=== PATIENT | female | born 1950 | race Caucasian/White ===

== ENCOUNTER 2019-02-20 05:41 | Inpatient (IN) | payer MEDICARE ==
[~2019-02-20 05:41] MED LIST: Buffered Lidocaine 1% SYRIN* 1 ML/SYRINGE INTRADERM ONE
--- OUTSIDE RECORDS SUMMARY | 2019-02-20 05:45 | XMS REPORT | Continuity of Care Document ---
:1950 External Reference #:[id number] Author Name Gilberto Arreola M.D. 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 Onset: 02/11/2018 Morbid obesity Meera Estevez M.D. Onset: 02/11/2018 Localized, primary osteoarthritis of the pelvic Meera Estevez M.D. Onset: 12/2017 region and thigh Social History Type Date Description Comments Sex Unknown ETOH Use Denies alcohol use Tobacco Use Start: Unknown Patient has never smoked Recreational Drug Use Denies Drug Use Smoking Status Reviewed: 01/25/19 Patient has never smoked Exercise Type/Frequency Does not exercise Allergies, Adverse Reactions, Alerts Active Allergies Reaction Severity Comments Date Biaxin Nausea and Vomiting 12/22/2017 Nabumetone 12/22/2017 Morphine Nausea and Vomiting 12/22/2017 Fentanyl Nausea and Vomiting 12/22/2017 Nabumetone Nausea and Vomiting 12/22/2017 Lipitor possible muscle aches 01/19/2018 Pravastatin possible muscle aches 01/19/2018 Medications Active Medications SIG Qnty Indications Ordering Date Provider Gabapentin 1 by mouth every 30caps G57.22 Gilberto Arreola, 01/25/2019 300mg night at bedtime M.D. Capsules Rosuvastatin Calcium take 1 tablet by 90tabs E78.5 Rosalio Arrington 09/21/2018 mouth every other Merchant, DO FACC 5mg Tablets day Klor-Con M20 1 by mouth every 90tabs Joanie Forte, 08/01/2018 20Meq day N.P. Tablets ER Culturelle 1 by mouth Unknown Capsules everyday Hair Skin Nails Unknown Capsules Move Free Joint once daily Unknown Health Advanced glucosamine-condro itinn Tablets Vitamin C 1 by mouth every Unknown 1000mg day Tablets Dicloxacillin Sodium prn before Unknown property clerk 500mg Capsules Amoxicillin take 4 pills, 2 g Unknown 500mg 1 hour before Capsules dental or gi procedure Fish Oil 1 by mouth twice a Unknown 1000mg day Capsules Nasacort Allergy 24HR 2 spray both nares Unknown once daily 55mcg/Act Aerosol Tramadol HCL 1-2 tablets by Unknown 50mg mouth every 6 Tablets hours as needed pain Baclofen take 1/2 tab every Unknown 10mg Tablets 8 hours as needed for muscle spasm Zyrtec Allergy take one tablet by Unknown 10mg mouth in the Capsules evening Meloxicam 1 by mouth every Unknown 15mg Tablets day Citracal Plus daily Unknown Tablets Centrum 1 by mouth every 30tabs Unknown Tablets day Diltiazem HCL ER 1 by mouth every 90caps Rosalio S. Coated Beads day MerchantDO FACC 180mg Caps ER 24HR Flecainide Acetate 1 by mouth twice a 180tabs Rosalio S. day DO Mayur FACC 100mg Tablets Aspir-81 1 by mouth every Unknown 81mg Tablets day Lisinopril 1 by mouth every Unknown 5mg Tablets day Omeprazole 1 by mouth every Unknown 20mg day Capsules Medications Administered in Office Medication SIG Qnty Indications Ordering Provider Date Depomedrol 40MG Meera Estevez M.D. 02/11/2018 Injection Immunizations Description No Information Available Vital Signs Date Vital Result Comment 01/25/2019 10:57am Height 65 inches 5'5" Weight 230.00 lb Heart Rate 61 /min BP Systolic 138 mmHg BP Diastolic 78 mmHg Body Temperature 98.2 F Pain Level 5 BMI (Body Mass Index) 38.3 kg/m2 01/06/2019 3:55pm Height 65 inches 5'5" Weight 233.00 lb Heart Rate 60 /min BP Systolic 130 mmHg BP Diastolic 82 mmHg Respiratory Rate 16 /min Pain Level 8 BMI (Body Mass Index) 38.8 kg/m2 Results Test Date Facility Test Result H/L Range Note Basic Metabolic 09/13/2018 [facility] Sodium 141 mmol/L Normal 135-145 [address] [place] [address] [phone] Potassium 4.0 mmol/L Normal 3.5-5.0 Chloride 107 mmol/L Normal 101-111 Co2 Carbon Dioxide 24 mmol/L Normal 22-32 Anion Gap 10 mmol/L Normal 2-11 Glucose 87 mg/dL Normal 70-100 Blood Urea Nitrogen 24 mg/dL Normal 6-24 Creatinine 0.56 mg/dL Normal 0.51-0.95 BUN/Creatinine Ratio 42.9 High 8-20 Calcium 9.4 mg/dL Normal 8.6-10.3 Egfr Non- 107.3 >60 Egfr 129.9 >60 1 Basic Metabolic 08/01/2018 [facility] Sodium 143 mmol/L Normal 135-145 [address] [place] [address] [phone] Potassium 3.7 mmol/L Normal 3.5-5.0 Chloride 107 mmol/L Normal 101-111 Co2 Carbon Dioxide 27 mmol/L Normal 22-32 Anion Gap 9 mmol/L Normal 2-11 Glucose 101 mg/dL High 70-100 Blood Urea Nitrogen 23 mg/dL Normal 6-24 Creatinine 0.59 mg/dL Normal 0.51-0.95 BUN/Creatinine Ratio 39.0 High 8-20 Calcium 9.8 mg/dL Normal 8.6-10.3 Egfr Non- 101.1 >60 Egfr 122.3 >60 2 Laboratory test 08/01/2018 [facility] Magnesium 2.2 mg/dL Normal 1.9-2.7 finding [address] [place] [address] [phone] TSH (Thyroid Stim Horm) 1.81 mcIU/mL Normal 0.34-5.60 1 Because ethnic data is not always readily available, this report includes an eGFR for both -Americans and non- Americans. The National Kidney Disease Education Program (NKDEP) does not endorse the use of the MDRD equation for patients that are not between the ages of 18 and 70, are , have extremes of body size, muscle mass, or nutritional status, or are non- or non-. According to the National Kidney Foundation, irrespective of diagnosis, the stage of the disease is based on the level of kidney function: Stage Description GFR(mL/min/1.73 m(2)) 1 Kidney damage with normal or decreased GFR 90 2 Kidney damage with mild decrease in GFR 60-89 3 Moderate decrease in GFR 30-59 4 Severe decrease in GFR 15-29 5 Kidney failure <15 (or dialysis) 2 Because ethnic data is not always readily available, this report includes an eGFR for both -Americans and non- Americans. The National Kidney Disease Education Program (NKDEP) does not endorse the use of the MDRD equation for patients that are not between the ages of 18 and 70, are , have extremes of body size, muscle mass, or nutritional status, or are non- or non-. According to the National Kidney Foundation, irrespective of diagnosis, the stage of the disease is based on the level of kidney function: Stage Description GFR(mL/min/1.73 m(2)) 1 Kidney damage with normal or decreased GFR 90 2 Kidney damage with mild decrease in GFR 60-89 3 Moderate decrease in GFR 30-59 4 Severe decrease in GFR 15-29 5 Kidney failure <15 (or dialysis) Procedures Date Code Description Status 12/07/2018 290914084 Bone Mineral Density Test Completed 12/07/2018 [id number] Mammogram Completed 12/02/2018 71625 ECHO Transthoracic, Real-Time 2D With Doppler And Completed Color Flow 12/02/2018 28074 ECHO Transthoracic, Real-Time 2D With Doppler And Completed Color Flow Medical Devices Description No Information Available Encounters Type Date Location Provider Dx Diagnosis Office Visit 01/06/2019 Orth[facility] Meera Estevez, M25.551 Pain in right hip 3:15p [facility] M25.552 Pain in left hip M16.11 Unilateral primary osteoarthritis, right hip M16.12 Unilateral primary osteoarthritis, left hip Z68.38 Body mass index (BMI) 38.0-38.9, adult E66.01 Morbid (severe) obesity due to excess calories Office Visit 09/21/2018 [place] Rosalio Arrington E78.5 Hyperlipidemia, 1:40p Cardiology Of DO Mayur unspecguillermina [facility] I47.1 Supraventricular tachycardia Assessments Date Code Description Provider 01/25/2019 M16.11 Unilateral primary osteoarthritis, right Gilberto Arreola M.D. 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 01/06/2019 M25.551 Pain in right hip Meera Estevez M.D. 01/06/2019 M25.552 Pain in left hip Meera Estevez M.D. 01/06/2019 M16.11 Unilateral primary osteoarthritis, right Meera Estevez M.D. hip 01/06/2019 M16.12 Unilateral primary osteoarthritis, left Meera Estevez M.D. hip 01/06/2019 Z68.38 Body mass index (BMI) 38.0-38.9, adult Meera Estevez M.D. 01/06/2019 E66.01 Morbid (severe) obesity due to excess Meera Estevez M.D. calories 12/02/2018 I35.9 Nonrheumatic aortic valve disorder, Traveling ECHO 1 unspecified 12/02/2018 I35.1 Nonrheumatic aortic (valve) insufficiency Rosalio Merchant, [facility] 12/02/2018 I35.1 Nonrheumatic aortic (valve) insufficiency Traveling ECHO 1 09/21/2018 E78.5 Hyperlipidemia, unspecified Rosalio Merchant [facility] 09/21/2018 I47.1 Supraventricular tachycardia Rosalio Merchant [facility] Plan of Treatment Future Appointment(s):03/22/2019 11:30 am [facility] Gilberto Arreola M.D.M16.11 Unilateral primary osteoarthritis, right hip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, left lower limbNew Medication:Gabapentin 300 mg - 1 by mouth every night at bedtimeFollow up:4 weeks after surgery Functional Status Description No Information Available Mental Status Description No Information Available Referrals Description No Information Available
--- OUTSIDE RECORDS SUMMARY | 2019-02-20 05:45 | XMS REPORT | Continuity of Care Document ---
:1950 External Reference #:[id number] Author Name Winifred Jurado M.D. Address [address] [place] [address] Care Team Providers Name Role Phone Winifred Jurado M.D. 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 Onset: 09/13/2018 Coronary atherosclerosis Winifred Jurado M.D. Onset: 09/13/2018 Essential hypertension Winifred Jurado M.D. Onset: 11/29/2018 Conduction disorder of the heart Winifred Jurado M.D. Onset: 11/29/2018 Osteoarthritis of hip Winifred Jurado M.D. Onset: 11/29/2018 Aortic valve regurgitation Winifred Jurado M.D. Onset: 12/13/2018 Social History Type Date Description Comments Sex Unknown Tobacco Use Start: Unknown Never Smoked Cigarettes ETOH Use Denies alcohol use Tobacco Use Start: Unknown Patient has never smoked Smoking Status Reviewed: 11/29/18 Patient has never smoked Exercise Does not exercise too much pain from Type/Frequency osteoarthritis Allergies, Adverse Reactions, Alerts Active Allergies Reaction Severity Comments Date Biaxin 12/16/2017 Nabumetone 12/16/2017 Morphine 12/16/2017 Fentanyl 12/16/2017 Medications Active Medications SIG Qnty Indications Ordering Date Provider Erythromycin put 1cm ribbon on 3.500gm H01.004 Joselin Harvey 01/13/2019 5mg/GM bilat eyelids at [facility] Ointment bedtime for 10 days Clobetasol Propionate apply thin layer 30gm L30.9 Winifred Jurado 11/29/2018 to affected area M.DAntoinette 0.05% Cream twice a day x5 days and as needed Culturelle 1-2 po qd Unknown Capsules Hair, Skin & Nails 3 po qd Unknown Glucosamine 2 po qd Unknown Chondroitin Complex Capsules Vitamin C 1 po qd - bid Unknown 1000mg Tablets Gabapentin 1 by mouth qhs Unknown 300mg Capsules Rosuvastatin Calcium 1 by mouth every Unknown Mon, Wed and Fri 5mg Tablets Potassium Chloride ER 1 by mouth every Unknown day 20Meq Tablets ER Dicloxacillin Sodium prn 1 hour 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 Amoxicillin prn 1 hour prior Unknown 500mg to dental appt. Tablets Fish Oil once daily Unknown 1400mg Capsules Nasacort Allergy 24HR spray 2 sprays in Unknown each nostril at 55mcg/Act Aerosol bedtime Tramadol HCL 1 by mouth every 6 120tabs [facility], 50mg hours as needed M.D. Tablets Baclofen 1/2 to 1 tab by 90tabs [facility], 10mg Tablets mouth 2-3 times M.D. daily as needed Zyrtec Allergy 1 by mouth daily. Unknown 10mg Capsules Meloxicam 1 by mouth every 90tabs [facility], 15mg Tablets day M.D. Citra Calcium once daily Unknown 500/[id number] Chewtabs Centrum Silver Womens once daily Unknown Tablets Cardizem CD once daily Unknown 180mg Caps ER 24HR Flecainide Acetate bid Unknown 100mg Tablets Aspirin 81 Low Dose 1 by mouth every Unknown day 81mg Chewtabs Lisinopril 1 by mouth every 90tabs [facility], 5mg Tablets day M.D. Omeprazole 1 by mouth every 90caps Butch Kaplan 20mg day MD Maria C Capsules DR Immunizations CPT Code Status Date Vaccine Lot # [id number] Given 11/29/2018 Pneumococcal Immunization [id number] Given 03/18/2018 High-Dose, Influenza Virus Vacccine-fluzone 65 and older Vital Signs Date Vital Result Comment 02/07/2019 11:34am BP Systolic 154 mmHg BP Diastolic 60 mmHg Heart Rate 60 /min Body Temperature 98.8 F Respiratory Rate 18 /min Height 65 inches 5'5" Weight 226.56 lb BMI (Body Mass Index) 37.7 kg/m2 01/13/2019 11:08am BP Systolic 130 mmHg BP Diastolic 74 mmHg Heart Rate 78 /min Body Temperature 97.9 F Height 65 inches 5'5" Results Test Date Facility Test Result H/L Range Note Lipid Profile 12/13/2018 [facility]) Cholesterol 213 mg/dL High 120-200 Triglycerides 56 mg/dL 30-200 HDL Cholesterol 81 mg/dL 30-85 LDL (Calculated) 121 CALC 0-129 VLDL Cholesterol 11 mg/dL 0-50 HDL Risk Factor 2.6 CALC 0.0-4.4 Laboratory test 12/13/2018 [facility]) Free T4 1.11 ng/dL 0.75- 1.54 finding TSH 1.67 mIU/L 0.50-6.00 CBC Electronic Fma 12/13/2018 [facility]) WBC 4.7 x10^3/UL 4.0- 10.0 RBC 4.29 x10^6/UL 3.93-6.00 HGB 14.1 g/dL 12.0-17.0 HCT 42 % 35-50 MCV 98.1 fL High 80.0-95.0 MCH 32.9 pg High 25.6-32.2 MCHC 33.5 g/dL 32.2-36.0 RDW-CV 12.7 % 11.6-14.4 PLT 272 x10^3/UL 163-400 MPV 8.2 fL Low 9.4-12.4 Mili# 2.73 x10^3/UL 1.56-6.13 Lymph# 1.37 x10^3/UL 1.18-3.74 [place]# 0.46 x10^3/UL 0.24-0.82 Eos # 0.1 x10^3/UL 0.0-0.5 Baso # 0.03 x10^3/UL 0.01-0.08 Mili% 58.0 % 34.0-70.0 Lymph % 29.1 % 20.0-52.0 [place]% 9.8 % 5.0-12.0 Eos% 2.5 % 0.7-7.0 Baso% 0.6 % 0.1-1.2 Comprehensive Metabolic 12/13/2018 [facility]) Sodium 144 mEq/L 134-149 Prof Potassium 3.9 mEq/L 3.6-5.5 Chloride 101 mEq/L 94-112 Carbon Dioxide 25 mEq/L 21-32 Glucose 94 mg/dL 70-105 BUN 20 mg/dL 6-26 Creatinine 0.6 mg/dL 0.6-1.4 BUN/Creat Ratio 33.3 CALC 8.0-36.0 Calcium 9.5 mg/dL 8.6-10.2 Total Protein 7.1 g/dL 6.4-8.3 Albumin 4.6 g/dL 3.8-5.5 Globulin 2.5 g/dL 2.0-4.8 A/G Ratio 1.8 CALC 0.6-2.3 Alk. Phosphatase 79 U/L 30-110 Alt (SGPT) 18 U/L 7-35 Ast (Sgot) 19 U/L 5-34 Total Bilirubin 0.5 mg/dL 0.2-1.3 GFR Non- >60 ml/min/1.73m^ >=60 GFR >60 ml/min/1.73m^ >=60 Basic Metabolic Panel 09/13/2018 [facility] Sodium 141 mmol/L Normal 135-145 Potassium 4.0 mmol/L Normal 3.5-5.0 Chloride 107 mmol/L Normal 101-111 Co2 Carbon Dioxide 24 mmol/L Normal 22-32 Anion Gap 10 mmol/L Normal 2-11 Glucose 87 mg/dL Normal 70-100 Blood Urea Nitrogen 24 mg/dL Normal 6-24 Creatinine 0.56 mg/dL Normal 0.51-0.95 BUN/Creatinine Ratio 42.9 High 8-20 Calcium 9.4 mg/dL Normal 8.6-10.3 Egfr Non- 107.3 >60 Egfr 129.9 >60 1 1 Because ethnic data is not always [...] dialysis) Procedures Date Code Description Status 12/07/2018 [id number] Mammogram Completed Medical Devices Description No Information Available Encounters Type Date Location Provider Dx Diagnosis Office Visit 01/13/2019 [facility] Joselin Harvey H01.004 Unspecified 11:00a [facility] blepharitis left upper eyelid H01.001 Unspecified blepharitis right upper eyelid 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 Office Visit 11/29/2018 1:20p [facility] Office Winifred Jurado Z00.01 Encounter for M.[place] general adult medical exam w abnormal findings L30.9 Dermatitis, unspecified M16.9 Osteoarthritis of hip, unspecified I10 Essential (primary) hypertension I49.9 Cardiac arrhythmia, unspecified Z12.31 Encntr screen mammogram for malignant neoplasm of breast I35.9 Nonrheumatic aortic valve disorder, unspecified Z12.11 Encounter for screening for malignant neoplasm of colon R01.1 Cardiac murmur, unspecified Z23 Encounter for immunization Office Visit 08/23/2018 11:00a [facility] Office Joselin Harvey M16.9 Osteoarthritis of [facility] hip, unspecified M17.9 Osteoarthritis of knee, unspecified Assessments Date Code Description Provider 02/07/2019 Z01.818 Encounter for other preprocedural Winifred Jurado M.D. examination 02/07/2019 M16.9 Osteoarthritis of hip, unspecified Winifred Jurado M.D. 02/07/2019 I10 Essential (primary) hypertension Winifred Jurado M.D. 02/07/2019 I49.9 Cardiac arrhythmia, unspecified Winifred Jurado M.D. 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 11/29/2018 Z00.01 Encounter for general adult medical Winifred Jurado M.D. examination with abnorma 11/29/2018 L30.9 Dermatitis, unspecified Winifred Jurado M.D. 11/29/2018 M16.9 Osteoarthritis of hip, unspecified Winifred Jurado M.D. 11/29/2018 I10 Essential (primary) hypertension Winifred Jurado M.D. 11/29/2018 I49.9 Cardiac arrhythmia, unspecified Winifred Jurado M.D. 11/29/2018 Z12.31 Encounter for screening mammogram for Winifred Jurado M.D. malignant neoplasm of 11/29/2018 I35.9 Nonrheumatic aortic valve disorder, Winifred Jurado M.D. unspecified 11/29/2018 Z12.11 Encounter for screening for malignant Winifred Jurado M.D. neoplasm of colon 11/29/2018 R01.1 Cardiac murmur, unspecified Winifred Jurado M.D. 11/29/2018 Z23 Encounter for immunization Winifred Jurado M.D. 08/23/2018 M16.9 Osteoarthritis of hip, unspecified Joselin Wells NP 08/23/2018 M17.9 Osteoarthritis of knee, unspecified Joselin Wells NP Plan of Treatment Future Appointment(s):04/04/2019 2:20 pm - Winifred Jurado M.D. at [facility]02/07/2019 - Winifred Jurado M.D.Z01.818 Encounter for other preprocedural examinationComments:Cleared for surgery. Will fax note to ordering physician. HOLD NSAIDS and all supplements 7 days prior to [id number] Osteoarthritis of hip, [id number] Essential (primary) hypertensionComments:The patient will continue to monitor blood pressure and let me know the blood pressure results if there are readings persistently above 140/90. Goal blood pressure is less than 130/80. Recommend low salt/cardiac diet such as the Mediterranean diet and routine exercise at least 30 minutes a day.I49.9 Cardiac arrhythmia, unspecifiedComments:seeing cardiologyAllComments:Medication Management Patient Understands medications she's taking? Yes No Are there Barriers to Adherence? Yes No Has the patient been asked about herbal supplements and therapies, and OTC meds? Yes No Functional Status Functional Condition Comment Date Status Hemiwalker is used to ambulate Active Mental Status Description No Information Available Referrals Refer to Reason for Referral Status Appt Date [facility] Echocardiogram jw Sent [facility] [place] [address] [phone]
[2019-02-20] MEDS ORDERED: Dexamethasone IV* 4 MG/ML 1 ML (4 MG) IV SLOW PU ONE (06:00)
[2019-02-20] MEDS ORDERED: Lactated Ringers 1000 ML Bag* 1,000 ML IV SCH (06:00)
[2019-02-20] MEDS ORDERED: Dexamethasone IV* 4 MG/ML 1 ML (4 MG) ONE (06:12)
[2019-02-20] MEDS ORDERED: Buffered Lidocaine 1% SYRIN* 1 ML/SYRINGE INTRADERM ONE (06:12)
[2019-02-20] MEDS ORDERED: ceFAZolin 2 GM in NS PREMIX(*) 2 GM/100 ML BAG IVPB ONE (06:12)
[2019-02-20] MEDS ORDERED: ROPIVACAINE 5 MG/ML 30 ML BTL (0.5%) ONE (07:07)
[2019-02-20] MEDS ORDERED: Ropivacaine (OR use only) 2 MG/ML 10 ML ONE (07:07)
[2019-02-20] MEDS ORDERED: Phenylephrine 10 MG/ML VIAL* 1 ML VIAL ONE (07:09)
[2019-02-20] MEDS ORDERED: Ondansetron INJ* 2 MG/ML VIAL ONE (07:10)
[2019-02-20] MEDS ORDERED: Bupivacaine 0.5% SDV PF* 30ML VIAL ONE (07:10)
[2019-02-20] MEDS ORDERED: Propofol* 10 MG/ML 20 ML BTL ONE ×2 (07:10→09:03)
[2019-02-20] MEDS ORDERED: Midazolam* 1 MG/ML 5 ML VIAL (5 MG) ONE ×2 (07:13→08:25)
[2019-02-20] MEDS ORDERED: KETAMINE HCL* 50 MG/ML 10 ML VIAL ONE (07:13)
[2019-02-20] MEDS ORDERED: Bupivacaine 0.5% W/EPI SDV* 10 ML VIAL INJ ONE (07:19)
[2019-02-20] MEDS ORDERED: Lidocaine 2% PF * 5 ML VIAL ONE (08:11)
[2019-02-20] MEDS ORDERED: Naloxone* 0.4 MG/ML 1 ML VIAL IV PRN (08:37)
[2019-02-20] MEDS ORDERED: Scopolamine 1.5 mg* PATCH TRANSDERM PRN (08:37)
[2019-02-20] MEDS ORDERED: DiMENhydriNATE IV* 50 MG/ML VIAL IV PUSH PRN (08:37)
[2019-02-20] MEDS ORDERED: Ondansetron INJ* 2 MG/ML VIAL IV PRN ×2 (08:37→10:22)
[2019-02-20] MEDS ORDERED: diPHENhydraMINE PO* 25 MG PO PRN (10:22)
[2019-02-20] MEDS ORDERED: Temazepam CAP* 15 MG PO PRN (10:22)
[2019-02-20] MEDS ORDERED: Ondansetron ODT TAB* 4 MG PO PRN (10:22)
[2019-02-20] MEDS ORDERED: traMADol TAB* 50 MG PO PRN (10:22)
[2019-02-20] MEDS ORDERED: Polyethylene Glycol 3350* 17 GM PACKET PO PRN (10:22)
[2019-02-20] MEDS ORDERED: Magnesium Hydroxide LIQ* 30 ML UDC PO PRN (10:22)
[2019-02-20] MEDS ORDERED: diPHENhydraMINE IV* 50 MG/ML 1 ml VIAL (BENADRYL) IV PRN (10:22)
[2019-02-20] MEDS ORDERED: HYDROmorphone INJ1* 1 MG/ML SYRINGE ONE ×2 (10:29→15:12)
[2019-02-20] MEDS: HYDROmorphone INJ1* 1 MG/ML SYRINGE IV PRN ×5 (10:30→11:09)
[2019-02-20] MEDS ORDERED: traMADol TAB* 50 MG ONE (10:38)
[2019-02-20] MEDS ORDERED: oxyCODONE/Acetamin 5/325 MG* TAB ONE (11:15)
[2019-02-20] MEDS: oxyCODONE/Acetamin 5/325 MG* TAB PO PRN ×2 (11:20→21:46)
[2019-02-20] MEDS: Cyclobenzaprine TAB* 10 MG PO PRN ×2 (11:32→21:47)
[2019-02-20] MEDS: Lactated Ringers 1000 ML Bag* 1,000 ML IV SCH ×2 (12:25→22:01)
--- NOTE | 2019-02-20 13:09 | OP ---
DATE OF OPERATION: 02/20/19 - ROOM #348 DATE OF : 46 ATTENDING SURGEON: Gilberto Arreola MD ASSISTANTS: 1. Ino Loza RPA 2. Cindi Condon RPA ANESTHESIA: Spinal sedation. PRE-OP DIAGNOSIS: Osteoarthritis, right hip. POST-OP DIAGNOSIS: Osteoarthritis, right hip. OPERATIVE PROCEDURE: Right total hip arthroplasty. INDICATIONS: Ms. Rowley is a 68-year-old female who has had a long history of troubles with her joints. She had been seen by 2 other orthopedists and because of the technical difficulties with doing a hip replacement because of her weight, she was referred to me for another opinion. I discussed with her that with being in the lateral decubitus position, some of her fat would roll to the side and we would hopefully be able to have good exposure for the surgery. Additionally, she is not a candidate for the minimal invasive approaches that she was interested in, but I discussed with her that with a classic posterolateral incision, we should be able to adequately place a hip replacement. Risks of surgery such as infection, scar formation, stiffness, DVT , pulmonary embolism, and hardware failure were some of the risks discussed. She had been declared medically optimized and wished to proceed. I discussed with her we would work to try and get most of her length back; but, considering she was about 2 cm short on this side because of bone loss and bony destruction , that I was unsure we would be able to get all of it back. ESTIMATED BLOOD LOSS: 250 cc COMPLICATIONS: None. HARDWARE: Chacho reduced neck standard offset, 12.5 M/L taper, +0 36-mm head, 52-mm Continuum cup with two screws, 15-degree elevated liner. DESCRIPTION OF PROCEDURE: The patient had a block placed in the holding area and was brought back to the OR. Spinal anesthesia was introduced. Wallace catheter was placed. She was then rolled into the left lateral decubitus position and an axillary roll was placed. She reported she was quite comfortable in that position after it was adjusted. She was secured with a pegboard and the right hip area was prepped and then draped. Incision was made centered about where I thought I could feel the greater trochanter but I came posteriorly some because of a large exuberant fatty area which was more lateral. Incision was carried down to the skin and subcutaneous fat. Small bleeders encountered were ligated using electrocautery. Fascia was eventually exposed and a large vessel was seen crossing the fascia. This was tied off and the fascia was sharply incised. Greater trochanter was present underneath. Partial detachment of the abductors was present. Hohmann was placed under the gluteus medius/gluteus minimus and nice exposure of the short external rotators and piriformis was obtained. With rotation of the leg, I was able to put some tension on them and release piriformis, short external rotators, and capsule. T -capsulotomy was made and hip was then dislocated. Damage on the femoral head was immediately evident. Cutting guide was placed and the femoral neck was marked. Femoral head was then resected. Anterior retractor was then placed and pulling the femur forward, good exposure of the acetabulum was obtained. Labrum was taken down sharply using a [place] blade and she appeared how it looked when she was templated. Specifically, she was already all the way down to her medial wall, so I knew I did not want to ream aggressively. Beginning with a 46 reamer, she was gently reamed so that I would slowly expand my edges. At 50, I had a good [id number] fit and with 51, ended up thinning the posterior rim a little bit. Trial was placed and I still had a solid fit with a trial and a 52 cup was called for. Cup was then impacted into place and I could rock her entire torso by the cup. Two screws were placed and good squeak was obtained with both. Trial liner was placed and attention was turned to the femur. She had quite the osteophyte posteriorly which was taken down using the rongeur and then the box osteotome was used to open the femoral canal. Canal finder was then easily passed. Beginning with a 4 broach, she was progressively broached. As templated, the 11 countersunk some and at 12.5, I sat quite nicely. Calcar planer was used just to smooth the edge of the femoral neck. With a reduced neck trial and a 0 head, she was reduced and had very good stability. She would lever out as she came past 90 degrees because of how her thigh fat would hit her belly fat. The hip itself seemed nice and stable. Similarly with adduction, she would start to lever out at about 45 degrees with internal rotation. With full adduction, she did not lever out. On extension and external rotation, she was nice and stable. Coming back to dislocate the hip, when the head and neck were removed and the broach handle was placed, the broach, I could rock her entire leg by the broach handle. 12.5 M /L taper stem was called for as was the elevated liner. Trial instrumentation was removed and the hip was copiously pulse lavaged. Liner was then impacted into place as was the M/L taper. Zero head was also impacted into place. She was taken through range of motion, had a same wonderful stability that she had before. Hip was again copiously pulse lavaged and the fascia was repaired using interrupted 0 Vicryl sutures. I was unable to get the entire oblique portion to come together because I also had increased her offset even with the reduced neck. Her leg length also appeared significantly improved where she had about 18 mm, she almost had 2 cm leg length discrepancy and I believe I corrected her by at least a cm and a half. This also led to my inability to fully close the fascia securely. Hip was again copiously pulse lavaged. Short external rotators and capsule have repaired to the posterior aspect of the greater trochanter. Hip was again copiously pulse lavaged and fat was repaired in 3 layers. Skin was closed using isela. Sterile dressing and an abduction pillow were applied in the OR. The patient was then rolled onto the hospital bed , was stable on transfer to the recovery room. [id number]/CPS #: [id number] NII
[2019-02-20] MEDS: Potassium Chlor TAB* 20 MEQ TAB.ER PO SCH (13:30)
[2019-02-20] MEDS: Acetaminophen TAB* 325 MG PO SCH ×2 (13:31→21:47)
[2019-02-20] MEDS: oxyCODONE TAB* 5 MG TAB PO PRN ×2 (15:16→19:58)
--- NOTE | 2019-02-20 15:16 | CONS ---
CONSULTATION REPORT: DATE OF CONSULT: 02/20/19 REQUESTING PROVIDER: Dr. Arreola. REASON FOR CONSULT: Co-management of chronic medical condition. HISTORY OF PRESENT ILLNESS: Darcy Rowley is a 68-year-old white female with past medical history significant for SVT, hypertension, hyperlipidemia and moderate aortic regurgitation, who presented for an elective right total hip arthroplasty today with Dr. Arreola. The patient failed outpatient conservative medical therapy for her right hip osteoarthritis and has elected to proceed with surgery. The patient is evaluated on the medical floor after surgery has been performed. The patient is feeling well. She feels her pain is well controlled. She denies chest pain, difficulty breathing, fever or chills, headache or abdominal pain, nausea or vomiting. The patient tells me that she has prior history of hypothyroidism for 3 months over 30 years ago. Upon review of outpatient medical records, at her most recent visit with her primary care provider, Dr. Winifred Jurado, her TSH was within normal limits this year. She has been having ongoing hair loss, which was previously explained to her by a cardiology provider that it is possibly an adverse side effect of her diltiazem. PAST MEDICAL HISTORY: 1. Hypertension. 2. Hyperlipidemia. 3. History of SVT. 4. Obesity. 5. Moderate aortic regurgitation. 6. GERD. PAST SURGICAL HISTORY: 1. Posterior cervical fusion. 2. Appendectomy. 3. Bilateral total knee replacements. 4. Right shoulder surgery. 5. Bilateral foot triple arthrodesis. HOME MEDICATIONS: 1. Baclofen 10 mg p.o. daily. 2. Aspirin 81 mg p.o. daily. 3. Ascorbic acid 1000 mg p.o. b.i.d. 4. Dicloxacillin 500 mg p.o. daily p.r.n. before boiling off winder. 5. Clobetasol cream 1 application topically b.i.d. p.r.n. rash. 6. Cetirizine 10 mg p.o. daily. 7. Calcium citrate 20 mg p.o. daily. 8. Culturelle 1 tab p.o. daily. 9. Glucosamine/chondroitin 1 tab p.o. daily. 10. Gabapentin 300 mg p.o. at bedtime. 11. Flecainide 100 mg p.o. b.i.d. 12. Omeprazole 20 mg p.o. daily. 13. Fish oil 1 capsule p.o. b.i.d. 14. Folic acid/iron/calcium vitamin 1 cap p.o. daily. 15. Multivitamin 1 tab p.o. daily. 16. Meloxicam 15 mg p.o. daily. 17. Lisinopril 5 mg p.o. daily. 18. Diltiazem 180 mg p.o. daily. 19. Triamcinolone nasal spray 2 sprays each nostril daily. 20. Tramadol 50 mg p.o. q.6 hours p.r.n. moderate pain. 21. Rosuvastatin 5 mg p.o. at bedtime. 22. Potassium chloride 20 mEq p.o. daily. 23. Amoxicillin 2000 mg p.o. p.r.n. 1 hour prior to dental or GI procedure. ALLERGIES: The patient has reaction of myalgias to LIPITOR and PRAVASTATIN. The patient has adverse reaction of GI upset to NABUMETONE, MORPHINE, FENTANYL and CLARITHROMYCIN. FAMILY HISTORY: The patient's mother from complications with diabetes at age 64. The patient's father at age 85 due to complications related to septic knee. He had a history of hypertension and CHF. 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 She is new to the area within the last year, originally from [place], [place]. She is and has 1 child. She denies illicit drug use, alcohol use and tobacco use. She does have secondhand smoke exposure due to her smoking in the past. REVIEW OF SYSTEMS: An 11-point review of systems was completed and all pertinent positives and negatives are as above in the HPI. All other systems are negative. PHYSICAL EXAM: General: Obese elderly white female, lying upright in hospital bed, appearing comfortable, in no acute distress. Head: Normocephalic, atraumatic. Eyes: PERRLA. Sclerae anicteric. ENT: Mucous membranes moist. Neck: Supple. Lungs: Clear to auscultation throughout. Chest expansion is symmetrical with respiration. Cardio: Regular rate and rhythm without murmurs , rubs, or gallops. Abdomen: Abdomen is soft, nontender, nondistended. No hepatomegaly. Extremities: No clubbing, cyanosis, or edema. Able to move all extremities. Neuro: The patient is alert and oriented x3. No focal deficits. ASSESSMENT AND PLAN: Darcy Rowley is a 68-year-old white female with past medical history significant for hypertension, hyperlipidemia, supraventricular tachycardia, who is status post elective right total hip arthroplasty with Dr. Arreola today. Hospital Medicine has been consulted for co-management of chronic medical conditions. 1. Supraventricular tachycardia. I will continue the patient's home diltiazem and flecainide. I will check the patient's magnesium tomorrow in addition to the BNP that has been ordered for tomorrow. I have ordered telemetry for the patient while she is in the hospital. Continue the patient's potassium and magnesium supplementation. 2. Hypertension. The patient's home lisinopril was 5 mg p.o. daily, I will continue this, but with holding parameters to hold for a systolic blood pressure of less than 110. She is overall normotensive here at the hospital today and we will continue to monitor. 3. Hyperlipidemia. The patient takes rosuvastatin at home and does have a history of myalgias to Lipitor and I will contact the pharmacy to see if they have any rosuvastatin to give this patient while she is in the hospital. Otherwise, her family should be notified to bring this medication. 4. Gastroesophageal reflux disease. The patient's home PPI will be continued. 5. Status post right total hip arthroplasty. It appears that the orthopedic team has started Coumadin for DVT prophylaxis. All other management per Orthopedic Surgery. 6. Disposition: Per Orthopedic Surgery. Thank you for allowing us to participate in the care of this patient. We will follow along during this admission. ROMAN BOWLING [id number]/CPS #: [id number] MTDD
--- NOTE | 2019-02-20 16:26 | PN ---
Progress Note - Progress Note Date of Service: 02/20/19 Note: Pt seen at bedside POD 0 she is feeling well though had significant hip pain with weight bearing. denies any CP, SOB, dizziness, nausea. DF/PF intact, DP2+, sensation intact to light touch distally. Calves supple and nontender.
[2019-02-20] MEDS: ceFAZolin 1 GM ADVAN(*) 1 GM in NS 0.9% 50 ML* 50 ML IVPB SCH ×2 (16:27→23:56)
[2019-02-20] MEDS ORDERED: Lisinopril TAB* 5 MG PO SCH (17:00)
[2019-02-20] MEDS ORDERED: Warfarin TAB(*) 10 MG PO ONE (17:00)
[2019-02-20] MEDS: Lisinopril TAB* 5 MG PO SCH (17:50)
[2019-02-20] MEDS: Baclofen TAB* 10 MG PO SCH (18:02)
[2019-02-20] MEDS: Cetirizine* 10 MG TAB PO SCH (18:02)
[2019-02-20] MEDS: Gabapentin CAP(*) 300 MG PO SCH (21:18)
[2019-02-20] MEDS: Magnesium Hydroxide LIQ* 30 ML UDC PO SCH ×2 (21:18→21:20)
[2019-02-20] MEDS: Docusate CAP* 100 MG PO SCH (21:18)
[2019-02-20] MEDS: Flecainide TAB* 100 MG PO SCH (21:18)
[2019-02-20] MEDS: CMC:Rosuvastatin (NF) 5 MG TAB PO SCH (21:19)
[2019-02-21] MEDS: oxyCODONE/Acetamin 5/325 MG* TAB PO PRN ×2 (03:21→22:44)
[2019-02-21] MEDS: Acetaminophen TAB* 325 MG PO SCH ×3 (05:49→22:47)
[2019-02-21 06:07] LABS: ABS Lymphocytes 0.9 10^3/ul (1.0-4.8); ABS Monocytes 1.1 10^3/ul (0-0.8); ABS Neutrophils 6.1 10^3/ul (1.5-7.7); Eosinophil % 0.1 %; Hematocrit 30 % (35-47); Hemoglobin 10.7 g/dL (12.0-16.0); Lymphocyte % 10.9 %; Mean Corpuscular HGB Conc 36 g/dL (31-36); Mean Corpuscular Hemoglobin 34 pg (27-31); Mean Corpuscular Volume 96 fL (80-97); Mean Platelet Volume 6.5 fL (7.4-10.4); Platelet Count 266 10^3/uL (150-450); Red Blood Count 3.15 10^6 /uL (3.70-4.87); Red Cell Distribution Width 13 % (10-15); White Blood Count 8.1 10^3/uL (3.5-10.8)
[2019-02-21] MEDS: Cyclobenzaprine TAB* 10 MG PO PRN ×3 (06:07→18:08)
[2019-02-21 06:18] LABS: INR 1.15 (0.82-1.09)
[2019-02-21 06:25] LABS: BUN/Creatinine Ratio 36.4 (8-20); Calcium 8.5 mg/dL (8.6-10.3); EGFR African American 171.1 (>60); EGFR Non-African American 141.4 (>60); Magnesium 1.8 mg/dL (1.9-2.7); Potassium 4.2 mmol/L (3.5-5.0)
[2019-02-21] MEDS: Lactated Ringers 1000 ML Bag* 1,000 ML IV SCH (08:21)
[2019-02-21] MEDS: ceFAZolin 1 GM ADVAN(*) 1 GM in NS 0.9% 50 ML* 50 ML IVPB SCH (08:21)
[2019-02-21] MEDS: oxyCODONE TAB* 5 MG TAB PO PRN ×3 (08:30→16:40)
[2019-02-21] MEDS: Flecainide TAB* 100 MG PO SCH ×2 (08:30→20:55)
[2019-02-21] MEDS: Diltiazem CD CAP* 180 MG PO SCH (08:30)
[2019-02-21] MEDS: Vitamin THERAPEUTIC TAB PO SCH (08:30)
[2019-02-21] MEDS: Pantoprazole TAB * 40 MG TAB PO SCH (08:30)
[2019-02-21] MEDS: Docusate CAP* 100 MG PO SCH ×2 (08:30→20:55)
[2019-02-21] MEDS: Magnesium Hydroxide LIQ* 30 ML UDC PO SCH ×2 (08:31→20:55)
[2019-02-21] MEDS: Heparin VIAL(*) 5000 UNITS/ML VIAL (FIVE THOUSAND) SUBCUT SCH ×3 (08:32→22:45)
--- NOTE | 2019-02-21 09:43 | PN ---
Progress Note - Progress Note Date of Service: 02/21/19 SOAP: Subjective: []Pt seen at bedside, she is POD1 sp RTH. Denies CP, SOB, dizziness, nausea. Objective: []Gen: NAD, appears well RLE: Right hip dressing CDI without surrounding erythema, thigh is soft, DF/PF intact, DP2+, sensation intact to light touch distally Calves supple and nontender without erythema, edema or palpable cords Assessment: []POD 1 SP RTH Plan: []WBAT posterior hip precautions PT/OT - pt has been slow moving thus far, anticipate she will benefit from rehab Heparin bridge to coumadin, coumadin 6 mg today PMRU referral in, if not accepted 2nd choice is [facility] or [facility] Vital Signs Temp 98.4 F 02/21/19 07:37 Pulse 75 02/21/19 07:37 Resp 16 02/21/19 09:46 BP 113/55 02/21/19 07:37 Pulse Ox 95 02/21/19 07:37 Intake & Output 02/20/19 02/21/19 02/21/19 18:59 06:59 18:59 Intake Total 2600 2478 1149 Output Total 1350 2350 Balance 7007 172 8468 Intake: IV Fluids 2200 944 1049 ABX - CEFAZOLIN 53 LR 2200 944 996 IVPB 54 ABX - CEFAZOLIN 54 Oral 400 1480 100 Output: Wallace 1100 2350 Estimated Blood Loss 250 Laboratory Last Values WBC 8.1 10^3/uL (3.5-10.8) 02/21/19 05:52 RBC 3.15 10^6 /uL (3.70-4.87) L 02/21/19 05:52 Hgb 10.7 g/dL (12.0-16.0) L 02/21/19 05:52 Hct 30 % (35-47) L 02/21/19 05:52 MCV 96 fL (80-97) 02/21/19 05:52 MCH 34 pg (27-31) H 02/21/19 05:52 MCHC 36 g/dL (31-36) 02/21/19 05:52 RDW 13 % (10-15) 02/21/19 05:52 Plt Count 266 10^3/uL (150-450) 02/21/19 05:52 MPV 6.5 fL (7.4-10.4) L 02/21/19 05:52 Neut % (Auto) 75.3 % 02/21/19 05:52 Lymph % (Auto) 10.9 % 02/21/19 05:52 [place] % (Auto) 13.5 % 02/21/19 05:52 Eos % (Auto) 0.1 % 02/21/19 05:52 Baso % (Auto) 0.2 % 02/21/19 05:52 Absolute Neuts (auto) 6.1 10^3/ul (1.5-7.7) 02/21/19 05:52 Absolute Lymphs (auto) 0.9 10^3/ul (1.0-4.8) L 02/21/19 05:52 Absolute Monos (auto) 1.1 10^3/ul (0-0.8) H 02/21/19 05:52 Absolute Eos (auto) 0.0 10^3/ul (0-0.6) 02/21/19 05:52 Absolute Basos (auto) 0.0 10^3/ul (0-0.2) 02/21/19 05:52 Absolute Nucleated RBC 0.0 10^3/ul 02/21/19 05:52 Nucleated RBC % 0.0 02/21/19 05:52 INR (Anticoag Therapy) 1.15 (0.82-1.09) H 02/21/19 05:52 APTT 27.0 seconds (26.0-38.0) 02/21/19 05:52 Sodium 139 mmol/L (135-145) 02/21/19 05:52 Potassium 4.2 mmol/L (3.5-5.0) 02/21/19 05:52 Chloride 108 mmol/L (101-111) 02/21/19 05:52 Carbon Dioxide 27 mmol/L (22-32) 02/21/19 05:52 Anion Gap 4 mmol/L (2-11) 02/21/19 05:52 BUN 16 mg/dL (6-24) 02/21/19 05:52 Creatinine 0.44 mg/dL (0.51-0.95) L 02/21/19 05:52 Est GFR ( Amer) 171.1 (>60) 02/21/19 05:52 Est GFR (Non-Af Amer) 141.4 (>60) 02/21/19 05:52 BUN/Creatinine Ratio 36.4 (8-20) H 02/21/19 05:52 Glucose 138 mg/dL (70-100) H 02/21/19 05:52 Calcium 8.5 mg/dL (8.6-10.3) L 02/21/19 05:52 Magnesium 1.8 mg/dL (1.9-2.7) L 02/21/19 05:52
[2019-02-21] MEDS: HYDROmorphone INJ1* 1 MG/ML SYRINGE IV PRN ×2 (09:46→20:55)
[2019-02-21] MEDS: Potassium Chlor TAB* 20 MEQ TAB.ER PO SCH (12:33)
[2019-02-21] MEDS: Baclofen TAB* 10 MG PO SCH (16:40)
[2019-02-21] MEDS: Lisinopril TAB* 5 MG PO SCH (16:40)
[2019-02-21] MEDS ORDERED: Warfarin TAB(*) 6 MG PO ONE (17:00)
[2019-02-21] MEDS: Cetirizine* 10 MG TAB PO SCH (18:08)
[2019-02-21] MEDS: Gabapentin CAP(*) 300 MG PO SCH (20:54)
[2019-02-21] MEDS: CMC:Rosuvastatin (NF) 5 MG TAB PO SCH (22:19)
[2019-02-22] MEDS: oxyCODONE/Acetamin 5/325 MG* TAB PO PRN ×3 (04:01→17:10)
[2019-02-22] MEDS: Cyclobenzaprine TAB* 10 MG PO PRN ×3 (04:02→20:58)
[2019-02-22] MEDS: oxyCODONE TAB* 5 MG TAB PO PRN ×3 (05:11→14:29)
[2019-02-22] MEDS: Acetaminophen TAB* 325 MG PO SCH ×3 (05:14→22:32)
[2019-02-22 05:58] LABS: Hematocrit 29 % (35-47); Hemoglobin 9.9 g/dL (12.0-16.0); Mean Platelet Volume 6.6 fL (7.4-10.4); Platelet Count 235 10^3/uL (150-450)
[2019-02-22 06:04] LABS: INR 2.34 (0.82-1.09)
[2019-02-22] MEDS: Heparin VIAL(*) 5000 UNITS/ML VIAL (FIVE THOUSAND) SUBCUT SCH ×3 (06:29→22:30)
[2019-02-22] MEDS: Pantoprazole TAB * 40 MG TAB PO SCH (10:20)
[2019-02-22] MEDS: Diltiazem CD CAP* 180 MG PO SCH (10:20)
[2019-02-22] MEDS: Magnesium Hydroxide LIQ* 30 ML UDC PO SCH ×2 (10:20→20:59)
[2019-02-22] MEDS: Vitamin THERAPEUTIC TAB PO SCH (10:20)
[2019-02-22] MEDS: Docusate CAP* 100 MG PO SCH ×2 (10:20→20:59)
[2019-02-22] MEDS: Flecainide TAB* 100 MG PO SCH ×2 (10:20→20:59)
[2019-02-22] MEDS ORDERED: Bisacodyl SUPP* 10 MG SUPP PR PRN (10:22)
[2019-02-22] MEDS: Potassium Chlor TAB* 20 MEQ TAB.ER PO SCH (11:55)
--- NOTE | 2019-02-22 13:38 | PN ---
Progress Note - Progress Note Date of Service: 02/22/19 SOAP: Subjective: []Pt seen at bedside. She is feeling well without CP, SOB, dizziness, nausea. Hip pain is well controlled at rest. She has been requiring 2 assist to move in bed and requires the easy stand to get out of bed. Objective: []Gen: NAD, appears well RLE: Right hip dressing changed, incision is CDI without surrounding erythema, thigh is soft, DF/PF intact, DP2+, sensation intact to light touch distally Calves supple and nontender without erythema, edema or palpable cords Assessment: []POD 2 SP RTH Plan: []WBAT posterior hip precautions PT/OT - pt has been slow moving thus far, she will benefit from rehab. [facility] is unable to offer a bed, she will need to go to either [facility] or [facility] Heparin bridge to coumadin, coumadin 1 mg today. Stop heparin tomorrow Vital Signs Temp 98.2 F 02/22/19 12:02 Pulse 84 02/22/19 12:02 Resp 18 02/22/19 12:25 BP 121/60 02/22/19 12:02 Pulse Ox 99 02/22/19 12:02 Intake & Output 02/21/19 02/22/19 02/22/19 18:59 06:59 18:59 Intake Total 1889 1020 240 Output Total 250 100 400 Balance 1639 920 -160 Intake: IV Fluids 1049 ABX - CEFAZOLIN 53 LR 996 Oral 840 1020 240 Output: Urine 250 100 400 Other: Estimated Void Medium # Voids 1 Laboratory Last Values WBC 8.1 10^3/uL (3.5-10.8) 02/21/19 05:52 RBC 3.15 10^6 /uL (3.70-4.87) L 02/21/19 05:52 Hgb 9.9 g/dL (12.0-16.0) L 02/22/19 05:43 Hct 29 % (35-47) L 02/22/19 05:43 MCV 96 fL (80-97) 02/21/19 05:52 MCH 34 pg (27-31) H 02/21/19 05:52 MCHC 36 g/dL (31-36) 02/21/19 05:52 RDW 13 % (10-15) 02/21/19 05:52 Plt Count 235 10^3/uL (150-450) 02/22/19 05:43 MPV 6.6 fL (7.4-10.4) L 02/22/19 05:43 Neut % (Auto) 75.3 % 02/21/19 05:52 Lymph % (Auto) 10.9 % 02/21/19 05:52 [place] % (Auto) 13.5 % 02/21/19 05:52 Eos % (Auto) 0.1 % 02/21/19 05:52 Baso % (Auto) 0.2 % 02/21/19 05:52 Absolute Neuts (auto) 6.1 10^3/ul (1.5-7.7) 02/21/19 05:52 Absolute Lymphs (auto) 0.9 10^3/ul (1.0-4.8) L 02/21/19 05:52 Absolute Monos (auto) 1.1 10^3/ul (0-0.8) H 02/21/19 05:52 Absolute Eos (auto) 0.0 10^3/ul (0-0.6) 02/21/19 05:52 Absolute Basos (auto) 0.0 10^3/ul (0-0.2) 02/21/19 05:52 Absolute Nucleated RBC 0.0 10^3/ul 02/21/19 05:52 Nucleated RBC % 0.0 02/21/19 05:52 INR (Anticoag Therapy) 2.34 (0.82-1.09) H 02/22/19 05:43 APTT 27.0 seconds (26.0-38.0) 02/21/19 05:52 Sodium 139 mmol/L (135-145) 02/21/19 05:52 Potassium 4.2 mmol/L (3.5-5.0) 02/21/19 05:52 Chloride 108 mmol/L (101-111) 02/21/19 05:52 Carbon Dioxide 27 mmol/L (22-32) 02/21/19 05:52 Anion Gap 4 mmol/L (2-11) 02/21/19 05:52 BUN 16 mg/dL (6-24) 02/21/19 05:52 Creatinine 0.44 mg/dL (0.51-0.95) L 02/21/19 05:52 Est GFR ( Amer) 171.1 (>60) 02/21/19 05:52 Est GFR (Non-Af Amer) 141.4 (>60) 02/21/19 05:52 BUN/Creatinine Ratio 36.4 (8-20) H 02/21/19 05:52 Glucose 138 mg/dL (70-100) H 02/21/19 05:52 Calcium 8.5 mg/dL (8.6-10.3) L 02/21/19 05:52 Magnesium 1.8 mg/dL (1.9-2.7) L 02/21/19 05:52
[2019-02-22] MEDS ORDERED: Warfarin TAB(*) 1 MG PO ONE (17:00)
[2019-02-22] MEDS: Baclofen TAB* 10 MG PO SCH (17:04)
[2019-02-22] MEDS: Cetirizine* 10 MG TAB PO SCH (17:04)
[2019-02-22] MEDS: Lisinopril TAB* 5 MG PO SCH (17:05)
[2019-02-22] MEDS: Gabapentin CAP(*) 300 MG PO SCH ×2 (17:39→20:59)
[2019-02-22] MEDS: CMC:Rosuvastatin (NF) 5 MG TAB PO SCH (20:58)
[2019-02-23] MEDS: HYDROmorphone INJ1* 1 MG/ML SYRINGE IV PRN (01:30)
[2019-02-23] MEDS: oxyCODONE/Acetamin 5/325 MG* TAB PO PRN ×3 (04:06→12:10)
[2019-02-23] MEDS: Heparin VIAL(*) 5000 UNITS/ML VIAL (FIVE THOUSAND) SUBCUT SCH (05:36)
[2019-02-23] MEDS: Acetaminophen TAB* 325 MG PO SCH ×2 (05:39→12:07)
[2019-02-23 06:18] LABS: Hematocrit 28 % (35-47); Hemoglobin 9.7 g/dL (12.0-16.0); Mean Platelet Volume 6.6 fL (7.4-10.4); Platelet Count 247 10^3/uL (150-450)
[2019-02-23 06:20] LABS: ABS Eosinophils 0.1 10^3/ul (0-0.6); ABS Lymphocytes 0.8 10^3/ul (1.0-4.8); ABS Monocytes 0.7 10^3/ul (0-0.8); ABS Neutrophils 5.7 10^3/ul (1.5-7.7); Hematocrit 28 % (35-47); Hemoglobin 9.7 g/dL (12.0-16.0); Lymphocyte % 11.3 %; Mean Corpuscular HGB Conc 35 g/dL (31-36); Mean Corpuscular Hemoglobin 34 pg (27-31); Mean Corpuscular Volume 96 fL (80-97); Mean Platelet Volume 6.5 fL (7.4-10.4); Nucleated Red Blood Cells % 0.1; Platelet Count 244 10^3/uL (150-450); Red Blood Count 2.91 10^6 /uL (3.70-4.87); Red Cell Distribution Width 13 % (10-15); White Blood Count 7.4 10^3/uL (3.5-10.8)
[2019-02-23 06:26] LABS: INR 1.85 (0.82-1.09)
[2019-02-23] MEDS: Vitamin THERAPEUTIC TAB PO SCH (09:16)
[2019-02-23] MEDS: Magnesium Hydroxide LIQ* 30 ML UDC PO SCH (09:16)
[2019-02-23] MEDS: Diltiazem CD CAP* 180 MG PO SCH (09:16)
[2019-02-23] MEDS: Flecainide TAB* 100 MG PO SCH (09:16)
[2019-02-23] MEDS: Pantoprazole TAB * 40 MG TAB PO SCH (09:16)
[2019-02-23] MEDS: Cyclobenzaprine TAB* 10 MG PO PRN (09:16)
[2019-02-23] MEDS: Docusate CAP* 100 MG PO SCH (09:16)
--- NOTE | 2019-02-23 09:23 | DS ---
Orthopedic Discharge Summary - Discharge Summary Date of Admission:02/20/19 Date of Discharge: 02/23/19 Date of Surgery: 02/20/19 Attending Orthopedic Provider: Dr Arreola Pre-operative Diagnosis: Right hip osteoarthritis Operative Procedure: right total hip replacement Disposition of Patient: [facility] Condition of Patient: stable History: DANIELLE COLE is a 68 year old F with years of increasingly severe right hip pain. Patient has failed conservative management and has elected to undergo a right total hip replacement Hospital Course: DANIELLE was admitted to [facility] on 02/20/19. Patient underwent a right total hip replacement without complication followed by a brief recovery in PACU and transfer to the Short Stay Surgical Unit in stable condition. Our hospitalist service, physical therapy and occupational therapy also participated in this patients care. Post-op day 1: patient was alert and in no acute distress. Dressing was clean, dry and intact. Operative extremity dorsiflexion and plantarflexion intact, sensation intact to light touch distally, DP2+. Post-op day two: dressing was changed, incision was clean , dry and intact. POD 3 patient appears well, NAD, dressing CDI, thigh soft, DF/ PF intact, DP2+, sensation intact to light touch distally, calves supple and nontender without erythema, edema or palpable cords. Denies CP, SOB, dizziness, nausea. Patient was deemed to be medically and orthopedically stable for discharge. Physical therapy goals were met. Home Medications Medication Instructions Recorded Confirmed Type Amoxicillin PO (*) [Amoxicillin 2,000 mg PO DAILY PRN 02/08/19 02/08/19 History 500 MG CAP*] Ascorbic Acid [Vitamin C] 1,000 mg PO BID 02/08/19 02/20/19 History Aspirin 81 mg CHEW TAB* 81 mg PO QAM 02/08/19 02/20/19 History Baclofen 10 mg PO 1700 02/08/19 02/20/19 History Calcium Citrate TAB* [Citracal 200 mg PO QAM 02/08/19 02/20/19 History TAB*] Cetirizine* [ZyrTEC 10 MG TAB*] 10 mg PO QPM 02/08/19 02/20/19 History Clobetasol Propionate/Emoll 1 applic TOPICAL BID PRN 02/08/19 02/20/19 History [Clobetasol Emollient 0.05% Crm] Dicloxacillin CAP* [Dynapen CAP*] 500 mg PO DAILY PRN 02/08/19 02/20/19 History Flecainide TAB* [Tambocor TAB*] 100 mg PO BID 02/08/19 02/20/19 History Gabapentin [Neurontin] 300 mg PO BEDTIME 02/08/19 02/20/19 History Glucosam/Chond/Hyalu/Cf Borate 1 tab PO QAM 02/08/19 02/20/19 History [Move Free Joint Health Tablet] L. Rhamnosus GG/Inulin [Culturelle 1 each PO QAM 02/08/19 02/20/19 History Digest 10B Cell Cap] Lisinopril 5 mg PO 1700 02/08/19 02/20/19 History Meloxicam [Qmiiz Odt] 15 mg PO 1700 02/08/19 02/20/19 History Multivitamin/Iron/Folic Acid 1 each PO QAM 02/08/19 02/20/19 History [Centrum Adults Tablet] Mv,Tono,Iron,Mn/Folic Acid/Chol 1 cap PO QAM 02/08/19 02/20/19 History [Hair, Skin and Nails Capsule] Bunch-3 Fatty Acids/Fish Oil [Fish 1 each PO BID 02/08/19 02/20/19 History Oil 1,000 mg Softgel] Omeprazole 20 mg PO QAM 02/08/19 02/20/19 History Potassium Chloride [Klor-Con M20] 20 meq PO 1200 02/08/19 02/20/19 History Rosuvastatin Calcium [Crestor] 5 mg PO BEDTIME 02/08/19 02/20/19 History Triamcinolone NASAL SPRAY* 2 spray .SEE ORDER QAM 02/08/19 02/20/19 History [Nasacort Aq Nasal Mitchell*] dilTIAZem HCl [Diltiazem 24Hr ER] 180 mg PO QAM 02/08/19 02/20/19 History Acetaminophen TAB* [Tylenol TAB*] 975 mg PO Q8HR tab 02/21/19 Rx Cyclobenzaprine TAB* [Flexeril 10 10 mg PO Q6H PRN tab 02/21/19 Rx MG TAB*] Docusate CAP* [Colace Cap*] 100 mg PO BID cap 02/21/19 Rx Warfarin TAB(*) [Coumadin TAB(*)] 2 mg PO DAILY #90 tab 02/21/19 Rx oxyCODONE TAB* [Roxycodone TAB 5 10 mg PO Q4H PRN tab MDD 02/21/19 Rx mg*] oxyCODONE/Acetamin 5/325 MG* 1 tab PO Q4H PRN tab MDD 10 02/21/19 Rx [Percocet 5/325 TAB*] oxyCODONE/Acetamin 5/325 MG* 2 tab PO Q4H PRN tab MDD 02/21/19 Rx [Percocet 5/325 TAB*] Discharge Instructions following Orthopedic Surgery: Activity: * Weight Bearing as tolerated * Continue physical therapy and occupational therapy exercises as shown * Continue PT/OT at [facility] and outpatient once discharged Hip replacements: Continue Hip Precautions- do not cross legs or bend greater than 90 degrees/squat Wound care: * OK to shower on post-op day 3, no bathing, swimming, or submerging wound. * Use gentle soap, pat dry. Cover with gauze, RAGHAV wrap or tape. * Nursing to do wound checks. Needs isela removed in 2 weeks by nursing staff Call Orthopedic office for: * Increased drainage * Redness * Increased pain * Fever Go to ER with shortness of breath or chest pain. Diet: * Regular diet * Increase fluids and fiber to prevent constipation. * Continue to use stool softeners, call office if no bowel motion within 48 hours. Medications See Home Medication List in your packet for medications that you should take after discharge. DVT Prophylaxis: Coumadin Dosing: Increases bleeding tendency * Please note that you have been given 2 mg tablets. * Visiting home nurse to draw blood work for INR on Wednesday and . * You will be provided with dose instructions on Mondays and . * If you do not receive dosing instruction on dosing, please call our office right away. Please milton dosing instructions on your calendar as they are provided to you. * Dosin mg daily starting 02/23/19 until INR recheck on 02/27/19. Call orthopedic office if you do not receive dosing instructions. Pain Control: Percocet Dosin/325 mg 1-2 tabs by mouth every 4-6 hours as needed for pain. Maximum of 10 tabs per day. Hold for sedation, wean off as soon as pain allows Please note that Percocet contains Tylenol (acetaminophen). Maximum daily dose of Tylenol is 4000 mg from all sources. Antibiotics are required prior to any dental work. FOLLOW UP: Follow up with [[facility]] Within 4 weeks, call for appointment Please call our office with any questions or concerns ([phone])
[2019-02-23] MEDS: Potassium Chlor TAB* 20 MEQ TAB.ER PO SCH (12:10)
[2019-02-23 12:32] VITALS: BP 103/50
== END 2019-02-23 13:08 | DRG 470 ==
LOC: AA 05:41 → SSU 10:22
PROVIDERS: ADMIT Orthopaedic Surgery; ATTEND Orthopaedic Surgery
PROC: 0SR902A Replacement of Right Hip Joint with Metal on Polyethylene Synthetic Substitute, Uncemented, Open Approach (ICD-10-PCS; principal; 2019-02-20 07:30)
DX: M16.11 Unilateral primary osteoarthritis, right hip (principal); M87.851 Other osteonecrosis, right femur; G57.22 Lesion of femoral nerve, left lower limb; I35.2 Nonrheumatic aortic (valve) stenosis with insufficiency; I10 Essential (primary) hypertension; E78.00 Pure hypercholesterolemia, unspecified; K27.9 Peptic ulcer, site unspecified, unspecified as acute or chronic, without hemorrhage or perforation; E78.5 Hyperlipidemia, unspecified; M85.80 Other specified disorders of bone density and structure, unspecified site; Z96.653 Presence of artificial knee joint, bilateral; K21.9 Gastro-esophageal reflux disease without esophagitis; G47.33 Obstructive sleep apnea (adult) (pediatric); E66.01 Morbid (severe) obesity due to excess calories; Z68.36 Body mass index [BMI] 36.0-36.9, adult; Z98.1 Arthrodesis status; Z82.49 Family history of ischemic heart disease and other diseases of the circulatory system; Z88.5 Allergy status to narcotic agent; Z91.048 Other nonmedicinal substance allergy status; Z83.3 Family history of diabetes mellitus; Z82.0 Family history of epilepsy and other diseases of the nervous system; Z88.1 Allergy status to other antibiotic agents; Z88.6 Allergy status to analgesic agent; Z79.82 Long term (current) use of aspirin; Z88.8 Allergy status to other drugs, medicaments and biological substances
CPT/HCPCS: 36415; 72170; 80048; 83735; 85014; 85018; 85025; 85049; 85610; 85730; 88304; 88311; A9270-GY; C1713; C1776; G8978-GP-CL; G8979-GP-CI; G8987-GO-CL; G8988-GO-CI; J0690; J1100; J1170; J1644; J2250; J2405; J2704; J2795; J3490

== ENCOUNTER 2019-02-27 15:58 | Inpatient (IN) | payer MEDICARE ==
[2019-02-27] MEDS ORDERED: fentaNYL* 50 MCG/ML 2 ML VIAL (100 MCG VIAL) IV SLOW PU ONE (16:46)
[2019-02-27] MEDS ORDERED: Ondansetron INJ* 2 MG/ML VIAL IV ONE ×2 (17:09→19:36)
[2019-02-27] MEDS ORDERED: Ondansetron INJ* 2 MG/ML VIAL ONE (17:11)
--- NOTE | 2019-02-27 17:18 | ED ---
Lower Extremity - HPI Summary HPI Summary: Patient is a 68-year-old female with a recent right hip total arthroplasty by Dr. Arreola last week presenting to the ED with a feeling of "popping sensation " as well as pain into the right hip. [facility] which showed a possible dislocation versus subluxation. She was seen by the nurse practitioner, Leana, and was sent here for further evaluation. She did have shortening of the right hip as well as internal rotation, however she was able to ambulate somewhat, not bearing weight on to the right hip however. - History of Current Complaint Chief Complaint: EDExtremityLower Stated Complaint: RIGHT HIP DISLOCATION PER EMS Time Seen by Provider: 02/27/19 16:03 Hx Obtained From: Patient Mechanism Of Injury: Twisted Onset of Pain: Immediate Onset/Duration: Minutes Severity Initially: Mild Severity Currently: Mild Pain Intensity: 5 Pain Scale Used: 0-10 Numeric Timing: Constant Location: Is Discrete @ - right hip Character Of Pain: Aching Associated Signs And Symptoms: Negative: Swelling, Redness, Bruising Aggravating Factor(s): Standing, Ambulation Alleviating Factor(s): Rest Able to Bear Weight: No - Allergies/Home Medications Allergies/Adverse Reactions: Allergies Allergy/AdvReac Type Severity Reaction Status Date / Time atorvastatin [From Lipitor] Allergy Muscle Ache Verified 02/27/19 16:14 clarithromycin [From Biaxin] Allergy Nausea And Verified 02/27/19 16:14 Vomiting fentanyl Allergy Nausea And Verified 02/27/19 16:14 Vomiting morphine Allergy Nausea And Verified 02/27/19 16:14 Vomiting nabumetone Allergy GI Upset Verified 02/27/19 16:14 pravastatin Allergy Muscle Ache Verified 02/27/19 16:14 PMH/Surg Hx/FS Hx/Imm Hx Previously Healthy: Yes Cardiovascular History: Reports: Hx Hypertension, Other Cardiovascular Problems/ Disorders - TACHYCARDIA. HEART MURMUR. Respiratory History: Reports: Hx Sleep Apnea - NO CPAP, Other Respiratory Problems/Disorders - SINUS INFECTIONS GI History: Reports: Hx Gastroesophageal Reflux Disease - ON OMPREZOLE, Hx Ulcer Musculoskeletal History: Reports: Hx Arthritis, Hx Bursitis Denies: Hx Osteoporosis Sensory History: Reports: Hx Cataracts - NEEDS SURGERY, Hx Contacts or Glasses - GLASSES Denies: Hx Hearing Aid Opthamlomology History: Reports: Hx Cataracts - NEEDS SURGERY, Hx Contacts or Glasses - GLASSES - Cancer History Hx Chemotherapy: No Hx Radiation Therapy: No - Surgical History Surgery Procedure, Year, and Place: RIGHT SHOULDER SURGERY PA 2010. L FOOT ARTHRODESIS PA 2006. CERVICAL FUSION C4-7 PA 2005. APPY PA 2004. RIGHT FOOT ARTHODESIS 2003 PA. LTK 2004 PA. RTK 2001 PA. D&C 1993 PA. T&A 1955 Hx Anesthesia Reactions: No - Immunization History Hx Pertussis Vaccination: No Immunizations Up to Date: Yes Infectious Disease History: No Infectious Disease History: Denies: Traveled Outside the [place] in Last 30 Days - Social History Occupation: Unemployed Lives: [facility] Alcohol Use: None Hx Substance Use: No Substance Use Type: Reports: None Hx Tobacco Use: No Smoking Status (MU): Never Smoked Tobacco Have You Smoked in the Last Year: No Review of Systems Constitutional: Negative Negative: Fever, Chills, Fatigue, Skin Diaphoresis Negative: Palpitations, Chest Pain Negative: Shortness Of Breath, Cough Genitourinary: Negative Positive: no symptoms reported, see HPI Positive: Arthralgia - right hip pain, shortening of the R leg (however may be d /t positioning) and internal rotation of the R leg. Negative: Myalgia Skin: Negative Neurological: Negative All Other Systems Reviewed And Are Negative: Yes Physical Exam Triage Information Reviewed: Yes Vital Signs On Initial Exam: Initial Vitals Temp Pulse Resp BP Pulse Ox 97.4 F 80 14 103/74 97 02/27/19 16:03 02/27/19 16:03 02/27/19 16:03 02/27/19 16:03 02/27/19 16:03 Vital Signs Reviewed: Yes Appearance: Positive: Well-Appearing, Well-Nourished Skin: Positive: Warm, Skin Color Reflects Adequate Perfusion Head/Face: Positive: Normal Head/Face Inspection Eyes: Positive: EOMI, FORTINO, Conjunctiva Clear Neck: Positive: Supple, No Lymphadenopathy Respiratory/Lung Sounds: Positive: Clear to Auscultation, Breath Sounds Present Cardiovascular: Positive: Pulses are Symmetrical in both Upper and Lower Extremities Musculoskeletal: Positive: Pain @ - right hip pain, shortening of the R leg ( however may be d/t positioning) and internal rotation of the R leg Neurological: Positive: Alert, Oriented to Person Place, Time, Speech Normal Psychiatric: Positive: Affect/Mood Appropriate Diagnostics - Vital Signs Vital Signs Temp Pulse Resp BP Pulse Ox 02/27/19 17:13 20 02/27/19 16:03 97.4 F 80 14 103/74 97 - Laboratory Lab Statement: Any lab studies that have been ordered have been reviewed, and results considered in the medical decision making process. Lower Extremity Course/Dx - Course Course Of Treatment: Arrival into the ED, the patient was requesting pain medications. She states she has been allergic fentanyl patches in the past, causing some nausea, however she has never had reactions to the fentanyl medication for short-term pain control. She was given Zofran and fentanyl and sent to x-ray. Pending x-ray of 5:15 PM, patient was signed out to ROMAN Maya. Dr. Ramon called at 4:45pm who stated if hip is dislocated, we should be able to relocated the hip without any complications. - Diagnoses Differential Diagnosis/HQI/PQRI: Positive: Other - dislocation, fx, strain Provider Diagnoses: Right hip pain Discharge ED - Sign-Out/Discharge Documenting (check all that apply): Sign-Out Patient Signing out patient TO: Verona Acevedo - Discharge Plan Condition: Fair Referrals: Winifred Jurado MD [Primary Care Provider] - - Billing Disposition and Condition Condition: FAIR
--- OUTSIDE RECORDS SUMMARY | 2019-02-27 17:33 | XMS REPORT | Continuity of Care Document ---
:1950 External Reference #:[id number] Author Name Joselin Wells NP Address [address] [place] [address] Care Team Providers Name Role Phone Winifred Jurado M.D. 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 Onset: 09/13/2018 Coronary atherosclerosis Winifred Jruado M.D. Onset: 09/13/2018 Essential hypertension Winifred Jurado [...] a day x5 days and as needed Potassium Chloride ER 1 by mouth every Unknown day 20Meq Tablets ER Dicloxacillin Sodium prn 1 hour prior Unknown to sensor operator 500mg Capsules appt. Amoxicillin prn 1 hour prior Unknown 500mg to dental appt. Tablets Fish Oil once daily Unknown 1400mg Capsules Nasacort Allergy 24HR spray 2 sprays in Unknown each nostril at 55mcg/Act Aerosol bedtime Tramadol HCL 1 by mouth every 6 120tabs Joselin C. 50mg hours as needed BJ Wells Tablets Baclofen 1/2 to 1 tab by 90tabs Joeslin C. 10mg Tablets mouth 2-3 times BJ Wells daily as needed Zyrtec Allergy 1 by mouth daily. Unknown 10mg Capsules Meloxicam 1 by mouth every 90tabs Joselin C. 15mg Tablets day BJ Wells Citra Calcium once daily Unknown 500/301it-ni-Klkc Chewtabs Centrum Silver Womens once daily Unknown Tablets Cardizem CD once daily Unknown 180mg Caps ER 24HR Flecainide Acetate bid Unknown 100mg Tablets Aspirin 81 Low Dose 1 by mouth every Unknown day 81mg Chewtabs Lisinopril 1 by mouth every 90tabs Winifred Jurado, 5mg Tablets day M.D. Omeprazole 1 by mouth every 90caps Butch Kaplan 20mg day MD Maria C Capsules DR Immunizations CPT Code Status Date Vaccine Lot # [id number] Given 11/29/2018 Pneumococcal Immunization [id number] Given 03/18/2018 High-Dose, Influenza Virus Vacccine-fluzone 65 and older Vital Signs Date Vital Result Comment 01/13/2019 11:08am BP Systolic 130 mmHg BP Diastolic 74 mmHg Heart Rate 78 /min Body Temperature 97.9 F Height 65 inches 5'5" 11/29/2018 1:08pm BP Systolic 118 mmHg BP Diastolic 70 mmHg Heart Rate 72 /min Body Temperature 99.1 F Respiratory Rate 16 /min Height 65 inches 5'5" Weight 239.00 lb BMI (Body Mass Index) 39.8 kg/m2 Results Test Date Facility Test Result H/L Range Note Lipid Profile 12/13/2018 Uri Michelle([facility]) Cholesterol 213 mg/dL High 120-200 Triglycerides 56 mg/dL 30-200 HDL Cholesterol 81 mg/dL 30-85 LDL (Calculated) 121 CALC 0-129 VLDL Cholesterol 11 mg/dL 0-50 HDL Risk Factor 2.6 CALC 0.0-4.4 Laboratory test 12/13/2018 Uri Martinez([facility]) Free T4 1.11 ng/dL 0.75- 1.54 finding TSH 1.67 mIU/L 0.50-6.00 CBC Electronic Fma 12/13/2018 Uri Martinez([facility]) WBC 4.7 x10^3/UL 4.0- 10.0 RBC 4.29 x10^6/UL 3.93-6.00 HGB 14.1 g/dL 12.0-17.0 HCT 42 % 35-50 MCV 98.1 fL High 80.0-95.0 MCH 32.9 pg High 25.6-32.2 MCHC 33.5 g/dL 32.2-36.0 RDW-CV 12.7 % 11.6-14.4 PLT 272 x10^3/UL 163-400 MPV 8.2 fL Low 9.4-12.4 Mili# 2.73 x10^3/UL 1.56-6.13 Lymph# 1.37 x10^3/UL 1.18-3.74 Kane# 0.46 x10^3/UL 0.24-0.82 Eos # 0.1 x10^3/UL 0.0-0.5 Baso # 0.03 x10^3/UL 0.01-0.08 Mili% 58.0 % 34.0-70.0 Lymph % 29.1 % 20.0-52.0 Kane% 9.8 % 5.0-12.0 Eos% 2.5 % 0.7-7.0 Baso% 0.6 % 0.1-1.2 Comprehensive Metabolic 12/13/2018 Uri Michelle([facility]) Sodium 144 mEq/L 134-149 Prof Potassium 3.9 [...] Metabolic Panel 09/13/2018 [facility] Sodium 141 mmol/L N 135-145 Potassium 4.0 mmol/L N 3.5-5.0 Chloride 107 mmol/L N 101-111 Co2 Carbon Dioxide 24 mmol/L N 22-32 Anion Gap 10 mmol/L N 2-11 Glucose 87 mg/dL N 70-100 Blood Urea Nitrogen 24 mg/dL N 6-24 Creatinine 0.56 mg/dL N 0.51-0.95 BUN/Creatinine Ratio 42.9 High 8-20 Calcium 9.4 mg/dL N 8.6-10.3 Egfr Non- 107.3 >60 Egfr 129.9 >60 1 Basic Metabolic Panel 08/01/2018 [facility] Sodium 143 mmol/L N 135-145 Potassium 3.7 mmol/L N 3.5-5.0 Chloride 107 mmol/L N 101-111 Co2 Carbon Dioxide 27 mmol/L N 22-32 Anion Gap 9 mmol/L N 2-11 Glucose 101 mg/dL High 70-100 Blood Urea Nitrogen 23 mg/dL N 6-24 Creatinine 0.59 mg/dL N 0.51-0.95 BUN/Creatinine Ratio 39.0 High 8-20 Calcium 9.8 mg/dL N 8.6-10.3 Egfr Non- 101.1 >60 Egfr 122.3 >60 2 Laboratory test finding 08/01/2018 [facility] Magnesium 2.2 mg/dL N 1.9-2.7 TSH (Thyroid Stim Horm) 1.81 mcIU/mL N 0.34-5.60 1 Because ethnic data is not [...] dialysis) Procedures Date Code Description Status 12/07/2018 [id number] Mammogram Completed 11/05/2017 [id number] Mammogram Completed Medical Devices Description No Information Available Encounters Type Date Location Provider Dx Diagnosis Office Visit 11/29/2018 [facility] Office Winifred Jurado, Z00.01 Encounter for 1:20p M.D. 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 at [facility]01/13/2019 - Joselin Wells, NPH01.004 Unspecified blepharitis left upper eyelidNew Medication:Erythromycin 5 mg/GM - put 1cm ribbon on bilat eyelids at bedtime for 10 daysComments:Continue to do warm compresses 2-3 times per day.H01.001 Unspecified blepharitis right upper cspzapV41.123 Dry eye syndrome of bilateral lacrimal alydbqE10.1 Neoplasm of uncertain behavior of connective and other soft tissueComments:follow-up with Slim RiveraAllComments:1. Patient has been queried about patient's goals/ preferences and functional/lifestyle goals at relevant visits. If relevant, describe: Has been discussed, noted above2. Treatment goals as explainedto the patient: see above3. Are there barriers to meeting treatment goals? Yes If Yes, please describe: Barriers include possible insurance limits, disease process, and difficulty with lifestyle changes4. Self-Management goals as described to the patient: Yes, see above As always, we strongly encourage a healthy diet and making physical activity a part of your every day life. If you have questions about how or where to start, please contact the office. Functional Status Functional Condition Comment Date Status Hemiwalker is used to ambulate Active Mental Status Description No Information Available Referrals Refer to Reason for Referral Status Appt Date [facility] Echocardiogram jw Sent [address] [place] [address] [phone]
--- OUTSIDE RECORDS SUMMARY | 2019-02-27 17:33 | XMS REPORT | Continuity of Care Document ---
:1950 External Reference #:[id number] Author Name IrisAraseli nielsen Care Team Providers Name Role Phone Winifred Jurado MD Primary Care Physician Unavailable Payers Date Identification Numbers Payment Provider Subscriber Policy Number: [id number] Medicare Blue Ppo Darcy Rowley PayID: [id number] [address] [address] [place] [address] Problems Active Problems Provider Date Other osteonecrosis, right femur Meera Estevez M.D. Onset: 02/11/2018 Morbid obesity Meera Estevez M.D. Onset: 02/11/2018 Localized, primary osteoarthritis of the pelvic Meera Estevez M.D. Onset: 12/2017 region and thigh Family History Date Family Member(s) Observation Comments General Diabetes General Heart Disease General Hypertension General Cancer Father due to CHF () Father due to Sepsis () Mother due to Diabetes () Mother due to Heart Disease () Siblings 2 1 brother diebites HTN 61 yr old 2nd cancer when 15 is now in good health 67yrs old Social History Type Date Description Comments Sex Unknown Lives With Spouse Occupation Retired ETOH Use Denies alcohol use Tobacco Use Start: Unknown Patient has never smoked Recreational Drug Use Denies Drug Use Smoking Status Reviewed: 01/06/19 Patient has never smoked Exercise Type/Frequency Does not exercise Allergies, Adverse Reactions, Alerts Active Allergies Reaction Severity Comments Date Biaxin Nausea and Vomiting 12/22/2017 Nabumetone 12/22/2017 Morphine Nausea and Vomiting 12/22/2017 Fentanyl Nausea and Vomiting 12/22/2017 Nabumetone Nausea and Vomiting 12/22/2017 Lipitor possible muscle aches 01/19/2018 Pravastatin possible muscle aches 01/19/2018 Medications Active Medications SIG Qnty Indications Ordering Date Provider Rosuvastatin Calcium take 1 tablet by 90tabs E78.5 Rosalio Arrington 09/21/2018 mouth every other DO Mayur FACC 5mg Tablets day Klor-Con M20 1 by mouth every 90tabs Joanie Forte, 08/01/2018 20Meq day N.P. Tablets ER Culturelle 1 by mouth Unknown Capsules everyday Hair Skin Nails Unknown Capsules Move Free Joint once daily Unknown Health Advanced glucosamine-condro itinn Tablets Vitamin C 1 by mouth every Unknown 1000mg day Tablets Dicloxacillin Sodium prn before Unknown relays draftsperson 500mg Capsules Amoxicillin take 4 pills, 2 [...] ER 1 by mouth every 90caps Rosalio Arrington Coated Beads day DO Mayur FACC 180mg Caps ER 24HR Flecainide Acetate 1 by mouth twice a 180tabs Rosalio S. day DO Mayur FACC 100mg Tablets Aspir-81 1 by mouth every Unknown 81mg Tablets day DR Lisinopril 1 by mouth every Unknown 5mg Tablets day Omeprazole 1 by mouth every Unknown 20mg day Capsules DR History Medications Clobetasol Propionate Unknown - 01/18/2018 0.05% Ointment [place] 3 1 by mouth every day Unknown - 07/21/2018 1000mg Capsules Co Q10 Maximum Strength once daily Unknown - 07/20/2018 200mg Capsules Atorvastatin Calcium 1 by mouth every day Unknown - 2017 10mg Tablets Medications Administered in Office Medication SIG Qnty Indications Ordering Provider Date Depomedrol 40MG Meera Estevez M.D. 02/11/2018 Injection Vital Signs Date Vital Result Comment 01/06/2019 3:55pm Height 65 inches 5'5" Weight 233.00 lb Heart Rate 60 /min BP Systolic 130 mmHg BP Diastolic 82 mmHg Respiratory Rate 16 /min Pain Level 8 BMI (Body Mass Index) 38.8 kg/m2 09/21/2018 1:23pm Height 65 inches 5'5" Weight 248.00 lb Heart Rate 62 /min reg BP Systolic Sitting 140 mmHg Lue lg cuff BP Diastolic Sitting 88 mmHg Lue lg cuff Respiratory Rate 16 /min BMI (Body Mass Index) 41.3 kg/m2 Ejection Fraction 55-60% 10/30/15 echo 07/21/2018 1:42pm Height 65 inches 5'5" Weight 248.25 lb with shoes Heart Rate 64 /min BP Systolic Sitting 120 mmHg lue large cuff BP Diastolic Sitting 68 mmHg lue large cuff Respiratory Rate 14 /min BMI (Body Mass Index) 41.3 kg/m2 Ejection Fraction 55-60% echo. 10/30/15 02/11/2018 3:51pm Height 65 inches 5'5" Heart Rate 63 /min BP Systolic 120 mmHg BP Diastolic 78 mmHg Respiratory Rate 20 /min Body Temperature 98.1 F Pain Level 7 01/19/2018 3:10pm Height 65 inches 5'5" Weight 244.00 lb with shoes , 260 lb at home Heart Rate 60 /min BP Systolic 110 mmHg Rue lg cuff BP Diastolic 74 mmHg Rue lg cuff BP Systolic Sitting 118 mmHg Lue lg cuff BP Diastolic Sitting 70 mmHg Lue lg cuff BP Systolic Standing 128 mmHg Lue lg cuff BP Diastolic Standing 76 mmHg Lue lg cuff Respiratory Rate 16 /min BMI (Body Mass Index) 40.6 kg/m2 12/22/2017 11:41am Height 65 inches 5'5" Weight 276.00 lb BP Systolic 138 mmHg BP Diastolic 86 mmHg Respiratory Rate 20 /min Body Temperature 97.9 F Pain Level 6 BMI (Body Mass Index) 45.9 kg/m2 Results Test Date Facility Test Result H/L Range Note Basic Metabolic 09/13/2018 [facility] [place] Sodium 141 mmol/L Normal 135-145 Panel [address] [place] [address] [phone] Potassium 4.0 mmol/L Normal 3.5-5.0 Chloride 107 mmol/L Normal 101-111 Co2 Carbon Dioxide 24 mmol/L Normal 22-32 Anion Gap 10 mmol/L Normal 2-11 Glucose 87 mg/dL Normal 70-100 Blood Urea Nitrogen 24 mg/dL Normal 6-24 Creatinine 0.56 mg/dL Normal 0.51-0.95 BUN/Creatinine Ratio 42.9 High 8-20 Calcium 9.4 mg/dL Normal 8.6-10.3 Egfr Non- 107.3 >60 Egfr 129.9 >60 1 Basic Metabolic 08/01/2018 [facility] [place] Sodium 143 mmol/L Normal 135-145 Panel [address] [place] [address] [phone] Potassium 3.7 mmol/L Normal 3.5-5.0 Chloride 107 mmol/L Normal 101-111 Co2 Carbon Dioxide 27 mmol/L Normal 22-32 Anion Gap 9 mmol/L Normal 2-11 Glucose 101 mg/dL High 70-100 Blood Urea Nitrogen 23 mg/dL Normal 6-24 Creatinine 0.59 mg/dL Normal 0.51-0.95 BUN/Creatinine Ratio 39.0 High 8-20 Calcium 9.8 mg/dL Normal 8.6-10.3 Egfr Non- 101.1 >60 Egfr 122.3 >60 2 Laboratory test 08/01/2018 [facility] [place] Magnesium 2.2 mg/dL Normal 1.9-2.7 finding [address] [place] [address] [phone] TSH (Thyroid Stim Horm) 1.81 mcIU/mL Normal 0.34-5.60 Comp Metabolic 02/04/2018 [facility] [place] Sodium 143 mmol/L Normal 135-145 Panel [address] [place] [address] [phone] Potassium 3.9 mmol/L Normal 3.5-5.0 Chloride 108 mmol/L Normal 101-111 Co2 Carbon Dioxide 26 mmol/L Normal 22-32 Anion Gap 9 mmol/L Normal 2-11 Glucose 89 mg/dL Normal 70-100 Blood Urea Nitrogen 25 mg/dL High 6-24 Creatinine 0.63 mg/dL Normal 0.51-0.95 BUN/Creatinine Ratio 39.7 High 8-20 Calcium 9.4 mg/dL Normal 8.6-10.3 Total Protein 6.9 g/dL Normal 6.4-8.9 Albumin 4.4 g/dL Normal 3.2-5.2 Globulin 2.5 g/dL Normal 2-4 Albumin/Globulin Ratio 1.8 Normal 1-3 Total Bilirubin 0.40 mg/dL Normal 0.2-1.0 Alkaline Phosphatase 75 U/L Normal 34-104 Alt 18 U/L Normal 7-52 Ast 20 U/L Normal 13-39 Egfr Non- 93.7 >60 Egfr 113.4 >60 3 Laboratory test 02/04/2018 [facility] [place] Magnesium 2.2 mg/dL Normal 1.9-2.7 finding [address] [place] [address] [phone] Laboratory test 01/19/2018 [facility] [place] Magnesium <pending> finding [address] [place] [address] [phone] 1 Because ethnic data is not always [...] 15-29 5 Kidney failure <15 (or dialysis) 3 Because ethnic data is not always readily [...] dialysis) Procedures Date Code Description Status 12/07/2018 [id number] Bone Mineral Density Test Completed 12/07/2018 [id number] Mammogram Completed 12/02/2018 [id number] ECHO Transthoracic, Real-Time 2D With Doppler And Completed Color Flow 12/02/2018 30858 ECHO Transthoracic, Real-Time 2D With Doppler And Completed Color Flow 07/28/2018 90450 Event Monitor/Phys Review/Interp. Completed 07/21/2018 42056 EKG Tracing & Interpretation Completed 02/11/201862054 Inj/Aspir Major JT Or Bursa W/ US Completed 01/19/2018 [id number] EKG Tracing & Interpretation Completed Encounters Type Date Location Provider Dx Diagnosis Office Visit 09/21/2018 [facility] Rosalio Merchant, E78.5 Hyperlipidemia, 1:40p Of Operations Architect DO FACC unspecified I47.1 Supraventricular tachycardia Office Visit 07/21/2018 1:30p [facility] Joanie S. I10 Essential ( primary) [facility] Jann, N.P. hypertension I47.1 Supraventricular tachycardia E66.8 Other obesity Z68.41 Body mass index (BMI) 40.0-44.9, adult Office Visit 02/11/2018 3:30p [facility] Meera Estevez, M25.551 Pain in right [facility] [place] hip M16.11 Unilateral primary osteoarthritis, right hip E66.01 Morbid (severe) obesity due to excess calories M87.851 Other osteonecrosis, right femur Office Visit 01/19/2018 3:00p [facility] Rosalio S. I48.0 Paroxysmal atrial [facility] Merchant, DO fibrillation FAC I10 Essential (primary) hypertension I47.1 Supraventricular tachycardia E66.8 Other obesity Office Visit 12/22/2017 [facility] Frank Jordan, M16.11 Unilateral primary 11:00a [facility] osteoarthritis, right [facility] hip Z96.651 Presence of right artificial knee joint Z96.652 Presence of left artificial knee joint M25.561 Pain in right knee M25.562 Pain in left knee Plan of Treatment Future Appointment(s):01/25/2019 10:30 am - Gilberto Arreola M.D. at [facility]01/06/2019 - Meera Estevez M.D.M25.551 Pain in right hipFollow up:Follow up: First available with Dr. Arreola.M25.552 Pain in left hipM16.11 Unilateral primary osteoarthritis, right hipM16.12 Unilateral primary osteoarthritis, left hip
[2019-02-27] MEDS ORDERED: KETAMINE HCL* 50 MG/ML 10 ML VIAL IV ONE (18:00)
--- NOTE | 2019-02-27 18:14 | ED ---
Progress - Progress Note Progress Note: Procedure note: Procedure name: Procedural sedation Indication: Right hip dislocation Proceduralist: Jacklyn OWENS Sedation provider: Josue Monet M.D. assisting Dr. Niels casey MD Details: I provided a pre-sedation assessment, including heart and lung sounds, the heart revealed S1 and S2, the lungs are clear to auscultation. The patient has had no contraindications to procedural sedation the emergency department, she does have a mild sleep apnea history, has never been on BiPAP or CPAP, as never desaturated. She is Mallampati 3, ASA 2. No history of heart failure or asthma or emphysema. Plan for ketamine sedation with its blood pressure and airway reflexes sparing properties. Emergency airway equipment including suction, bag valve mask, respiratory therapy, end-tidal capnography were immediately available. End-tidal capnography was utilized during the case. Dr. Casey and I performed sedation twice on this patient, the patient emerged from sedation uneventfully each time. There were no adverse events of sedation. Reduction was unsuccessful given the migration of the acetabular prosthesis. We were unable to reduce the prosthesis. Course/Dx - Course Course Of Treatment: Arrival into the ED, the patient was requesting pain medications. She states she has been allergic fentanyl patches in the past, causing some nausea, however she has never had reactions to the fentanyl medication for short-term pain control. She was given Zofran and fentanyl and sent to x-ray. Pending x-ray of 5:15 PM, patient was signed out to ROMAN Maya. Dr. Ramon called at 4:45pm who stated if hip is dislocated, we should be able to relocated the hip without any complications. - Diagnoses Provider Diagnoses: Right hip pain, Prosthetic hip implant failure Discharge ED - Sign-Out/Discharge Documenting (check all that apply): Patient Departure - Discharge Plan Condition: Fair Disposition: ADMITTED TO [facility] - Billing Disposition and Condition Condition: FAIR Disposition: Admitted to [facility]
[2019-02-27 19:36] LABS: ABS Eosinophils 0.2 10^3/ul (0-0.6); ABS Lymphocytes 0.8 10^3/ul (1.0-4.8); ABS Monocytes 0.7 10^3/ul (0-0.8); ABS Neutrophils 6.6 10^3/ul (1.5-7.7); Eosinophil % 2.9 %; Hematocrit 30 % (35-47); Hemoglobin 10.1 g/dL (12.0-16.0); Lymphocyte % 9.8 %; Mean Corpuscular HGB Conc 34 g/dL (31-36); Mean Corpuscular Hemoglobin 33 pg (27-31); Mean Corpuscular Volume 95 fL (80-97); Mean Platelet Volume 5.9 fL (7.4-10.4); Platelet Count 417 10^3/uL (150-450); Red Cell Distribution Width 13 % (10-15); White Blood Count 8.4 10^3/uL (3.5-10.8)
[2019-02-27] MEDS ORDERED: HYDROmorphone INJ* 0.5 MG/0.5 ML SYRINGE IV SLOW PU ONE (19:37)
--- NOTE | 2019-02-27 19:40 | ED ---
Progress - Progress Note Progress Note: patient signed out by shakila pending reduction. attempted reduction x2and unable to reduce due to prosthesis being moved. - EKG/XRAY/CT EKG: NSR Comments: sinus rhythm Course/Dx - Course Course Of Treatment: Arrival into the ED, the patient was requesting pain medications. She states she has been allergic fentanyl patches in the past, causing some nausea, however she has never had reactions to the fentanyl medication for short-term pain control. She was given Zofran and fentanyl and sent to x-ray. attempted reduction x2 but unable to reduce it. xray had shown prosethesis was moved. dr matias spoke with dr cardona. dr cardona wanted patient admitted to hospitals and will take to for for revision. patient understand and agrees with plan. - Diagnoses Provider Diagnoses: Right hip pain, Prosthetic hip implant failure Discharge ED - Sign-Out/Discharge Documenting (check all that apply): Patient Departure, Receiving Sign-Out Receiving patient FROM: Shakila Wolf - Discharge Plan Condition: Fair Disposition: ADMITTED TO [facility] - Billing Disposition and Condition Condition: FAIR Disposition: Admitted to [facility]
[2019-02-27 19:45] LABS: Activated Partial Thrombo Time 29.8 seconds (26.0-38.0); INR 1.19 (0.82-1.09)
[2019-02-27 19:50] LABS: ALT 45 U/L (7-52); AST 30 U/L (13-39); Albumin 3.4 g/dL (3.2-5.2); Albumin/Globulin Ratio 1.1 (1-3); Alkaline Phosphatase 100 U/L (34-104); Anion Gap 9 mmol/L (2-11); BUN/Creatinine Ratio 57.5 (8-20); Blood Urea Nitrogen 23 mg/dL (6-24); CO2 Carbon Dioxide 23 mmol/L (22-32); Calcium 8.5 mg/dL (8.6-10.3); Chloride 105 mmol/L (101-111); EGFR African American 190.9 (>60); EGFR Non-African American 157.8 (>60); Glucose 128 mg/dL (70-100); Potassium 3.9 mmol/L (3.5-5.0); Sodium 137 mmol/L (135-145); Total Protein 6.4 g/dL (6.4-8.9)
[2019-02-27] MEDS ORDERED: HYDROmorphone INJ1* 1 MG/ML SYRINGE IV SLOW PU ONE ×2 (19:52→20:41)
[2019-02-27 19:54] LABS: Troponin I 0.04 ng/mL (<0.04)
[2019-02-28] MEDS ORDERED: HYDROmorphone INJ1* 1 MG/ML SYRINGE IV SLOW PU ONE ×2 (00:46→04:00)
[2019-02-28] MEDS ORDERED: NS 0.9% 1000 ML** 1,000 ML IV SCH (01:30)
[2019-02-28] MEDS ORDERED: oxyCODONE TAB* 5 MG TAB PO PRN ×2 (01:34→10:49)
[2019-02-28 02:07] LABS: Troponin I 0.04 ng/mL (<0.04)
[2019-02-28] MEDS: HYDROmorphone INJ* 0.5 MG/0.5 ML SYRINGE IV PRN ×4 (02:28→19:19)
[2019-02-28 02:53] LABS: Urine Appearance Clear; Urine Bilirubin Negative (Negative); Urine Blood Negative (Negative); Urine Color Yellow; Urine Glucose Negative (Negative); Urine Ketones Negative (Negative); Urine Nitrite Negative (Negative); Urine Protein Negative (Negative); Urine Specific Gravity 1.008 (1.010-1.030); Urine Urobilinogen Negative (Negative)
[2019-02-28] MEDS: Cyclobenzaprine TAB* 10 MG PO PRN ×3 (03:34→16:51)
--- NOTE | 2019-02-28 04:45 | HP ---
CC: Dr. Winifred Jurado; Dr. Rosalio Merchant; Dr. Gilberto Arreola * HISTORY AND PHYSICAL: DATE OF ADMISSION: 02/28/19 PRIMARY CARE PROVIDER: Dr. Winifred Jurado. SMALL BUSINESS CONSULTANT: Dr. Rosalio Merchant. ORTHOPEDIC SURGEON: Dr. Gilberto Arreola. CHIEF COMPLAINT: Right hip pain. HISTORY OF PRESENT ILLNESS: Ms. Rowley is a 68-year-old female who has been at [facility] for subacute rehab following elective right total hip arthroplasty since 02/23/19. The patient had been doing well and on 02/26/19, she had a relatively uneventful day. She did notice, however, that the right leg was more swollen than it had been. She states that on Wednesday she not only noticed the increased swelling, but was able to stand on the right leg for the first time. She states that she had no severe pain. It was uncomfortable, however. She did stand between the parallel bars a couple times. She spent the rest of the afternoon up in a wheelchair. Her family was present for dinner. Due to the increased right lower extremity swelling, she wanted to go to bed early. At approximately 8:00 to 8:30 p.m., she got into bed. Just prior to this, while sitting in the wheelchair, she did note that the right knee was "pointing inward." At approximately 2:00 a.m., the patient got up to go to the bathroom. She was using the EasyStand to do so. She got to the toilet and back to the edge of the bed with the assistance of staff at [facility]. She then was sitting on the edge of the bed and pivoted by the staff to get to a lying position in the bed. Her legs were lifted and pivoted in. The patient states that she heard 3 clicks/pops. She did not have any more pain than she had been at that time. She got a regular pillow between her legs and she fell asleep. She was awakened around 7:00 a.m. when the Lab came to draw blood. She felt like the leg was slightly less swollen. She remained in bed until approximately 8:00 a.m. At that point, she got up to take pain medications. She noted that she was unable to bear weight with the EasyStand at that point. PT was in to see the patient at around 10:30 a.m. on 02/27/19. She was unable to get to a standing position. She states that she felt as if she was stepping on rubber. Due to the popping heard overnight and increased swelling noted by the patient, the patient was seen by Leana Paula NP. Leana ordered an x-ray of the right hip as well as right lower extremity Doppler. After the x-ray, Leana reviewed the images and noted that the prosthesis appeared to be dislocated. At that point, the patient was sent to the emergency room. The patient states that through this her pain has been essentially at the usual level. It was not until she was trying to get positioned for the x-ray in the emergency room that she began to have severe pain. An attempt was made x2 in the ER to replace the dislocated hip; however, it was unsuccessful. PAST MEDICAL HISTORY: 1. Hypertension. 2. Hyperlipidemia. 3. Atrial fibrillation. 4. Obesity. 5. Aortic regurgitation. 6. GERD. PAST SURGICAL HISTORY: 1. Posterior cervical fusion. 2. Appendectomy. 3. Bilateral total knee replacements. 4. Right shoulder surgery. 5. Bilateral foot triple arthrodesis. 6. Right total hip arthroplasty. MEDICATIONS: 1. Oxycodone 5 mg p.o. q.4 hours p.r.n. for pain. 2. Diltiazem ER 180 mg p.o. daily. 3. Coumadin 2 mg p.o. daily. 4. Nasacort 2 sprays each nostril daily. 5. Crestor 5 mg p.o. at bedtime on Wednesday, Wednesday, and Wednesday. 6. Potassium chloride 20 mEq p.o. daily at noon. 7. Omeprazole 20 mg p.o. daily. 8. Fish oil 1 cap p.o. b.i.d. 9. Hair, Skin and Nails vitamin 1 cap p.o. daily. 10. Multivitamin 1 tab p.o. daily. 11. Meloxicam 15 mg p.o. daily at 1700. 12. Lisinopril 5 mg p.o. daily at 1700. 13. Culturelle 1 cap p.o. daily. 14. Glucosamine chondroitin 1 tab p.o. daily. 15. Gabapentin 300 mg p.o. at bedtime. 16. Flecainide 100 mg p.o. b.i.d. 17. Colace 100 mg p.o. b.i.d. 18. Dicloxacillin 500 mg p.o. to take in prior to candy roller appointment. 19. Flexeril 10 mg p.o. q.6 hours p.r.n. for spasms. 20. Cetirizine 10 mg p.o. at bedtime. 21. Calcium citrate 200 mg p.o. daily. 22. Baclofen 10 mg p.o. daily at 1700. 23. Aspirin 81 mg p.o. daily. 24. Ascorbic acid 1000 mg p.o. b.i.d. 25. Tylenol 975 mg p.o. q.8 hours. ALLERGIES: LIPITOR, PRAVASTATIN, NABUMETONE, MORPHINE, FENTANYL, and CLARITHROMYCIN. FAMILY HISTORY: Mom from complications of diabetes at the age of 64. The patient's dad at the age of 85 secondary to complications from a septic knee; he also had a history of hypertension and CHF. 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 She is . She has 1 child. She does not smoke or drink alcohol. REVIEW OF SYSTEMS: A complete 11-system review of systems is obtained. Pertinent positives and negatives are as per HPI and otherwise negative REVIEW OF SYSTEMS: A complete 11-system review of systems is obtained. Pertinent positives and negatives are as per HPI and otherwise negative. PHYSICAL EXAMINATION GENERAL: The patient is a well-developed, morbidly obese elderly female, seen lying on the stretcher, in no acute distress. VITAL SIGNS: Blood pressure 96/47, pulse 85, respirations 18, temp 97.4, O2 sat 96% on room air. HEENT: Pupils are equal and round. Extraocular muscles are intact. Oropharynx is clear. Oral mucosa is moist. NECK: There is no submandibular, cervical or supraclavicular adenopathy. Thyroid is not enlarged. No thyroid nodules noted. PULMONARY: Lungs are clear to auscultation anteriorly. CARDIAC: Normal S1 and S2. Regular rate and rhythm. I do not appreciate any murmurs. ABDOMEN: Bowel sounds are present. Abdomen is obese, soft, nontender, nondistended. MUSCULOSKELETAL: The right lower extremity is significantly shortened by approximately 3 inches. NEURO: Upper extremity strength is normal. Lower extremity strength is not tested today. PSYCH: The patient is alert. She is oriented x3. Affect appears appropriate. SKIN: The right lateral hip incision appears to be healing well. There is slight erythema noted to the superior aspect of the incision. There is no drainage. Farley are in place. DIAGNOSTIC STUDIES/LAB DATA: Labs: WBC 8.4, hemoglobin 10.1, hematocrit 30, platelets 417. INR 1.19. Sodium 137, potassium 3.9, chloride 105, CO2 of 23, BUN 23, creatinine 0.40, glucose 128, lactic acid 0.9, calcium 8.5. Bilirubin 0.6, AST 30, ALT 45, alk phos 100. Troponin 0.04. Albumin 3.4. EKG reveals normal sinus rhythm without any acute ST-T wave abnormalities. Right hip x-ray reveals a dislocated prosthetic right hip with displacement of the acetabular component from the acetabular fossa. ASSESSMENT AND PLAN: Ms. Rowley is a 68-year-old female who had been at [facility] for subacute rehab following a right total hip arthroplasty on 02/20/19 who was getting back into bed at approximately 2:00 a.m. on 02/27/19, when she heard popping coming from the right hip without any associated severe pain, though later on the day of 02/27/19 was unable to bear weight. She ultimately was found to have dislocated femoral and acetabular components. 1. Right prosthetic hip dislocation. This involves both the femoral and acetabular components. For now, the patient will be n.p.o. in anticipation of the need for procedure to fix the dislocated components. She will have Dilaudid for severe pain. She will continue with p.r.n. Flexeril. Orthopedics will be called later this morning. Dr. Ramon is already aware of the patient' s presence in the emergency room. I am also going to hold DVT prophylaxis in anticipation of the need to go to the operating room for procedure. 2. Right leg swelling. The patient has significant right lower extremity swelling. We will obtain a right lower extremity Doppler to rule out deep vein thrombosis. I think it is unlikely, however, the patient is subtherapeutic on her Coumadin. 3. Atrial fibrillation. The patient is currently in sinus rhythm. She will be maintained on her usual doses of diltiazem and flecainide. Her Coumadin, as above, is being held in anticipation of needing to go to the operating room. 4. Hyperlipidemia. Continue statin. 5. Hypertension. Blood pressure currently is soft, though I suspect this is related to Dilaudid usage. She will be maintained on her usual doses of diltiazem and lisinopril. 6. DVT prophylaxis. According to the Adult Thrombosis Prophylaxis Risk Factor Assessment Guide, the patient has a total risk factor score of 9, making her the highest risk. As noted above, the patient will not have chemical prophylaxis at this time due to the likelihood that she will need to go the OR. I will initiate SCDs. 7. Code status. Is full. TIME SPENT: Sixty-five minutes were spent admitting this patient. [id number]/CPS #: [id number] NII
[2019-02-28] MEDS: Acetaminophen TAB* 325 MG PO SCH ×3 (06:52→21:45)
[2019-02-28] MEDS: Calcium Citrate TAB* 200 MG PO SCH (08:20)
[2019-02-28] MEDS: Docusate CAP* 100 MG PO SCH ×3 (08:20→21:48)
[2019-02-28] MEDS: Aspirin 81 mg CHEW TAB* 81 MG TAB.CHEW PO SCH (08:20)
[2019-02-28] MEDS: Pantoprazole TAB * 40 MG TAB PO SCH (08:20)
[2019-02-28] MEDS: Diltiazem CD CAP* 180 MG PO SCH (08:20)
[2019-02-28] MEDS: Flecainide TAB* 100 MG PO SCH ×2 (08:21→21:48)
[2019-02-28] MEDS ORDERED: Influenza VAC *QUAD* 2019-20* 0.5 ML SYRINGE IM ONE (09:00)
[2019-02-28] MEDS ORDERED: Polyethylene Glycol 3350* 17 GM PACKET PO PRN (10:50)
[2019-02-28] MEDS ORDERED: Magnesium Hydroxide LIQ* 30 ML UDC PO PRN (10:50)
[2019-02-28] MEDS ORDERED: Senna TAB 8.6 mg* TAB PO PRN (10:50)
[2019-02-28] MEDS: oxyCODONE TAB* 5 MG TAB PO PRN ×3 (12:10→21:53)
--- NOTE | 2019-02-28 14:03 | PN ---
Progress Note - Progress Note Date of Service: 02/28/19 Note: Please see full dictated report for details. Patient has hardware failure of the acetabular cup along with dislocation of the femoral head. Anticipate OR 03/[address] Arreola
[2019-02-28] MEDS: Heparin VIAL(*) 5000 UNITS/ML VIAL (FIVE THOUSAND) SUBCUT SCH ×2 (14:32→21:49)
--- NOTE | 2019-02-28 15:04 | PN ---
Subjective Date of Service: 02/28/19 Interval History: Patient telling me her pain is well controlled. Denies fever/chills, chest pain , difficulty breathing, abd pain. Expresses desire to go to different [facility] after this hospitalization instead of back to [facility]. Objective Active Medications: Acetaminophen (Tylenol Tab*) 975 mg PO Q8HR [facility] Last Admin: 02/28/19 14:29 Dose: 975 mg Aspirin (Aspirin 81 Mg Chew Tab*) 81 mg PO QAM [facility] Last Admin: 02/28/19 08:20 Dose: 81 mg Baclofen (Lioresal Tab*) 10 mg PO 1700 [facility] Calcium Citrate (Citracal Tab*) 200 mg PO QAM [facility] Last Admin: 02/28/19 08:20 Dose: 200 mg Cetirizine HCl (Zyrtec*) 10 mg PO QPM [facility] Cyclobenzaprine HCl (Flexeril Tab*) 10 mg PO Q6H PRN PRN Reason: SPASMS Last Admin: 02/28/19 10:12 Dose: 10 mg Diltiazem HCl (Cardizem Cd Cap*) [facility] Last Admin: 02/28/19 08:20 Dose: 180 mg Docusate Sodium (Colace Cap*) 100 mg PO BID [facility] Last Admin: 02/28/19 08:20 Dose: 100 mg Docusate Sodium (Colace Cap*) 100 mg PO BID [facility] Flecainide Acetate (Tambocor Tab*) 100 mg PO BID [facility] Last Admin: 02/28/19 08:21 Dose: 100 mg Gabapentin (Neurontin Cap(*)) 300 mg PO BEDTIME [facility] Heparin Sodium (Porcine) (Heparin Vial(*)) 5,000 units SUBCUT Q8HR [facility] Stop: 03/02/19 00:00 Last Admin: 02/28/19 14:32 Dose: 5,000 units Hydromorphone HCl (Dilaudid Inj*) 0.5 mg IV Q4H PRN PRN Reason: PAIN - SEVERE Last Admin: 02/28/19 14:31 Dose: 0.5 mg Sodium Chloride (Ns 0.9% 1000 Ml) 1,000 mls @ 75 mls/hr IV PER RATE [facility] Last Admin: 02/28/19 03:24 Dose: 75 mls/hr Lisinopril (Prinivil Tab*) 5 mg PO 1700 [facility] Magnesium Hydroxide (Milk Of Magnesia Liq*) 30 ml PO BID PRN PRN Reason: CONSTIPATION Oxycodone HCl (Roxycodone Tab*) 5 mg PO Q4H PRN PRN Reason: PAIN - MODERATE Oxycodone HCl (Roxycodone Tab*) 10 mg PO Q4H PRN PRN Reason: PAIN - SEVERE Last Admin: 02/28/19 12:10 Dose: 10 mg Pantoprazole Sodium (Protonix Tab*) 40 mg PO QAM [facility] Last Admin: 02/28/19 08:20 Dose: 40 mg Polyethylene Glycol/Electrolytes (Miralax*) 17 gm PO DAILY PRN PRN Reason: CONSTIPATION Rosuvastatin Calcium (Crestor (Nf)) 5 mg PO BEDTIME [facility]; Protocol Senna (Senokot 8.6 Mg Tab*) 1 tab PO BEDTIME PRN PRN Reason: CONSTIPATION Vital Signs - 8 hr 02/28/19 02/28/19 02/28/19 07:37 08:21 09:21 Temperature 98.4 F Pulse Rate 91 Respiratory 17 16 16 Rate Blood Pressure 132/60 (mmHg) O2 Sat by Pulse 98 Oximetry 02/28/19 02/28/19 02/28/19 10:12 10:30 11:22 Temperature 98.8 F Pulse Rate 91 Respiratory 16 16 17 Rate Blood Pressure 125/62 (mmHg) O2 Sat by Pulse 99 Oximetry 02/28/19 02/28/19 12:10 14:31 Temperature Pulse Rate Respiratory 16 16 Rate Blood Pressure (mmHg) O2 Sat by Pulse Oximetry Oxygen Devices in Use Now: None Appearance: Obese white female, laying in bed, appearing in NAD Eyes: No Scleral Icterus, PERRLA Ears/Nose/Mouth/Throat: Mucous Membranes Moist Neck: NL Appearance and Movements; NL JVP Respiratory: Symmetrical Chest Expansion and Respiratory Effort, Clear to Auscultation Cardiovascular: NL Sounds; No Murmurs; No JVD, RRR Abdominal: - - abd soft, nontender, nondistended Extremities: No Clubbing, Cyanosis, - - trace nonpitting edema throughout Right LE Skin: No Rash or Ulcers Neurological: Alert and Oriented x 3, NL Muscle Strength and Tone Result Diagrams: 02/27/19 19:27 02/27/19 19:27 Microbiology and Other Data: Microbiology 02/28/19 07:40 Nasal Screen MRSA (PCR) - Final Nasal Mrsa Not Detected Assess/Plan/Problems-Billing Assessment: 68 yo female with PMHx prior SVT, HTN, HLD presents from [facility] at [facility] with right hip pain, found to have dislocation of right hip prosthesis. - Patient Problems (1) Dislocation of hip joint prosthesis Current Visit: Yes Status: Acute Code(s): T84.029A - DISLOCATION OF UNSP INTERNAL JOINT PROSTHESIS, INIT ENCNTR; Z96.649 - PRESENCE OF UNSPECIFIED ARTIFICIAL HIP JOINT SNOMED Code(s): 497760275 Comment: -recent hip replacement, presenting with dislocation -appreciate orthopedic surgery involvement, planning surgery on 03/02/19 -bedrest (2) Leg edema, right Current Visit: Yes Status: Acute Code(s): R60.0 - LOCALIZED EDEMA SNOMED Code(s): 197804047 Comment: -DVT ruled out with doppler -likely secondary to recent hip surgery on right side (3) History of paroxysmal supraventricular tachycardia Current Visit: Yes Status: Acute Code(s): Z86.79 - PERSONAL HISTORY OF OTHER DISEASES OF THE CIRCULATORY SYSTEM SNOMED Code(s): 023448595788155 Comment: -reviewed in [facility]. Patient has pmhx of paroxsymal afib/aflutter/SVT. Does not take AC at home -continue flecainide and diltiazem -rate controlled today (4) Status post total hip replacement, right Current Visit: Yes Status: Acute Code(s): Z96.641 - PRESENCE OF RIGHT ARTIFICIAL HIP JOINT SNOMED Code(s): 726266510179 Comment: -s/p right total hip on 02/20/[address] Arreola. Has been at [facility] for rehab since that discharge -on coumadin for DVT prophylaxis after this surgery, which is on hold leading up to needed surgery during this admission and using subQ heparin (5) Hypertension Current Visit: Yes Status: Acute Code(s): I10 - ESSENTIAL (PRIMARY) HYPERTENSION SNOMED Code(s): 89776347 Comment: -normotensive -cont lisinopril (6) Hyperlipidemia Current Visit: Yes Status: Acute Code(s): E78.5 - HYPERLIPIDEMIA, UNSPECIFIED SNOMED Code(s): 77993610 Comment: -cont statin (7) DVT prophylaxis Current Visit: Yes Status: Acute Code(s): Z29.9 - ENCOUNTER FOR PROPHYLACTIC MEASURES, UNSPECIFIED SNOMED Code(s): 564153643 Comment: -subQ heparin (8) Full code status Current Visit: Yes Status: Acute Code(s): Z78.9 - OTHER SPECIFIED HEALTH STATUS SNOMED Code(s): 286531504 Status and Disposition: inpatient awaiting surgery
[2019-02-28] MEDS: Cetirizine* 10 MG TAB PO SCH (16:49)
[2019-02-28] MEDS: Baclofen TAB* 10 MG PO SCH (16:57)
[2019-02-28] MEDS: Lisinopril TAB* 5 MG PO SCH (16:59)
[2019-02-28] MEDS ORDERED: Gabapentin CAP(*) 300 MG PO SCH (21:00)
[2019-02-28] MEDS: Gabapentin CAP(*) 300 MG PO SCH (21:46)
[2019-02-28] MEDS: CMCS: Rosuvastatin (NF) 5 MG TAB PO SCH (21:48)
--- NOTE | 2019-02-28 22:26 | CONS ---
CONSULTATION REPORT: DATE OF CONSULT: 02/28/19 ATTENDING ORTHOPEDIC PROVIDER: Dr. Gilberto Arreola. PRIMARY CARE PHYSICIAN: Dr. Winifred Jurado. CHIEF COMPLAINT: Right hip dislocation. HISTORY OF PRESENT ILLNESS: The patient is a 68-year-old female who had a right total hip replacement on 02/20/19. She was discharged to [facility] where she was recovering uneventfully up until 02/26/19. She reports that she had an uneventful day, did quite well with physical therapy, walked with the parallel bars and then later the night when she was moving from a chair back into bed, she heard some popping and the following day, she had swelling and worsening pain of the right hip. X-ray was obtained and she was sent back to the emergency room at [facility] due to concern for right hip dislocation. On arrival, the right hip dislocation of the prosthesis as well as the acetabular implant was identified. CT scan was done, which again showed dislocation of acetabular cup as well as the femoral head along with a nondisplaced fracture of the acetabular wall. The patient is reporting that she is having pain with any movement of the right leg, continued swelling and some feeling of decreased sensation, but she is unable to elaborate as to where. PAST MEDICAL HISTORY: Hypertension, hyperlipidemia, obesity, aortic regurgitation, GERD. PAST SURGICAL HISTORY: Posterior cervical fusion, appendectomy, bilateral total knee replacement, right shoulder surgery, bilateral foot arthrodesis, right hip arthroplasty. HOME MEDICATIONS: 1. Oxycodone 5 mg p.o. q.4 hours p.r.n. for pain. 2. Diltiazem ER 180 mg p.o. daily. 3. Coumadin 2 mg 1 to 3 tabs daily, dose depends on INR, for 30 days postop. 4. Nasacort 2 sprays each nostril daily. 5. Crestor 5 mg p.o. at bedtime on Wednesday, Wednesday, and Wednesday. 6. Potassium chloride 20 mEq p.o. daily at noon. 7. Omeprazole 20 mg p.o. daily. 8. Fish oil 1 cap p.o. b.i.d. 9. Hair, Skin, and Nails vitamin 1 cap p.o. daily. 10. Multivitamin 1 tab daily. 11. Meloxicam 15 mg daily at 1700. 12. Lisinopril 5 mg daily at 1700. 13. Culturelle 1 cap p.o. daily. 14. Glucosamine chondroitin 1 tab p.o. daily. 15. Gabapentin 300 mg p.o. at bedtime. 16. Flecainide 100 mg p.o. b.i.d. 17. Colace 100 mg p.o. b.i.d. 18. Dicloxacillin 500 mg p.o. to take in prior to barrel washer machine appointment. 19. Flexeril 10 p.o. q.6 hours p.r.n. for spasms. 20. Cetirizine 10 mg p.o. at bedtime. 21. Calcium citrate 200 mg p.o. daily. 22. Baclofen 10 mg p.o. daily at 1700. 23. Aspirin 81 mg p.o. daily. 24. Ascorbic acid 1000 mg p.o. b.i.d. 25. Tylenol 975 mg p.o. q.8 hours. ALLERGIES: LIPITOR, PRAVASTATIN, NABUMETONE, MORPHINE, FENTANYL, and CLARITHROMYCIN. FAMILY HISTORY: Mother of complications of diabetes at the age of 64. Father at 85, complications from a septic knee. 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 She does not smoke or drink alcohol. REVIEW OF SYSTEMS: General: Denies any fever or chills. HEENT: Negative for any head trauma or headache. Cardiac: Denies any chest pain. Respiratory: Denies any shortness of breath. GI: Denies nausea, vomiting, diarrhea, or abdominal pain. : Denies any dysuria. Musculoskeletal: Positive for right hip pain. No pain in other extremities. Neuro: Confirms nondescript decreased sensation of right lower extremity. PHYSICAL EXAM: General: The patient is well appearing, in no acute distress. Vital Signs: Temperature 99.2, pulse rate 79, respiratory rate 20, oxygen saturation 94, blood pressure 106/50. HEENT: Normocephalic, atraumatic. Lungs : Clear to auscultation bilaterally. Cardiac: S1, S2. Abdomen: Nondistended. Musculoskeletal: Bilateral upper extremities and left lower extremity, skin envelope intact. Nontender to palpation. Able to flex and extend all the joints without pain. Right lower extremity is shortened and externally rotated. She is able to flex and extend at the ankle and at the MTP. She does not move the knee or hip due to pain. Her surgical incision is well approximated without any erythema, edema or discharge. Neuro: Sensation intact to light touch throughout the right lower extremity. She is unable to elaborate on any areas of decreased sensation. Psych: Appropriate affect. DIAGNOSTIC STUDIES/LAB DATA: White blood cell count 8.4, hemoglobin 10.1, hematocrit 30, INR 1.19. Sodium 137, potassium 3.9, creatinine 0.4. Pelvis CT : Dislocation of the acetabular cup from the acetabular fossa as well as dislocation of the right femoral head prosthesis, also suggesting a fractured acetabular wall. ASSESSMENT: Right hip dislocation, failure of acetabular hardware. PLAN: The patient will be nonweightbearing on bedrest. She will be on subcu heparin until midnight Wednesday night. She will also be NPO at midnight Wednesday night and turns for the OR at 7:[address] Arreola. The patient has had extensive conversation with Dr. Arreola and agrees to the procedure. ROMAN ZAPAAT [id number]/[facility] #: [id number] MTDMila
[2019-03-01] MEDS: oxyCODONE TAB* 5 MG TAB PO PRN ×4 (03:58→21:56)
[2019-03-01] MEDS: Cyclobenzaprine TAB* 10 MG PO PRN ×4 (04:01→22:46)
[2019-03-01] MEDS: Acetaminophen TAB* 325 MG PO SCH ×3 (06:08→21:55)
[2019-03-01] MEDS: Heparin VIAL(*) 5000 UNITS/ML VIAL (FIVE THOUSAND) SUBCUT SCH ×2 (06:09→14:04)
[2019-03-01 07:20] LABS: INR 1.22 (0.82-1.09)
[2019-03-01] MEDS: Docusate CAP* 100 MG PO SCH ×4 (09:12→21:53)
[2019-03-01] MEDS: Calcium Citrate TAB* 200 MG PO SCH (09:16)
[2019-03-01] MEDS: Gabapentin CAP(*) 300 MG PO SCH ×2 (09:16→21:54)
[2019-03-01] MEDS: Diltiazem CD CAP* 180 MG PO SCH (09:17)
[2019-03-01] MEDS: Pantoprazole TAB * 40 MG TAB PO SCH (09:17)
[2019-03-01] MEDS: Flecainide TAB* 100 MG PO SCH ×2 (09:17→21:54)
[2019-03-01] MEDS: Aspirin 81 mg CHEW TAB* 81 MG TAB.CHEW PO SCH (09:17)
[2019-03-01] MEDS: HYDROmorphone INJ* 0.5 MG/0.5 ML SYRINGE IV PRN ×4 (09:21→23:41)
[2019-03-01] MEDS: Fluticasone NASAL SPRAY 50MCG* 16 gm SPRAY BTL BOTH NARES SCH (10:26)
--- NOTE | 2019-03-01 14:02 | PN ---
Progress Note - Progress Note Date of Service: 03/01/19 SOAP: Subjective: []Pt seen at bedside she feels well without CP, SOB, dizziness, nausea. Objective: []Gen: appears well, NAD RLE: dressing changed, incision CDI. thigh soft. sensation intact to light touch throughout extremity. df/pf intact. DP2+ Calves supple and nontender Assessment: []R hip dislocation, failure of acetabular implant, possible acetabular fracture Plan: []NWB, bedrest OR tomorrow morning with Dr Arreola NPO at midnight, hold heparin at midnight Vital Signs Temp 98.3 F 03/01/19 11:51 Pulse 79 03/01/19 11:51 Resp 16 03/01/19 12:33 BP 102/51 03/01/19 11:51 Pulse Ox 96 03/01/19 11:51 Intake & Output 02/28/19 03/01/19 03/01/19 18:59 06:59 18:59 Intake Total 320 600 120 Output Total 450 1300 Balance -130 -700 120 Intake: Oral 320 600 120 Output: Wallace 450 1300 Laboratory Last Values WBC 8.4 10^3/uL (3.5-10.8) 02/27/19 19:27 RBC 3.10 10^6 /uL (3.70-4.87) L 02/27/19 19:27 Hgb 10.1 g/dL (12.0-16.0) L 02/27/19 19:27 Hct 30 % (35-47) L 02/27/19 19:27 MCV 95 fL (80-97) 02/27/19 19:27 MCH 33 pg (27-31) H 02/27/19 19:27 MCHC 34 g/dL (31-36) 02/27/19 19:27 RDW 13 % (10-15) 02/27/19 19:27 Plt Count 417 10^3/uL (150-450) 02/27/19 19:27 MPV 5.9 fL (7.4-10.4) L 02/27/19 19:27 Neut % (Auto) 78.2 % 02/27/19 19:27 Lymph % (Auto) 9.8 % 02/27/19 19:27 Long % (Auto) 8.9 % 02/27/19 19:27 Eos % (Auto) 2.9 % 02/27/19 19:27 Baso % (Auto) 0.2 % 02/27/19 19:27 Absolute Neuts (auto) 6.6 10^3/ul (1.5-7.7) 02/27/19 19:27 Absolute Lymphs (auto) 0.8 10^3/ul (1.0-4.8) L 02/27/19 19:27 Absolute Monos (auto) 0.7 10^3/ul (0-0.8) 02/27/19 19:27 Absolute Eos (auto) 0.2 10^3/ul (0-0.6) 02/27/19 19: Absolute Basos (auto) 0.0 10^3/ul (0-0.2) 02/27/19 19: Absolute Nucleated RBC 0.0 10^3/ul 02/27/19 19: Nucleated RBC % 0.0 02/27/19 19: INR (Anticoag Therapy) 1.22 (0.82-1.09) H 03/01/19 06:55 APTT 31.6 seconds (26.0-38.0) 02/28/19 13:40 Sodium 137 mmol/L (135-145) 02/27/19 19:27 Potassium 3.9 mmol/L (3.5-5.0) 02/27/19 19:27 Chloride 105 mmol/L (101-111) 02/27/19 19:27 Carbon Dioxide 23 mmol/L (22-32) 02/27/19 19:27 Anion Gap 9 mmol/L (2-11) 02/27/19 19:27 BUN 23 mg/dL (6-24) 02/27/19 19:27 Creatinine 0.40 mg/dL (0.51-0.95) L 02/27/19 19:27 Est GFR ( Amer) 190.9 (>60) 02/27/19 19:27 Est GFR (Non-Af Amer) 157.8 (>60) 02/27/19 19:27 BUN/Creatinine Ratio 57.5 (8-20) H 02/27/19 19:27 Glucose 128 mg/dL (70-100) H 02/27/19 19:27 Lactic Acid 0.9 mmol/L (0.5-2.0) 02/27/19 19: Calcium 8.5 mg/dL (8.6-10.3) L 02/27/19 19: Total Bilirubin 0.60 mg/dL (0.2-1.0) 02/27/19 19:27 AST 30 U/L (13-39) 02/27/19 19: ALT 45 U/L (7-52) 02/27/19 19: Alkaline Phosphatase 100 U/L (34-104) 02/27/19 19: Troponin I 0.04 ng/mL (<0.04) H* 02/28/19 01:35 Total Protein 6.4 g/dL (6.4-8.9) 02/27/19 19: Albumin 3.4 g/dL (3.2-5.2) 02/27/19 19: Globulin 3.0 g/dL (2-4) 02/27/19 19: Albumin/Globulin Ratio 1.1 (1-3) 02/27/19 19: Urine Color Yellow 02/28/19 02:40 Urine Appearance Clear 02/28/19 02:40 Urine pH 7.0 (5-9) 02/28/19 02:40 Ur Specific [place] 1.008 (1.010-1.030) L 02/28/19 02:40 Urine Protein Negative (Negative) 02/28/19 02:40 Urine Ketones Negative (Negative) 02/28/19 02:40 Urine Blood Negative (Negative) 02/28/19 02:40 Urine Nitrate Negative (Negative) 02/28/19 02:40 Urine Bilirubin Negative (Negative) 02/28/19 02:40 Urine Urobilinogen Negative (Negative) 02/28/19 02:40 Ur Leukocyte Esterase Negative (Negative) 02/28/19 02:40 Urine Glucose Negative (Negative) 02/28/19 02:40 Blood Type O Negative 02/27/19 19:27 Antibody Screen Negative 02/27/19 19:27
--- NOTE | 2019-03-01 15:14 | PN ---
Subjective Date of Service: 03/01/19 Interval History: Patient tells me she has been having muscle spasms in her right thigh today. Flexeril has helped. Overall her pain is well controlled, she tells me. Her last BM was 02/26/19 and has been having flatus. Denies abd pain, nausea, chest pain, difficulty breathing, fever/chills. Patient notes brief period of palpitations earlier today. This occurs at home as well. Objective Active Medications: Acetaminophen (Tylenol Tab*) 975 mg PO Q8HR [facility] Last Admin: 03/01/19 14:04 Dose: 975 mg Aspirin (Aspirin 81 Mg Chew Tab*) 81 mg PO QAM [facility] Last Admin: 03/01/19 09:17 Dose: 81 mg Baclofen (Lioresal Tab*) 10 mg PO 1700 [facility] Last Admin: 02/28/19 16:57 Dose: Not Given Calcium Citrate (Citracal Tab*) 200 mg PO QAM [facility] Last Admin: 03/01/19 09:16 Dose: 200 mg Cetirizine HCl (Zyrtec*) 10 mg PO QPM [facility] Last Admin: 02/28/19 16:49 Dose: 10 mg Cyclobenzaprine HCl (Flexeril Tab*) 10 mg PO Q6H PRN PRN Reason: SPASMS Last Admin: 03/01/19 10:25 Dose: 10 mg Diltiazem HCl (Cardizem Cd Cap*) 180 mg PO QAM [facility] Last Admin: 03/01/19 09:17 Dose: 180 mg Docusate Sodium (Colace Cap*) 100 mg PO BID [facility] Last Admin: 03/01/19 09:12 Dose: Not Given Docusate Sodium (Colace Cap*) 100 mg PO BID [facility] Last Admin: 03/01/19 09:16 Dose: 100 mg Flecainide Acetate (Tambocor Tab*) 100 mg PO BID [facility] Last Admin: 03/01/19 09:17 Dose: 100 mg Fluticasone Propionate (Flonase Nasal [place] 50mcg*) 2 spray BOTH NARES DAILY [facility] Last Admin: 03/01/19 10:26 Dose: 2 spray Gabapentin (Neurontin Cap(*)) 300 mg PO BID [facility] Last Admin: 03/01/19 09:16 Dose: 300 mg Heparin Sodium (Porcine) (Heparin Vial(*)) 5,000 units SUBCUT Q8HR REID Stop: 03/01/19 23:59 Last Admin: 03/01/19 14:04 Dose: 5,000 units Hydromorphone HCl (Dilaudid Inj*) 0.5 mg IV Q4H PRN PRN Reason: PAIN - SEVERE Last Admin: 03/01/19 14:45 Dose: 0.5 mg Lisinopril (Prinivil Tab*) 5 mg PO 1700 REID Last Admin: 02/28/19 16:59 Dose: Not Given Magnesium Hydroxide (Milk Of Magnesia Liq*) 30 ml PO BID PRN PRN Reason: CONSTIPATION Oxycodone HCl (Roxycodone Tab*) 5 mg PO Q4H PRN PRN Reason: PAIN - MODERATE Oxycodone HCl (Roxycodone Tab*) 10 mg PO Q4H PRN PRN Reason: PAIN - SEVERE Last Admin: 03/01/19 12:33 Dose: 10 mg Pantoprazole Sodium (Protonix Tab*) 40 mg PO QAM [facility] Last Admin: 03/01/19 09:17 Dose: 40 mg Polyethylene Glycol/Electrolytes (Miralax*) 17 gm PO DAILY PRN PRN Reason: CONSTIPATION Rosuvastatin Calcium (Crestor (Nf)) 5 mg PO BEDTIME [facility]; Protocol Last Admin: 02/28/19 21:48 Dose: 5 mg Senna (Senokot 8.6 Mg Tab*) 1 tab PO BEDTIME PRN PRN Reason: CONSTIPATION Vital Signs - 8 hr 03/01/19 03/01/19 03/01/19 08:01 09:05 09:16 Temperature 98.3 F Pulse Rate 77 Respiratory 16 16 16 Rate Blood Pressure 101/49 (mmHg) O2 Sat by Pulse 94 Oximetry 03/01/19 03/01/19 03/01/19 09:21 10:15 10:25 Temperature Pulse Rate Respiratory 16 16 16 Rate Blood Pressure (mmHg) O2 Sat by Pulse Oximetry 03/01/19 03/01/19 03/01/19 11:51 12:33 14:45 Temperature 98.3 F Pulse Rate 79 Respiratory 16 16 16 Rate Blood Pressure 102/51 (mmHg) O2 Sat by Pulse 96 Oximetry Oxygen Devices in Use Now: None Appearance: Obese, elderly white female, laying in bed, appearing in NAD Eyes: No Scleral Icterus, PERRLA Ears/Nose/Mouth/Throat: Mucous Membranes Moist Neck: NL Appearance and Movements; NL JVP Respiratory: Symmetrical Chest Expansion and Respiratory Effort, Clear to Auscultation Cardiovascular: NL Sounds; No Murmurs; No JVD, RRR Abdominal: - - abd soft, nontender, nondistended Extremities: No Clubbing, Cyanosis, - - trace edema to right LE Skin: No Rash or Ulcers Neurological: Alert and Oriented x 3, NL Muscle Strength and Tone Result Diagrams: 02/27/19 19:27 02/27/19 19:27 Microbiology and Other Data: Microbiology 02/28/19 07:40 Nasal Screen MRSA (PCR) - Final Nasal Mrsa Not Detected Assess/Plan/Problems-Billing Assessment: 68 yo female with PMHx prior SVT, HTN, HLD presents from [facility] [place] at [facility] with right hip pain, found to have dislocation of right hip prosthesis. - Patient Problems (1) Dislocation of hip joint prosthesis Current Visit: Yes Status: Acute Code(s): T84.029A - DISLOCATION OF UNSP INTERNAL JOINT PROSTHESIS, INIT ENCNTR; Z96.649 - PRESENCE OF UNSPECIFIED ARTIFICIAL HIP JOINT SNOMED Code(s): 439118268 Comment: -recent hip replacement, presenting with dislocation -appreciate orthopedic surgery involvement. Surgery planned for tomorrow. -bedrest -continue pain control and bowel regimen. Changed senna to scheduled due to constipation x3 days (2) Leg edema, right Current Visit: Yes Status: Acute Code(s): R60.0 - LOCALIZED EDEMA SNOMED Code(s): 562567652 Comment: -DVT ruled out with doppler -likely secondary to recent hip surgery on right side -unchanged today (3) History of paroxysmal supraventricular tachycardia Current Visit: Yes Status: Acute Code(s): Z86.79 - PERSONAL HISTORY OF OTHER DISEASES OF THE CIRCULATORY SYSTEM SNOMED Code(s): 496976550422707 Comment: -reviewed in [employer]. Patient has pmhx of paroxsymal afib/aflutter/SVT. Does not take AC at home -continue flecainide and diltiazem -rate controlled today -restarted her home potassium supplement (4) Status post total hip replacement, right Current Visit: Yes Status: Acute Code(s): Z96.641 - PRESENCE OF RIGHT ARTIFICIAL HIP JOINT SNOMED Code(s): 487262060735 Comment: -s/p right total hip on 02/20/[address] Arreola. Has been at [facility] for rehab since that discharge -on coumadin for DVT prophylaxis after this surgery, which is on hold leading up to needed surgery during this admission and using subQ heparin (5) Hypertension Current Visit: Yes Status: Acute Code(s): I10 - ESSENTIAL (PRIMARY) HYPERTENSION SNOMED Code(s): 23105035 Comment: -normotensive -cont lisinopril (6) Hyperlipidemia Current Visit: Yes Status: Acute Code(s): E78.5 - HYPERLIPIDEMIA, UNSPECIFIED SNOMED Code(s): 75082154 Comment: -cont statin (7) DVT prophylaxis Current Visit: Yes Status: Acute Code(s): Z29.9 - ENCOUNTER FOR PROPHYLACTIC MEASURES, UNSPECIFIED SNOMED Code(s): 287698181 Comment: -subQ heparin (8) Full code status Current Visit: Yes Status: Acute Code(s): Z78.9 - OTHER SPECIFIED HEALTH STATUS SNOMED Code(s): 899115010 Status and Disposition: inpatient awaiting surgery
[2019-03-01] MEDS ORDERED: Buffered Lidocaine 1% SYRIN* 1 ML/SYRINGE INTRADERM ONE (16:06)
[2019-03-01] MEDS ORDERED: Lactated Ringers 1000 ML Bag* 1,000 ML IV SCH (17:00)
[2019-03-01] MEDS: Lisinopril TAB* 5 MG PO SCH (17:09)
[2019-03-01] MEDS: Baclofen TAB* 10 MG PO SCH (17:09)
[2019-03-01] MEDS: Cetirizine* 10 MG TAB PO SCH (17:35)
[2019-03-01] MEDS: Potassium Chlor TAB* 20 MEQ TAB.ER PO SCH (17:35)
--- NOTE | 2019-03-01 19:02 | PN ---
Hospitalist Progress Note Date of Service: 03/01/19 Patient had minimal elevation of troponin of troponin to 0.04. The patient was asymptomatic and without EKG changes. Repeated today and decreased to 0.03 which is negative. The elevation was likely related to ischemic demand in the setting of severe pain of prosthetic hip dislocation.
[2019-03-01] MEDS: CMCS: Rosuvastatin (NF) 5 MG TAB PO SCH (21:54)
[2019-03-01] MEDS: Senna TAB 8.6 mg* TAB PO SCH (21:55)
[2019-03-02] MEDS: oxyCODONE TAB* 5 MG TAB PO PRN ×3 (03:27→21:25)
[2019-03-02] MEDS: Lactated Ringers 1000 ML Bag* 1,000 ML IV SCH ×2 (05:47→16:05)
[2019-03-02] MEDS: HYDROmorphone INJ* 0.5 MG/0.5 ML SYRINGE IV PRN (05:49)
[2019-03-02] MEDS: Acetaminophen TAB* 325 MG PO SCH ×3 (05:54→21:24)
[2019-03-02 06:46] LABS: INR 1.1 (0.82-1.09)
[2019-03-02] MEDS ORDERED: ceFAZolin 1 GM ADVAN(*) 1 GM ADDV.VIAL IVPB ONE (07:00)
[2019-03-02] MEDS ORDERED: ceFAZolin 2 GM in NS PREMIX(*) 2 GM/100 ML BAG IVPB ONE (07:00)
[2019-03-02 07:01] LABS: BUN/Creatinine Ratio 39.5 (8-20); Calcium 8.2 mg/dL (8.6-10.3); EGFR African American 202.6 (>60); EGFR Non-African American 167.4 (>60); Potassium 4.2 mmol/L (3.5-5.0)
[2019-03-02] MEDS ORDERED: KETAMINE HCL* 50 MG/ML 10 ML VIAL ONE (07:01)
[2019-03-02] MEDS ORDERED: Midazolam* 1 MG/ML 5 ML VIAL (5 MG) ONE (07:01)
[2019-03-02] MEDS ORDERED: ROPIVACAINE 5 MG/ML 30 ML BTL (0.5%) ONE (07:10)
[2019-03-02] MEDS ORDERED: Famotidine IV* 10 MG/ML 2 ML (20 mg) ONE (07:10)
[2019-03-02] MEDS ORDERED: Lidocaine 2% PF * 5 ML VIAL ONE (08:07)
[2019-03-02] MEDS ORDERED: Succinylcholine* 20 MG/ML 10 ML VIAL ONE (08:07)
[2019-03-02] MEDS ORDERED: Dexamethasone IV* 4 MG/ML 1 ML (4 MG) ONE (08:07)
[2019-03-02] MEDS ORDERED: Ondansetron INJ* 2 MG/ML VIAL ONE (08:07)
[2019-03-02] MEDS ORDERED: Propofol* 10 MG/ML 20 ML BTL ONE (08:07)
[2019-03-02] MEDS ORDERED: Cisatracurium* 2 MG/ML MDV 5 ML ONE (08:11)
[2019-03-02] MEDS ORDERED: Bupivacaine 0.25% EPI 200,000* 30 ML SDV ONE ×2 (08:36→11:55)
[2019-03-02] MEDS ORDERED: EPHEDrine (Pressors)* 50 MG/ML VIAL ONE (08:59)
[2019-03-02] MEDS ORDERED: Fluticasone NASAL SPRAY 50MCG* 16 gm SPRAY BTL BOTH NARES SCH (09:00)
[2019-03-02] MEDS ORDERED: Gelfoam 12-7 ADSORBABL SPONGE* 1 EA SPONGE ONE (09:49)
[2019-03-02] MEDS: Docusate CAP* 100 MG PO SCH ×3 (10:07→21:23)
[2019-03-02] MEDS: Diltiazem CD CAP* 180 MG PO SCH (10:07)
[2019-03-02] MEDS: Calcium Citrate TAB* 200 MG PO SCH (10:07)
[2019-03-02] MEDS: Flecainide TAB* 100 MG PO SCH ×2 (10:07→21:24)
[2019-03-02] MEDS: Aspirin 81 mg CHEW TAB* 81 MG TAB.CHEW PO SCH (10:07)
[2019-03-02] MEDS: Gabapentin CAP(*) 300 MG PO SCH ×2 (10:08→21:24)
[2019-03-02] MEDS: Fluticasone NASAL SPRAY 50MCG* 16 gm SPRAY BTL BOTH NARES SCH (10:08)
[2019-03-02] MEDS: Pantoprazole TAB * 40 MG TAB PO SCH ×2 (10:08→15:58)
[2019-03-02] MEDS ORDERED: Calcium CHLORIDE 10% SYRINGE* 1 GM/10 ML ONE (11:19)
[2019-03-02] MEDS ORDERED: Acetaminophen IV 1GM/100ML * 100 ML ONE (11:44)
[2019-03-02] MEDS ORDERED: DiMENhydriNATE IV* 50 MG/ML VIAL IV PUSH PRN (12:05)
[2019-03-02] MEDS ORDERED: HYDROmorphone INJ1* 1 MG/ML SYRINGE IV PRN (12:05)
[2019-03-02] MEDS ORDERED: Naloxone* 0.4 MG/ML 1 ML VIAL IV PRN (12:05)
[2019-03-02] MEDS ORDERED: HYDROmorphone INJ1* 1 MG/ML SYRINGE ONE ×2 (12:10→14:32)
[2019-03-02] MEDS ORDERED: ceFAZolin VIAL(*) VIAL ONE (13:03)
[2019-03-02] MEDS ORDERED: ceFAZolin 2 GM PREMIX in ORs 2 GM/50 ML BAG ONE (13:06)
--- NOTE | 2019-03-02 13:38 | OP ---
DATE OF OPERATION: 03/02/19 - ROOM #348 DATE OF : 46 SURGEON: Gilberto Arreola MD CO-SURGEON: Frank Jordan MD HONEY PRODUCER: Garett Lang RPA ANESTHESIA: Regional and general. PRE-OP DIAGNOSIS: Failed acetabular component, right total hip arthroplasty. POST-OP DIAGNOSIS: Failed acetabular component, right total hip arthroplasty. OPERATIVE PROCEDURE: Revision right total hip arthroplasty with posterior wall augmentation. ESTIMATED BLOOD LOSS: 1500 cc. COMPLICATIONS: None. INDICATIONS: Mrs. Rowley is a 68-year-old female who had undergone a right total hip arthroplasty last 02/23/19. She had seemed to do well where her postoperative x-rays looked good and her leg length was now equal. [facility], but this Wednesday had noticed some increased swelling. She did manage to stand and put weight on the leg and that had gone well. After sitting up for most of the day, with going back to bed, she noted that the right knee was pointing in the wrong direction. With getting up overnight, there was very specific clicking and popping about the hip which was painful and the next morning was noted to be shortened and in an externally rotated position. She also had continued increased pain. X-rays were taken and the preliminary report from the outside radiology is that she had either a subluxation or dislocation of the hip. She was brought to the emergency room here at [facility] and x-rays were taken, which confirmed that the acetabular cup was torn out off the socket. I discussed with her that we had several options available, specifically using a posterior augment versus a cage and possibly even a bipolar head if there was still enough of a socket left. A CAT scan, however, showed that there was no posterior wall, so I did not believe that simply placing a bi or even tripolar head would be an option. We did talk extensively about how the surgery is done, why this happened, and all of her questions and then her family's questions were also answered. We did talk about second opinions and I did speak with other people about this as well. This is where Dr. Jordan had then offered to help with the case. Other risks of surgery such as continued leg length discrepancy, refracture, and nerve injury were some of the risks pointed out. She had wished to proceed. DESCRIPTION OF PROCEDURE: The patient had a block placed in the holding area and was brought to the OR. General endotracheal anesthesia was established. She was then shifted to the hospital bed and then rolled into the left lateral decubitus position. Axillary roll was placed and lots of padding was used even though she was quite padded already. Wallace catheter had already been placed previously. Where she had some skin irritations in the folds of her belly rolls , and now had skin breakdown in those deep folds at this point. It was, however , not red or draining. Right hip area was prepped and then draped. [place] were taken out and incision was redeveloped. Small sutures found as we went downwards through the very thick layer of subcutaneous fat were removed. Eventually, I came back down to fascia and hematoma was also evacuated. Sutures used to bring the fascia together were released and exposure of the greater trochanter was obtained. It could be seen where I still had my posterior repair and the Ethibond suture that I had pulled through was taken down. This gave nice exposure as I could see the front side of the cup. With just a little bit of traction, the hip was pulled forward and I was able to gently lift the cup up and out without any troubles. Quite a bit of hematoma was also removed using pulse lavage. Small bits of bone were also cleaned up from the acetabulum. Head was knocked off and stem was removed so that we would have better access. Gentle exposure was then re-commenced where the anterior C retractor was placed and nicely seated anteriorly. O-Eric was then placed more superiorly so that we had nice exposure, and inferiorly, a blunt Hohmann was also placed and we had nice exposure of the rim all around. It could be seen where she had fractured along the posterior wall. Posterior column was still intact. Lying the augments on the bone, I could adjust this until it appeared to have the best position. Using the 48 trial cup as a false cup, augment was further adjusted until I liked the positioning. Once this was positioned in a good place, the augment was traded out for the real augments and 1 screw was placed. I had used the most inferior screw aiming superiorly, but when that came down, it could be seen how the augment would lift off. A smaller shawn was called for, and using bone wax and 2 Vicryl sutures, this was assembled. With the exposure superiorly, I had been able to skid with a Plascencia upwards directly along the bone and then come upwards. When we had cleared the bone, we had a bleeder that was coming from that area and I thought I had been able to tie it off and then Gelfoam also had been used. We were able to continue to work without disturbing that area and did not have additional bleeding. Coming back downwards, shawn was placed and adjusted, and when we liked the positioning, the 4 screws were gently placed as I did not want to plunge placing those screws. One of the oblique most distal screws was also placed. Attention was turned to the acetabulum. Beginning with a 48 reamer, she was reamed some of the corner of the augment was sticking into the joint itself. Continuing with increasing the reamers and without trying to push more medial or anterior and just to expand the field, the area that there was in the acetabulum, I was able to come all the way to a 55. This took down the corner of the augment. With placing the trial, we had at least 75% coverage of the cup , and with just pushing it, it could be seen where it would snug in and actually seemed fairly secure. 56 cup was called for. This was then gently impacted in and seemed to be quite secure. Screws were then placed. With coming, I was able to get 1 long screw, which I believe came between the tables of the pelvis, and we were very gentle coming in an anterior direction with a very short screw and we tried to get 1 carbon brusher assembler into the ischium, which also ended up being shorter. I was then trying to come into posterior column, and I believe I probably came out under the augment. With then placing the screw, it could be seen where this was starting to push the augment, so that screw was not placed. Screw coming in that superior direction from the inferior aspect of the augment was then placed again and we appeared to have an excellent and secure fit. I could rock her entire body by the edge of the cup. Liner was then placed and attention was returned to the femur. 12.5 broach was replaced. She was trialed with a reduced neck M/L taper as well as the 28 +0 head with the 40 mm dual mobility head. She had excellent stability and she could easily be flexed up, internally/externally rotated, and there was no levering or shifting of the cup. Even with extension, she was tight, but seemed nice and stable. Trial instrumentation was removed and a new 12.5 reduced neck M/L taper was impacted into place. A 28 +0 head with the 40 polyethylene shell was then snapped together on the back table and this was then impacted onto the femoral neck. Hip was again reduced and she had the same wonderful motion and stability. Hip was copiously pulse lavaged. 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 Coming on the posterior aspect, I had difficulty trying to bring her capsule and piriformis back, and so these were not fully able to be pulled back together. Fascia was repaired using some Ethibond as well as #1 Vicryl sutures. Subcutaneous tissues were reapproximated using 2-0 Vicryl in multiple layers to close down her space. Skin was closed using isela. Sterile dressing was applied in the OR. The patient was then rolled onto the hospital bed and extubated in the OR. She was stable on transfer to the recovery room. [id number]/[facility] #: [id number] NII
[2019-03-02] MEDS: Lisinopril TAB* 5 MG PO SCH (16:28)
--- NOTE | 2019-03-02 16:46 | PN ---
Subjective Date of Service: 03/02/19 Interval History: Pt is seen post-operatively. She states she is tired. She c/o R hip aching. She states her vision feels "off," which she attributes to anaesthesia, serene- operative medications. She reports last BM was Wednesday. She has no other complaints today. Objective Active Medications: Acetaminophen (Tylenol Tab*) 975 mg PO Q8HR REID Aspirin (Aspirin 81 Mg Chew Tab*) 81 mg PO QAM REID Baclofen (Lioresal Tab*) 10 mg PO 1700 REID Calcium Citrate (Citracal Tab*) 200 mg PO QAM REID Cetirizine HCl (Zyrtec*) 10 mg PO QPM REID Cyclobenzaprine HCl (Flexeril Tab*) 10 mg PO Q6H PRN Diltiazem HCl (Cardizem Cd Cap*) 180 mg PO QAM REID Dimenhydrinate (Dramamine Iv*) 12.5 mg IV PUSH ONCE PRN Docusate Sodium (Colace Cap*) 100 mg PO BID REID Flecainide Acetate (Tambocor Tab*) 100 mg PO BID REID Fluticasone Propionate (Flonase Nasal [place] 50mcg*) 2 spray BOTH NARES DAILY REID Gabapentin (Neurontin Cap(*)) 300 mg PO BID REID Hydromorphone HCl (Dilaudid Inj*) 0.5 mg IV Q4H PRN Hydromorphone HCl (Dilaudid Inj1s*) 0.2 mg IV Q10M PRN Lactated Ringer's (Lactated Ringers 1000 Ml Bag*) 1,000 mls @ 125 mls/hr IV .PER RATE REID Lisinopril (Prinivil Tab*) 5 mg PO 1700 REID Magnesium Hydroxide (Milk Of Magnesia Liq*) 30 ml PO BID PRN Naloxone HCl (Narcan*) 0.08 mg IV Q2M PRN Oxycodone HCl (Roxycodone Tab*) 5 mg PO Q4H PRN Oxycodone HCl (Roxycodone Tab*) 10 mg PO Q4H PRN Pantoprazole Sodium (Protonix Tab*) 40 mg PO QAM REID Polyethylene Glycol/Electrolytes (Miralax*) 17 gm PO DAILY PRN Potassium Chloride (Klor Con Er Tab*) 20 meq PO QPM REID Rosuvastatin Calcium (Crestor (Nf)) 5 mg PO BEDTIME REID; Protocol Senna (Senokot 8.6 Mg Tab*) 1 tab PO BEDTIME REID Vital Signs: Temp Pulse Resp BP Pulse Ox 99.6 F 84 16 118/79 100 03/02/19 03:16 03/02/19 15:15 03/02/19 15:58 03/02/19 15:15 03/02/19 15:15 Oxygen Devices in Use Now: None Appearance: Pt is laying in bed, family at bedside. She appears somewhat groggy , but is in no acute distress, appears comfortable. Eyes: No Scleral Icterus, PERRLA Ears/Nose/Mouth/Throat: NL Teeth, Lips, Gums, Clear Oropharnyx, Mucous Membranes Moist Neck: NL Appearance and Movements; NL JVP, Trachea Midline Respiratory: Symmetrical Chest Expansion and Respiratory Effort, Clear to Auscultation - Anteriorly Cardiovascular: NL Sounds; No Murmurs; No JVD, RRR, No Edema Abdominal: NL Sounds; No Tenderness; No Distention, No Hepatosplenomegaly Neurological: Alert and Oriented x 3, NL Sensation, - - Can move b/l toes Result Diagrams: 03/03/19 04:40 03/02/19 06:10 Microbiology and Other Data: Microbiology 02/28/19 07:40 Nasal Screen MRSA (PCR) - Final Nasal Mrsa Not Detected Assess/Plan/Problems-Billing Assessment: 68 yo female with PMHx prior SVT, HTN, HLD presents from [facility] at [facility] with right hip pain, found to have dislocation of right hip prosthesis. - Patient Problems (1) Dislocation of hip joint prosthesis Comment: -POD0 revision R PAIGE; R hip replacement 02/20, presenting with dislocation -appreciate orthopedic surgery involvement -2U PRBC in OR; q6h H/H and monitor for need for transfusion -continue pain control and bowel regimen -Changed senna to scheduled due to constipation; continue prn bowel regimen (2) History of paroxysmal supraventricular tachycardia Comment: -reviewed in [employer]: patient has pmhx of paroxsymal afib/aflutter/SVT -No AC at home -continue flecainide and diltiazem -rate controlled today -restarted her home potassium supplement -Start tele (3) Status post total hip replacement, right Comment: -s/p right total hip on 02/20/[address] Arreola. Has been at [facility] for rehab since d/c -on coumadin for DVT prophylaxis after this surgery, held for surgery -using subQ heparin prior to surgery (4) Leg edema, right Comment: -DVT ruled out with doppler -likely secondary to recent hip surgery on right side (5) Hypertension Comment: -normotensive -cont lisinopril (6) Hyperlipidemia Comment: -cont statin (7) DVT prophylaxis Comment: -Per ortho: SCDs (8) Full code status Status and Disposition: Inpatient. Post-op 03/02/2019.
[2019-03-02] MEDS: Baclofen TAB* 10 MG PO SCH (17:20)
[2019-03-02 17:45] LABS: Hematocrit 27 % (35-47); Hemoglobin 9.1 g/dL (12.0-16.0)
[2019-03-02] MEDS: Cyclobenzaprine TAB* 10 MG PO PRN (17:57)
[2019-03-02] MEDS: Cetirizine* 10 MG TAB PO SCH (17:57)
[2019-03-02] MEDS: Potassium Chlor TAB* 20 MEQ TAB.ER PO SCH (17:58)
[2019-03-02] MEDS: ceFAZolin* 2 GM* Q8H (Duplex) IVPB SCH (18:17)
[2019-03-02] MEDS: CMCS: Rosuvastatin (NF) 5 MG TAB PO SCH (21:24)
[2019-03-02] MEDS: Senna TAB 8.6 mg* TAB PO SCH (21:24)
[2019-03-02] MEDS: CMCS: diPHENhydraMINE CREAM 2%(NF) 28 gm TUBE TOPICAL PRN (21:39)
[2019-03-03] MEDS: Lactated Ringers 1000 ML Bag* 1,000 ML IV SCH ×2 (00:37→09:11)
[2019-03-03 01:10] LABS: Hematocrit 23 % (35-47); Hemoglobin 7.8 g/dL (12.0-16.0)
[2019-03-03] MEDS: Cyclobenzaprine TAB* 10 MG PO PRN ×4 (02:33→23:45)
[2019-03-03] MEDS: oxyCODONE TAB* 5 MG TAB PO PRN ×5 (02:33→21:52)
[2019-03-03] MEDS: ceFAZolin* 2 GM* Q8H (Duplex) IVPB SCH ×2 (02:34→11:56)
[2019-03-03] MEDS: CMCS: diPHENhydraMINE CREAM 2%(NF) 28 gm TUBE TOPICAL PRN ×3 (02:50→16:25)
[2019-03-03] MEDS: Acetaminophen TAB* 325 MG PO SCH ×3 (05:35→21:52)
[2019-03-03 05:38] LABS: ABS Eosinophils 0.2 10^3/ul (0-0.6); ABS Lymphocytes 1.2 10^3/ul (1.0-4.8); ABS Monocytes 0.8 10^3/ul (0-0.8); ABS Neutrophils 10.8 10^3/ul (1.5-7.7); ABS Nucleated RBC 0.1 10^3/ul; Eosinophil % 1.6 %; Hematocrit 22 % (35-47); Hemoglobin 7.7 g/dL (12.0-16.0); Lymphocyte % 9.4 %; Mean Corpuscular HGB Conc 34 g/dL (31-36); Mean Corpuscular Hemoglobin 32 pg (27-31); Mean Corpuscular Volume 94 fL (80-97); Mean Platelet Volume 6.5 fL (7.4-10.4); Nucleated Red Blood Cells % 0.4; Platelet Count 397 10^3/uL (150-450); Red Blood Count 2.38 10^6 /uL (3.70-4.87); Red Cell Distribution Width 14 % (10-15); White Blood Count 13.1 10^3/uL (3.5-10.8)
[2019-03-03] MEDS: Docusate CAP* 100 MG PO SCH ×2 (09:04→21:51)
[2019-03-03] MEDS: Gabapentin CAP(*) 300 MG PO SCH ×2 (09:04→21:51)
[2019-03-03] MEDS: Calcium Citrate TAB* 200 MG PO SCH (09:04)
[2019-03-03] MEDS: Aspirin 81 mg CHEW TAB* 81 MG TAB.CHEW PO SCH (09:04)
[2019-03-03] MEDS: Pantoprazole TAB * 40 MG TAB PO SCH (09:04)
[2019-03-03] MEDS: Diltiazem CD CAP* 180 MG PO SCH (09:05)
[2019-03-03] MEDS: Fluticasone NASAL SPRAY 50MCG* 16 gm SPRAY BTL BOTH NARES SCH (09:05)
[2019-03-03] MEDS: Flecainide TAB* 100 MG PO SCH ×2 (09:09→21:52)
--- NOTE | 2019-03-03 10:06 | PN ---
Subjective Date of Service: 03/03/19 Interval History: Pt c/o fatigue. She states she feels warm, but denies fever, chills, sweats, cough, abd pain, n/v/d. She states that her chest itches. She has had no BM since Wednesday. She has a weiss in place since Wednesday. Her hip pain is rated at 3-4/10. She has no other complaints today. Objective Active Medications: Acetaminophen (Tylenol Tab*) 975 mg PO Q8HR REID Aspirin (Aspirin 81 Mg Chew Tab*) 81 mg PO QAM REID Baclofen (Lioresal Tab*) 10 mg PO 1700 REID Calcium Citrate (Citracal Tab*) 200 mg PO QAM REID Cetirizine HCl (Zyrtec*) 10 mg PO QPM REID Cyclobenzaprine HCl (Flexeril Tab*) 10 mg PO Q6H PRN Diltiazem HCl (Cardizem Cd Cap*) 180 mg PO QAM REID Docusate Sodium (Colace Cap*) 100 mg PO BID REID Flecainide Acetate (Tambocor Tab*) 100 mg PO BID REID Fluticasone Propionate (Flonase Nasal [place] 50mcg*) 2 spray BOTH NARES DAILY REID Gabapentin (Neurontin Cap(*)) 300 mg PO BID REID Hydromorphone HCl (Dilaudid Inj*) 0.5 mg IV Q4H PRN Lactated Ringer's (Lactated Ringers 1000 Ml Bag*) 1,000 mls @ 125 mls/hr IV .PER RATE REID Cefazolin Sodium/Dextrose (Kefzol 2 Gm Premix In Ors(*)) 2 gm in 50 mls @ 100 mls/hr IVPB Q8H REID Lisinopril (Prinivil Tab*) 5 mg PO 1700 REID Magnesium Hydroxide (Milk Of Magnesia Liq*) 30 ml PO BID PRN Oxycodone HCl (Roxycodone Tab*) 5 mg PO Q4H PRN Oxycodone HCl (Roxycodone Tab*) 10 mg PO Q4H PRN Pantoprazole Sodium (Protonix Tab*) 40 mg PO QAM REID Polyethylene Glycol/Electrolytes (Miralax*) 17 gm PO DAILY PRN Potassium Chloride (Klor Con Er Tab*) 20 meq PO QPM REID Rosuvastatin Calcium (Crestor (Nf)) 5 mg PO BEDTIME REID; Protocol Senna (Senokot 8.6 Mg Tab*) 1 tab PO BEDTIME REID Zinc Acetate/Diphenhydramine (Banophen 2 % Cream (Nf)) 1 applic TOPICAL TID PRN ; Protocol Vital Signs: Temp Pulse Resp BP Pulse Ox 97.3 F 112 20 92/50 99 03/03/19 11:59 03/03/19 11:59 03/03/19 17:25 03/03/19 11:59 03/03/19 11:59 Oxygen Devices in Use Now: None Appearance: Pt is sitting up in bed; pale, tired. She appears to have mild increased work of breathing, but denies SOB. Eyes: No Scleral Icterus, PERRLA Ears/Nose/Mouth/Throat: NL Teeth, Lips, Gums, Clear Oropharnyx Neck: NL Appearance and Movements; NL JVP, Trachea Midline Respiratory: Symmetrical Chest Expansion and Respiratory Effort, Clear to Auscultation Cardiovascular: NL Sounds; No Murmurs; No JVD, RRR, No Edema Abdominal: NL Sounds; No Tenderness; No Distention, No Hepatosplenomegaly Extremities: No Edema, No Clubbing, Cyanosis, - - R hip with CDI dressing in place. Sensation intact. Pt moves LE distal digits. Neurological: Alert and Oriented x 3 Result Diagrams: 03/03/19 11:18 03/02/19 06:10 Microbiology and Other Data: Microbiology 02/28/19 07:40 Nasal Screen MRSA (PCR) - Final Nasal Mrsa Not Detected Assess/Plan/Problems-Billing Assessment: 68 yo female with PMHx prior SVT, HTN, HLD presents from [facility] at [facility] with right hip pain, found to have dislocation of right hip prosthesis. - Patient Problems (1) SIRS (systemic inflammatory response syndrome) Comment: -Tachycardia with leukocytosis -CXR: no evidence for pna -UA: 2+LE -BC pending -Lactic 2.4; 3L IVF given and lactic improved to 2.3 -Give PRBC 2U and repeat lactic -Tachy may be due, in part, to post-op anemia/hypovolemia; 2U PRBC ordered, continue IVF at 75cc/h while transfusing -Patient given vanco today in place of cefazolin, due to rash, itching with cefazolin (2) Postoperative anemia Comment: -Blood loss in OR, requiring 2U PRBC -H/H trending down, now at 6.8; 2U PRBC ordered for now -CTA leg ordered (3) Dislocation of hip joint prosthesis Comment: -POD 1 revision R PAIGE; R hip replacement 02/20, presenting with dislocation -appreciate orthopedic surgery involvement -2U PRBC in OR; q6h H/H and monitor for need for transfusion (4) Itching Comment: -Pt reports itching, rash to chest area (not observed); she states she had this during her prior admission -Suspect this is due to IV Cefazolin; last dose d/c'd and changed to vanco -Continue topical benadryl, PO benadryl prn itch (5) History of paroxysmal supraventricular tachycardia Comment: -reviewed in [employer]: patient has pmhx of paroxsymal afib/aflutter/SVT -No AC at home -continue flecainide and diltiazem -rate controlled today -restarted her home potassium supplement -Continue tele (6) Status post total hip replacement, right Comment: -s/p right total hip on 02/20/[address] Arreola. Has been at [facility] for rehab since d/c -on coumadin for DVT prophylaxis after RTHA, held for revision surgery -using subQ heparin prior to surgery (7) Leg edema, right Comment: -DVT ruled out with doppler -likely secondary to recent hip surgery on right side (8) Hypertension Comment: -Low-normal BP -Hold lisinopril while on bactrim (9) Hyperlipidemia Comment: -cont statin (10) DVT prophylaxis Comment: -Per ortho: SCDs in light of decreasing H/H, possible bleed (11) Full code status Status and Disposition: Inpatient. Post-op 03/02/2019.
[2019-03-03] MEDS ORDERED: NS 0.9% 1000 ML** 1,000 ML IV ONE (10:12)
[2019-03-03] MEDS ORDERED: diPHENhydraMINE PO* 25 MG PO PRN (10:26)
[2019-03-03 11:29] LABS: Hematocrit 19 % (35-47); Hemoglobin 6.8 g/dL (12.0-16.0)
[2019-03-03] MEDS ORDERED: Vancomycin(*) 1,000 MG in NS 0.9% 250 ML* 250 ML IVPB ONE (11:47)
[2019-03-03] MEDS ORDERED: NS 0.9% 1000 ML** 2,000 ML IV ONE (11:58)
--- NOTE | 2019-03-03 11:59 | PN ---
Progress Note - Progress Note Date of Service: 03/03/19 SOAP: Subjective: []Patient seen at bedside this morning. She is alert and oriented. Her pain in right hip is well controlled. She is complaining of itching at chest region and upper back. She reports having this before and thinks is may be from the IV Kefzol. She has not been OOB yet but denies dizziness, SOB, CP, nausea or vomiting. Objective: [] Vital Signs Temp 100.3 F 03/03/19 08:46 Pulse 92 03/03/19 08:46 Resp 16 03/03/19 09:04 BP 94/42 03/03/19 08:46 Pulse Ox 94 03/03/19 08:46 Intake & Output 03/02/19 03/03/19 03/03/19 18:59 06:59 18:59 Intake Total 1800 1900 Output Total 700 975 Balance 1100 925 Intake: IV Fluids 1800 950 LR 1800 950 Oral 950 Output: Urine 700 625 Wallace 350 Laboratory Results - last 24 hr 02/27/19 03/02/19 03/03/19 19:27 17:40 01:01 WBC RBC Hgb 9.1 L 7.8 L Hct 27 L 23 L MCV MCH MCHC RDW Plt Count MPV Neut % (Auto) Lymph % (Auto) [place] % (Auto) Eos % (Auto) Baso % (Auto) Absolute Neuts (auto) Absolute Lymphs (auto) Absolute Monos (auto) Absolute Eos (auto) Absolute Basos (auto) Absolute Nucleated RBC Nucleated RBC % Lactic Acid Blood Type O Negative Antibody Screen Negative Crossmatch See Detail 03/03/19 03/03/19 03/03/19 01:01 04:40 11:18 WBC 13.1 H RBC 2.38 L Hgb 7.7 L 6.8 L Hct 22 L 19 L MCV 94 MCH 32 H MCHC 34 RDW 14 Plt Count 397 MPV 6.5 L Neut % (Auto) 82.5 Lymph % (Auto) 9.4 [place] % (Auto) 6.3 Eos % (Auto) 1.6 Baso % (Auto) 0.2 Absolute Neuts (auto) 10.8 H Absolute Lymphs (auto) 1.2 Absolute Monos (auto) 0.8 Absolute Eos (auto) 0.2 Absolute Basos (auto) 0.0 Absolute Nucleated RBC 0.1 Nucleated RBC % 0.4 Lactic Acid Blood Type O Negative Antibody Screen Negative Crossmatch See Detail 03/03/19 11:18 WBC RBC Hgb Hct MCV MCH MCHC RDW Plt Count MPV Neut % (Auto) Lymph % (Auto) [place] % (Auto) Eos % (Auto) Baso % (Auto) Absolute Neuts (auto) Absolute Lymphs (auto) Absolute Monos (auto) Absolute Eos (auto) Absolute Basos (auto) Absolute Nucleated RBC Nucleated RBC % Lactic Acid 2.4 H* Blood Type Antibody Screen Crossmatch Right hip dressings are dry and intact She has a 2+ DP pulse,foot well purfused and warm, +DF right ankle Gross sensation intact distally Assessment: []s/p Revision right total hip arthroplasty secondary to dislocation and failure of acetabular component POD #1 Acute post operative anemia secondary to intra operative blood loss Plan: []Hypotension and anemia noted, medicine aware and 1 unit PRBC ordered. no acute blood loss noted in short time from yesterday w q 6 H+H draws- will change to daily H+H and continue to monitor Cefazolin discontinued- 1 dose Vanco ordered Benedryl cream for itchy skin WBAT with posterior hip precautions- minimally ambulatory pre op Will require [facility] facility
[2019-03-03] MEDS ORDERED: Vancomycin per Pharmacy* NOTE FOLLOW UP SCH (12:00)
[2019-03-03] MEDS: Multivitamins/Minerals TAB PO SCH (12:04)
[2019-03-03 13:12] LABS: INR 1.15 (0.82-1.09)
[2019-03-03] MEDS ORDERED: Heparin VIAL(*) 5000 UNITS/ML VIAL (FIVE THOUSAND) SUBCUT SCH (14:00)
[2019-03-03 14:09] LABS: Urine Appearance Cloudy; Urine Bacteria Absent (Absent); Urine Bilirubin Negative (Negative); Urine Blood 3+ (Negative); Urine Color Yellow; Urine Glucose Negative (Negative); Urine Ketones Negative (Negative); Urine Nitrite Negative (Negative); Urine Protein 1+(30 mg/dL) (Negative); Urine Red Blood Cell 3+(>10/hpf) (Absent); Urine Urobilinogen Negative (Negative); Urine White Blood Cell 3+(>20/hpf) (Absent)
[2019-03-03] MEDS ORDERED: Iohexol 350* (CONTRAST) 500 ML MDV IV ONE (16:35)
[2019-03-03] MEDS ORDERED: Warfarin TAB(*) 6 MG PO ONE (17:00)
[2019-03-03] MEDS: Potassium Chlor TAB* 20 MEQ TAB.ER PO SCH (17:24)
[2019-03-03] MEDS: Cetirizine* 10 MG TAB PO SCH (17:25)
[2019-03-03] MEDS: Baclofen TAB* 10 MG PO SCH (17:27)
[2019-03-03] MEDS: Senna TAB 8.6 mg* TAB PO SCH (21:51)
[2019-03-03] MEDS: CMCS: Rosuvastatin (NF) 5 MG TAB PO SCH (21:51)
[2019-03-03] MEDS: Sulfamethox/Trimethoprim DS 800/160* TAB PO SCH (21:51)
[2019-03-03] MEDS: Magnesium Hydroxide LIQ* 30 ML UDC PO SCH (21:53)
[2019-03-03] MEDS: Enoxaparin(*) 40 MG/0.4 ML SYR SUBCUT SCH (21:54)
[2019-03-03] MEDS ORDERED: Vancomycin(*) 1,500 MG in NS 0.9% 250 ML* 250 ML IVPB SCH (22:00)
[2019-03-03] MEDS: NS 0.9% 1000 ML** 1,000 ML IV SCH (22:03)
[2019-03-03] MEDS: HYDROmorphone INJ* 0.5 MG/0.5 ML SYRINGE IV PRN (23:45)
[2019-03-04] MEDS: NS 0.9% 1000 ML** 1,000 ML IV SCH ×3 (04:50→13:30)
[2019-03-04 06:08] LABS: ABS Eosinophils 0.5 10^3/ul (0-0.6); ABS Lymphocytes 1.2 10^3/ul (1.0-4.8); ABS Monocytes 0.9 10^3/ul (0-0.8); ABS Neutrophils 8.7 10^3/ul (1.5-7.7); Eosinophil % 4.2 %; Hematocrit 21 % (35-47); Hemoglobin 7.1 g/dL (12.0-16.0); Lymphocyte % 10.8 %; Mean Corpuscular HGB Conc 34 g/dL (31-36); Mean Corpuscular Hemoglobin 31 pg (27-31); Mean Corpuscular Volume 91 fL (80-97); Mean Platelet Volume 5.9 fL (7.4-10.4); Nucleated Red Blood Cells % 0.1; Platelet Count 296 10^3/uL (150-450); Red Blood Count 2.29 10^6 /uL (3.70-4.87); Red Cell Distribution Width 16 % (10-15); White Blood Count 11.3 10^3/uL (3.5-10.8)
[2019-03-04 06:28] LABS: BUN/Creatinine Ratio 45.5 (8-20); Calcium 7.1 mg/dL (8.6-10.3); EGFR African American 238.4 (>60); Potassium 3.5 mmol/L (3.5-5.0)
[2019-03-04] MEDS: Acetaminophen TAB* 325 MG PO SCH ×3 (06:37→22:22)
[2019-03-04] MEDS: oxyCODONE TAB* 5 MG TAB PO PRN ×3 (06:37→16:30)
[2019-03-04] MEDS: Diltiazem CD CAP* 180 MG PO SCH (09:35)
[2019-03-04] MEDS: Multivitamins/Minerals TAB PO SCH (09:39)
[2019-03-04] MEDS: Sulfamethox/Trimethoprim DS 800/160* TAB PO SCH ×2 (09:39→22:24)
[2019-03-04] MEDS: Magnesium Hydroxide LIQ* 30 ML UDC PO SCH ×2 (09:39→22:24)
[2019-03-04] MEDS: Calcium Citrate TAB* 200 MG PO SCH (09:39)
[2019-03-04] MEDS: Fluticasone NASAL SPRAY 50MCG* 16 gm SPRAY BTL BOTH NARES SCH (09:39)
[2019-03-04] MEDS: Flecainide TAB* 100 MG PO SCH ×2 (09:40→22:23)
[2019-03-04] MEDS: Pantoprazole TAB * 40 MG TAB PO SCH (09:40)
[2019-03-04] MEDS: Cyclobenzaprine TAB* 10 MG PO PRN ×2 (09:40→16:11)
[2019-03-04] MEDS: Gabapentin CAP(*) 300 MG PO SCH ×2 (09:40→22:23)
[2019-03-04] MEDS: Docusate CAP* 100 MG PO SCH ×2 (09:40→22:24)
[2019-03-04] MEDS ORDERED: Bisacodyl SUPP* 10 MG SUPP PR ONE (13:37)
--- NOTE | 2019-03-04 14:01 | PN ---
Progress Note - Progress Note Date of Service: 03/03/19 Note: Subjective: 68 year old female, underwent a right PAIGE on 02/20. Did well, went to [facility] for sub acute rehab. Had felt a big click in the hip overnight Wednesday night when being helped to the bathroom. Wednesday morning was found to have a shortened, externally rotated leg. There was concern for a dislocation, but instead x-rays showed the cup tore out of the acetabular recess made for it. Parts were ordered to reconstruct the hip socket and yesterday she underwent a revision arthroplasty. Posterior wall was reconstructed using an augment and then a new acetabular cup was placed. With the posterior exposure to address the loss of her posterior wall, the inferior gluteal artery is at risk. I set up q6h H/H checks and had instructed the PAs to order a [address] scan if there was concern about a dropping H/H. If torn, the inferior gluteal artery is known to retract into the pelvis and then there can be significant bleeding which can be uncontrolled. Her H/H did drop to 6.8 from 7.7, so CTA was ordered this afternoon. I reviewed it with the interventional radiologist and a second radiologist has given the same reading that there is no acute or arterial bleed. She has done alright today, with the hip still being painful, but less than previously. Passing flatus, but no BM yet. Had c/o itching and the Ancef was blamed, so Vanco started for post-op prophylaxis. On bactrim for a UTI. She did stand with significant help from PT, but was limited secondary to feeling tired and exhausted. Objective: VSS- afebrile. BPs 90's over 40's, slightly lower than immediately post-op yesterday when he was 100's over 50's. No tachycardia, max HR 94. Last H/H @ 11:18 this AM .01/23. Lactic acid improved to 1.3 Blood currently hanging. Right LE- dressing C/D/I. Easily moving ankle into plantar and dorsiflexion. Assessment: S/P revision right PAIGE with posterior wall reconstruction Plan: The patient and family had multiple questions and all were answered. Some were similar to the conversations I had with them Wednesday, Wednesday and even yesterday, showing the family the x-rays before and after each of the surgeries as well as showing the augmentation placed posteriorly, plus the additional equipment ordered (cages) in case the augment was inadequate. I reassured them that she is doing alright, as there s no arterial bleed and we are catching up on her blood loss. Hopefully the pain about the hip decreases so she can better participate with PT and progress. Will allow transfusions to equilibrate so will hold off on additional blood draws this evening an stop the q6h checks, as no arterial bleed. Will start lovenox tonight, as coumadin with Bactrim has a significant warning, plus with transfusions coumadin can cause a significant bounce of the PT. MOM changed to BID scheduled to encourage a BM.
--- NOTE | 2019-03-04 14:11 | PN ---
Subjective Date of Service: 03/04/19 Interval History: Pt states she is tired. She has R hip pain with movement, including rolling in bed. She has pain at 4/10 currently. She has not had a BM recently and denies melena, hematochezia, hematemesis. She has stood at edge of bed, but no ambulation. Plans to get up to commode today. She has no other complaints today. Objective Active Medications: Acetaminophen (Tylenol Tab*) 975 mg PO Q8HR REID Baclofen (Lioresal Tab*) 10 mg PO 1700 REID Calcium Citrate (Citracal Tab*) 200 mg PO QAM REID Cetirizine HCl (Zyrtec*) 10 mg PO QPM REID Cyclobenzaprine HCl (Flexeril Tab*) 10 mg PO Q6H PRN Diltiazem HCl (Cardizem Cd Cap*) 180 mg PO QAM REID Diphenhydramine HCl (Benadryl Po*) 25 mg PO Q6H PRN Docusate Sodium (Colace Cap*) 100 mg PO BID REID Enoxaparin Sodium (Lovenox(*)) 40 mg SUBCUT Q24H REID Flecainide Acetate (Tambocor Tab*) 100 mg PO BID REID Fluticasone Propionate (Flonase Nasal [place] 50mcg*) 2 spray BOTH NARES DAILY REID Gabapentin (Neurontin Cap(*)) 300 mg PO BID REID Hydromorphone HCl (Dilaudid Inj*) 0.5 mg IV Q4H PRN Sodium Chloride (Ns 0.9% 1000 Ml) 1,000 mls @ 125 mls/hr IV PER RATE REID Magnesium Hydroxide (Milk Of Magnesia Liq*) 30 ml PO BID REID Multivitamins/Minerals (Theragran/Minerals Tab*) 1 tab PO DAILY REID Oxycodone HCl (Roxycodone Tab*) 5 mg PO Q4H PRN Oxycodone HCl (Roxycodone Tab*) 10 mg PO Q4H PRN Pantoprazole Sodium (Protonix Tab*) 40 mg PO QAM REID Polyethylene Glycol/Electrolytes (Miralax*) 17 gm PO DAILY PRN Potassium Chloride (Klor Con Er Tab*) 20 meq PO QPM REID Rosuvastatin Calcium (Crestor (Nf)) 5 mg PO BEDTIME REID; Protocol Senna (Senokot 8.6 Mg Tab*) 1 tab PO BEDTIME REID Trimethoprim/Sulfamethoxazole (Bactrim Ds 800/160 Tab*) 1 tab PO BID REID Zinc Acetate/Diphenhydramine (Banophen 2 % Cream (Nf)) 1 applic TOPICAL TID PRN ; Protocol Vital Signs: Temp Pulse Resp BP Pulse Ox 98.5 F 80 18 100/52 96 03/04/19 11:36 03/04/19 11:36 03/04/19 13:53 03/04/19 11:36 03/04/19 11:36 Oxygen Devices in Use Now: None Appearance: Pt is sitting in bed, HOB elevated. She is in no acute distress. Pleasant, cooperative. Eyes: No Scleral Icterus, PERRLA Ears/Nose/Mouth/Throat: NL Teeth, Lips, Gums, Clear Oropharnyx, - - Dry oral mucosa Neck: NL Appearance and Movements; NL JVP, Trachea Midline Respiratory: Symmetrical Chest Expansion and Respiratory Effort, Clear to Auscultation - Anteriorly; pt has too much pain with rolling/bending forward Cardiovascular: NL Sounds; No Murmurs; No JVD, RRR, - - RLE edema Extremities: No Clubbing, Cyanosis, - - CDI dressing to L hip. TTP. Neurological: Alert and Oriented x 3 Result Diagrams: 03/04/19 17:02 03/04/19 05:51 Microbiology and Other Data: Microbiology 02/28/19 07:40 Nasal Screen MRSA (PCR) - Final Nasal Mrsa Not Detected Assess/Plan/Problems-Billing Assessment: 68 yo female with PMHx prior SVT, HTN, HLD presents from [facility] at [facility] with right hip pain, found to have dislocation of right hip prosthesis. - Patient Problems (1) Sepsis Comment: -Tachycardia with leukocytosis, mildy hypotension in setting of post-op blood loss -2+ LE in urine, cx + for e. coli -BC NGTD -Lactic 2.4 to 2.3 to 1.3 with IVF, PRBC -Tachycardia resolved; leukocytosis improving -Continue Bactrim for UTI; awaiting cultures (2) Postoperative anemia Comment: -Blood loss in OR, requiring 2U PRBC serene-operatively -H/H slowly trending up after 2U PRBC -CTA leg shows no bleeding -Will continue to monitor H/H for need for PRBC (3) Dislocation of hip joint prosthesis Comment: -POD 2 revision R PAIGE; R hip replacement 02/20, presenting with dislocation and acetabular cup torn out of socket, repaired 03/02 -appreciate orthopedic surgery involvement -2U PRBC serene-operatively -Management per ortho (4) Itching Comment: -Resolved -Pt reports itching, rash to chest area (not observed); she states she had this during her prior admission -Suspect this is due to IV Cefazolin; last dose d/c'd and changed to vanco -Continue topical benadryl, PO benadryl prn itch (5) History of paroxysmal supraventricular tachycardia Comment: -reviewed in [employer]: patient has pmhx of paroxsymal afib/aflutter/SVT -No AC at home -continue flecainide and diltiazem -rate controlled today -restarted her home potassium supplement -Continue tele (6) Leg edema, right Comment: -DVT ruled out with doppler -likely secondary to recent hip surgery on right side (7) Hypertension Comment: -Low-normal BP -Hold lisinopril while on bactrim (8) Hyperlipidemia Comment: -cont statin (9) DVT prophylaxis Comment: -Per ortho: SCDs lovenox (10) Full code status Status and Disposition: Inpatient. Post-op 03/02/2019.
--- NOTE | 2019-03-04 14:43 | PN ---
Progress Note - Progress Note Date of Service: 03/04/19 SOAP: Subjective: 68 yo female, underwent a primary PAIGE 02/20/19. Acetabular cup tore through the posterior wall and she underwent revision PAIGE with augment placement 03/02. Had significant blood loss intra-op and because of a drop in her h/h, there was concern for an arterial bleeder, so [address] scan was done yesterday. No signs acute or arterial bleeding. I soraida on her white board today, explaining answers to her questions, as she still had concerns about damage due to the cup tearing out. Explained the posterior wall of the acetabulum was gone, as that's how the cup moved out. Additionally, explained how her pre-op films show how she was already significantly subluxed out of the acetabulum and how that is likely why she had no weight in or on the acetabulum, leading to decreased bone strength and quality (noted at the original surgery and told to the family immediately post- op), further causing her to be predisposed to this happening. Reports better night sleep with less spasms, still taking flexeril 3x daily. Reports no BM, but hopeful for later when OOB. Objective: VSS: afebrile. BPs doing better, still no tachycardia. H/H improved this AM: 7.06/27 Right hip- some staining of the dressing, will be changed later. Leg length still good, easy plantar and dorsiflexion of the ankle. Assessment: s/p revision PAIGE with augmentation Plan: Continue OOB/PT, DVT prophylaxis H/H will be checked again later today Dressing change later, hopefully when standing, as rolling very uncomfortable/ painful for her D/C planning to resume Wednesday
[2019-03-04] MEDS: Baclofen TAB* 10 MG PO SCH (16:30)
[2019-03-04 17:14] LABS: Hematocrit 22 % (35-47); Hemoglobin 7.4 g/dL (12.0-16.0)
[2019-03-04] MEDS: Potassium Chlor TAB* 20 MEQ TAB.ER PO SCH (17:54)
[2019-03-04] MEDS: Cetirizine* 10 MG TAB PO SCH (17:54)
[2019-03-04] MEDS: Enoxaparin(*) 40 MG/0.4 ML SYR SUBCUT SCH (22:22)
[2019-03-04] MEDS: CMCS: Rosuvastatin (NF) 5 MG TAB PO SCH (22:23)
[2019-03-04] MEDS: Senna TAB 8.6 mg* TAB PO SCH (22:23)
[2019-03-05 01:09] LABS: Hematocrit 20 % (35-47); Hemoglobin 7.1 g/dL (12.0-16.0)
[2019-03-05] MEDS: NS 0.9% 1000 ML** 1,000 ML IV SCH (02:04)
[2019-03-05 05:29] LABS: ABS Eosinophils 0.4 10^3/ul (0-0.6); ABS Monocytes 0.8 10^3/ul (0-0.8); ABS Neutrophils 7.1 10^3/ul (1.5-7.7); Eosinophil % 4.7 %; Hematocrit 20 % (35-47); Hemoglobin 6.8 g/dL (12.0-16.0); Lymphocyte % 10.7 %; Mean Corpuscular HGB Conc 34 g/dL (31-36); Mean Corpuscular Hemoglobin 32 pg (27-31); Mean Corpuscular Volume 92 fL (80-97); Nucleated Red Blood Cells % 0.1; Platelet Count 302 10^3/uL (150-450); Red Blood Count 2.16 10^6 /uL (3.70-4.87); Red Cell Distribution Width 16 % (10-15); White Blood Count 9.3 10^3/uL (3.5-10.8)
[2019-03-05 05:48] LABS: ALT 22 U/L (7-52); AST 21 U/L (13-39); Albumin 2.2 g/dL (3.2-5.2); Albumin/Globulin Ratio 1.1 (1-3); Alkaline Phosphatase 77 U/L (34-104); Anion Gap 3 mmol/L (2-11); BUN/Creatinine Ratio 23.5 (8-20); Blood Urea Nitrogen 8 mg/dL (6-24); CO2 Carbon Dioxide 27 mmol/L (22-32); Calcium 7.3 mg/dL (8.6-10.3); Chloride 109 mmol/L (101-111); EGFR African American 230.3 (>60); EGFR Non-African American 190.4 (>60); Glucose 104 mg/dL (70-100); Potassium 3.9 mmol/L (3.5-5.0); Sodium 139 mmol/L (135-145); Total Iron Binding Capacity 183 mcg/dL (250-450); Total Protein 4.2 g/dL (6.4-8.9); Transferrin 131 mg/dL (203-362)
[2019-03-05] MEDS: Acetaminophen TAB* 325 MG PO SCH ×3 (05:49→22:07)
[2019-03-05 05:52] LABS: % Iron Saturation 11 % (15-55); INR 1.08 (0.82-1.09); Iron < 20 ug/dL (50-212)
[2019-03-05 06:09] LABS: Ferritin 176.9 ng/mL (11-307)
[2019-03-05 07:59] LABS: LDH 264 U/L (140-271)
[2019-03-05] MEDS: Cyclobenzaprine TAB* 10 MG PO PRN ×3 (08:05→20:58)
[2019-03-05] MEDS: oxyCODONE TAB* 5 MG TAB PO PRN ×4 (08:06→20:58)
[2019-03-05 08:10] LABS: Folate 15.27 ng/mL (>3.99)
--- NOTE | 2019-03-05 08:45 | PN ---
Subjective Date of Service: 03/05/19 Interval History: Pt c/o productive cough, chills/sweats; she was febrile this morning. She continues to be anemic. She has a history of daily mobic use until hospitalization. She reports that she is due for a colonoscopy at this time. She had a BM last night and today; she reports that stools are loose without melena or blood. She denies abdominal pain, n/v. She has weiss in place; discussed removing weiss and she is uncomfortable with this at this time, stating that she still has difficulty transferring from bed to bedpan or commode. Agreed to weiss removal in a.m. She has no other complaints today. Objective Active Medications: Acetaminophen (Tylenol Tab*) 975 mg PO Q8HR REID Baclofen (Lioresal Tab*) 10 mg PO 1700 REID Calcium Citrate (Citracal Tab*) 200 mg PO QAM REID Cetirizine HCl (Zyrtec*) 10 mg PO QPM REID Cyclobenzaprine HCl (Flexeril Tab*) 10 mg PO Q6H PRN Diltiazem HCl (Cardizem Cd Cap*) 180 mg PO QAM REID Diphenhydramine HCl (Benadryl Po*) 25 mg PO Q6H PRN Docusate Sodium (Colace Cap*) 100 mg PO BID REID Enoxaparin Sodium (Lovenox(*)) 40 mg SUBCUT Q24H REID Flecainide Acetate (Tambocor Tab*) 100 mg PO BID REID Fluticasone Propionate (Flonase Nasal [place] 50mcg*) 2 spray BOTH NARES DAILY REID Gabapentin (Neurontin Cap(*)) 300 mg PO BID REID Hydromorphone HCl (Dilaudid Inj*) 0.5 mg IV Q4H PRN Magnesium Hydroxide (Milk Of Magnesia Liq*) 30 ml PO BID REID Multivitamins/Minerals (Theragran/Minerals Tab*) 1 tab PO DAILY REID Oxycodone HCl (Roxycodone Tab*) 5 mg PO Q4H PRN Oxycodone HCl (Roxycodone Tab*) 10 mg PO Q4H PRN Pantoprazole Sodium (Protonix Tab*) 40 mg PO QAM REID Polyethylene Glycol/Electrolytes (Miralax*) 17 gm PO DAILY PRN Potassium Chloride (Klor Con Er Tab*) 20 meq PO QPM REID Rosuvastatin Calcium (Crestor (Nf)) 5 mg PO BEDTIME REID; Protocol Senna (Senokot 8.6 Mg Tab*) 1 tab PO BEDTIME REID Trimethoprim/Sulfamethoxazole (Bactrim Ds 800/160 Tab*) 1 tab PO BID REID Zinc Acetate/Diphenhydramine (Banophen 2 % Cream (Nf)) 1 applic TOPICAL TID PRN ; Protocol Vital Signs: Temp Pulse Resp BP Pulse Ox 98.7 F 73 16 98/58 94 03/05/19 12:05 03/05/19 12:05 03/05/19 15:51 03/05/19 12:05 03/05/19 09:08 Oxygen Devices in Use Now: None Appearance: Pt is laying in bed asleep. She wakes easily. She appears tired, but in no acute distress. Eyes: No Scleral Icterus, PERRLA Ears/Nose/Mouth/Throat: NL Teeth, Lips, Gums, Clear Oropharnyx, Mucous Membranes Moist Neck: NL Appearance and Movements; NL JVP, Trachea Midline Respiratory: Symmetrical Chest Expansion and Respiratory Effort, - - Scattered rales in L lung base; no wheeze, rhonchi. Cardiovascular: RRR, - - Systolic murmur. Abdominal: NL Sounds; No Tenderness; No Distention, No Hepatosplenomegaly Extremities: No Clubbing, Cyanosis, - - Surgical incision site to R hip without erythema, drainage. Dressing with scant serosang drainage. RLE edema. Neurological: Alert and Oriented x 3 Result Diagrams: 03/05/19 11:47 03/05/19 09:15 Microbiology and Other Data: Microbiology 02/28/19 07:40 Nasal Screen MRSA (PCR) - Final Nasal Mrsa Not Detected Assess/Plan/Problems-Billing Assessment: 68 yo female with PMHx prior SVT, HTN, HLD presents from [facility] at [facility] with right hip pain, found to have dislocation of right hip prosthesis. - Patient Problems (1) Sepsis Comment: -Tachycardia with leukocytosis, mildy hypotensive in setting of post-op blood loss; resolved -2+ LE in urine, cx + for e. coli; bactrim started -BC NGTD -Lactic 2.4 to 2.3 to 1.3 with IVF, PRBC -Tachycardia resolved; leukocytosis resolved; has occasional chills/sweats/ fevers -Continue Bactrim for UTI (sensitive) -Continue to monitor (2) Postoperative anemia Comment: -Extensive blood loss in OR, requiring 2U PRBC serene-operatively -H/H continues to be low; pt has had total of 2U serene-op, 3U post-op -CTA leg shows no bleeding -No s/s hemolytic anemia; bili, LDH WNL -Retic count elevated, which is to be expected in setting of anemia and suggests no issues with production of RBCs -Stool for blood negative -Will continue to trend H/H q6h (3) Dislocation of hip joint prosthesis Comment: -POD 3 revision R PAIGE -H/o R hip replacement 02/20, presenting with dislocation and acetabular cup torn from socket, repaired 03/02 -appreciate orthopedic surgery involvement -2U PRBC serene-operatively; 3U post-operatively -Management per ortho (4) Leg edema, right Comment: -DVT ruled out with doppler -likely secondary to recent hip surgery on right side (5) History of paroxysmal supraventricular tachycardia Comment: -reviewed in [employer]: patient has pmhx of paroxsymal afib/aflutter/SVT -No AC at home -continue flecainide and diltiazem -rate controlled today -restarted her home potassium supplement -Continue tele (6) Hypertension Comment: -Low-normal BP, but improving -Hold lisinopril in setting of hypotension, bactrim use (7) Hyperlipidemia Comment: -cont statin (8) DVT prophylaxis Comment: -Per ortho: SCDs, lovenox (9) Full code status Status and Disposition: Inpatient. Post-op 03/02/2019.
[2019-03-05 09:01] LABS: Corrected Retic Count 2.7 % (0.5-1.5); Hematocrit for Retic CNT 20 % (35-47); Immature Retic Fraction 0.72; RBC Retic Count 2.15 10^6/uL (3.70-4.87)
[2019-03-05] MEDS: Magnesium Hydroxide LIQ* 30 ML UDC PO SCH ×2 (09:22→21:03)
[2019-03-05] MEDS: Calcium Citrate TAB* 200 MG PO SCH (09:22)
[2019-03-05] MEDS: Pantoprazole TAB * 40 MG TAB PO SCH (09:22)
[2019-03-05] MEDS: Gabapentin CAP(*) 300 MG PO SCH ×2 (09:22→20:59)
[2019-03-05] MEDS: Diltiazem CD CAP* 180 MG PO SCH (09:22)
[2019-03-05] MEDS: Multivitamins/Minerals TAB PO SCH (09:23)
[2019-03-05] MEDS: Flecainide TAB* 100 MG PO SCH ×2 (09:23→21:01)
[2019-03-05] MEDS: Docusate CAP* 100 MG PO SCH ×2 (09:23→21:03)
[2019-03-05] MEDS: Fluticasone NASAL SPRAY 50MCG* 16 gm SPRAY BTL BOTH NARES SCH (09:25)
[2019-03-05] MEDS ORDERED: Vancomycin Trough Check NOTE FOLLOW UP ONE (09:30)
[2019-03-05] MEDS: Sulfamethox/Trimethoprim DS 800/160* TAB PO SCH ×2 (09:35→20:59)
[2019-03-05 09:46] LABS: Blood Urea Nitrogen 7 mg/dL (6-24); EGFR African American 215.6 (>60); EGFR Non-African American 178.2 (>60)
--- NOTE | 2019-03-05 09:58 | PN ---
Progress Note - Progress Note Date of Service: 03/05/19 SOAP: Subjective: POD #3 revision right PAIGE. Doing ok. Pain controlled with meds. Denies CP/SOB, f /c, n/v. Objective: Vital Signs: Temp Pulse Resp BP Pulse Ox 98.7 F 77 18 92/40 94 03/05/19 09:08 03/05/19 09:08 03/05/19 09:22 03/05/19 09:08 03/05/19 09:08 Gen: A&Ox3, NAD at rest laying in bed Right hip: Dressing D/I, minimal s/s drainage dried to proximal bandage. Thigh soft, NT. +f/e at ankle and MTPs. N/V intact Laboratory Results - last 24 hr 03/03/19 03/04/19 03/05/19 01:01 17:02 01:03 WBC RBC RBC (Retic) Hgb 7.4 L 7.1 L Hct 22 L 20 L HCT (Retic) MCV MCH MCHC RDW Plt Count MPV Neut % (Auto) Lymph % (Auto) [place] % (Auto) Eos % (Auto) Baso % (Auto) Absolute Neuts (auto) Absolute Lymphs (auto) Absolute Monos (auto) Absolute Eos (auto) Absolute Basos (auto) Absolute Nucleated RBC Nucleated RBC % Retic Count, Calc Corrected Retic Count Retic Shift Factor Retic Production Index Immature Retic Fraction Mean Retic Volume INR (Anticoag Therapy) Sodium Potassium Chloride Carbon Dioxide Anion Gap BUN Creatinine Est GFR ( Amer) Est GFR (Non-Af Amer) BUN/Creatinine Ratio Glucose Calcium Iron TIBC % Saturation Unsat Iron Binding Transferrin Ferritin Total Bilirubin AST ALT Alkaline Phosphatase Lactate Dehydrogenase Total Protein Albumin Globulin Albumin/Globulin Ratio Vitamin B12 Folate Blood Type O Negative Antibody Screen Negative Crossmatch See Detail 03/05/19 03/05/19 03/05/19 05:03 05:03 05:03 WBC 9.3 RBC 2.16 L RBC (Retic) 2.15 L Hgb 6.8 L Hct 20 L HCT (Retic) 20 L MCV 92 MCH 32 H MCHC 34 RDW 16 H Plt Count 302 MPV 6.0 L Neut % (Auto) 76.2 Lymph % (Auto) 10.7 [place] % (Auto) 8.3 Eos % (Auto) 4.7 Baso % (Auto) 0.1 Absolute Neuts (auto) 7.1 Absolute Lymphs (auto) 1.0 Absolute Monos (auto) 0.8 Absolute Eos (auto) 0.4 Absolute Basos (auto) 0.0 Absolute Nucleated RBC 0.0 Nucleated RBC % 0.1 Retic Count, Calc 6.0 H Corrected Retic Count 2.7 H Retic Shift Factor 2.0 Retic Production Index 1.40 Immature Retic Fraction 0.72 Mean Retic Volume 126.5 INR (Anticoag Therapy) 1.08 Sodium 139 Potassium 3.9 Chloride 109 Carbon Dioxide 27 Anion Gap 3 BUN 8 Creatinine 0.34 L Est GFR ( Amer) 230.3 Est GFR (Non-Af Amer) 190.4 BUN/Creatinine Ratio 23.5 H Glucose 104 H Calcium 7.3 L Iron < 20 L TIBC 183 L % Saturation 11 L Unsat Iron Binding < 168 Transferrin 131 L Ferritin 176.9 Total Bilirubin 0.30 AST 21 ALT 22 Alkaline Phosphatase 77 Lactate Dehydrogenase 264 Total Protein 4.2 L Albumin 2.2 L Globulin 2.0 Albumin/Globulin Ratio 1.1 Vitamin B12 646 Folate 15.27 Blood Type Antibody Screen Crossmatch 03/05/ 09:15 WBC RBC RBC (Retic) Hgb Hct HCT (Retic) MCV MCH MCHC RDW Plt Count MPV Neut % (Auto) Lymph % (Auto) [place] % (Auto) Eos % (Auto) Baso % (Auto) Absolute Neuts (auto) Absolute Lymphs (auto) Absolute Monos (auto) Absolute Eos (auto) Absolute Basos (auto) Absolute Nucleated RBC Nucleated RBC % Retic Count, Calc Corrected Retic Count Retic Shift Factor Retic Production Index Immature Retic Fraction Mean Retic Volume INR (Anticoag Therapy) Sodium Potassium Chloride Carbon Dioxide Anion Gap BUN 7 Creatinine 0.36 L Est GFR ( Amer) 215.6 Est GFR (Non-Af Amer) 178.2 BUN/Creatinine Ratio Glucose Calcium Iron TIBC % Saturation Unsat Iron Binding Transferrin Ferritin Total Bilirubin AST ALT Alkaline Phosphatase Lactate Dehydrogenase Total Protein Albumin Globulin Albumin/Globulin Ratio Vitamin B12 Folate Blood Type Antibody Screen Crossmatch Assessment: POD #3 revision right PAIGE Plan: WBAT RLE with PT/OT Strict posterior hip precautions H/H low, defer transfusion status to medicine Lovenox for DVT ppx Will need PEREZ upon d/c
[2019-03-05 10:06] LABS: Vancomycin Trough < 2.0 mcg/mL
[2019-03-05 11:56] LABS: Hematocrit 23 % (35-47); Hemoglobin 7.9 g/dL (12.0-16.0)
[2019-03-05] MEDS: Lactobacillus Acidophilus* 1 TAB PO SCH ×2 (14:07→20:58)
[2019-03-05] MEDS: Baclofen TAB* 10 MG PO SCH (16:50)
[2019-03-05] MEDS: Potassium Chlor TAB* 20 MEQ TAB.ER PO SCH (16:50)
[2019-03-05] MEDS: Cetirizine* 10 MG TAB PO SCH (16:50)
[2019-03-05 18:26] LABS: Hematocrit 23 % (35-47); Hemoglobin 8.1 g/dL (12.0-16.0)
[2019-03-05] MEDS: Enoxaparin(*) 40 MG/0.4 ML SYR SUBCUT SCH (20:58)
[2019-03-05] MEDS: CMCS: Rosuvastatin (NF) 5 MG TAB PO SCH (21:01)
[2019-03-05] MEDS: Senna TAB 8.6 mg* TAB PO SCH (21:03)
[2019-03-06 00:20] LABS: Hematocrit 23 % (35-47); Hemoglobin 7.8 g/dL (12.0-16.0)
[2019-03-06] MEDS: Acetaminophen TAB* 325 MG PO SCH ×3 (05:46→21:43)
[2019-03-06 05:52] LABS: ABS Eosinophils 0.6 10^3/ul (0-0.6); ABS Lymphocytes 1.2 10^3/ul (1.0-4.8); ABS Monocytes 0.9 10^3/ul (0-0.8); ABS Neutrophils 5.4 10^3/ul (1.5-7.7); Hematocrit 24 % (35-47); Hemoglobin 8.2 g/dL (12.0-16.0); Lymphocyte % 14.7 %; Mean Corpuscular HGB Conc 34 g/dL (31-36); Mean Corpuscular Hemoglobin 31 pg (27-31); Mean Corpuscular Volume 92 fL (80-97); Mean Platelet Volume 6.4 fL (7.4-10.4); Nucleated Red Blood Cells % 0.2; Platelet Count 341 10^3/uL (150-450); Red Blood Count 2.61 10^6 /uL (3.70-4.87); Red Cell Distribution Width 16 % (10-15); White Blood Count 8.1 10^3/uL (3.5-10.8)
[2019-03-06] MEDS: Diltiazem CD CAP* 180 MG PO SCH (08:55)
[2019-03-06] MEDS: Lactobacillus Acidophilus* 1 TAB PO SCH ×2 (08:55→21:39)
[2019-03-06] MEDS: Fluticasone NASAL SPRAY 50MCG* 16 gm SPRAY BTL BOTH NARES SCH (08:56)
[2019-03-06] MEDS: Gabapentin CAP(*) 300 MG PO SCH ×2 (08:56→21:42)
[2019-03-06] MEDS: Magnesium Hydroxide LIQ* 30 ML UDC PO SCH ×2 (08:56→21:44)
[2019-03-06] MEDS: Multivitamins/Minerals TAB PO SCH (08:56)
[2019-03-06] MEDS: Sulfamethox/Trimethoprim DS 800/160* TAB PO SCH ×2 (08:56→21:39)
[2019-03-06] MEDS: Calcium Citrate TAB* 200 MG PO SCH (08:56)
[2019-03-06] MEDS: Pantoprazole TAB * 40 MG TAB PO SCH (08:56)
[2019-03-06] MEDS: Docusate CAP* 100 MG PO SCH ×2 (08:56→21:43)
[2019-03-06] MEDS: Flecainide TAB* 100 MG PO SCH ×2 (08:56→21:43)
[2019-03-06] MEDS: Cyclobenzaprine TAB* 10 MG PO PRN ×2 (09:01→21:43)
[2019-03-06] MEDS: oxyCODONE TAB* 5 MG TAB PO PRN ×4 (09:02→21:41)
--- NOTE | 2019-03-06 10:35 | PN ---
Progress Note - Progress Note Date of Service: 03/06/19 SOAP: Subjective: []Pt seen at bedside. She feels well without CP, SOB, dizziness, nausea. She feels weak but otherwise no complaints. Objective: []Gen: Appears well, NAD. Having US while I'm in the room LE symmetric rotation, equal leg lengths. Calves supple and nontender. RLE: Dressing was saturated with serosanguinous drainage changed by nursing earlier today. thigh soft and nontender. DF/PF intact, DP2+, sensation intact to light touch distally Assessment: []POD #4 revision right PAIGE Plan: []WBAT PT/OT Strict posterior hip precautions Lovenox for DVT ppx Will need PEREZ upon d/c Vital Signs Temp 98.7 F 03/06/19 08:07 Pulse 76 03/06/19 08:07 Resp 18 03/06/19 09:02 BP 105/55 03/06/19 08:07 Pulse Ox 98 03/06/19 08:07 Intake & Output 03/05/19 03/06/19 03/06/19 18:59 06:59 18:59 Intake Total 2145 700 Output Total 1000 800 0 Balance 1145 -100 0 Intake: IV Fluids 1128 NS 1128 Oral 720 700 Packed Cells 297 Output: Wallace 1000 800 0 Other: Date of Last Bowel 03/05/19 Movement # Bowel Movements 5 0 Estimated Stool Amount Large Laboratory Last Values WBC 8.1 10^3/uL (3.5-10.8) 03/06/19 05:01 RBC 2.61 10^6 /uL (3.70-4.87) L 03/06/19 05:01 RBC (Retic) 2.15 10^6/uL (3.70-4.87) L 03/05/19 05:03 Hgb 8.2 g/dL (12.0-16.0) L 03/06/19 05:01 Hct 24 % (35-47) L 03/06/19 05:01 HCT (Retic) 20 % (35-47) L 03/05/19 05:03 MCV 92 fL (80-97) 03/06/19 05:01 MCH 31 pg (27-31) 03/06/19 05:01 MCHC 34 g/dL (31-36) 03/06/19 05:01 RDW 16 % (10-15) H 03/06/19 05:01 Plt Count 341 10^3/uL (150-450) 03/06/19 05:01 MPV 6.4 fL (7.4-10.4) L 03/06/19 05:01 Neut % (Auto) 67.6 % 03/06/19 05:01 Lymph % (Auto) 14.7 % 03/06/19 05:01 [place] % (Auto) 10.6 % 03/06/19 05:01 Eos % (Auto) 7.0 % 03/06/19 05:01 Baso % (Auto) 0.1 % 03/06/19 05:01 Absolute Neuts (auto) 5.4 10^3/ul (1.5-7.7) 03/06/19 05:01 Absolute Lymphs (auto) 1.2 10^3/ul (1.0-4.8) 03/06/19 05:01 Absolute Monos (auto) 0.9 10^3/ul (0-0.8) H 03/06/19 05:01 Absolute Eos (auto) 0.6 10^3/ul (0-0.6) 03/06/19 05:01 Absolute Basos (auto) 0.0 10^3/ul (0-0.2) 03/06/19 05:01 Absolute Nucleated RBC 0.0 10^3/ul 03/06/19 05:01 Nucleated RBC % 0.2 03/06/19 05:01 Retic Count, Calc 6.0 % (0.5-1.5) H 03/05/19 05:03 Corrected Retic Count 2.7 % (0.5-1.5) H 03/05/19 05:03 Retic Shift Factor 2.0 03/05/19 05:03 Retic Production Index 1.40 03/05/19 05:03 Immature Retic Fraction 0.72 03/05/19 05:03 Mean Retic Volume 126.5 03/05/19 05:03 INR (Anticoag Therapy) 1.08 (0.82-1.09) 03/05/19 05:03 APTT 31.6 seconds (26.0-38.0) 02/28/19 13:40 Sodium 139 mmol/L (135-145) 03/05/19 05:03 Potassium 3.9 mmol/L (3.5-5.0) 03/05/19 05:03 Chloride 109 mmol/L (101-111) 03/05/19 05:03 Carbon Dioxide 27 mmol/L (22-32) 03/05/19 05:03 Anion Gap 3 mmol/L (2-11) 03/05/19 05:03 BUN 7 mg/dL (6-24) 03/05/19 09:15 Creatinine 0.36 mg/dL (0.51-0.95) L 03/05/19 09:15 Est GFR ( Amer) 215.6 (>60) 03/05/19 09:15 Est GFR (Non-Af Amer) 178.2 (>60) 03/05/19 09:15 BUN/Creatinine Ratio 23.5 (8-20) H 03/05/19 05:03 Glucose 104 mg/dL (70-100) H 03/05/19 05:03 Lactic Acid 1.3 mmol/L (0.5-2.0) 03/03/19 17:59 Calcium 7.3 mg/dL (8.6-10.3) L 03/05/19 05:03 Iron < 20 ug/dL (50-212) L 03/05/19 05:03 TIBC 183 mcg/dL (250-450) L 03/05/19 05:03 % Saturation 11 % (15-55) L 03/05/19 05:03 Unsat Iron Binding < 168 ug/dL 03/05/19 05:03 Transferrin 131 mg/dL (203-362) L 03/05/19 05:03 Ferritin 176.9 ng/mL (11-307) 03/05/19 05:03 Total Bilirubin 0.30 mg/dL (0.2-1.0) 03/05/19 05:03 AST 21 U/L (13-39) 03/05/19 05:03 ALT 22 U/L (7-52) 03/05/19 05:03 Alkaline Phosphatase 77 U/L (34-104) 03/05/19 05:03 Lactate Dehydrogenase 264 U/L (140-271) 03/05/19 05:03 Troponin I 0.03 ng/mL (<0.04) 03/01/19 16:26 Total Protein 4.2 g/dL (6.4-8.9) L 03/05/19 05:03 Albumin 2.2 g/dL (3.2-5.2) L 03/05/19 05:03 Globulin 2.0 g/dL (2-4) 03/05/19 05:03 Albumin/Globulin Ratio 1.1 (1-3) 03/05/19 05:03 Vitamin B12 646 pg/mL (180-914) 03/05/19 05:03 Folate 15.27 ng/mL (>3.99) 03/05/19 05:03 Urine Color Yellow 03/03/19 13:50 Urine Appearance Cloudy 03/03/19 13:50 Urine pH 5.0 (5-9) 03/03/19 13:50 Ur Specific [place] 1.020 (1.010-1.030) 03/03/19 13:50 Urine Protein 1+(30 mg/dl) (Negative) A 03/03/19 13:50 Urine Ketones Negative (Negative) 03/03/19 13:50 Urine Blood 3+ (Negative) A 03/03/19 13:50 Urine Nitrate Negative (Negative) 03/03/19 13:50 Urine Bilirubin Negative (Negative) 03/03/19 13:50 Urine Urobilinogen Negative (Negative) 03/03/19 13:50 Ur Leukocyte Esterase 2+ (Negative) A 03/03/19 13:50 Urine WBC (Auto) 3+(>20/hpf) (Absent) A 03/03/19 13:50 Urine RBC (Auto) 3+(>10/hpf) (Absent) A 03/03/19 13:50 Urine Bacteria Absent (Absent) 03/03/19 13:50 Urine Glucose Negative (Negative) 03/03/19 13:50 Vancomycin Trough < 2.0 mcg/mL 03/05/19 09:15 Blood Type O Negative 03/03/19 01:01 Antibody Screen Negative 03/03/19 01:01 Crossmatch See Detail 03/03/19 01:01
[2019-03-06 13:44] LABS: Hematocrit 26 % (35-47); Hemoglobin 8.9 g/dL (12.0-16.0)
--- NOTE | 2019-03-06 15:50 | PN ---
Subjective Date of Service: 03/06/19 Interval History: Pt states she has R calf sorenes, LLE edema, which are both new in last 1-2 days. She c/o occasional nonproductive cough; denies SOB, fever/chills. She states that she is tired today, but feels better than yesterday. She has had no diarrhea since yesterday; had 3 bouts yesterday. She c/o continued R hip pain rated at 4/10 currently. Pt agreeable to weiss removal today. She has no other complaints today. Objective Active Medications: Acetaminophen (Tylenol Tab*) 975 mg PO Q8HR REID Baclofen (Lioresal Tab*) 10 mg PO 1700 REID Calcium Citrate (Citracal Tab*) 200 mg PO QAM REID Cetirizine HCl (Zyrtec*) 10 mg PO QPM REID Cyclobenzaprine HCl (Flexeril Tab*) 10 mg PO Q6H PRN Diltiazem HCl (Cardizem Cd Cap*) 180 mg PO QAM REID Diphenhydramine HCl (Benadryl Po*) 25 mg PO Q6H PRN Docusate Sodium (Colace Cap*) 100 mg PO BID REID Enoxaparin Sodium (Lovenox(*)) 40 mg SUBCUT Q24H REID Flecainide Acetate (Tambocor Tab*) 100 mg PO BID REID Fluticasone Propionate (Flonase Nasal [place] 50mcg*) 2 spray BOTH NARES DAILY REID Gabapentin (Neurontin Cap(*)) 300 mg PO BID REID Hydromorphone HCl (Dilaudid Inj*) 0.5 mg IV Q4H PRN Lactobacillus Rhamnosus (Lactobacillus Acidophilus*) 1 tab PO BID REID Lactulose (Lactulose*) 30 ml PO DAILY PRN Magnesium Hydroxide (Milk Of Magnesia Liq*) 30 ml PO BID REID Multivitamins/Minerals (Theragran/Minerals Tab*) 1 tab PO DAILY REID Oxycodone HCl (Roxycodone Tab*) 5 mg PO Q4H PRN Oxycodone HCl (Roxycodone Tab*) 10 mg PO Q4H PRN Pantoprazole Sodium (Protonix Tab*) 40 mg PO QAM REID Polyethylene Glycol/Electrolytes (Miralax*) 17 gm PO DAILY PRN Potassium Chloride (Klor Con Er Tab*) 20 meq PO QPM REID Rosuvastatin Calcium (Crestor (Nf)) 5 mg PO BEDTIME REID; Protocol Senna (Senokot 8.6 Mg Tab*) 1 tab PO BEDTIME REID Trimethoprim/Sulfamethoxazole (Bactrim Ds 800/160 Tab*) 1 tab PO BID REID Zinc Acetate/Diphenhydramine (Banophen 2 % Cream (Nf)) 1 applic TOPICAL TID PRN ; Protocol Vital Signs: Temp Pulse Resp BP Pulse Ox 98.6 F 70 18 119/61 93 03/06/19 11:39 03/06/19 11:39 03/06/19 13:33 03/06/19 11:39 03/06/19 11:39 Oxygen Devices in Use Now: None Appearance: Pt is asleep in bed when I enter; she wakes easily. She appears well, comfortable, in no acute distress. Eyes: No Scleral Icterus, PERRLA Ears/Nose/Mouth/Throat: NL Teeth, Lips, Gums, Clear Oropharnyx, Mucous Membranes Moist Neck: NL Appearance and Movements; NL JVP, Trachea Midline Respiratory: Symmetrical Chest Expansion and Respiratory Effort, Clear to Auscultation Cardiovascular: NL Sounds; No Murmurs; No JVD, RRR Abdominal: NL Sounds; No Tenderness; No Distention, No Hepatosplenomegaly Extremities: No Clubbing, Cyanosis, - - B/l LE edema, R>L. R hip with dressing in place, there is serosanguineous fluid noted on bandage and bedding. Surgical incision site without erythema, purulent drainage. Neurological: Alert and Oriented x 3 Result Diagrams: 03/06/19 12:19 03/05/19 09:15 Microbiology and Other Data: Microbiology 02/28/19 07:40 Nasal Screen MRSA (PCR) - Final Nasal Mrsa Not Detected Assess/Plan/Problems-Billing Assessment: 68 yo female with PMHx prior SVT, HTN, HLD presents from [facility] at [facility] with right hip pain, found to have dislocation of right hip prosthesis. - Patient Problems (1) Dislocation of hip joint prosthesis Comment: -POD 4 revision R PAIGE -H/o R hip replacement 02/20, presenting with dislocation and acetabular cup torn from socket, repaired 03/02 -appreciate orthopedic surgery involvement -2U PRBC serene-operatively; 3U post-operatively -Management per ortho -Awaiting PEREZ placement (2) Bilateral leg edema Comment: -RLE edema (persistent) with new onset pain -LLE with new pedal edema -US b/l LE report no dvt (3) Postoperative anemia Comment: -Extensive blood loss in OR, requiring 2U PRBC serene-operatively -H/H continues to be low; pt has had total of 2U serene-op, 3U post-op -CTA leg shows no bleeding -No s/s hemolytic anemia; bili, LDH WNL -Retic count elevated, which is to be expected in setting of anemia and suggests no issues with production of RBCs -Stool for blood negative -H/H trending up well since 03/05 transfusion (4) Sepsis Comment: -Resolved -Tachycardia with leukocytosis, mildy hypotensive in setting of post-op blood loss -2+ LE in urine, cx + for e. coli; bactrim started -BC NGTD -Lactic 2.4 to 2.3 to 1.3 with IVF, PRBC -Tachycardia resolved; leukocytosis resolved -Continue Bactrim for UTI (sensitive) -Continue to monitor (5) Urinary tract infection Comment: -Remove weiss -Bactrim (day 3) (6) History of paroxysmal supraventricular tachycardia Comment: -reviewed in [facility]: patient has pmhx of paroxsymal afib/aflutter/SVT -No AC at home -continue flecainide and diltiazem -rate controlled today -restarted her home potassium supplement -Continue tele (7) Hypertension Comment: -BP WNL -Hold lisinopril in setting of hypotension, bactrim use (8) Hyperlipidemia Comment: -cont statin (9) DVT prophylaxis Comment: -Per ortho: SCDs, lovenox (10) Full code status Status and Disposition: Inpatient. Post-op 03/02/2019.
[2019-03-06] MEDS: Potassium Chlor TAB* 20 MEQ TAB.ER PO SCH (17:28)
[2019-03-06] MEDS: Cetirizine* 10 MG TAB PO SCH (17:28)
[2019-03-06] MEDS: Baclofen TAB* 10 MG PO SCH (17:28)
[2019-03-06] MEDS: Enoxaparin(*) 40 MG/0.4 ML SYR SUBCUT SCH (21:39)
[2019-03-06] MEDS: CMCS: Rosuvastatin (NF) 5 MG TAB PO SCH (21:40)
[2019-03-06] MEDS: Senna TAB 8.6 mg* TAB PO SCH (21:43)
--- NOTE | 2019-03-06 22:28 | DS ---
CC: Dr. Winifred Jurado; Dr. Rosalio Merchant; Dr. Gilberto Arreola * DISCHARGE SUMMARY: DATE OF ADMISSION: 02/28/19 ANTICIPATED DATE OF DISCHARGE: 03/07/19 PRIMARY CARE PROVIDER: Winifred Jurado MD PHARMACOVIGILANCE SCIENTIST: Rosalio Merchant DO ORTHOPEDIC SURGEON: Gilberto Arreola MD ATTENDING PHYSICIAN: Dr. Zac Jurado * (dictated by ROMAN Moon). DISCHARGE DIAGNOSES: 1. Dislocation of right hip, dislocation of right hip prosthesis status post right total hip replacement on 02/20/19 with right total hip arthroplasty, revision 03/02/19. 2. Sepsis due to Escherichia coli urinary tract infection. 3. Hypovolemic shock in the setting of perioperative blood loss, post- operative anemia. SECONDARY DIAGNOSES: 1. Hypertension. 2. Hyperlipidemia. 3. Atrial fibrillation/flutter. 4. Supraventricular tachycardia. 5. Aortic regurgitation. 6. Gastroesophageal reflux disease. 7. Obesity. STUDIES WHILE IN THE HOSPITAL: 1. Pelvis CT, impression: There is posterior and superior dislocation of the acetabular cup from the acetabular fossa. There is dislocation of the right femoral head prosthesis as well. 2. Right hip x-ray, impression: Reconstruction of the right acetabulum with right hip replacement in satisfactory position. 3. Chest x-ray, impression: Small left pleural effusion. 4. Bilateral venous Doppler ultrasound, impression: No right lower extremity deep vein thrombosis. No left lower extremity deep venous thrombosis. 5. CTA of pelvis, impression: Multiphasic postcontrast series are without evidence for contrast extravasation to indicate arterial or venous injury. No retroperitoneal or superficial soft tissue plain hematoma evident. CONSULTATIONS WHILE IN THE HOSPITAL: Orthopedics assessment and plan: Right hip dislocation, failure of acetabular hardware. The patient will be nonweightbearing on bed rest. She will be on subcu heparin until midnight Wednesday night. She will also be n.p.o. at midnight Wednesday night and plans for an OR on at 7:[address] Arreola. The patient has had extensive conversation with Dr. Arreola and agrees to the procedure. DISCHARGE MEDICATIONS: Home medications: 1. Acetaminophen 975 mg p.o. q.8 hours. 2. Ascorbic acid 1000 mg p.o. b.i.d. 3. Aspirin 81 mg p.o. daily. 4. Baclofen 10 mg p.o. daily. 5. Calcium citrate 200 mg p.o. daily. 6. Cetirizine 10 mg p.o. daily. 7. Cyclobenzaprine 10 mg p.o. q.6 hours p.r.n. muscle spasm. 8. Dicloxacillin 500 mg p.o. daily p.r.n. podiatry appointment. 9. Diltiazem 180 mg p.o. daily. 10. Docusate 100 mg p.o. b.i.d. 11. Flecainide 100 mg p.o. b.i.d. 12. Gabapentin 300 mg p.o. at bedtime. 13. Glucosamine/chondroitin 1 tab p.o. daily. 14. Lisinopril 5 mg p.o. daily. 15. Meloxicam 15 mg p.o. daily. 16. Multivitamins 1 tab p.o. daily. 17. Hair, skin, and nail capsule 1 tab p.o. daily. 18. [place] 3 acid/fish oil 1 tab p.o. b.i.d. 19. Omeprazole 20 mg p.o. daily. 20. Oxycodone 5 mg p.o. q.4 hours p.r.n. pain. 21. Potassium chloride 20 mEq p.o. daily. 22. Rosuvastatin 5 mg p.o. at bedtime. 23. Triamcinolone nasal spray 2 sprays daily. New home medications: 1. Lovenox 40 mg subcu q.24 hours. 2. Lactobacillus acidophilus 1 tab p.o. b.i.d. 3. Bactrim DS 1 tab p.o. b.i.d. HISTORY OF PRESENT ILLNESS/HOSPITAL COURSE: Ms. Rowley is a 68-year-old female with a past medical history of right total hip arthroplasty 02/20/19, who has been at subacute rehab at [facility], hypertension, hyperlipidemia, atrial fibrillation. She presented to the ER on 02/28/19 with complaints of right hip discomfort and swelling. For full and complete details, please see the history and physical dictated by Tammy Chicas, but in short, the patient presents with the above symptoms and was found to have a dislocated acetabular cup and dislocated right femoral head prosthesis. Due to right leg swelling a Doppler was ordered and ruled out DVT. She was admitted to the hospital due to these symptoms. She was placed on bedrest and her pain was managed throughout her stay. She was evaluated by Orthopedics who recommended surgery, which was performed on 03/02/19. She was optimized for surgery. Surgery of the right hip was performed on 03/02/19. The patient had a perioperative blood loss of 1500 cc and required 2 units of packed red blood cells perioperatively. Revision of the right total hip arthroplasty with posterior wall augmentation was performed. She worked with Physical Therapy throughout her stay and was found to be a good candidate for subacute rehab. She has accepted a bed at [facility] and plans for hopeful discharge in the morning. The patient was noted to have significant postoperative anemia. Again, she had blood loss that required 2 units of packed red blood cells to be administered while in the OR. The following day her H and H trended downward. She required 3 units of packed red blood cells within 24 hours of surgical intervention. Once these were given, the patient's H and H trended up and at discharge, she is at 8.9 and 26 respectively. Due to concerns for severe anemia, a full workup was done. Labs revealed no evidence of hemolysis. A CTA of the pelvis was performed and revealed no evidence for contrast extravasation to indicate arterial or venous injury in the post-operative site. No retroperitoneal or superficial soft tissue hematoma evident. The patient's iron studies revealed low iron, low total iron binding capacity, low transferrin, B12 and folate were within normal limits. Fecal occult blood was negative. This was determined to be postoperative anemia alone. The patient also met SIRS criteria with tachycardia and leukocytosis. An infectious disease workup was performed and revealed UA with 2+ leukocyte esterase. No bacteria, no nitrites. Urine culture revealed E. coli sensitive to Bactrim. Blood cultures were obtained and revealed no growth prior to discharge. She did also have some mild hypotension with blood pressure in the low to mid 90s. This occurred during her postoperative anemic state and was likely due to a mild hypovolemic shock versus septic shock. She was noted to have a lactic acidosis of 2.4. She was given IV fluid boluses and improved to 2.3. She was then given packed red blood cells and her lactic acidosis improved to 1.3. The patient was placed on Bactrim p.o. for E. coli urinary tract infection. On the day prior to discharge, the patient complained of right calf soreness and new onset left lower extremity mild edema. For this, Doppler ultrasounds were ordered and revealed no DVT in the right or left lower extremity. The patient reports occasional cough without shortness of breath, fever, chills, sweats. She does note that she is mildly fatigued, but is feeling better each day. She has right hip pain that she rates at 4/10. She notes that she has been up to the chair today and has tolerated sitting for multiple hours throughout the day. She did have 3 bouts of diarrhea the day prior likely due to medications for constipation. She reports no diarrhea today. REVIEW OF SYSTEMS: A 14-point review of systems has been performed and all the pertinent positives and negatives are in the HPI. All other systems are negative. PHYSICAL EXAMINATION: Vital Signs: Temperature 98.0 temporal , heart rate 54, respiratory rate 18, oxygen saturation 96% on room air, blood pressure 112/78. General: Mr. Rowley is a well-developed, well-nourished, obese, older white female who is sitting up in bed. She appears to be in no acute distress. She appears comfortable. HEENT: PERRL. EOMI. Nonicteric sclerae. Hearing is grossly intact. Oral mucous membranes are moist. There are no lesions. The pharynx is clear. The tongue is at midline. Cardiovascular: Regular rhythm, rate controlled. S1, S2 present. There is a systolic murmur. No rubs, clicks or gallops. There is no JVD. There is bilateral lower extremity edema, right greater than the left, 1+ pitting. Pulmonary: Symmetrical chest expansion without use of accessory muscles. Lungs clear to auscultation bilaterally without rhonchi, wheezes, or rubs. There is no digital clubbing or cyanosis. Abdomen: Obese, bowel sounds in all quadrants. The abdomen is soft without tenderness to palpation. Musculoskeletal: The patient has a left hip surgical incision that has a dressing in place with some serosanguineous fluid noted on bandage in bedding. A surgical incision site is without erythema or purulent drainage. There is no noted discharge coming out from the wound. There again is bilateral lower extremity edema with right slightly greater than the left. Neuro: The patient is awake. She is alert and oriented x3 with cranial nerves grossly intact. Sensation intact distally bilateral upper and lower extremities. The patient is able to wiggle her toes. DISCHARGE PLAN: Ms. Rowley is stable for discharge to [facility]. ACTIVITY: 1. As tolerated. 2. Continue PT/OT at subacute rehab. 3. Continue posterior hip precautions. DIET: Heart healthy. CONDITION: Fair. MEDICATIONS: 1. Continue Lovenox postoperatively. 2. Continue pain management as needed. 3. Continue Bactrim for 4 more days for UTI coverage. 4. Discontinue lisinopril while on Bactrim. Monitor BP and restart when necessary. EDUCATION: 1. Follow up with primary care provider in 4 to 7 days of discharge from facility. Discuss anticoagulation for atrial fibrillation. 2. Follow up with Dr. Arreola as scheduled. 3. Follow up with Dr. Merchant as needed. 4. Recheck hemoglobin, hematocrit in 3 to 5 days to ensure this is still trending up. 5. Return to the ER or nearest hospital for any concerns. This is a summarized report of a complex medical history and hospital stay. For further details, please see the entire medical record. TIME SPENT: Approximately 40 minutes was spent on this discharge, greater than half that time was spent [id number] with the patient discussing discharge plans and instructions. ROMAN JEREZ [id number]/[facility] #: [id number] NII
[2019-03-07] MEDS: oxyCODONE TAB* 5 MG TAB PO PRN ×2 (03:04→08:50)
[2019-03-07] MEDS: Acetaminophen TAB* 325 MG PO SCH (06:07)
[2019-03-07] MEDS: Gabapentin CAP(*) 300 MG PO SCH (08:52)
[2019-03-07] MEDS: Sulfamethox/Trimethoprim DS 800/160* TAB PO SCH (08:52)
[2019-03-07] MEDS: Pantoprazole TAB * 40 MG TAB PO SCH (08:52)
[2019-03-07] MEDS: Multivitamins/Minerals TAB PO SCH (08:52)
[2019-03-07] MEDS: Lactobacillus Acidophilus* 1 TAB PO SCH (08:52)
[2019-03-07] MEDS: Flecainide TAB* 100 MG PO SCH (08:52)
[2019-03-07] MEDS: Diltiazem CD CAP* 180 MG PO SCH (08:52)
[2019-03-07] MEDS: Docusate CAP* 100 MG PO SCH (08:52)
[2019-03-07] MEDS: Calcium Citrate TAB* 200 MG PO SCH (08:52)
[2019-03-07] MEDS: Fluticasone NASAL SPRAY 50MCG* 16 gm SPRAY BTL BOTH NARES SCH (08:53)
[2019-03-07] MEDS: Magnesium Hydroxide LIQ* 30 ML UDC PO SCH (08:54)
[2019-03-07 11:58] VITALS: BP 119/62
[2019-03-07] MEDS: Cyclobenzaprine TAB* 10 MG PO PRN (13:22)
[2019-03-07 13:24] LABS: Hematocrit 24 % (35-47); Hemoglobin 8.1 g/dL (12.0-16.0)
--- NOTE | 2019-03-07 14:54 | PN ---
Progress Note - Progress Note Date of Service: 03/07/19 SOAP: Subjective: []Pt seen at bedside. She feels well with well controlled right hip pain. Denies CP, SOB, dizziness, nausea. Denies feeling of fever or chills. Objective:Gen: Appears well, NAD. RLE: Right hip dressing CDI without surrounding erythema and without active discharge. distal 1/[address] up incision there is a superficial bulla roughly 1.5 cm with serous fluid. Thigh soft. DF/PF intact, DP2+, sensation intact to light touch distally. Calves supple and nontender Assessment: []POD #5 revision right PAIGE Plan: []WBAT PT/OT Strict posterior hip precautions Lovenox for DVT ppx x 30 days post op Will need PEREZ upon d/c betadine, 4x4s. tape for daily dressing changes Vital Signs Temp 98.6 F 03/07/19 11:57 Pulse 70 03/07/19 11:57 Resp 18 03/07/19 13:22 BP 119/62 03/07/19 11:57 Pulse Ox 95 03/07/19 11:57 Intake & Output 03/06/19 03/07/19 03/07/19 18:59 06:59 18:59 Intake Total 1920 1100 Output Total 2450 700 800 Balance -530 400 -800 Intake: Oral 0 1100 Output: Urine 400 700 800 Wallace 2049 Other: Estimated Void Large # Voids 1 Laboratory Last Values WBC 8.1 10^3/uL (3.5-10.8) 03/06/19 05:01 RBC 2.61 10^6 /uL (3.70-4.87) L 03/06/19 05:01 RBC (Retic) 2.15 10^6/uL (3.70-4.87) L 03/05/19 05:03 Hgb 8.1 g/dL (12.0-16.0) L 03/07/19 12:11 Hct 24 % (35-47) L 03/07/19 12:11 HCT (Retic) 20 % (35-47) L 03/05/19 05:03 MCV 92 fL (80-97) 03/06/19 05:01 MCH 31 pg (27-31) 03/06/19 05:01 MCHC 34 g/dL (31-36) 03/06/19 05:01 RDW 16 % (10-15) H 03/06/19 05:01 Plt Count 341 10^3/uL (150-450) 03/06/19 05:01 MPV 6.4 fL (7.4-10.4) L 03/06/19 05:01 Neut % (Auto) 67.6 % 03/06/19 05:01 Lymph % (Auto) 14.7 % 03/06/19 05:01 [place] % (Auto) 10.6 % 03/06/19 05:01 Eos % (Auto) 7.0 % 03/06/19 05:01 Baso % (Auto) 0.1 % 03/06/19 05:01 Absolute Neuts (auto) 5.4 10^3/ul (1.5-7.7) 03/06/19 05:01 Absolute Lymphs (auto) 1.2 10^3/ul (1.0-4.8) 03/06/19 05:01 Absolute Monos (auto) 0.9 10^3/ul (0-0.8) H 03/06/19 05:01 Absolute Eos (auto) 0.6 10^3/ul (0-0.6) 03/06/19 05:01 Absolute Basos (auto) 0.0 10^3/ul (0-0.2) 03/06/19 05:01 Absolute Nucleated RBC 0.0 10^3/ul 03/06/19 05:01 Nucleated RBC % 0.2 03/06/19 05:01 Retic Count, Calc 6.0 % (0.5-1.5) H 03/05/19 05:03 Corrected Retic Count 2.7 % (0.5-1.5) H 03/05/19 05:03 Retic Shift Factor 2.0 03/05/19 05:03 Retic Production Index 1.40 03/05/19 05:03 Immature Retic Fraction 0.72 03/05/19 05:03 Mean Retic Volume 126.5 03/05/19 05:03 INR (Anticoag Therapy) 1.08 (0.82-1.09) 03/05/19 05:03 APTT 31.6 seconds (26.0-38.0) 02/28/19 13:40 Sodium 139 mmol/L (135-145) 03/05/19 05:03 Potassium 3.9 mmol/L (3.5-5.0) 03/05/19 05:03 Chloride 109 mmol/L (101-111) 03/05/19 05:03 Carbon Dioxide 27 mmol/L (22-32) 03/05/19 05:03 Anion Gap 3 mmol/L (2-11) 03/05/19 05:03 BUN 7 mg/dL (6-24) 03/05/19 09:15 Creatinine 0.36 mg/dL (0.51-0.95) L 03/05/19 09:15 Est GFR ( Amer) 215.6 (>60) 03/05/19 09:15 Est GFR (Non-Af Amer) 178.2 (>60) 03/05/19 09:15 BUN/Creatinine Ratio 23.5 (8-20) H 03/05/19 05:03 Glucose 104 mg/dL (70-100) H 03/05/19 05:03 Lactic Acid 1.3 mmol/L (0.5-2.0) 03/03/19 17:59 Calcium 7.3 mg/dL (8.6-10.3) L 03/05/19 05:03 Iron < 20 ug/dL (50-212) L 03/05/19 05:03 TIBC 183 mcg/dL (250-450) L 03/05/19 05:03 % Saturation 11 % (15-55) L 03/05/19 05:03 Unsat Iron Binding < 168 ug/dL 03/05/19 05:03 Transferrin 131 mg/dL (203-362) L 03/05/19 05:03 Ferritin 176.9 ng/mL (11-307) 03/05/19 05:03 Total Bilirubin 0.30 mg/dL (0.2-1.0) 03/05/19 05:03 AST 21 U/L (13-39) 03/05/19 05:03 ALT 22 U/L (7-52) 03/05/19 05:03 Alkaline Phosphatase 77 U/L (34-104) 03/05/19 05:03 Lactate Dehydrogenase 264 U/L (140-271) 03/05/19 05:03 Troponin I 0.03 ng/mL (<0.04) 03/01/19 16:26 Total Protein 4.2 g/dL (6.4-8.9) L 03/05/19 05:03 Albumin 2.2 g/dL (3.2-5.2) L 03/05/19 05:03 Globulin 2.0 g/dL (2-4) 03/05/19 05:03 Albumin/Globulin Ratio 1.1 (1-3) 03/05/19 05:03 Vitamin B12 646 pg/mL (180-914) 03/05/19 05:03 Folate 15.27 ng/mL (>3.99) 03/05/19 05:03 Urine Color Yellow 03/03/19 13:50 Urine Appearance Cloudy 03/03/19 13:50 Urine pH 5.0 (5-9) 03/03/19 13:50 Ur Specific [place] 1.020 (1.010-1.030) 03/03/19 13:50 Urine Protein 1+(30 mg/dl) (Negative) A 03/03/19 13:50 Urine Ketones Negative (Negative) 03/03/19 13:50 Urine Blood 3+ (Negative) A 03/03/19 13:50 Urine Nitrate Negative (Negative) 03/03/19 13:50 Urine Bilirubin Negative (Negative) 03/03/19 13:50 Urine Urobilinogen Negative (Negative) 03/03/19 13:50 Ur Leukocyte Esterase 2+ (Negative) A 03/03/19 13:50 Urine WBC (Auto) 3+(>20/hpf) (Absent) A 03/03/19 13:50 Urine RBC (Auto) 3+(>10/hpf) (Absent) A 03/03/19 13:50 Urine Bacteria Absent (Absent) 03/03/19 13:50 Urine Glucose Negative (Negative) 03/03/19 13:50 Vancomycin Trough < 2.0 mcg/mL 03/05/19 09:15 Blood Type O Negative 03/03/19 01:01 Antibody Screen Negative 03/03/19 01:01 Crossmatch See Detail 03/03/19 01:01 []
--- NOTE | 2019-03-08 00:42 | DS ---
DISCHARGE SUMMARY: ADDENDUM: Please note that the full discharge summary was written by ROMAN Moon , on 03/06/19. Please see her document for further information. Actual day of discharge was 03/07/19. ATTENDING PROVIDER: Dr. Monet * (DICTATED BY ROMAN BOWLING) PHYSICAL EXAMINATION ON THE DAY OF DISCHARGE: General: An obese elderly white female, lying on the hospital bed, appearing comfortable, in no acute distress. ENT: PERRL, EOMI. Sclerae are anicteric. Mucous membranes moist. Lungs: Clear to auscultation throughout. Cardio: Regular rate and rhythm without murmurs, rubs, or gallops. Extremities: Nonpitting edema to the right lower extremity. No clubbing or cyanosis. Neuro: The patient is alert and oriented x3. No focal deficits. DISPOSITION: [facility]. DISCHARGE PLAN: Please remove the isela on 03/16/19. Please follow up with Dr. Arreola as outpatient. Please follow up with her primary care provider in 7 to 10 days after discharge from [facility]. CONDITION ON DISCHARGE: Stable. MEDICATIONS: As documented by ROMAN Moon. TIME SPENT: Approximately 30 minutes were spent on this discharge, approximately half of this time was spent coordinating the discharge planning. ROMAN BOWLING [id number]/CPS #: [id number] MTDD
== END 2019-03-07 13:48 | DRG 466 ==
LOC: ED 15:58 → SSU 02-28 01:26
PROVIDERS: ADMIT Hospitalist; ATTEND Internal Medicine
PROC: 0SP90JZ Removal of Synthetic Substitute from Right Hip Joint, Open Approach (ICD-10-PCS; 2019-03-02)
PROC: 0QU40JZ Supplement Right Acetabulum with Synthetic Substitute, Open Approach (ICD-10-PCS; 2019-03-02)
PROC: 30233N1 Transfusion of Nonautologous Red Blood Cells into Peripheral Vein, Percutaneous Approach (ICD-10-PCS; 2019-03-02)
PROC: 0SR904Z Replacement of Right Hip Joint with Ceramic on Polyethylene Synthetic Substitute, Open Approach (ICD-10-PCS; principal; 2019-03-02 07:30)
DX: T84.020A Dislocation of internal right hip prosthesis, initial encounter (principal); A41.9 Sepsis, unspecified organism; T81.19XA Other postprocedural shock, initial encounter; I24.8 Other forms of acute ischemic heart disease; M84.48XA Pathological fracture, other site, initial encounter for fracture; D62 Acute posthemorrhagic anemia; I48.92 Unspecified atrial flutter; I47.1 Supraventricular tachycardia; E87.2 Acidosis; N39.0 Urinary tract infection, site not specified; I95.9 Hypotension, unspecified; B96.20 Unspecified Escherichia coli [E. coli] as the cause of diseases classified elsewhere; I10 Essential (primary) hypertension; E78.5 Hyperlipidemia, unspecified; I48.0 Paroxysmal atrial fibrillation; I35.1 Nonrheumatic aortic (valve) insufficiency; K21.9 Gastro-esophageal reflux disease without esophagitis; E66.01 Morbid (severe) obesity due to excess calories; R74.8 Abnormal levels of other serum enzymes; L29.8 Other pruritus; T36.1X5A Adverse effect of cephalosporins and other beta-lactam antibiotics, initial encounter; Y92.230 Patient room in hospital as the place of occurrence of the external cause; K59.00 Constipation, unspecified; M79.89 Other specified soft tissue disorders; Z96.653 Presence of artificial knee joint, bilateral; Z96.641 Presence of right artificial hip joint; Z68.37 Body mass index [BMI] 37.0-37.9, adult; Z79.01 Long term (current) use of anticoagulants; Z79.1 Long term (current) use of non-steroidal anti-inflammatories (NSAID); Z79.82 Long term (current) use of aspirin; Z79.891 Long term (current) use of opiate analgesic; Z79.899 Other long term (current) drug therapy; Z88.5 Allergy status to narcotic agent; Z88.8 Allergy status to other drugs, medicaments and biological substances; Z83.3 Family history of diabetes mellitus; Z82.5 Family history of asthma and other chronic lower respiratory diseases; Z82.49 Family history of ischemic heart disease and other diseases of the circulatory system
CPT/HCPCS: 36415; 71046; 72170; 72191; 72192; 80048; 80053; 80202; 81003; 81015; 82272; 82565; 82607; 82728; 82746; 83540; 83550; 83605; 83615; 84484; 84520; 85014; 85018; 85025; 85045; 85610; 85730; 86850; 86900; 86901; 86922; 87040; 87077; 87086; 87186; 87641; 88300; 90686; 93005; 93970; 99284; A9270-GY; C1713; C1776; G8978-GP-CL; G8979-GP-CI; J0330; J0690; J1100; J1170; J1644; J1650; J2250; J2405; J2704; J2795; J3010; J3370; P9040; Q9967

== ENCOUNTER 2019-03-27 14:12 | Inpatient (IN) | payer MEDICARE ==
--- OUTSIDE RECORDS SUMMARY | 2019-03-27 14:18 | XMS REPORT | Continuity of Care Document ---
:1950 External Reference #:[id number] Author Name Meera Estevez M.D. 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 [phone] Medicine Problems Active Problems Provider Date Other [...] Use Denies Drug Use Smoking Status Reviewed: 03/27/19 Patient has never smoked Exercise Type/Frequency Does not exercise Allergies, Adverse Reactions, Alerts Active Allergies Reaction Severity Comments Date Biaxin Nausea and Vomiting 12/22/2017 Nabumetone 12/22/2017 Morphine Nausea and Vomiting 12/22/2017 Fentanyl Nausea and Vomiting 12/22/2017 Nabumetone Nausea and Vomiting 12/22/2017 Lipitor possible muscle aches 01/19/2018 Pravastatin possible muscle aches 01/19/2018 Cefazolin 03/27/2019 Medications Active Medications SIG Qnty Indications Ordering Date Provider Commode ht: 65" wt: 228lbs M16.11 Gilberto Arreola, 02/10/2019 Misc dx: hip arthritis M.D. s/p total hip arthoplasty Bath/Shower Seat ht: 65" wt: 228lbs M16.11 Gilberto Arreola, 02/10/2019 Misc dx: hip arthritis M.D. s/p total hip arthoplasty Hip Cushion ht: 65" wt: 228lbs M16.11 Gilberto Arreola, 02/10/2019 dx: hip arthritis M.D. s/p total hip arthoplasty Gabapentin 1 by mouth every 30caps G57.22 Gilberto Arreola, 01/25/2019 300mg Capsules night at bedtime M.Elton Rosuvastatin Calcium take 1 tablet by 90tabs E78.5 Rosalio Arrington 09/21/2018 5mg mouth every other Merchant, DO FACC Tablets day Klor-Con M20 1 by mouth every 90tabs Joanie Forte, 08/01/2018 20Meq day N.P. 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 associate 500mg Capsules Vitamin C 1 by mouth every Unknown 1000mg Tablets day Move Free Joint Health once daily Unknown Advanced glucosamine-condro Tablets itinn Hair Skin Nails Unknown Capsules Culturelle 1 by mouth Unknown Capsules everyday Clobetasol Propionate apply sparingly to Unknown effected area of 0.05% Cream vulva twice a day 4-6 weeks Ferrous Sulfate 1 by mouth every Unknown 325(65Fe) day mg Tablets Ciprofloxacin HCL 1 by mouth twice a Unknown 500mg day Tablets Eliquis 1 tab by mouth Unknown 2.5mg Tablets every 12 hours Cyclobenzaprine HCL take 1 tab by Unknown 10mg mouth every 6 Tablets hours as needed Nasacort Allergy 24HR 2 spray both nares Unknown once daily 55mcg/Act Aerosol Tramadol HCL 1-2 tablets by Unknown 50mg Tablets mouth every 6 hours as needed pain Baclofen take 1/2 [...] every 90caps Rosalio S. Coated Beads day Merchant, DO FACC 180mg Caps ER 24HR Flecainide Acetate 1 by mouth twice a 180tabs Rosalio S. 100mg day Merchant, DO FACC Tablets Aspir-81 1 by mouth every Unknown 81mg Tablets DR day Lisinopril 1 by mouth every Unknown 5mg Tablets day Omeprazole 1 by mouth every Unknown 20mg Capsules day DR Medications Administered in Office Medication SIG Qnty Indications Ordering Provider Date Depomedrol 40MG Meera Estevez M.D. 02/11/2018 Injection Immunizations Description No Information Available Vital Signs Date Vital Result Comment 03/27/2019 1:11pm Height 65 inches 5'5" Heart Rate 76 /min BP Systolic Sitting 98 mmHg BP Diastolic Sitting 52 mmHg Respiratory Rate 14 /min Body Temperature 98.1 F Pain Level 4 O2 % BldC Oximetry 95 % 01/27/2019 1:57pm Height 65 inches 5'5" Weight 228.00 lb with shoes Heart Rate 68 /min BP Systolic Sitting 110 mmHg Lue lg cuff BP Diastolic Sitting 60 mmHg Lue lg cuff BP Systolic Standing 110 mmHg Lue lg cuff BP Diastolic Standing 64 mmHg Lue lg cuff Respiratory Rate 16 /min BMI (Body Mass Index) 37.9 kg/m2 Ejection Fraction 60-65% date 12/02/18 ECHO Results Test Date Facility Test Result H/L Range Note CBC Auto 02/27/2019 [facility] White Blood 8.4 10^3/uL Normal 3.5-10.[address] [place] [address] [phone] Red Blood Count 3.10 10^6/uL Low 3.70-4.87 Hemoglobin 10.1 g/dL Low 12.0-16.0 Hematocrit 30 % Low 35-47 Mean Corpuscular Volume 95 fL Normal 80-97 Mean Corpuscular Hemoglobin 33 pg High 27-31 Mean Corpuscular HGB Conc 34 g/dL Normal 31-36 Red Cell Distribution Width 13 % Normal 10-15 Platelet Count 417 10^3/uL Normal 150-450 Mean Platelet Volume 5.9 fL Low 7.4-10.4 Abs Neutrophils 6.6 10^3/uL Normal 1.5-7.7 Abs Lymphocytes 0.8 10^3/uL Low 1.0-4.8 Abs Monocytes 0.7 10^3/uL Normal 0-0.8 Abs Eosinophils 0.2 10^3/uL Normal 0-0.6 Abs Basophils 0.0 10^3/uL Normal 0-0.2 Abs Nucleated RBC 0.0 10^3/uL Granulocyte % 78.2 % Lymphocyte % 9.8 % Monocyte % 8.9 % Eosinophil % 2.9 % Basophil % 0.2 % Nucleated Red Blood Cells % 0.0 Inr/Protime 02/27/2019 [facility] Inr 1.19 High 0.82-1.[address] [place], [place] [id number] [phone] Laboratory test 02/27/2019 [facility] Partial 29.8 Normal 26.0 -38.[address] [place] [address] Time PTT [phone] Lactic Acid 0.9 mmol/L Normal 0.5-2.0 2 Comp Metabolic 02/27/2019 [facility] Sodium 137 mmol/L Normal 135-145 Panel [address] [place] [address] [phone] Potassium 3.9 mmol/L Normal 3.5-5.0 Chloride 105 mmol/L Normal 101-111 Co2 Carbon Dioxide 23 mmol/L Normal 22-32 Anion Gap 9 mmol/L Normal 2-11 Glucose 128 mg/dL High 70-100 Blood Urea Nitrogen 23 mg/dL Normal 6-24 Creatinine 0.40 mg/dL Low 0.51-0.95 BUN/Creatinine Ratio 57.5 High 8-20 Calcium 8.5 mg/dL Low 8.6-10.3 Total Protein 6.4 g/dL Normal 6.4-8.9 Albumin 3.4 g/dL Normal 3.2-5.2 Globulin 3.0 g/dL Normal 2-4 Albumin/Globulin Ratio 1.1 Normal 1-3 Total Bilirubin 0.60 mg/dL Normal 0.2-1.0 Alkaline Phosphatase 100 U/L Normal 34-104 Alt 45 U/L Normal 7-52 Ast 30 U/L Normal 13-39 Egfr Non- 157.8 >60 Egfr 190.9 >60 3 Laboratory 02/27/2019 [facility] Troponin-I 0.04 ng/mL Critical <0.04 4 test finding [address] (TnI) [place] [address] [phone] Type & Screen 02/27/2019 [facility] Patient Blood O Negative [address] [place] [address] [phone] Antibody Screen NEGATIVE Laboratory test 02/27/2019 [facility] Packed Cells SEE RESULTS [address] BELO <SEE NOTE> [place] [address] [phone] Urinalysis Profile 02/08/2019 [facility] Urine Color Yellow [address] [place] [address] [phone] Urine Appearance Clear Urine Specific [place] 1.023 Normal 1.010-1.030 Urine pH 5.0 Normal 5-9 Urine Urobilinogen Negative Negative Urine Ketones Trace Abnormal Negative Urine Protein Negative Negative Urine Leukocytes Negative Negative Urine Blood Negative Negative * * Abnormal Negative 6 Urine Nitrite Negative Negative Urine Bilirubin Negative Negative Urine Glucose Negative Negative CBC Auto 02/08/2019 [facility] White Blood 5.7 10^3/uL Normal 3.5-10.[address] [place] [address] [phone] Red Blood Count 4.11 10^6/uL Normal 3.70-4.87 Hemoglobin 13.8 g/dL Normal 12.0-16.0 Hematocrit 40 % Normal 35-47 Mean Corpuscular Volume 97 fL Normal 80-97 Mean Corpuscular Hemoglobin 34 pg High 27-31 Mean Corpuscular HGB Conc 35 g/dL Normal 31-36 Red Cell Distribution Width 13 % Normal 10-15 Platelet Count 315 10^3/uL Normal 150-450 Mean Platelet Volume 6.9 fL Low 7.4-10.4 Abs Neutrophils 4.0 10^3/uL Normal 1.5-7.7 Abs Lymphocytes 1.1 10^3/uL Normal 1.0-4.8 Abs Monocytes 0.5 10^3/uL Normal 0-0.8 Abs Eosinophils 0.1 10^3/uL Normal 0-0.6 Abs Basophils 0.0 10^3/uL Normal 0-0.2 Abs Nucleated RBC 0.0 10^3/uL Granulocyte % 68.9 % Lymphocyte % 19.5 % Monocyte % 8.6 % Eosinophil % 2.6 % Basophil % 0.4 % Nucleated Red Blood Cells % 0.0 Inr/Protime 02/08/2019 [facility] Inr 1.02 Normal 0.82-1.[address] [place] [address] [phone] Laboratory test 02/08/2019 [facility] Partial 33.6 Normal 26.0 -38.[address] [place] [address] Time PTT [phone] Comp Metabolic 02/08/2019 [facility] Sodium 141 mmol/L Normal 135-[address] [place] [address] [phone] Potassium 3.8 mmol/L Normal 3.5-5.0 Chloride 107 mmol/L Normal 101-111 Co2 Carbon Dioxide 29 mmol/L Normal 22-32 Anion Gap 5 mmol/L Normal 2-11 Glucose 94 mg/dL Normal 70-100 Blood Urea Nitrogen 22 mg/dL Normal 6-24 Creatinine 0.54 mg/dL Normal 0.51-0.95 BUN/Creatinine Ratio 40.7 High 8-20 Calcium 9.4 mg/dL Normal 8.6-10.3 Total Protein 6.7 g/dL Normal 6.4-8.9 Albumin 4.2 g/dL Normal 3.2-5.2 Globulin 2.5 g/dL Normal 2-4 Albumin/Globulin Ratio 1.7 Normal 1-3 Total Bilirubin 0.40 mg/dL Normal 0.2-1.0 Alkaline Phosphatase 88 U/L Normal 34-104 Alt 16 U/L Normal 7-52 Ast 19 U/L Normal 13-39 Egfr Non- 111.6 >60 Egfr 135.0 >60 8 Type & Screen 02/08/2019 [facility] Patient Blood Type O Negative [address] [place] [address] [phone] Antibody Screen NEGATIVE Urine Culture And 02/08/2019 [facility] Urine Culture SEE RESULT [address] [place] [address] [phone] 1 Standard intensity warfarin therapeutic range: 2.0-3.0 High intensity warfarin therapeutic range: 2.5-3.5 2 [facility] Severe Sepsis and Septic Shock Management Bundle Measure requires all lactic acids initially measuring >2.0 mmol/L be repeated. 3 Because ethnic data is not always [...] 15-29 5 Kidney failure <15 (or dialysis) 4 Result TnIDx:0.04 Called to [id number] at: 19:52:23 by:[id number] Read back by: [id number] Troponin-I testing on Plasma Separator Tubes (PST) has a known false positive rate of 0.20-0.40%. All positive troponins reflex immediately to secondary confirmatory testing. Using the [employer] DxI 800 Access Immunoassay systems, the 99th percentile upper reference limit was demonstrated to be < 0.03 ng/mL. 5 SEE RESULTS BELOW [id number] ON PC TRANSFUSED 03/02/19 1025 [id number] ON PC TRANSFUSED 03/02/19 1134 6 *Ascorbic acid is present which may interfere with detection of blood. 7 Standard intensity warfarin therapeutic range: 2.0-3.0 High intensity warfarin therapeutic range: 2.5-3.5 8 Because ethnic data is not always readily [...] 15-29 5 Kidney failure <15 (or dialysis) 9 SEE RESULT BELOW Name: DARCY COLE : [address]: Gilberto Arreola MD Acct: [id number] Unit: [id number] AGE: 68 Location: [facility] Re02/08/19 SEX: F Status: REG REF SPEC: [id number] KIT: 02/08/19-[address] [facility] [address]: Gilberto Arreola MD REQ: [id number] RECD: 02/08/19 STATUS: COMP _ SOURCE: URINE SPDESC: ORDERED: Urine Culture QUERIES: Urine Source: Clean Catch Procedure Result Reported Site Urine Culture Final 02/09/19- 1219 ML No Growth (<1,000 CFU/mL) * ML - Main Lab . END OF REPORT DEPARTMENT OF PATHOLOGY, [address] [place] [address] Alexey Roberts M.D. Director [facility] # [id number] Procedures Date Code Description Status 03/02/2019 00478 Revise Total Hip Arthroplasty Both Components Completed 03/02/2019 95921 Revise Total Hip Arthroplasty Both Components Completed 02/20/201941075 THR Total Hip Replacement Completed 02/20/201998885 THR Total Hip Replacement Completed 02/20/201908306 THR Total Hip Replacement Completed 01/27/2019 48970 EKG Tracing & Interpretation Completed 12/07/2018 [id number] Bone Mineral Density Test Completed 12/07/2018 [id number] Mammogram Completed 12/02/2018 42133 ECHO Transthoracic, Real-Time 2D With Doppler And Completed Color Flow 12/02/2018 43811 ECHO Transthoracic, Real-Time 2D With Doppler And Completed Color Flow Medical Devices Description No Information Available Encounters Type Date Location Provider Dx Diagnosis [facility] 10:12a Assoc,ROMAN Moran anemia Hospitalists T84.020A Dislocation of internal right hip prosthesis, init encntr R22.41 Localized swelling, mass and lump, right lower limb I10 Essential (primary) hypertension E78.5 Hyperlipidemia, unspecified Z96.641 Presence of right artificial hip joint Z86.79 Personal history of other diseases of the circulatory system Office Visit 03/04/2019 [facility] Josie D72.829 Elevated white 10:12a ilir Kwan PA blood cell Hospitalists count, unspecified D62 Acute posthemorrhagic anemia T84.020A Dislocation of internal right hip prosthesis, init encntr R22.41 Localized swelling, mass and lump, right lower limb I10 Essential (primary) hypertension E78.5 Hyperlipidemia, unspecified Z96.641 Presence of right artificial hip joint Z86.79 Personal history of other diseases of the circulatory system Office 03/03/2019 [facility] Josie R65.10 Sirs of Visit 10:11a ilir Kwan PA non-infectious Hospitalists origin w/o acute organ dysfunction D62 Acute posthemorrhagic anemia T84.020A Dislocation of internal right hip prosthesis, init encntr L29.9 Pruritus, unspecified R22.41 Localized swelling, mass and lump, right lower limb I10 Essential (primary) hypertension E78.5 Hyperlipidemia, unspecified Z96.641 Presence of right artificial hip joint Z86.79 Personal history of other diseases of the circulatory system Office Visit 03/02/2019 [facility] Josie T84.020A Dislocation of 10:11a ilir Kwan PA internal right Hospitalists hip prosthesis, init encntr R22.41 Localized swelling, mass and lump, right lower limb I10 Essential (primary) hypertension E78.5 Hyperlipidemia, unspecified Z96.641 Presence of right artificial hip joint Z86.79 Personal history of other diseases of the circulatory system Office Visit 03/01/2019 [facility] Mary T84.020A Dislocation of 10:11a Associlir PA-C internal right Hospitalists hip prosthesis, init encntr R22.41 Localized swelling, mass and lump, right lower limb I10 Essential (primary) hypertension E78.5 Hyperlipidemia, unspecified Z96.641 Presence of right artificial hip joint Z86.79 Personal history of other diseases of the circulatory system Office Visit 02/28/2019 [facility] Tammy T84.020A Dislocation of 10:10a Assoc,ilir Chicas D.O. internal right Hospitalists hip prosthesis, init encntr R22.41 Localized swelling, mass and lump, right lower limb I48.91 Unspecified atrial fibrillation E78.5 Hyperlipidemia, unspecified I10 Essential (primary) hypertension Office Visit 02/27/2019 8:15a [facility] Leana Paula, Z96.641 Presence of right MEDICAL TERMINOLOGIST artificial hip joint S73.004A Unspecified dislocation of right hip, initial encounter Office Visit 02/24/2019 11:00a [facility] Tammy Chicas, Z96.641 Presence of right D.O. artificial hip joint E78.5 Hyperlipidemia, unspecified I10 Essential (primary) hypertension E66.8 Other obesity Office Visit 02/20/2019 [facility] Mary I47.1 Supraventricular 10:01a Assoc,ilir Bales, PA-C tachycardia Hospitalists I10 Essential (primary) hypertension E78.5 Hyperlipidemia, unspecified K21.9 Gastro-esophageal reflux disease without esophagitis Z96.641 Presence of right artificial hip joint Office Visit 01/27/2019 [place] Rosalio Arrington I47.1 Supraventricular 2:00p Cardiology Of DO Mayur tachycardia [facility] FACC E78.5 Hyperlipidemia, unspecified I35.1 Nonrheumatic aortic (valve) insufficiency I10 Essential (primary) hypertension Z01.810 Encounter for preprocedural cardiovascular examination E66.8 Other obesity Office Visit 01/25/2019 [place] Gilberto M16.11 Unilateral primary 10:30a [facility] at [facility] osteoarthritis, [place] right hip 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, left lower limb Office Visit 01/06/2019 3:15p [facility] Meera Estevez, M25.551 Pain in right at [facility] hip M25.552 Pain in left hip M16.11 Unilateral primary osteoarthritis, right hip M16.12 Unilateral primary osteoarthritis, left hip Z68.38 Body mass index (BMI) 38.0-38.9, adult E66.01 Morbid (severe) obesity due to excess calories Assessments Date Code Description Provider 03/05/2019 D62 Acute posthemorrhagic anemia ROMAN Moon 03/05/2019 T84.020A Dislocation of internal right hip Josie Dennis PA prosthesis, initial encounter 03/05/2019 R22.41 Localized swelling, mass and lump, Josie Dennis PA right lower limb 03/05/2019 I10 Essential (primary) hypertension Josie Dennis, PA 03/05/2019 E78.5 Hyperlipidemia, unspecified Josie Dennis, PA 03/05/2019 Z96.641 Presence of right artificial hip Josie Dennis PA joint 03/05/2019 Z86.79 Personal history of other diseases Josiejelena Mcclainham PA of the circulatory system 03/04/2019 D72.829 Elevated white blood cell count, Josie Dennis PA unspecified 03/04/2019 D62 Acute posthemorrhagic anemia Josie Dennis PA 03/04/2019 T84.020A Dislocation of internal right hip Josie Dennis, PA prosthesis, initial encounter 03/04/2019 R22.41 Localized swelling, mass and lump, Josie Dennis PA right lower limb 03/04/2019 I10 Essential (primary) hypertension Josie Dennis, PA 03/04/2019 E78.5 Hyperlipidemia, unspecified Josie Dennis, PA 03/04/2019 Z96.641 Presence of right artificial hip Josie Dennis, PA joint 03/04/2019 Z86.79 Personal history of other diseases Josiejelena McclainhamROMAN of the circulatory system 03/03/2019 R65.10 Systemic inflammatory response Josie Sonny PA syndrome (Sirs) of non-infectious origin without acute organ dysfunction 03/03/2019 D62 Acute posthemorrhagic anemia Josie Dennis, PA 03/03/2019 T84.020A Dislocation of internal right hip Josie Dennis PA prosthesis, initial encounter 03/03/2019 L29.9 Pruritus, unspecified Josiejelena Dennis, PA 03/03/2019 R22.41 Localized swelling, mass and lump, Josie Dennis PA right lower limb 03/03/2019 I10 Essential (primary) hypertension Josie Dennis, PA 03/03/2019 E78.5 Hyperlipidemia, unspecified Josie Dennis, PA 03/03/2019 Z96.641 Presence of right artificial hip Josie Dennis PA joint 03/03/2019 Z86.79 Personal history of other diseases ROMAN Moon of the circulatory system 03/02/2019 T84.89xD Other specified complication of Frank Joradn M.D. internal orthopedic prosthetic devices, implants and grafts, subsequent encounter 03/02/2019 T84.020A Dislocation of internal right hip ROMAN Moon prosthesis, initial encounter 03/02/2019 T84.89xD Other specified complication of Gilberto Arreola M.D. internal orthopedic prosthetic devices, implants and grafts, subsequent encounter 03/02/2019 R22.41 Localized swelling, mass and lump, Josie Dennis PA right lower limb 03/02/2019 I10 Essential (primary) hypertension Josie Dennis PA 03/02/2019 E78.5 Hyperlipidemia, unspecified Josie Dennis PA 03/02/2019 Z96.641 Presence of right artificial hip ROMAN Moon joint 03/02/2019 Z86.79 Personal history of other diseases ROMAN Moon of the circulatory system 03/01/2019 T84.020A Dislocation of internal right hip Mary O'kashif, PA-C prosthesis, initial encounter 03/01/2019 R22.41 Localized swelling, mass and lump, Mary O'kashif, PA-C right lower limb 03/01/2019 I10 Essential (primary) hypertension Mary O'kashif, PA-C 03/01/2019 E78.5 Hyperlipidemia, unspecified Mary O'kashif, PA-C 03/01/2019 Z96.641 Presence of right artificial hip Mary O'kashif, PA-C joint 03/01/2019 Z86.79 Personal history of other diseases Mary O'kashif, PA-C of the circulatory system 02/28/2019 Z96.641 Presence of right artificial hip Cindi Taurus, PA joint 02/28/2019 T84.020A Dislocation of internal right hip Tammy Chicas D.O. prosthesis, initial encounter 02/28/2019 R22.41 Localized swelling, mass and lump, Elton WangO. right lower limb 02/28/2019 I48.91 Unspecified atrial fibrillation Tammy Chicas D.O. 02/28/2019 E78.5 Hyperlipidemia, unspecified Tammy Chicas D.O. 02/28/2019 I10 Essential (primary) hypertension Tammy Chicas D.O. 02/27/2019 Z96.641 Presence of right artificial hip Leana Paula, MEDICAL TERMINOLOGIST joint 02/27/2019 S73.004A Unspecified dislocation of right Leana Paula, MEDICAL TERMINOLOGIST hip, initial encounter 02/24/2019 Z96.641 Presence of right artificial hip Tammy Chicas D.O. joint 02/24/2019 E78.5 Hyperlipidemia, unspecified Tammy Chicas, D.O. 02/24/2019 I10 Essential (primary) hypertension Tammy Chicas D.O. 02/24/2019 E66.8 Other obesity Tammy Chicas D.O. 02/22/2019 T84.89xD Other specified complication of ROMAN Vázquez internal orthopedic prosthetic devices, implants and grafts, subsequent encounter 02/21/2019 T84.89xD Other specified complication of ROMAN Vázquez internal orthopedic prosthetic devices, implants and grafts, subsequent encounter 02/20/2019 T84.020A Dislocation of internal right hip ROMAN Vázquez prosthesis, initial encounter 02/20/2019 I47.1 Supraventricular tachycardia Mary Bales PA-C 02/20/2019 M16.11 Unilateral primary osteoarthritis, [facility]anda [facility] 02/20/2019 I10 Essential (primary) hypertension SAUL VasquezC 02/20/2019 M16.11 Unilateral primary osteoarthritis, ROMAN Vázqeuz right hip 02/20/2019 E78.5 Hyperlipidemia, unspecified ROMAN Vasquez-C 02/20/2019 M16.11 Unilateral primary osteoarthritis, Gilberto Arreola M.D. right hip 02/20/2019 K21.9 Gastro-esophageal reflux disease Mary Bales PA-C without esophagitis 02/20/2019 Z96.641 Presence of right artificial hip Mary Bales PA-C joint 01/27/2019 I47.1 Supraventricular tachycardia Rosalio Merchant, DO [facility] 01/27/2019 E78.5 Hyperlipidemia, unspecified Rosalio Merchant, DO [facility] 01/27/2019 I35.1 Nonrheumatic aortic (valve) Rosalio Merchant, DO [facility] insufficiency 01/27/2019 I10 Essential (primary) hypertension Rosalio Merchant, DO [facility] 01/27/2019 Z01.810 Encounter for preprocedural Rosalio Merchant, DO [facility] cardiovascular examination 01/27/2019 E66.8 Other obesity Rosalio Merchant, DO [facility] 01/25/2019 M16.11 Unilateral primary osteoarthritis, Gilberto Arreola M.D. 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 limb 01/06/2019 M25.551 Pain in right hip Meera Estevez M.D. 01/06/2019 M25.552 Pain in left hip Meera Estevez M.D. 01/06/2019 M16.11 Unilateral primary osteoarthritis, Meera Estevez M.D. right hip 01/06/2019 M16.12 Unilateral primary osteoarthritisMeera M.D. left hip 01/06/2019 Z68.38 Body mass index (BMI) 38.0-38.9, Meera Estevez M.D. adult 01/06/2019 E66.01 Morbid (severe) obesity due to Meera Estevez M.D. excess calories 12/02/2018 I35.9 Nonrheumatic aortic valve disorder, Traveling ECHO 1 unspecified 12/02/2018 I35.1 Nonrheumatic aortic (valve) Rosalio Merchant, DO [facility] insufficiency 12/02/2018 I35.1 Nonrheumatic aortic (valve) Traveling ECHO 1 insufficiency Plan of Treatment Future Appointment(s):03/31/2019 10:45 am - Eliana Boyd PA-C at [facility] Functional Status Description No Information Available Mental Status Description No Information Available Referrals Description No Information Available
[2019-03-27] MEDS ORDERED: diPHENhydraMINE IV* 50 MG/ML 1 ml VIAL (BENADRYL) IV PRN (15:30)
[2019-03-27] MEDS ORDERED: Acetaminophen TAB* 325 MG PO PRN (15:30)
[2019-03-27] MEDS ORDERED: Morphine INJ* 2 MG/ML 1 ML SYRINGE (TWO MG - NEW SYRINGE VERSION) IV PRN (15:30)
[2019-03-27] MEDS ORDERED: Magnesium Hydroxide LIQ* 30 ML UDC PO PRN (15:30)
[2019-03-27] MEDS ORDERED: oxyCODONE TAB* 5 MG TAB PO PRN (15:30)
[2019-03-27] MEDS ORDERED: Ondansetron ODT TAB* 4 MG PO PRN (15:30)
[2019-03-27] MEDS ORDERED: diPHENhydraMINE PO* 25 MG PO PRN (15:30)
[2019-03-27] MEDS ORDERED: Ondansetron INJ* 2 MG/ML VIAL IV PRN (15:30)
[2019-03-27] MEDS ORDERED: Vancomycin per Pharmacy* NOTE FOLLOW UP SCH (16:00)
[2019-03-27] MEDS ORDERED: Vancomycin(*) 1,500 MG in NS 0.9% 250 ML* 250 ML IVPB ONE (16:30)
--- NOTE | 2019-03-27 16:52 | CONSULT ---
Subjective Date of Service: 03/27/19 Interval History: Darcy Rowely is a 68 yo female, well known to the hospitalist and orthopedic service, readmitted with concern for complications to her right total hip arthroplasty, with complication of subluxation with need for revision and posterior wall augmentation. Her previous admission from 02/28-03/07 was complicated by sepsis 2/2 E. coli UTI, hypovolemic shock in the setting of perioperative bood loss, and post operative anemia and received 2 units PRBC. She was discharged to [facility]. Ms. Rowley states that there has been wound drainage present intermittently from the right hip surgical site. She had a wound vac placed at [facility] but was unable to go home with it as it belonged to the facility. She was discharged home yesterday, as insurance no longer covered her stay. She reports being home x 1 hour before the dressing was soaked with reddish fluid. It was changed twice yesterday; fluid had an odor. She saw Dr. Estevez this morning and was admitted to [facility] for a planned washout tomorrow. Reports that the facility maintained her on Bactrim during her stay and then switched her to Cipro 500 mg BID, which she has continued to take. Denies fever, CP, SOB, abd pain, n/v. Anemia reportedly improving per labs at [facility]. 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 Past Medical History: Findings - Dislocation of right hip, dislocation of right hip prosthesis status post right total hip replacement on 02/20/19 with right total hip arthroplasty, revision 03/02/19; sepsis due to Escherichia coli urinary tract infection; hypovolemic shock in the setting of perioperative blood loss, post-operative anemia; hypertension; hyperlipidemia; atrial fibrillation/flutter; supraventricular tachycardia; aortic regurgitation; gastroesophageal reflux disease Review of Systems - Measurements Intake and Output: Intake and Output Last 24 Hours 03/25/19 03/26/19 03/27/19 03/28/19 06:59 06:59 06:59 06:59 Weight 227 lb - Review of Systems Constitutional Symptoms: Negative: Weakness, Fever, Night Sweats Dermatology: Positive: Normal HEENT: Positive: Normal Eyes: Positive: Normal Thyroid: Positive: Normal Pulmonary: Negative: Cough, Hemoptysis, Wheezing, Shortness of Breath Cardiology: Negative: Chest Pain, Shortness of Breath, Palpitations Gastroenterology: Negative: Abdominal Pain, Nausea, Vomiting Genital - Urinary: Negative: Dysuria Musculoskeletal: Positive: Arthritis Negative: Low Back Pain, Sciatica Endocrinology: Positive: Normal Hematologic/Lymphatic: Positive: Anemia Neurology: Negative: Headache, Change in Vision, Dizziness Psychiatry: Positive: Normal Objective Active Medications: Acetaminophen (Tylenol Tab*) 975 mg PO Q8HR PRN PRN Reason: MILD PAIN or TEMP > 100.4 Bisacodyl (Dulcolax Supp*) 10 mg [place] DAILY PRN PRN Reason: CONSTIPATION Diphenhydramine HCl (Benadryl Iv*) 25 mg IV Q6H PRN PRN Reason: PRURITIS Diphenhydramine HCl (Benadryl Po*) 25 mg PO Q6H PRN PRN Reason: PRURITIS Docusate Sodium (Colace Cap*) 100 mg PO BID [facility] Vancomycin HCl 1,500 mg/ (Sodium Chloride) 250 mls @ 166.667 mls/hr IVPB ONCE ONE Stop: 03/27/19 17:59 Lactulose (Lactulose*) 30 ml PO BID PRN PRN Reason: CONSTIPATION Magnesium Hydroxide (Milk Of Magnesia Liq*) 30 ml PO BID [facility] Magnesium Hydroxide (Milk Of Magnesia Liq*) 30 ml PO Q6H PRN PRN Reason: CONSTIPATION Morphine Sulfate (Morphine Inj (Syringe))*) 2 mg IV Q4H PRN PRN Reason: Pain - Unrelieved Multivitamins (Theragran Tab*) 1 tab PO DAILY [facility] Ondansetron HCl (Zofran Inj*) 4 mg IV Q6H PRN PRN Reason: NAUSEA Ondansetron HCl (Zofran Odt Tab*) 4 mg PO Q6H PRN PRN Reason: NAUSEA Oxycodone HCl (Roxycodone Tab*) 5 mg PO Q4H PRN PRN Reason: Pain - Breakthrough Oxycodone/Acetaminophen (Percocet 5/325 Tab*) 1 tab PO Q4H PRN PRN Reason: PAIN - MODERATE Oxycodone/Acetaminophen (Percocet 5/325 Tab*) 2 tab PO Q4H PRN PRN Reason: PAIN - SEVERE Pharmacy Consult (Vancomycin Per Pharmacy*) 1 note FOLLOW UP .VANC PER PHARMACY [facility]; Protocol Vital Signs - 8 hr 03/27/19 03/27/19 14:25 15:11 Temperature 97.7 F Pulse Rate 66 Respiratory 18 16 Rate Blood Pressure 120/56 (mmHg) O2 Sat by Pulse 100 Oximetry Oxygen Devices in Use Now: None Appearance: Well developed, well nourished 68 yo female, sitting up in bed, NAD , pleasant, conversive Eyes: PERRLA Ears/Nose/Mouth/Throat: Clear Oropharnyx, Mucous Membranes Moist Neck: NL Appearance and Movements; NL JVP Respiratory: Symmetrical Chest Expansion and Respiratory Effort, Clear to Auscultation Cardiovascular: NL Sounds; No Murmurs; No JVD, RRR, No Edema Abdominal: NL Sounds; No Tenderness; No Distention Lymphatic: No Cervical Adenopathy Extremities: No Edema, No Clubbing, Cyanosis Skin: - - right hip incision with steristrips and gauze - c/d/i Neurological: Alert and Oriented x 3 Lines/Tubes/Other Access: Clean, Dry and Intact Peripheral IV Nutrition: Taking PO's Result Diagrams: 03/27/19 16:00 03/27/19 16:00 Assessment/Plan - Billing Plan By Medical Problem: Ms. Rowley is a 68 yo female with a PMH significant for recent total right hip arthroplasty with revision, post op anemia, HTN, HLD, SVT, afib/flutter, GERD, and aortic regurgitation. 1. S/p right hip arthroplasty with wound drainage - Management per ortho, plan for washout tomorrow 2. Anemia - Hgb 8 from previous discharge, now 10. Continue to monitor in post operative period 3. HTN - Currently under good control. Continue lisinopril. 4. HLD - Continue rosuvastatin, given other statin intolerances. 5. SVT - Continue home diltiazem, flecainide. Monitor on telemetry. Closely follow electrolytes, especially magnesium and potassium. Continue potassium supplementation. VTE PPX: On apixaban, last dose 0900 today. Hold evening dose in anticipation of surgery tomorrow. Resume apixaban when okay with ortho. Diet: Heart healthy diet Code Status: Full Admission Status and Rationale: Inpatient
[2019-03-27 17:04] LABS: ABS Eosinophils 0.2 10^3/ul (0-0.6); ABS Monocytes 0.8 10^3/ul (0-0.8); ABS Neutrophils 5.7 10^3/ul (1.5-7.7); Eosinophil % 2.7 %; Hematocrit 33 % (35-47); Hemoglobin 10.9 g/dL (12.0-16.0); Lymphocyte % 13.4 %; Mean Corpuscular HGB Conc 33 g/dL (31-36); Mean Corpuscular Hemoglobin 31 pg (27-31); Mean Corpuscular Volume 95 fL (80-97); Mean Platelet Volume 6.1 fL (7.4-10.4); Platelet Count 324 10^3/uL (150-450); Red Blood Count 3.46 10^6 /uL (3.70-4.87); Red Cell Distribution Width 17 % (10-15); White Blood Count 7.8 10^3/uL (3.5-10.8)
[2019-03-27 17:09] LABS: INR 1.2 (0.82-1.09)
[2019-03-27 17:29] LABS: BUN/Creatinine Ratio 53.1 (8-20); C Reactive Protein 48.08 mg/L (<8.01); Calcium 8.7 mg/dL (8.6-10.3); EGFR African American 151.1 (>60); EGFR Non-African American 124.9 (>60); Potassium 3.6 mmol/L (3.5-5.0)
[2019-03-27 18:24] LABS: Erythrocyte Sed Rate 55 mm/Hr (0-29)
[2019-03-27 20:22] LABS: Magnesium 2.2 mg/dL (1.9-2.7)
--- NOTE | 2019-03-27 20:34 | HP ---
HISTORY AND PHYSICAL: DATE OF ADMISSION: 03/27/19 CHIEF COMPLAINT: Right hip pain and drainage. HISTORY OF PRESENT ILLNESS: Ms. Rowley is a 68-year-old female who has had multiple recent surgeries with Dr. Arreola, the last on 03/02/19, almost 1 month ago. She had revision of her right total hip arthroplasty that had failed with posterior wall augmentation of the acetabulum. The patient reports that she was at [facility], but due to insurance reasons has recently been discharged to home. She reports that she has developed 48 hours of copious amounts of drainage from her right hip incision with some mild increase in pain. This is 4/10 pain. She denies any fever. Her drainage is becoming more and more abundant and she became worried. She was seen in the clinic by me and I did feel that she had a worrisome amount of drainage and likely needed a formal washout of her wound. I did contact Dr. Arreola, who is away this week. He agreed to my treatment plan. We called for direct admission of Ms. Rowley to the orthopedic service. PAST MEDICAL HISTORY: 1. Hypertension. 2. Atrial fibrillation. 3. Morbid obesity. 4. Hypercholesterolemia. 5. Osteoarthritis. PAST SURGICAL HISTORY: 1. Right shoulder surgery. 2. Left foot triple arthrodesis. 3. Cervical fusion. 4. Appendectomy. 5. Right foot triple arthrodesis. 6. Bilateral total knee arthroplasties. HOME MEDICATIONS: 1. Omeprazole 20 mg p.o. daily. 2. Lisinopril 5 mg p.o. daily. 3. Flecainide 100 mg p.o. b.i.d. 4. Diltiazem HCl ER coated beads 180 mg p.o. daily. 5. Centrum 1 tablet p.o. daily. 6. Citracal Plus 1 tablet p.o. daily. 7. Zyrtec 10 mg p.o. at bedtime. 8. Baclofen 5 mg p.o. q.8 hours for muscle spasms. 9. Tramadol 15 mg 1 to 2 tablets p.o. q.6 hours p.r.n. for pain. 10. Clobetasol propionate unknown dosage. 11. Nasacort 2 sprays both nares once daily. 12. [place]-3 capsule 1000 mg 1 tablet p.o. daily. 13. Fish oil 1000 mg p.o. b.i.d. 14. Atorvastatin calcium 10 mg p.o. daily. 15. Eliquis p.o. b.i.d. ALLERGIES: BIAXIN, NABUMETONE, MORPHINE, FENTANYL, RELAFEN. FAMILY HISTORY: Positive for diabetes, cardiac history, hypertension, and cancer. SOCIAL HISTORY: The patient lives with her spouse. She is retired. No tobacco , alcohol or recreational drugs. She is minimally active, right-hand dominant. REVIEW OF SYSTEMS: Fourteen systems reviewed with the patient and positive for right hip pain and drainage. Negative for fevers, chills, chest pain, and shortness of breath. Otherwise, the patient reports review of systems is negative or not relevant. PHYSICAL EXAMINATION GENERAL: The patient is a morbidly obese female in no apparent distress. Alert and oriented x3. Pleasant mood, appropriate affect. VITAL SIGNS: Blood pressure 98/52, pulse of 76, O2 saturation 95% on room air, temperature 98.1. GAIT: The patient's gait is antalgic. She is favoring the right lower extremity. BALANCE: Decreased single-leg stance. Coordination normal. HEENT: Atraumatic, normocephalic. Pupils equal and reactive to light. LUNGS: Clear to auscultation in all lung quan. HEART: S1, S2. ABDOMEN: Soft, nontender, nondistended. Bowel sounds in 4 quadrants. EXTREMITIES: The patient's right hip incision has an open portion with some necrotic-appearing soft tissue that is about 3 cm in diameter. There are copious amounts of serosanguineous and slightly brown fluid draining with foul odor. This is not gunnar pus, but abundant amounts of fluid. Her pants and several ABDs are fully saturated with fluid. The fluid is running down her leg. Distally, no significant edema or hyperreflexia. She has dorsiflexion, plantar flexion, full sensation to light touch, and 2+ palpable DP pulse. ASSESSMENT AND PLAN: Ms. Rowley is a 68-year-old female, 1 month after revision right total hip arthroplasty with Dr. Arreola for acetabular failure. She had acetabular augmentation and no complications since surgery. The patient has gone on to have a small area of the wound which was not healing completely. Unfortunately, over the last 48 hours, this has begun to drain copious amounts of fluid. Today, the patient and I discussed in the clinic that this was abnormal amount of drainage. I feel the patient will need a formal open washout of her hip. I did discuss the plan with Dr. Arreola. We will admit the patient to my service. We will have a hospitalist consult. She did take Eliquis today. We will start her on IV vancomycin. We will obtain blood cultures as well as some labs. She will have physical therapy and occupational therapy while in the hospital. We will likely need to wait 48 hours before we can do the formal washout to avoid bleeding complications. I will discuss with the hospitalist when the best plan for a washout would be. We will consult infectious disease as well. I am concerned about an infection. [id number]/[facility] #: [id number] NII
[2019-03-27] MEDS ORDERED: Docusate CAP* 100 MG PO SCH (21:00)
[2019-03-27] MEDS: Gabapentin CAP(*) 300 MG PO SCH (21:18)
[2019-03-27] MEDS: Docusate CAP* 100 MG PO SCH (21:19)
[2019-03-27] MEDS: Ferrous Sulfate TAB* 325 MG PO SCH (21:19)
[2019-03-27] MEDS: Senna TAB 8.6 mg* TAB PO SCH (21:20)
[2019-03-27] MEDS: Ascorbic Acid TAB* 500 MG PO SCH (21:20)
[2019-03-27] MEDS: Flecainide TAB* 100 MG PO SCH (21:21)
[2019-03-27] MEDS: CMCS:OMEGA-3 FATTY ACIDS (NF) 1,000 MG CAP PO SCH (21:22)
[2019-03-27] MEDS: MICONAZOLE NITRATE 2% TOPICAL SCH (21:24)
[2019-03-27] MEDS: oxyCODONE/Acetamin 5/325 MG* TAB PO PRN (22:43)
[2019-03-27] MEDS: Magnesium Hydroxide LIQ* 30 ML UDC PO SCH (22:43)
[2019-03-27] MEDS: Cyclobenzaprine TAB* 10 MG PO PRN (22:44)
[2019-03-28 05:24] LABS: ABS Eosinophils 0.3 10^3/ul (0-0.6); ABS Lymphocytes 0.8 10^3/ul (1.0-4.8); ABS Monocytes 0.7 10^3/ul (0-0.8); ABS Neutrophils 2.8 10^3/ul (1.5-7.7); Eosinophil % 5.6 %; Hematocrit 30 % (35-47); Hemoglobin 9.8 g/dL (12.0-16.0); Lymphocyte % 17.6 %; Mean Corpuscular HGB Conc 33 g/dL (31-36); Mean Corpuscular Hemoglobin 31 pg (27-31); Mean Corpuscular Volume 94 fL (80-97); Mean Platelet Volume 5.8 fL (7.4-10.4); Nucleated Red Blood Cells % 0.1; Platelet Count 271 10^3/uL (150-450); Red Blood Count 3.16 10^6 /uL (3.70-4.87); Red Cell Distribution Width 17 % (10-15); White Blood Count 4.7 10^3/uL (3.5-10.8)
[2019-03-28 05:46] LABS: BUN/Creatinine Ratio 58.1 (8-20); C Reactive Protein 56.8 mg/L (<8.01); Calcium 8.5 mg/dL (8.6-10.3); EGFR African American 175.7 (>60); EGFR Non-African American 145.2 (>60); Potassium 3.9 mmol/L (3.5-5.0)
[2019-03-28] MEDS: Vancomycin(*) 1,500 MG in NS 0.9% 250 ML* 250 ML IVPB SCH ×2 (05:53→17:56)
[2019-03-28] MEDS: Ferrous Sulfate TAB* 325 MG PO SCH ×2 (07:44→23:58)
[2019-03-28] MEDS: oxyCODONE/Acetamin 5/325 MG* TAB PO PRN ×2 (07:45→22:42)
[2019-03-28] MEDS: Pantoprazole TAB * 40 MG TAB PO SCH (07:45)
[2019-03-28] MEDS: Ascorbic Acid TAB* 500 MG PO SCH ×2 (07:45→23:59)
[2019-03-28] MEDS: Vitamin THERAPEUTIC TAB PO SCH (07:45)
[2019-03-28] MEDS: Diltiazem CD CAP* 180 MG PO SCH (07:45)
[2019-03-28] MEDS: Docusate CAP* 100 MG PO SCH ×2 (07:45→23:58)
[2019-03-28] MEDS: CMCS:OMEGA-3 FATTY ACIDS (NF) 1,000 MG CAP PO SCH ×2 (07:46→23:59)
[2019-03-28] MEDS: Fluticasone NASAL SPRAY 50MCG* 16 gm SPRAY BTL BOTH NARES SCH (07:46)
[2019-03-28] MEDS: Flecainide TAB* 100 MG PO SCH ×2 (07:47→23:59)
[2019-03-28] MEDS: Cyclobenzaprine TAB* 10 MG PO PRN (07:50)
[2019-03-28] MEDS: MICONAZOLE NITRATE 2% TOPICAL SCH (07:55)
[2019-03-28] MEDS: Magnesium Hydroxide LIQ* 30 ML UDC PO SCH (07:55)
--- NOTE | 2019-03-28 08:37 | PN ---
Progress Note - Progress Note Date of Service: 03/28/19 SOAP: Subjective: Pt. reports continued drainage but minimal pain right hip. Objective: Vital Signs: Temp Pulse Resp BP Pulse Ox 98.7 F 67 17 100/51 94 03/28/19 07:32 03/28/19 07:32 03/28/19 08:00 03/28/19 07:32 03/28/19 07:59 Laboratory Results - last 24 hr 03/27/19 03/27/19 03/27/19 16:00 16:00 16:00 WBC 7.8 RBC 3.46 L Hgb 10.9 L Hct 33 L MCV 95 MCH 31 MCHC 33 RDW 17 H Plt Count 324 MPV 6.1 L Neut % (Auto) 72.7 Lymph % (Auto) 13.4 [place] % (Auto) 10.8 Eos % (Auto) 2.7 Baso % (Auto) 0.4 Absolute Neuts (auto) 5.7 Absolute Lymphs (auto) 1.0 Absolute Monos (auto) 0.8 Absolute Eos (auto) 0.2 Absolute Basos (auto) 0.0 Absolute Nucleated RBC 0.0 Nucleated RBC % 0.0 ESR 55 H INR (Anticoag Therapy) 1.20 H Sodium 139 Potassium 3.6 Chloride 107 Carbon Dioxide 23 Anion Gap 9 BUN 26 H Creatinine 0.49 L Est GFR ( Amer) 151.1 Est GFR (Non-Af Amer) 124.9 BUN/Creatinine Ratio 53.1 H Glucose 84 Calcium 8.7 Magnesium 2.2 C-Reactive Protein 48.08 H 03/28/19 03/28/19 05:15 05:15 WBC 4.7 RBC 3.16 L Hgb 9.8 L Hct 30 L MCV 94 MCH 31 MCHC 33 RDW 17 H Plt Count 271 MPV 5.8 L Neut % (Auto) 60.7 Lymph % (Auto) 17.6 [place] % (Auto) 15.5 Eos % (Auto) 5.6 Baso % (Auto) 0.6 Absolute Neuts (auto) 2.8 Absolute Lymphs (auto) 0.8 L Absolute Monos (auto) 0.7 Absolute Eos (auto) 0.3 Absolute Basos (auto) 0.0 Absolute Nucleated RBC 0.0 Nucleated RBC % 0.1 ESR INR (Anticoag Therapy) Sodium 139 Potassium 3.9 Chloride 108 Carbon Dioxide 24 Anion Gap 7 BUN 25 H Creatinine 0.43 L Est GFR ( Amer) 175.7 Est GFR (Non-Af Amer) 145.2 BUN/Creatinine Ratio 58.1 H Glucose 97 Calcium 8.5 L Magnesium C-Reactive Protein 56.80 H RLE - wound with 4 cm open area and necrotic fat. significant serosanginous drainage. distally nvi. Assessment: 68 yo F 1 month s/p revision RTHA now with abundant drainage from the wound Plan: NPO after 8am no signs of sepsis, blood cultures pending Concern at this point is an infected right hip Plan 17:00 formal I and D in the OR for R hip - will obtain cultures Continue vancomycin ID consult
--- NOTE | 2019-03-28 09:28 | PN ---
Subjective Date of Service: 03/28/19 Interval History: Patient with no complaints. Denies chest pain or shortness of breath. denies abd pain n/v/d. Right hip with dressing, foul smelling drainage. small area of necrotic tissue noted to right hip incision. 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 replacement on 02/20/19 with right total hip arthroplasty, revision 03/02/19; sepsis due to Escherichia coli urinary tract infection; hypovolemic shock in the setting of perioperative blood loss, post-operative anemia; hypertension; hyperlipidemia; atrial fibrillation/flutter; supraventricular tachycardia; aortic regurgitation ; gastroesophageal reflux disease Objective Active Medications: Acetaminophen (Tylenol Tab*) 975 mg PO Q8HR PRN PRN Reason: PAIN - MILD Ascorbic Acid (Vitamin C Tab*) 1,000 mg PO BID [facility] Last Admin: 03/28/19 07:45 Dose: 1,000 mg Baclofen (Lioresal Tab*) 10 mg PO 1700 [facility] Bisacodyl (Dulcolax Supp*) 10 mg NE DAILY PRN PRN Reason: CONSTIPATION Cetirizine HCl (Zyrtec*) 10 mg PO QPM [facility] Cyclobenzaprine HCl (Flexeril Tab*) 10 mg PO Q6H PRN PRN Reason: SPASMS Last Admin: 03/28/19 07:50 Dose: 10 mg Diltiazem HCl (Cardizem Cd Cap*) 180 mg PO QAM [facility] Last Admin: 03/28/19 07:45 Dose: 180 mg Diphenhydramine HCl (Benadryl Iv*) 25 mg IV Q6H PRN PRN Reason: PRURITIS Diphenhydramine HCl (Benadryl Po*) 25 mg PO Q6H PRN PRN Reason: PRURITIS Docusate Sodium (Colace Cap*) 100 mg PO BID [facility] Last Admin: 03/28/19 07:45 Dose: 100 mg Ferrous Sulfate (Ferrous Sulfate Tab*) 325 mg PO BID [facility] Last Admin: 03/28/19 07:44 Dose: 325 mg Fish Oil (Fish Oil (Nf)) 1,000 mg PO BID [facility]; Protocol Last Admin: 03/28/19 07:46 Dose: 1,000 mg Flecainide Acetate (Tambocor Tab*) 100 mg PO BID [facility] Last Admin: 03/28/19 07:47 Dose: 100 mg Fluticasone Propionate (Flonase Nasal [place] 50mcg*) 2 spray BOTH NARES DAILY [facility] Last Admin: 03/28/19 07:46 Dose: 2 spray Gabapentin (Neurontin Cap(*)) 300 mg PO BEDTIME [facility] Last Admin: 03/27/19 21:18 Dose: 300 mg Vancomycin HCl 1,500 mg/ (Sodium Chloride) 250 mls @ 166.667 mls/hr IVPB Q12H [facility] Last Admin: 03/28/19 05:53 Dose: 166.667 mls/hr Lactulose (Lactulose*) 30 ml PO BID PRN PRN Reason: CONSTIPATION Lisinopril (Prinivil Tab*) 5 mg PO 1700 [facility] Magnesium Hydroxide (Milk Of Magnesia Liq*) 30 ml PO BID [facility] Last Admin: 03/28/19 07:55 Dose: Not Given Magnesium Hydroxide (Milk Of Magnesia Liq*) 30 ml PO Q6H PRN PRN Reason: CONSTIPATION Morphine Sulfate (Morphine Inj (Syringe))*) 2 mg IV Q4H PRN PRN Reason: Pain - Unrelieved Multivitamins (Theragran Tab*) 1 tab PO DAILY [facility] Last Admin: 03/28/19 07:45 Dose: 1 tab Non-Formulary Medication (Miconazole Nitrate [Zeasorb Af]) 1 applic TOPICAL BID [facility] Last Admin: 03/28/19 07:55 Dose: Not Given Ondansetron HCl (Zofran Inj*) 4 mg IV Q6H PRN PRN Reason: NAUSEA Ondansetron HCl (Zofran Odt Tab*) 4 mg PO Q6H PRN PRN Reason: NAUSEA Oxycodone HCl (Roxycodone Tab*) 5 mg PO Q4H PRN PRN Reason: Pain - Breakthrough Oxycodone/Acetaminophen (Percocet 5/325 Tab*) 1 tab PO Q4H PRN PRN Reason: PAIN - MODERATE Last Admin: 03/28/19 07:45 Dose: 1 tab Oxycodone/Acetaminophen (Percocet 5/325 Tab*) 2 tab PO Q4H PRN PRN Reason: PAIN - SEVERE Pantoprazole Sodium (Protonix Tab*) 40 mg PO QAM [facility] Last Admin: 03/28/19 07:45 Dose: 40 mg Pharmacy Consult (Vancomycin Per Pharmacy*) 1 note FOLLOW UP .VANC PER PHARMACY [facility]; Protocol Pharmacy Profile Note (Vancomycin Trough Check) 1 note FOLLOW UP 0530 ONE Stop: 03/29/19 05:31 Potassium Chloride (Klor Con Er Tab*) 20 meq PO 1200 [facility] Rosuvastatin Calcium (Crestor (Nf)) 5 mg PO QPM [facility]; Protocol Senna (Senokot 8.6 Mg Tab*) 1 tab PO BEDTIME [facility] Last Admin: 03/27/19 21:20 Dose: 1 tab Vital Signs - 8 hr 03/28/19 03/28/19 03/28/19 02:00 03:26 03:48 Temperature 98.6 F Pulse Rate 64 Respiratory 16 16 Rate Blood Pressure 106/50 (mmHg) O2 Sat by Pulse 94 94 Oximetry 03/28/19 03/28/19 03/28/19 05:06 07:32 07:45 Temperature 98.7 F Pulse Rate 67 Respiratory 16 17 17 Rate Blood Pressure 100/51 (mmHg) O2 Sat by Pulse 94 Oximetry 03/28/19 03/28/19 03/28/19 07:50 07:59 08:00 Temperature Pulse Rate Respiratory 17 17 Rate Blood Pressure (mmHg) O2 Sat by Pulse 94 Oximetry Oxygen Devices in Use Now: None Eyes: No Scleral Icterus Ears/Nose/Mouth/Throat: Clear Oropharnyx, Mucous Membranes Moist Neck: NL Appearance and Movements; NL JVP, Trachea Midline Respiratory: Symmetrical Chest Expansion and Respiratory Effort, Clear to Auscultation Cardiovascular: NL Sounds; No Murmurs; No JVD, No Edema Abdominal: NL Sounds; No Tenderness; No Distention Extremities: No Edema, No Clubbing, Cyanosis Skin: - - right hip with drainage, foul smelling, moderate amt, surgical incision with small area of necrotic tissue Neurological: Alert and Oriented x 3 Nutrition: Taking PO's Result Diagrams: 03/28/19 05:15 03/28/19 05:15 Microbiology and Other Data: Microbiology 03/27/19 16:00 Skin and Soft Tissue MRSA/MSSA (PCR - Final Hip Right Mrsa Negative S.aureus Positive Gram Stain - Final Assess/Plan/Problems-Billing Plan By Medical Problem: Ms. Rowley is a 68 yo female with a PMH significant for recent total right hip arthroplasty with revision, post op anemia, HTN, HLD, SVT, afib/flutter, GERD, and aortic regurgitation. 1. S/p right hip arthroplasty with wound drainage - Management per ortho, plan for washout tomorrow 2. Anemia - Hgb 8 from previous discharge, now 10. Continue to monitor in post operative period 3. HTN - Currently under good control. Continue lisinopril. 4. HLD - Continue rosuvastatin, given other statin intolerances. 5. SVT - Continue home diltiazem, flecainide. Monitor on telemetry. Closely follow electrolytes, especially magnesium and potassium. Continue potassium supplementation. VTE PPX: On apixaban, last dose 0900 today. Hold evening dose in anticipation of surgery tomorrow. Resume apixaban when okay with ortho. Diet: Heart healthy diet Code Status: Full Admission Status and Rationale: Inpatient - Patient Problems (1) History of total replacement of right hip Current Visit: No Status: Acute Code(s): Z96.641 - PRESENCE OF RIGHT ARTIFICIAL HIP JOINT SNOMED Code(s): 036732713373 Comment: management per orthopedics - s/p Right Hip arthroplasty now with drainage - NPO after 8 am - plan for OR today for I and D - wash out - continue with vancomycin (2) Anemia Current Visit: Yes Status: Acute Code(s): D64.9 - ANEMIA, UNSPECIFIED SNOMED Code(s): 351480215 Comment: H/H - will continue to monitor patient with Hx of post-op anemia (3) History of paroxysmal supraventricular tachycardia Current Visit: No Status: Acute Code(s): Z86.79 - PERSONAL HISTORY OF OTHER DISEASES OF THE CIRCULATORY SYSTEM SNOMED Code(s): 444048893292504 Comment: -pmhx of paroxsymal afib/aflutter/SVT -continue flecainide and diltiazem -rate controlled today -continue potassium supplement -Continue tele (4) Hyperlipidemia Current Visit: No Status: Acute Code(s): E78.5 - HYPERLIPIDEMIA, UNSPECIFIED SNOMED Code(s): 70720578 Comment: -continue statin (5) Hypertension Current Visit: No Status: Acute Code(s): I10 - ESSENTIAL (PRIMARY) HYPERTENSION SNOMED Code(s): 32439283 Comment: -SBP 100 -Hold lisinopril in setting of hypotension (6) DVT prophylaxis Current Visit: No Status: Acute Code(s): Z29.9 - ENCOUNTER FOR PROPHYLACTIC MEASURES, UNSPECIFIED SNOMED Code(s): 346478827 Comment: -as per orthopedics (7) Full code status Current Visit: No Status: Acute Code(s): Z78.9 - OTHER SPECIFIED HEALTH STATUS SNOMED Code(s): 464971262 Status and Disposition: disposition per ortho
[2019-03-28] MEDS: Potassium Chlor TAB* 20 MEQ TAB.ER PO SCH (11:56)
--- NOTE | 2019-03-28 14:05 | CONS ---
CONSULTATION REPORT: DATE OF CONSULTATION: 03/28/19 DATE OF ADMISSION: 03/27/19 PRIMARY CARE PROVIDER: Dr. Winifred Jurado. PROVIDER REQUESTING CONSULTATION: ROMAN Vázquez CONSULTING SERVICE: Infectious Disease. PROVIDER: Rose Garcia NP ATTENDING PROVIDER: Dr. Adam Rodriguez.* (DICTATED BY ROSE GARCIA NP) REASON FOR CONSULTATION: Right hip infection status post right total hip arthroplasty. IMPRESSION: 1. Right hip infection status post right total hip arthroplasty. The patient had a would culture from the hip from 03/09/19 showing klebsiella, Enterococcus faecalis sensitive to Cipro which she had been placed on for a course outpatient , she reports completing yesterday. Wound culture from [facility] on WednesdayMarch 26 with 4+ gram-positive cocci and 4+ gram-positive bacilli. Wound culture from yesterday with Staph aureus positive PCR, MRSA negative PCR, 2+ gram-positive bacilli, 1+ gram-positive cocci. The patient is planned to go to the OR for washout later today. She has been afebrile. 2. Morbid obesity. BMI 37.8. 3. History of bilateral total knee arthroplasties. PLAN: Agree with washout and exploration of the wound. Continue vancomycin for now until final culture results return. We will continue to follow along. Further recommendations will be based on the patient's clinical course and culture results. HISTORY OF PRESENT ILLNESS: Ms. Rowley is a 68-year-old female with past medical history significant for hypertension, atrial fibrillation, morbid obesity, hyperlipidemia, osteoarthritis, who initially presented to the hospital on 02/20/19 and underwent an elective right total hip arthroplasty with Dr. Gilberto Arreola. Her postop recovery was complicated by a subluxation with a need for revision and posterior wall augmentation, which she underwent on 03/02/19. Her admission from 02/28/19 to 03/07/19 was complicated by sepsis secondary to an E. coli urinary tract infection and hypovolemic shock. She received 2 units of blood during the hospitalization, was discharged to [facility]. Ms. Rowley states that she has been having persistent wound drainage from her right hip since the last surgery. She states that this was slowly improving. She reports being on a course of Bactrim for her UTI and then placed on Cipro due to her draining hip incision. She states on Wednesday last week, she had sudden increase in the amount of drainage and she described this as dark brown. On Wednesday, a wound VAC was placed. She had minimal drainage over 48-hour period. A wound culture was obtained on Wednesday at [facility]. She was discharged from [facility] Wednesday afternoon. Due to the significant amount of drainage from the hip, she made an appointment with Dr. Estevez on Wednesday. The patient was seen by Dr. Estevez in the office, was noted to have a drainage from her right hip incision with an odor. Dr. Estevez sent her to the hospital for direct admission. She states that she completed a course of Cipro yesterday morning. She was started on Vancomycin. Denies fevers, chills, nausea, vomiting, diarrhea. She reports pain in her right groin and her right knee. She is able to bear weight and move her extremities. PAST MEDICAL HISTORY: 1. Hypertension. 2. Atrial fibrillation. 3. Morbid obesity, BMI 37.8. 4. Hyperlipidemia. 5. Osteoarthritis. PAST SURGICAL HISTORY: 1. Status post right shoulder surgery. 2. Status post left foot arthrodesis. 3. Status post cervical fusion. 4. Status post appendectomy. 5. Status post right foot triple arthrodesis. 6. Status post bilateral total knee arthroplasties. 7. Status post right total hip arthroplasty on 02/20/19 and status post revision on 03/02/19. MEDICATIONS: Home Medications: 1. Eliquis 2.5 mg by mouth twice daily. 2. Citrulline 600 mg by mouth 3 times daily. 3. Ferrous sulfate 325 mg by mouth daily. 4. Senna 8.6 mg by mouth at bedtime. 5. Zeasorb apply topical twice daily. 6. Tramadol 50 mg by mouth every 6 hours as needed for pain. 7. Milk of magnesia 30 mL by mouth daily at bedtime. 8. Flonase nasal spray 50 mcg 2 sprays to both nares daily. 9. Tambocor 100 mg by mouth twice daily. 10. Colace 100 mg by mouth twice daily. 11. 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 12. Acetaminophen 975 mg by mouth every 8 hours as needed for pain. 13. Baclofen 10 mg by mouth daily. 14. Vitamin C 1000 mg by mouth twice daily. 15. Flexeril 10 mg by mouth every 6 hours as needed for muscle spasms. 16. Sertraline 10 mg by mouth daily. 17. Gabapentin 300 mg by mouth daily. 18. Meloxicam 15 mg by mouth daily. 19. Lisinopril 5 mg by mouth daily. 20. Fish oil 1000 mg by mouth twice daily. 21. Potassium chloride 20 mEq by mouth daily. 22. Omeprazole 20 mg by mouth every morning. 23. Rosuvastatin 5 mg by mouth every evening. 24. Oxycodone 5 mg by mouth every 4 hours as needed for pain. 25. Diltiazem 180 mg by mouth every morning. 26. Aspirin 81 mg by mouth daily. Hospital Medications: 1. Acetaminophen 975 mg by mouth every 8 hours as needed for fever, pain. 2. Vitamin C 1000 mg by mouth twice daily. 3. Baclofen 10 mg by mouth daily. 5. Dulcolax suppository 10 mg per rectum daily as needed for constipation. 6. Zyrtec 10 mg by mouth every evening. 7. Flexeril 10 mg by mouth every 6 hours as needed for muscle spasms. 8. Cardizem CD 180 mg by mouth every morning. 9. Benadryl 25 mg IV or p.o. every 6 hours as needed for itching. 10. Colace 100 mg by mouth twice daily. 11. Ferrous sulfate 325 mg by mouth twice daily. 12. Fish oil 1000 mg by mouth twice daily. 13. Tambocor 100 mg by mouth twice daily. 14. Fluconazole nasal spray 50 mcg 2 sprays to both nares daily. 15. Gabapentin 300 mg by mouth daily. 16. Lactulose 3 mL by mouth twice daily as needed for constipation. 17. Milk of magnesia 30 mL by mouth twice daily until BMs and 30 mL by mouth every 6 hours as needed for constipation. 18. Morphine sulfate 2 mg IV every 4 hours as needed for pain. 19. Multivitamin 1 tablet by mouth daily. 20. Miconazole nitrate topical twice daily. 21. Zofran 4 mg IV or p.o. every 6 hours as needed for nausea. 22. Oxycodone 5 mg by mouth every 4 hours as needed for pain. 23. Percocet 5/325 1 to 2 tablets by mouth every 4 hours as needed for pain. 24. Pantoprazole 40 mg by mouth every morning. 25. Potassium chloride 20 mEq by mouth at noon daily. 26. Crestor 5 mg by mouth daily. 27. Senokot 8.6 mg by mouth daily. 28. Vancomycin 1500 mg IV every 12 hours. ALLERGIES: 1. ATORVASTATIN. 2. CLARITHROMYCIN caused nausea, vomiting. 3. FENTANYL. 4. MORPHINE. 5. NABUMETONE. 6. PRAVASTATIN. 7. CEFAZOLIN caused rash and itching. FAMILY HISTORY: Denies family history of recurrent resistant infections. Mother with history of CAD and diabetes. Father with a history of CHF. Brother with a history of diabetes and second brother with a history of esophageal cancer. SOCIAL HISTORY: Denies tobacco, alcohol, or recreational drug use. REVIEW OF SYSTEMS: I performed a 10-point review of systems. All the pertinent positives and negatives are mentioned in the history of present illness. The remaining review of systems are negative. PHYSICAL EXAMINATION: Vital Signs: Temperature 98.7, heart rate 67, respiratory rate 17, O2 sat 94% on room air, blood pressure 100/51. General Appearance: The patient is alert, appears to be in no acute distress, sitting up in bed. Head: Normocephalic, atraumatic. ENT: Extraocular movements are intact. No subconjunctival hemorrhage. Moist mucous membranes. Neck: Supple. No lymphadenopathy. Neurological: Alert and oriented. Cranial nerves II through XII are grossly intact. She moves all extremities. Cardiovascular: Regular rate and rhythm. S1, S2 present. There are no murmurs , rubs, or gallops heard. Respiratory: No accessory muscle use. Lungs are clear to auscultation bilateral. Abdomen: Bowel sounds present. Abdomen is soft, obese, and nontender. Extremities: No lower extremity edema. Musculoskeletal: No clubbing or cyanosis noted. Psychological: Calm and cooperative. Skin: No rashes or abnormalities. Skin: She has a bulky dressing to her right hip that is clean, dry, and intact. No surrounding erythema. DIAGNOSTIC STUDIES/LABORATORY DATA: Sodium 139, potassium 3.9, chloride 108, CO2 24, BUN 25, creatinine 0.43, glucose 97. White blood cell count 4.7, hemoglobin 9.8, hematocrit 30, platelet count 271. ESR yesterday at admission was 55, CRP 56.80. Wound culture from the right hip performed at [facility] on with 4+ gram-positive cocci and 4+ gram-positive bacilli. Repeat culture from 03/27/19 with PCR positive for Staph aureus, 2+ gram-positive bacilli, 1+ gram-positive cocci. MRSA PCR negative. Please see impression and recommendations outlined above. Recommendations have been discussed with ROMAN Vázquez Thank you for asking us to see Ms. Rowley in consultation. Case has been reviewed with the attending doctor, Dr. Adam Rodriguez, who agrees with the plan of care. Reviewed by DAVIE AVERY 04/02/19 1321 [id number]/[facility] #: [id number] NII
[2019-03-28 15:41] LABS: INR 1.08 (0.82-1.09)
[2019-03-28] MEDS ORDERED: Lisinopril TAB* 5 MG PO SCH (17:00)
[2019-03-28] MEDS: Baclofen TAB* 10 MG PO SCH (17:28)
[2019-03-28] MEDS: CMCS:Rosuvastatin (NF) 5 MG TAB PO SCH (18:03)
[2019-03-28] MEDS: Cetirizine* 10 MG TAB PO SCH (18:03)
[2019-03-28] MEDS ORDERED: Bacitracin INJECTION* 50,000 UNITS ONE (18:50)
[2019-03-28] MEDS ORDERED: Ondansetron INJ* 2 MG/ML VIAL ONE (18:56)
[2019-03-28] MEDS ORDERED: KETAMINE HCL* 50 MG/ML 10 ML VIAL ONE (18:56)
[2019-03-28] MEDS ORDERED: fentaNYL* 50 MCG/ML 2 ML VIAL (100 MCG VIAL) ONE ×3 (18:56→21:09)
[2019-03-28] MEDS ORDERED: Cisatracurium* 2 MG/ML MDV 5 ML ONE (18:56)
[2019-03-28] MEDS ORDERED: Midazolam* 1 MG/ML 5 ML VIAL (5 MG) ONE (18:57)
[2019-03-28] MEDS ORDERED: Propofol* 10 MG/ML 20 ML BTL ONE (18:59)
[2019-03-28] MEDS ORDERED: EPHEDrine (Pressors)* 50 MG/ML VIAL ONE (20:24)
[2019-03-28] MEDS ORDERED: fentaNYL* 50 MCG/ML 2 ML VIAL (100 MCG VIAL) IV PRN (20:31)
[2019-03-28] MEDS ORDERED: Naloxone* 0.4 MG/ML 1 ML VIAL IV PRN (20:31)
[2019-03-28] MEDS ORDERED: Bupivacaine 0.5%* 50 ML MDV VIAL ONE (20:56)
[2019-03-28] MEDS ORDERED: oxyCODONE/Acetamin 5/325 MG* TAB ONE (22:41)
[2019-03-28] MEDS: Gabapentin CAP(*) 300 MG PO SCH (23:58)
[2019-03-28] MEDS: Senna TAB 8.6 mg* TAB PO SCH (23:59)
[2019-03-29 05:26] LABS: ABS Eosinophils 0.2 10^3/ul (0-0.6); ABS Lymphocytes 0.8 10^3/ul (1.0-4.8); ABS Monocytes 0.8 10^3/ul (0-0.8); ABS Neutrophils 3.8 10^3/ul (1.5-7.7); Eosinophil % 3.5 %; Hematocrit 30 % (35-47); Hemoglobin 10.1 g/dL (12.0-16.0); Lymphocyte % 14.2 %; Mean Corpuscular HGB Conc 34 g/dL (31-36); Mean Corpuscular Hemoglobin 32 pg (27-31); Mean Corpuscular Volume 96 fL (80-97); Nucleated Red Blood Cells % 0.1; Platelet Count 231 10^3/uL (150-450); Red Blood Count 3.13 10^6 /uL (3.70-4.87); Red Cell Distribution Width 16 % (10-15); White Blood Count 5.6 10^3/uL (3.5-10.8)
[2019-03-29] MEDS ORDERED: Vancomycin Trough Check NOTE FOLLOW UP ONE (05:30)
[2019-03-29] MEDS: oxyCODONE/Acetamin 5/325 MG* TAB PO PRN ×4 (05:31→23:57)
[2019-03-29 05:39] LABS: Calcium 7.9 mg/dL (8.6-10.3); Potassium 4.1 mmol/L (3.5-5.0)
[2019-03-29 05:45] LABS: EGFR African American 190.9 (>60); EGFR Non-African American 157.8 (>60)
[2019-03-29 05:51] LABS: Vancomycin Trough 13.2 mcg/mL
[2019-03-29] MEDS: Vancomycin(*) 1,500 MG in NS 0.9% 250 ML* 250 ML IVPB SCH ×2 (06:01→17:35)
[2019-03-29] MEDS ORDERED: NS 0.9% 1000 ML** 1,000 ML IV SCH (07:15)
--- NOTE | 2019-03-29 07:58 | OP ---
DATE OF OPERATION: 03/28/19 - ROOM #348 DATE OF : 46. SURGEON: Meera Estevez MD. RETAIL PHARMACIST: ROMAN Alvarez. ANESTHESIOLOGIST: Dr. Miramontes. ANESTHESIA: General. PRE-OP DIAGNOSIS: Right hip delayed wound closure with drainage and suspicion of infection of the right hip joint. POST-OP DIAGNOSIS: Right hip delayed wound closure with drainage and suspicion of infection of the right hip joint. OPERATIVE PROCEDURE: Formal irrigation and debridement of the right hip joint. SPECIMEN: Multiple culture swabs and 20 cc of fluid were collected from the right hip and sent for culture and sensitivities including aerobic, anaerobic, microbacterial and fungal. COMPLICATIONS: None. ESTIMATED BLOOD LOSS: 100 cc. BRIEF HISTORY/INDICATION: Ms. Rowley is a 68-year-old female who underwent uncomplicated 02/20/19 right total hip arthroplasty with Dr. Arreola. Unfortunately, she had a fall and did have fracture dislocation with displacement of the acetabular component. She went on to have revision of the acetabular cup on 03/02/[address] Arreola. Post-operatively, the patient did well. She was discharged to longterm facility. A small portion of the patient's wound did have some necrosis and a small amount of drainage. The patient presented to my clinic on 03/27/19 because of an increase in drainage. I did see her in clinic and she had copious amounts of serosanguineous and brownish colored fluid draining from an area of fat necrosis along the incision. I was concerned about the infection, sent her as a direct admission to [facility]. Unfortunately, Dr. Arreola is out of town. I did agree and the patient had no objections to formal washout by me in the operating room. She was direct admitted, seen by both hospitalist group and infectious disease group. Her Eliquis was stopped. Informed consent was obtained from the patient. She understood the risk of surgery included but were not limited to bleeding, infection, damage to nearby structures, continued pain, need for further surgery, intraoperative complications, stroke, heart attack, blood clot, and . She wished to proceed. INTRAOPERATIVE FINDINGS: Intraoperatively, the patient's subcutaneous fat and tissue had a significant amount of fatty necrosis. There was minimal healing along her lateral fascia layer and subcutaneous fat. There was an abundant amount of serosanguineous and tannish/brown fluid throughout the hip joint and lateral hip. There was direct communication to the hip joint and hardware. There was no obvious purulence. DESCRIPTION OF PROCEDURE: Ms. Rowley was identified in the preanesthesia unit. Her right lower extremity was marked as the correct operative side. Informed consent was signed and placed in the chart. The patient was taken to the operating room and placed under anesthesia. A Wallace catheter was placed. She was placed in the left lateral decubitus position on the peg board and all bony surfaces were properly padded. The right lower extremity was prepped and draped in usual sterile fashion. Preop time-out was made to correctly identify the patient, side, and site. The patient was already on vancomycin. The patient's prior incision was opened with a 10 blade and electrocautery. It was noted that there was significant amount of fatty necrosis in the subcutaneous tissue and very little healing. There was minimal healing or apposition of the lateral fascial layer and there was direct communication to the hardware of the right total hip arthroplasty and hip joint. There was copious amounts of serosanguineous and brownish colored fluid which was collected and sent for cultures and sensitivities. Any necrotic appearing fat or soft tissue was carefully debrided. The hip joint was copiously irrigated with 6L of normal saline and bacitracin as well as 6L of sterile saline. Overall, the hip was irrigated with 12L of fluid. Any necrotic tissue was carefully removed. The lateral fascial layer was carefully closed using #5 Ethibond. It was noted that the tissue was friable and weak. Next, a careful staged closure was performed using #1 Vicryl and 0 Vicryls. Subcutaneous tissue was closed with 2- 0 Vicryl and the skin was closed with running 3-0 nylon suture. The incision was covered with Xeroform, 4x4s and paper tape. The patient's anesthesia was reversed without difficulty. She was taken to PACU in stable condition. Intended weightbearing will be weightbearing as tolerated. Intended DVT prophylaxis will be Eliquis twice daily. PLAN: Plan is to follow the fluid cultures for any bacterial growth. She is currently on vancomycin and we will follow Infectious Disease's recommendations on further antibiotic use. [id number]/[facility] #: [id number] [facility]ALTH SYSTEMMila
[2019-03-29] MEDS: Ferrous Sulfate TAB* 325 MG PO SCH ×2 (08:43→20:28)
[2019-03-29] MEDS: Ascorbic Acid TAB* 500 MG PO SCH ×2 (08:44→20:28)
[2019-03-29] MEDS: Diltiazem CD CAP* 180 MG PO SCH (08:44)
[2019-03-29] MEDS: MICONAZOLE NITRATE 2% TOPICAL SCH ×3 (08:44→20:49)
[2019-03-29] MEDS: Vitamin THERAPEUTIC TAB PO SCH (08:44)
[2019-03-29] MEDS: Pantoprazole TAB * 40 MG TAB PO SCH (08:44)
[2019-03-29] MEDS: Fluticasone NASAL SPRAY 50MCG* 16 gm SPRAY BTL BOTH NARES SCH (08:44)
[2019-03-29] MEDS: CMCS:OMEGA-3 FATTY ACIDS (NF) 1,000 MG CAP PO SCH ×2 (08:44→20:29)
[2019-03-29] MEDS: Flecainide TAB* 100 MG PO SCH ×2 (08:44→20:29)
[2019-03-29] MEDS: Docusate CAP* 100 MG PO SCH ×2 (08:44→20:29)
[2019-03-29] MEDS: Magnesium Hydroxide LIQ* 30 ML UDC PO SCH ×3 (08:45→20:28)
--- NOTE | 2019-03-29 10:15 | PN ---
Progress Note - Progress Note Date of Service: 03/29/19 SOAP: Subjective: POD #1 Right hip I&D. States that she is doing ok, pain controlled. Denies CP/ SOB, f/c, n/v. Objective: Vital Signs: Temp Pulse Resp BP Pulse Ox 98.5 F 62 16 94/52 98 03/29/19 08:08 03/29/19 08:08 03/29/19 08:39 03/29/19 08:08 03/29/19 08:08 Gen: A&Ox3, NAD at rest laying in bed Right hip: Dressing C/D/I. +f/e at ankle and MTPs, N/V intact Laboratory Results - last 24 hr 03/28/19 03/28/19 03/29/19 05:15 15:23 05:11 WBC RBC Hgb Hct MCV MCH MCHC RDW Plt Count MPV Neut % (Auto) Lymph % (Auto) [place] % (Auto) Eos % (Auto) Baso % (Auto) Absolute Neuts (auto) Absolute Lymphs (auto) Absolute Monos (auto) Absolute Eos (auto) Absolute Basos (auto) Absolute Nucleated RBC Nucleated RBC % INR (Anticoag Therapy) 1.08 Sodium 136 Potassium 4.1 Chloride 108 Carbon Dioxide 20 L Anion Gap 8 BUN 16 Creatinine 0.40 L Est GFR ( Amer) 190.9 Est GFR (Non-Af Amer) 157.8 BUN/Creatinine Ratio 40.0 H Glucose 110 H Calcium 7.9 L Vancomycin Trough 13.2 Blood Type O Negative Antibody Screen Negative 03/29/19 05:12 WBC 5.6 RBC 3.13 L Hgb 10.1 L Hct 30 L MCV 96 MCH 32 H MCHC 34 RDW 16 H Plt Count 231 MPV 6.0 L Neut % (Auto) 67.7 Lymph % (Auto) 14.2 [place] % (Auto) 13.9 Eos % (Auto) 3.5 Baso % (Auto) 0.7 Absolute Neuts (auto) 3.8 Absolute Lymphs (auto) 0.8 L Absolute Monos (auto) 0.8 Absolute Eos (auto) 0.2 Absolute Basos (auto) 0.0 Absolute Nucleated RBC 0.0 Nucleated RBC % 0.1 INR (Anticoag Therapy) Sodium Potassium Chloride Carbon Dioxide Anion Gap BUN Creatinine Est GFR ( Amer) Est GFR (Non-Af Amer) BUN/Creatinine Ratio Glucose Calcium Vancomycin Trough Blood Type Antibody Screen Microbiology 03/28/19 20:19 Joint Fluid(Synovial) - Hip Right Gram Stain - Final 03/28/19 20:19 Joint Fluid(Synovial) - Hip Right Skin and Soft Tissue MRSA/ MSSA (PCR - Final Mrsa Negative S.aureus Positive 03/28/19 20:19 Body Fluid - Right Acid Fast Bacilli Smear - Final 03/28/19 20:19 Hip Right Skin and Soft Tissue MRSA/MSSA (PCR - Final Mrsa Negative S.aureus Positive 03/28/19 20:19 Hip Right Gram Stain - Final 03/28/19 20:19 Wound - Hip Right Acid Fast Bacilli Smear - Final 03/27/19 16:00 Blood Venous Aerobic Blood Culture - Preliminary No Growth Day 1 03/27/19 16:00 Blood Venous Anaerobic Blood Culture - Preliminary No Growth Day 1 03/27/19 16:00 Blood Venous Aerobic Blood Culture - Preliminary No Growth Day 1 03/27/19 16:00 Blood Venous Anaerobic Blood Culture - Preliminary No Growth Day 1 03/27/19 16:00 Wound - Hip Right Anaerobic Culture - Preliminary 03/27/19 16:00 Hip Right Skin and Soft Tissue MRSA/MSSA (PCR - Final Mrsa Negative S.aureus Positive 03/27/19 16:00 Hip Right Gram Stain - Final Assessment: POD #1 Right hip I&D Plan: Cont abx per ID Needs PICC line placement Cont PT/OT Cont current pain medication
--- NOTE | 2019-03-29 10:15 | PN ---
Progress Note - Progress Note Date of Service: 03/29/19 SOAP: Subjective: CC: Infected right prosthetic hip HPI: Ms. Rowley is a 68 yo male with PMH significant for HTN, A fib, morbid obesity, HLD, osteoarthritis, and right hip replacement and revision in February; who presented to the hospital with an infected right hip. Denies fever, chills, nausea, vomiting, diarrhea, or rash. Pain is controlled in her right hip, describes the pain as a burning sensation. Has been OOB with PT today. Objective: Vital Signs 03/29/19 03/29/19 08:08 08:39 Temperature 98.5 F Pulse Rate 62 Respiratory 17 16 Rate Blood Pressure 94/52 (mmHg) O2 Sat by Pulse 98 Oximetry Physical Exam: General: NAD, laying in bed Neurological: Alert and Oriented x 3 HEENT: Moist MM, no thrush Cardiovascular: Heart rate regular Respiratory: Lung sounds clear Abdominal: Bowel sounds present; ABD large, soft, and non tender MSK: Bilateral knees without erythema or edema. Able to log roll right leg, WEIR Skin: No rash. Dressing to right hip with dry dressing Laboratory Results - last 24 hr 03/28/19 03/28/19 03/29/19 05:15 15:23 05:11 WBC RBC Hgb Hct MCV MCH MCHC RDW Plt Count MPV Neut % (Auto) Lymph % (Auto) [place] % (Auto) Eos % (Auto) Baso % (Auto) Absolute Neuts (auto) Absolute Lymphs (auto) Absolute Monos (auto) Absolute Eos (auto) Absolute Basos (auto) Absolute Nucleated RBC Nucleated RBC % INR (Anticoag Therapy) 1.08 Sodium 136 Potassium 4.1 Chloride 108 Carbon Dioxide 20 L Anion Gap 8 BUN 16 Creatinine 0.40 L Est GFR ( Amer) 190.9 Est GFR (Non-Af Amer) 157.8 BUN/Creatinine Ratio 40.0 H Glucose 110 H Calcium 7.9 L Vancomycin Trough 13.2 Blood Type O Negative Antibody Screen Negative 03/29/19 05:12 WBC 5.6 RBC 3.13 L Hgb 10.1 L Hct 30 L MCV 96 MCH 32 H MCHC 34 RDW 16 H Plt Count 231 MPV 6.0 L Neut % (Auto) 67.7 Lymph % (Auto) 14.2 [place] % (Auto) 13.9 Eos % (Auto) 3.5 Baso % (Auto) 0.7 Absolute Neuts (auto) 3.8 Absolute Lymphs (auto) 0.8 L Absolute Monos (auto) 0.8 Absolute Eos (auto) 0.2 Absolute Basos (auto) 0.0 Absolute Nucleated RBC 0.0 Nucleated RBC % 0.1 INR (Anticoag Therapy) Sodium Potassium Chloride Carbon Dioxide Anion Gap BUN Creatinine Est GFR ( Amer) Est GFR (Non-Af Amer) BUN/Creatinine Ratio Glucose Calcium Vancomycin Trough Blood Type Antibody Screen Microbiology 03/28/19 20:19 Gram Stain - Final Joint Fluid(Synovial) - Hip Right Skin and Soft Tissue MRSA/MSSA (PCR - Final Mrsa Negative S.aureus Positive 03/28/19 20:19 Acid Fast Bacilli Smear - Final Body Fluid - Right 03/28/19 20:19 Skin and Soft Tissue MRSA/MSSA (PCR - Final Hip Right Mrsa Negative S.aureus Positive Gram Stain - Final 03/28/19 20:19 Acid Fast Bacilli Smear - Final Wound - Hip Right 03/27/19 16:00 Aerobic Blood Culture - Preliminary Blood Venous No Growth Day 1 Anaerobic Blood Culture - Preliminary No Growth Day 1 03/27/19 16:00 Aerobic Blood Culture - Preliminary Blood Venous No Growth Day 1 Anaerobic Blood Culture - Preliminary No Growth Day 1 03/27/19 16:00 Anaerobic Culture - Preliminary Wound - Hip Right 03/27/19 16:00 Skin and Soft Tissue MRSA/MSSA (PCR - Final Hip Right Mrsa Negative S.aureus Positive Gram Stain - Final Microbiology 03/26/19 11:50 Hip Right Gram Stain - Final 03/26/19 11:50 Hip Right Wound Culture - Final Enterococcus Faecalis Staphylococcus Aureus Normal Endy Assessment: 1. Septic prosthetic right hip. Wound culture from [place] on 03/26 with enterococcus faecalis, staph aurus, and normal endy. Wound culture on admission to the hospital with PCR positive for staph aureus, final cultures pending. Cultures from OR pending. Blood cultures with no growth, day 1. S/P I+ D and washout, POD #1. Afebrile and no leukocytosis. 2. Morbid Obesity. 3. History bilateral total knee arthroplasty. Knees benign. Plan: Continue vancomycin while we await final cultures from the OR. Will need 8 weeks of IV ABX, day 2. Will need weekly labs while on IV ABX: CBC, CMP, and CRP. 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 All questions answered.
[2019-03-29] MEDS: Potassium Chlor TAB* 20 MEQ TAB.ER PO SCH (11:44)
[2019-03-29] MEDS ORDERED: Bisacodyl SUPP* 10 MG SUPP PR PRN (15:30)
[2019-03-29] MEDS: CMCS:Rosuvastatin (NF) 5 MG TAB PO SCH (17:34)
[2019-03-29] MEDS: Cetirizine* 10 MG TAB PO SCH (17:34)
[2019-03-29] MEDS: Baclofen TAB* 10 MG PO SCH (17:34)
--- NOTE | 2019-03-29 19:09 | PN ---
Subjective Date of Service: 03/29/19 Interval History: Patient report mild pain to right hip. Tolerated surgery well. Hip wound culture - positive for MSSA and enterococcus faecalis Patient denies fever or chills , denies abd pain n/v/d. denies chest pain or shortness of breath. 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 on 02/20/19 with right total hip arthroplasty, revision 03/02/19; sepsis due to Escherichia coli urinary tract infection; hypovolemic shock in the setting of perioperative blood loss, post-operative anemia; hypertension; hyperlipidemia; atrial fibrillation/flutter; supraventricular tachycardia; aortic regurgitation ; gastroesophageal reflux disease Objective Active Medications: Acetaminophen (Tylenol Tab*) 975 mg PO Q8HR PRN PRN Reason: PAIN - MILD Ascorbic Acid (Vitamin C Tab*) 1,000 mg PO BID [facility] Last Admin: 03/29/19 08:44 Dose: 1,000 mg Baclofen (Lioresal Tab*) 10 mg PO 1700 [facility] Last Admin: 03/29/19 17:34 Dose: 10 mg Bisacodyl (Dulcolax Supp*) 10 mg HI DAILY PRN PRN Reason: CONSTIPATION Cetirizine HCl (Zyrtec*) 10 mg PO QPM [facility] Last Admin: 03/29/19 17:34 Dose: 10 mg Cyclobenzaprine HCl (Flexeril Tab*) 10 mg PO Q6H PRN PRN Reason: SPASMS Last Admin: 03/28/19 07:50 Dose: 10 mg Diltiazem HCl (Cardizem Cd Cap*) 180 mg PO QAM [facility] Last Admin: 03/29/19 08:44 Dose: 180 mg Diphenhydramine HCl (Benadryl Iv*) 25 mg IV Q6H PRN PRN Reason: PRURITIS Diphenhydramine HCl (Benadryl Po*) 25 mg PO Q6H PRN PRN Reason: PRURITIS Docusate Sodium (Colace Cap*) 100 mg PO BID [facility] Last Admin: 03/29/19 08:44 Dose: 100 mg Ferrous Sulfate (Ferrous Sulfate Tab*) 325 mg PO BID [facility] Last Admin: 03/29/19 08:43 Dose: 325 mg Fish Oil (Fish Oil (Nf)) 1,000 mg PO BID [facility]; Protocol Last Admin: 03/29/19 08:44 Dose: 1,000 mg Flecainide Acetate (Tambocor Tab*) 100 mg PO BID [facility] Last Admin: 03/29/19 08:44 Dose: 100 mg Fluticasone Propionate (Flonase Nasal [place] 50mcg*) 2 spray BOTH NARES DAILY [facility] Last Admin: 03/29/19 08:44 Dose: 2 spray Gabapentin (Neurontin Cap(*)) 300 mg PO BEDTIME [facility] Last Admin: 03/28/19 23:58 Dose: 300 mg Vancomycin HCl 1,500 mg/ (Sodium Chloride) 250 mls @ 166.667 mls/hr IVPB Q12H [facility] Last Admin: 03/29/19 17:35 Dose: 166.667 mls/hr Lactulose (Lactulose*) 30 ml PO BID PRN PRN Reason: CONSTIPATION Magnesium Hydroxide (Milk Of Magnesia Liq*) 30 ml PO BID [facility] Last Admin: 03/29/19 08:45 Dose: Not Given Magnesium Hydroxide (Milk Of Magnesia Liq*) 30 ml PO Q6H PRN PRN Reason: CONSTIPATION Morphine Sulfate (Morphine Inj (Syringe))*) 2 mg IV Q4H PRN PRN Reason: Pain - Unrelieved Multivitamins (Theragran Tab*) 1 tab PO DAILY [facility] Last Admin: 03/29/19 08:44 Dose: 1 tab Non-Formulary Medication (Miconazole Nitrate [Zeasorb Af]) 1 applic TOPICAL BID [facility] Last Admin: 03/29/19 08:44 Dose: Not Given Ondansetron HCl (Zofran Inj*) 4 mg IV Q6H PRN PRN Reason: NAUSEA Ondansetron HCl (Zofran Odt Tab*) 4 mg PO Q6H PRN PRN Reason: NAUSEA Oxycodone HCl (Roxycodone Tab*) 5 mg PO Q4H PRN PRN Reason: Pain - Breakthrough Oxycodone/Acetaminophen (Percocet 5/325 Tab*) 1 tab PO Q4H PRN PRN Reason: PAIN - MODERATE Last Admin: 03/29/19 17:35 Dose: 1 tab Oxycodone/Acetaminophen (Percocet 5/325 Tab*) 2 tab PO Q4H PRN PRN Reason: PAIN - SEVERE Last Admin: 03/29/19 05:31 Dose: 2 tab Pantoprazole Sodium (Protonix Tab*) 40 mg PO QAM [facility] Last Admin: 03/29/19 08:44 Dose: 40 mg Pharmacy Consult (Vancomycin Per Pharmacy*) 1 note FOLLOW UP .VANC PER PHARMACY [facility]; Protocol Potassium Chloride (Klor Con Er Tab*) 20 meq PO 1200 [facility] Last Admin: 03/29/19 11:44 Dose: 20 meq Rosuvastatin Calcium (Crestor (Nf)) 5 mg PO QPM [facility]; Protocol Last Admin: 03/29/19 17:34 Dose: 5 mg Senna (Senokot 8.6 Mg Tab*) 1 tab PO BEDTIME [facility] Last Admin: 03/28/19 23:59 Dose: 1 tab Vital Signs - 8 hr 03/29/19 03/29/19 03/29/19 11:44 12:41 16:17 Temperature 97.9 F 98.6 F Pulse Rate 67 73 Respiratory 17 16 18 Rate Blood Pressure 91/47 104/50 (mmHg) O2 Sat by Pulse 97 93 Oximetry 03/29/19 17:35 Temperature Pulse Rate Respiratory 18 Rate Blood Pressure (mmHg) O2 Sat by Pulse Oximetry Oxygen Devices in Use Now: None Appearance: appears comfortable sitting in the chair, no acute distress Eyes: No Scleral Icterus Ears/Nose/Mouth/Throat: Clear Oropharnyx, Mucous Membranes Moist Neck: NL Appearance and Movements; NL JVP, Trachea Midline Respiratory: Symmetrical Chest Expansion and Respiratory Effort, Clear to Auscultation Cardiovascular: NL Sounds; No Murmurs; No JVD, No Edema Abdominal: NL Sounds; No Tenderness; No Distention Extremities: No Edema, No Clubbing, Cyanosis Skin: - - dressing dry and intact to right hip, pedal pulses +2 Neurological: Alert and Oriented x 3 Nutrition: Taking PO's Result Diagrams: 03/30/19 06:18 03/30/19 06:18 Microbiology and Other Data: Microbiology 03/27/19 16:00 Skin and Soft Tissue MRSA/MSSA (PCR - Final Hip Right Mrsa Negative S.aureus Positive Gram Stain - Final Assess/Plan/Problems-Billing Plan By Medical Problem: Ms. Rowley is a 68 yo female with a PMH significant for recent total right hip arthroplasty with revision, post op anemia, HTN, HLD, SVT, afib/flutter, GERD, and aortic regurgitation. - Patient Problems (1) History of total replacement of right hip Current Visit: No Status: Acute Code(s): Z96.641 - PRESENCE OF RIGHT ARTIFICIAL HIP JOINT SNOMED Code(s): 586610796489 Comment: management per orthopedics - s/p Right Hip arthroplasty now with drainage Hip drainage culture - positive for MSSA and enterococcus faecalis -Post -op day 1 - I and D - wash out - continue with vancomycin as per ID (2) Anemia Current Visit: Yes Status: Acute Code(s): D64.9 - ANEMIA, UNSPECIFIED SNOMED Code(s): 020043119 Comment: H/H remains stable - will continue to monitor patient with Hx of post-op anemia (3) History of paroxysmal supraventricular tachycardia Current Visit: No Status: Acute Code(s): Z86.79 - PERSONAL HISTORY OF OTHER DISEASES OF THE CIRCULATORY SYSTEM SNOMED Code(s): 567139208274056 Comment: -pmhx of paroxsymal afib/aflutter/SVT -continue flecainide and diltiazem -rate controlled today -continue potassium supplement -Continue tele (4) Hyperlipidemia Current Visit: No Status: Acute Code(s): E78.5 - HYPERLIPIDEMIA, UNSPECIFIED SNOMED Code(s): 32586386 Comment: -continue statin (5) Hypertension Current Visit: No Status: Acute Code(s): I10 - ESSENTIAL (PRIMARY) HYPERTENSION SNOMED Code(s): 00854227 Comment: -SBP 100 -Hold lisinopril in setting of hypotension - will consider further hyfdration if SBP remains low, likely r/t pain medications and cardizem and flecanide (6) DVT prophylaxis Current Visit: No Status: Acute Code(s): Z29.9 - ENCOUNTER FOR PROPHYLACTIC MEASURES, UNSPECIFIED SNOMED Code(s): 183266724 Comment: -as per orthopedics (7) Full code status Current Visit: No Status: Acute Code(s): Z78.9 - OTHER SPECIFIED HEALTH STATUS SNOMED Code(s): 637382931 Status and Disposition: disposition per ortho
[2019-03-29] MEDS: Gabapentin CAP(*) 300 MG PO SCH (20:28)
[2019-03-29] MEDS: Senna TAB 8.6 mg* TAB PO SCH (20:28)
[2019-03-29] MEDS: Cyclobenzaprine TAB* 10 MG PO PRN (23:57)
[2019-03-30] MEDS: oxyCODONE/Acetamin 5/325 MG* TAB PO PRN ×3 (05:52→21:23)
[2019-03-30] MEDS: Vancomycin(*) 1,500 MG in NS 0.9% 250 ML* 250 ML IVPB SCH ×2 (05:52→17:29)
[2019-03-30 06:31] LABS: Hematocrit 27 % (35-47); Hemoglobin 9.1 g/dL (12.0-16.0); Mean Corpuscular HGB Conc 34 g/dL (31-36); Mean Corpuscular Hemoglobin 32 pg (27-31); Mean Corpuscular Volume 94 fL (80-97); Mean Platelet Volume 5.9 fL (7.4-10.4); Platelet Count 230 10^3/uL (150-450); Red Cell Distribution Width 16 % (10-15); White Blood Count 5.6 10^3/uL (3.5-10.8)
[2019-03-30 06:42] LABS: BUN/Creatinine Ratio 28.2 (8-20); Calcium 8.1 mg/dL (8.6-10.3); EGFR African American 196.6 (>60); EGFR Non-African American 162.5 (>60); Potassium 3.7 mmol/L (3.5-5.0)
[2019-03-30] MEDS: Fluticasone NASAL SPRAY 50MCG* 16 gm SPRAY BTL BOTH NARES SCH (09:33)
[2019-03-30] MEDS: Magnesium Hydroxide LIQ* 30 ML UDC PO SCH ×2 (09:34→21:23)
[2019-03-30] MEDS: Ascorbic Acid TAB* 500 MG PO SCH ×2 (09:35→21:21)
[2019-03-30] MEDS: Docusate CAP* 100 MG PO SCH ×2 (09:35→21:22)
[2019-03-30] MEDS: Ferrous Sulfate TAB* 325 MG PO SCH ×2 (09:35→21:22)
[2019-03-30] MEDS: Vitamin THERAPEUTIC TAB PO SCH (09:35)
[2019-03-30] MEDS: Pantoprazole TAB * 40 MG TAB PO SCH (09:35)
[2019-03-30] MEDS: CMCS:OMEGA-3 FATTY ACIDS (NF) 1,000 MG CAP PO SCH ×2 (09:35→21:21)
[2019-03-30] MEDS: Diltiazem CD CAP* 180 MG PO SCH (09:35)
[2019-03-30] MEDS: Flecainide TAB* 100 MG PO SCH ×2 (09:35→21:21)
[2019-03-30] MEDS: MICONAZOLE NITRATE 2% TOPICAL SCH ×2 (09:37→21:21)
[2019-03-30] MEDS: Potassium Chlor TAB* 20 MEQ TAB.ER PO SCH (10:59)
--- NOTE | 2019-03-30 15:42 | PN ---
Progress Note - Progress Note Date of Service: 03/30/19 SOAP: Subjective: [POD#2 s/p right hip washout. Patient seen OOB sitting in chair. She is doing well. She denies CP, SOB, f/c, n/v. Pain controlled with medications.Dressing changed today.] Objective: [General: A&Ox3. NAD. Right lower extremity: Dressing changed. Incision C/D/I with soft tissue swelling and bruising but no drainage. Thigh soft and nontender. Patient able to stand from seated position with walker for dressing change. +DF/PF. Sensation intact to light touch. Calf soft and nontender with no erythema or palpable cords. DP pulse 2+] Assessment: [POD#2 right hip washout] Plan: [Continue ABX per ID Awaiting cultures Continue PT/OT Continue pain meds as needed Laboratory Last Values WBC 5.6 10^3/uL (3.5-10.8) 03/30/19 06:18 RBC 2.90 10^6 /uL (3.70-4.87) L 03/30/19 06:18 Hgb 9.1 g/dL (12.0-16.0) L 03/30/19 06:18 Hct 27 % (35-47) L 03/30/19 06:18 MCV 94 fL (80-97) 03/30/19 06:18 MCH 32 pg (27-31) H 03/30/19 06:18 MCHC 34 g/dL (31-36) 03/30/19 06:18 RDW 16 % (10-15) H 03/30/19 06:18 Plt Count 230 10^3/uL (150-450) 03/30/19 06:18 MPV 5.9 fL (7.4-10.4) L 03/30/19 06:18 Neut % (Auto) 67.7 % 03/29/19 05:12 Lymph % (Auto) 14.2 % 03/29/19 05:12 [place] % (Auto) 13.9 % 03/29/19 05:12 Eos % (Auto) 3.5 % 03/29/19 05:12 Baso % (Auto) 0.7 % 03/29/19 05:12 Absolute Neuts (auto) 3.8 10^3/ul (1.5-7.7) 03/29/19 05:12 Absolute Lymphs (auto) 0.8 10^3/ul (1.0-4.8) L 03/29/19 05:12 Absolute Monos (auto) 0.8 10^3/ul (0-0.8) 03/29/19 05:12 Absolute Eos (auto) 0.2 10^3/ul (0-0.6) 03/29/19 05:12 Absolute Basos (auto) 0.0 10^3/ul (0-0.2) 03/29/19 05:12 Absolute Nucleated RBC 0.0 10^3/ul 03/29/19 05:12 Nucleated RBC % 0.1 03/29/19 05:12 ESR 55 mm/Hr (0-29) H 03/27/19 16:00 INR (Anticoag Therapy) 1.08 (0.82-1.09) 03/28/19 15:23 Sodium 138 mmol/L (135-145) 03/30/19 06:18 Potassium 3.7 mmol/L (3.5-5.0) 03/30/19 06:18 Chloride 107 mmol/L (101-111) 03/30/19 06:18 Carbon Dioxide 26 mmol/L (22-32) 03/30/19 06:18 Anion Gap 5 mmol/L (2-11) 03/30/19 06:18 BUN 11 mg/dL (6-24) 03/30/19 06:18 Creatinine 0.39 mg/dL (0.51-0.95) L 03/30/19 06:18 Est GFR ( Amer) 196.6 (>60) 03/30/19 06:18 Est GFR (Non-Af Amer) 162.5 (>60) 03/30/19 06:18 BUN/Creatinine Ratio 28.2 (8-20) H 03/30/19 06:18 Glucose 103 mg/dL (70-100) H 03/30/19 06:18 Calcium 8.1 mg/dL (8.6-10.3) L 03/30/19 06:18 Magnesium 2.2 mg/dL (1.9-2.7) 03/27/19 16:00 C-Reactive Protein 56.80 mg/L (<8.01) H 03/28/19 05:15 Vancomycin Trough 13.2 mcg/mL 03/29/19 05:11 Blood Type O Negative 03/28/19 05:15 Antibody Screen Negative 03/28/19 05:15 Vital Signs Temp 97.8 F 03/30/19 11:45 Pulse 71 03/30/19 11:45 Resp 18 03/30/19 13:42 BP 107/48 03/30/19 11:45 Pulse Ox 97 03/30/19 11:45 Intake & Output 03/29/19 03/30/19 03/30/19 18:59 06:59 18:59 Intake Total 1690 1000 320 Output Total 425 1350 700 Balance 1265 -350 -380 Intake: IV Fluids 990 40 NS 990 40 IVPB 280 ABX - VANCOMYCIN 280 Oral 700 1000 Output: Urine 200 1350 700 [place] 225 ]
[2019-03-30] MEDS: Cetirizine* 10 MG TAB PO SCH (17:10)
[2019-03-30] MEDS: CMCS:Rosuvastatin (NF) 5 MG TAB PO SCH (17:10)
[2019-03-30] MEDS: Baclofen TAB* 10 MG PO SCH (17:10)
--- NOTE | 2019-03-30 18:48 | PN ---
Subjective Date of Service: 03/30/19 Interval History: Patient report pain in right hip is currently controlled. Hip wound culture - positive for MSSA and enterococcus faecalis - susceptibility pending , blood cultures no growth Patient denies fever or chills , denies abd pain n/v/d. denies chest pain or shortness of breath. 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 on 02/20/19 with right total hip arthroplasty, revision 03/02/19; sepsis due to Escherichia coli urinary tract infection; hypovolemic shock in the setting of perioperative blood loss, post-operative anemia; hypertension; hyperlipidemia; atrial fibrillation/flutter; supraventricular tachycardia; aortic regurgitation ; gastroesophageal reflux disease Objective Active Medications: Acetaminophen (Tylenol Tab*) 975 mg PO Q8HR PRN PRN Reason: PAIN - MILD Ascorbic Acid (Vitamin C Tab*) 1,000 mg PO BID [facility] Last Admin: 03/30/19 09:35 Dose: 1,000 mg Baclofen (Lioresal Tab*) 10 mg PO 1700 [facility] Last Admin: 03/30/19 17:10 Dose: 10 mg Bisacodyl (Dulcolax Supp*) 10 mg MD DAILY PRN PRN Reason: CONSTIPATION Cetirizine HCl (Zyrtec*) 10 mg PO QPM [facility] Last Admin: 03/30/19 17:10 Dose: 10 mg Cyclobenzaprine HCl (Flexeril Tab*) 10 mg PO Q6H PRN PRN Reason: SPASMS Last Admin: 03/29/19 23:57 Dose: 10 mg Diltiazem HCl (Cardizem Cd Cap*) 180 mg PO QAM [facility] Last Admin: 03/30/19 09:35 Dose: 180 mg Diphenhydramine HCl (Benadryl Iv*) 25 mg IV Q6H PRN PRN Reason: PRURITIS Diphenhydramine HCl (Benadryl Po*) 25 mg PO Q6H PRN PRN Reason: PRURITIS Docusate Sodium (Colace Cap*) 100 mg PO BID [facility] Last Admin: 03/30/19 09:35 Dose: 100 mg Ferrous Sulfate (Ferrous Sulfate Tab*) 325 mg PO BID [facility] Last Admin: 03/30/19 09:35 Dose: 325 mg Fish Oil (Fish Oil (Nf)) 1,000 mg PO BID [facility]; Protocol Last Admin: 03/30/19 09:35 Dose: 1,000 mg Flecainide Acetate (Tambocor Tab*) 100 mg PO BID [facility] Last Admin: 03/30/19 09:35 Dose: 100 mg Fluticasone Propionate (Flonase Nasal [place] 50mcg*) 2 spray BOTH NARES DAILY [facility] Last Admin: 03/30/19 09:33 Dose: 2 spray Gabapentin (Neurontin Cap(*)) 300 mg PO BEDTIME [facility] Last Admin: 03/29/19 20:28 Dose: 300 mg Vancomycin HCl 1,500 mg/ (Sodium Chloride) 250 mls @ 166.667 mls/hr IVPB Q12H [facility] Last Admin: 03/30/19 17:29 Dose: 166.667 mls/hr Lactulose (Lactulose*) 30 ml PO BID PRN PRN Reason: CONSTIPATION Magnesium Hydroxide (Milk Of Magnesia Liq*) 30 ml PO BID [facility] Last Admin: 03/30/19 09:34 Dose: 30 ml Magnesium Hydroxide (Milk Of Magnesia Liq*) 30 ml PO Q6H PRN PRN Reason: CONSTIPATION Morphine Sulfate (Morphine Inj (Syringe))*) 2 mg IV Q4H PRN PRN Reason: Pain - Unrelieved Multivitamins (Theragran Tab*) 1 tab PO DAILY [facility] Last Admin: 03/30/19 09:35 Dose: 1 tab Pto: Miconazole Nitrate [Zeasorb Af] 2% 1 applic TOPICAL BID [facility] Last Admin: 03/30/19 09:37 Dose: Not Given Ondansetron HCl (Zofran Inj*) 4 mg IV Q6H PRN PRN Reason: NAUSEA Ondansetron HCl (Zofran Odt Tab*) 4 mg PO Q6H PRN PRN Reason: NAUSEA Oxycodone HCl (Roxycodone Tab*) 5 mg PO Q4H PRN PRN Reason: Pain - Breakthrough Oxycodone/Acetaminophen (Percocet 5/325 Tab*) 1 tab PO Q4H PRN PRN Reason: PAIN - MODERATE Last Admin: 03/30/19 13:42 Dose: 1 tab Oxycodone/Acetaminophen (Percocet 5/325 Tab*) 2 tab PO Q4H PRN PRN Reason: PAIN - SEVERE Last Admin: 03/29/19 23:57 Dose: 2 tab Pantoprazole Sodium (Protonix Tab*) 40 mg PO QAM [facility] Last Admin: 03/30/19 09:35 Dose: 40 mg Pharmacy Consult (Vancomycin Per Pharmacy*) 1 note FOLLOW UP .VANC PER PHARMACY [facility]; Protocol Pharmacy Profile Note (Vancomycin Trough Check) 1 note FOLLOW UP 0530 ONE Stop: 04/01/19 05:31 Potassium Chloride (Klor Con Er Tab*) 20 meq PO 1200 [facility] Last Admin: 03/30/19 10:59 Dose: 20 meq Rosuvastatin Calcium (Crestor (Nf)) 5 mg PO QPM [facility]; Protocol Last Admin: 03/30/19 17:10 Dose: 5 mg Senna (Senokot 8.6 Mg Tab*) 1 tab PO BEDTIME [facility] Last Admin: 03/29/19 20:28 Dose: 1 tab Vital Signs - 8 hr 03/30/19 03/30/19 03/30/19 11:45 13:42 15:53 Temperature 97.8 F Pulse Rate 71 Respiratory 17 18 18 Rate Blood Pressure 107/48 (mmHg) O2 Sat by Pulse 97 Oximetry 03/30/19 16:19 Temperature 98.2 F Pulse Rate 72 Respiratory 18 Rate Blood Pressure 102/45 (mmHg) O2 Sat by Pulse 93 Oximetry Oxygen Devices in Use Now: None Appearance: appears comfortable sittin gin the chair , no acute distress Eyes: No Scleral Icterus Ears/Nose/Mouth/Throat: Clear Oropharnyx, Mucous Membranes Moist Neck: NL Appearance and Movements; NL JVP, Trachea Midline Respiratory: Symmetrical Chest Expansion and Respiratory Effort, Clear to Auscultation Cardiovascular: NL Sounds; No Murmurs; No JVD, No Edema Abdominal: NL Sounds; No Tenderness; No Distention Extremities: No Edema, No Clubbing, Cyanosis Skin: No Rash or Ulcers Neurological: Alert and Oriented x 3 Nutrition: Taking PO's Result Diagrams: 03/30/19 06:18 03/30/19 06:18 Microbiology and Other Data: Microbiology 03/27/19 16:00 Skin and Soft Tissue MRSA/MSSA (PCR - Final Hip Right Mrsa Negative S.aureus Positive Gram Stain - Final Assess/Plan/Problems-Billing Plan By Medical Problem: Ms. Rowley is a 68 yo female with a PMH significant for recent total right hip arthroplasty with revision, post op anemia, HTN, HLD, SVT, afib/flutter, GERD, and aortic regurgitation. - Patient Problems (1) History of total replacement of right hip Current Visit: No Status: Acute Code(s): Z96.641 - PRESENCE OF RIGHT ARTIFICIAL HIP JOINT SNOMED Code(s): 647048783480 Comment: management per orthopedics - s/p Right Hip arthroplasty now with drainage Hip drainage culture - positive for MSSA and enterococcus faecalis blood cultures negative -Post -op day 2 - I and D - wash out - continue with vancomycin as per ID (2) Anemia Current Visit: Yes Status: Acute Code(s): D64.9 - ANEMIA, UNSPECIFIED SNOMED Code(s): 897260950 Comment: H/H remains stable - will continue to monitor patient with Hx of post-op anemia (3) History of paroxysmal supraventricular tachycardia Current Visit: No Status: Acute Code(s): Z86.79 - PERSONAL HISTORY OF OTHER DISEASES OF THE CIRCULATORY SYSTEM SNOMED Code(s): 434654760909768 Comment: -pmhx of paroxsymal afib/aflutter/SVT -continue flecainide and diltiazem -rate controlled today -continue potassium supplement -Continue tele (4) Hyperlipidemia Current Visit: No Status: Acute Code(s): E78.5 - HYPERLIPIDEMIA, UNSPECIFIED SNOMED Code(s): 64203593 Comment: -continue statin (5) Hypertension Current Visit: No Status: Acute Code(s): I10 - ESSENTIAL (PRIMARY) HYPERTENSION SNOMED Code(s): 77558427 Comment: -SBP 100's -Hold lisinopril in setting of hypotension - likely r/t pain medications and cardizem and flecanide - would recommend further spacing pain medication in the setting of persistent hypotension (6) DVT prophylaxis Current Visit: No Status: Acute Code(s): Z29.9 - ENCOUNTER FOR PROPHYLACTIC MEASURES, UNSPECIFIED SNOMED Code(s): 509357371 Comment: -as per orthopedics (7) Full code status Current Visit: No Status: Acute Code(s): Z78.9 - OTHER SPECIFIED HEALTH STATUS SNOMED Code(s): 189824885 Status and Disposition: disposition per ortho
[2019-03-30] MEDS: Gabapentin CAP(*) 300 MG PO SCH (21:21)
[2019-03-30] MEDS: Senna TAB 8.6 mg* TAB PO SCH (21:22)
[2019-03-30] MEDS: Cyclobenzaprine TAB* 10 MG PO PRN (21:28)
[2019-03-31] MEDS: Vancomycin(*) 1,500 MG in NS 0.9% 250 ML* 250 ML IVPB SCH ×2 (06:19→17:21)
[2019-03-31] MEDS: oxyCODONE/Acetamin 5/325 MG* TAB PO PRN ×2 (07:01→23:01)
--- NOTE | 2019-03-31 09:26 | PN ---
Progress Note - Progress Note Date of Service: 03/31/19 SOAP: Subjective: CC: Infected right prosthetic hip HPI: Ms. Rowley is a 68 yo male with PMH significant for HTN, A fib, morbid obesity, HLD, osteoarthritis, and right hip replacement and revision in February; who presented to the hospital with an infected right hip. Denies fever, chills, nausea, vomiting, diarrhea, or rash. Pain is controlled in her right hip, describes the pain as a burning sensation. Objective: Vital Signs - 8 hr 03/31/19 03/31/19 03/31/19 03:36 07:01 07:37 Temperature 98.5 F 98.3 F Pulse Rate 67 68 Respiratory 18 16 19 Rate Blood Pressure 102/60 106/51 (mmHg) O2 Sat by Pulse 93 91 Oximetry Physical Exam: General: NAD, sitting up on the side of the bed Neurological: Alert and Oriented x3 HEENT: Moist MM, no thrush Cardiovascular: Heart rate regular Respiratory: Lung sounds clear Abdominal: Bowel sounds present; ABD large, soft, and non tender MSK: WEIR. No pain with palpation of the knees Skin: No rash. Large dressing to the right hip Laboratory Last Values WBC 5.6 10^3/uL (3.5-10.8) 03/30/19 06:18 RBC 2.90 10^6 /uL (3.70-4.87) L 03/30/19 06:18 Hgb 9.1 g/dL (12.0-16.0) L 03/30/19 06:18 Hct 27 % (35-47) L 03/30/19 06:18 MCV 94 fL (80-97) 03/30/19 06:18 MCH 32 pg (27-31) H 03/30/19 06:18 MCHC 34 g/dL (31-36) 03/30/19 06:18 RDW 16 % (10-15) H 03/30/19 06:18 Plt Count 230 10^3/uL (150-450) 03/30/19 06:18 MPV 5.9 fL (7.4-10.4) L 03/30/19 06:18 Neut % (Auto) 67.7 % 03/29/19 05:12 Lymph % (Auto) 14.2 % 03/29/19 05:12 [place] % (Auto) 13.9 % 03/29/19 05:12 Eos % (Auto) 3.5 % 03/29/19 05:12 Baso % (Auto) 0.7 % 03/29/19 05:12 Absolute Neuts (auto) 3.8 10^3/ul (1.5-7.7) 03/29/19 05:12 Absolute Lymphs (auto) 0.8 10^3/ul (1.0-4.8) L 03/29/19 05:12 Absolute Monos (auto) 0.8 10^3/ul (0-0.8) 03/29/19 05:12 Absolute Eos (auto) 0.2 10^3/ul (0-0.6) 03/29/19 05:12 Absolute Basos (auto) 0.0 10^3/ul (0-0.2) 03/29/19 05:12 Absolute Nucleated RBC 0.0 10^3/ul 03/29/19 05:12 Nucleated RBC % 0.1 03/29/19 05:12 ESR 55 mm/Hr (0-29) H 03/27/19 16:00 INR (Anticoag Therapy) 1.08 (0.82-1.09) 03/28/19 15:23 Sodium 138 mmol/L (135-145) 03/30/19 06:18 Potassium 3.7 mmol/L (3.5-5.0) 03/30/19 06:18 Chloride 107 mmol/L (101-111) 03/30/19 06:18 Carbon Dioxide 26 mmol/L (22-32) 03/30/19 06:18 Anion Gap 5 mmol/L (2-11) 03/30/19 06:18 BUN 11 mg/dL (6-24) 03/30/19 06:18 Creatinine 0.39 mg/dL (0.51-0.95) L 03/30/19 06:18 Est GFR ( Amer) 196.6 (>60) 03/30/19 06:18 Est GFR (Non-Af Amer) 162.5 (>60) 03/30/19 06:18 BUN/Creatinine Ratio 28.2 (8-20) H 03/30/19 06:18 Glucose 103 mg/dL (70-100) H 03/30/19 06:18 Calcium 8.1 mg/dL (8.6-10.3) L 03/30/19 06:18 Magnesium 2.2 mg/dL (1.9-2.7) 03/27/19 16:00 C-Reactive Protein 56.80 mg/L (<8.01) H 03/28/19 05:15 Vancomycin Trough 13.2 mcg/mL 03/29/19 05:11 Blood Type O Negative 03/28/19 05:15 Antibody Screen Negative 03/28/19 05:15 Microbiology 03/27/19 16:00 Aerobic Blood Culture - Preliminary Blood Venous No Growth Day 3 Anaerobic Blood Culture - Preliminary No Growth Day 3 03/27/19 16:00 Aerobic Blood Culture - Preliminary Blood Venous No Growth Day 3 Anaerobic Blood Culture - Preliminary No Growth Day 3 03/28/19 20:19 Gram Stain - Final Joint Fluid(Synovial) - Hip Right Body Fluid Culture - Preliminary Enterococcus Faecalis Skin and Soft Tissue MRSA/MSSA (PCR - Final Mrsa Negative S.aureus Positive 03/28/19 20:19 Anaerobic Culture - Preliminary Wound 03/28/19 20:19 Skin and Soft Tissue MRSA/MSSA (PCR - Final Hip Right Mrsa Negative S.aureus Positive Gram Stain - Final Wound Culture - Preliminary Staphylococcus Aureus Enterococcus Species Gp D Normal Endy 03/28/19 20:19 Anaerobic Culture - Preliminary Body Fluid - Hip Right 03/27/19 16:00 Anaerobic Culture - Preliminary Wound - Hip Right 03/27/19 16:00 Skin and Soft Tissue MRSA/MSSA (PCR - Final Hip Right Mrsa Negative S.aureus Positive Gram Stain - Final Wound Culture - Preliminary Staphylococcus Aureus Enterococcus Faecalis Normal Endy 03/28/19 20:19 Acid Fast Bacilli Smear - Final Body Fluid - Right 03/28/19 20:19 Acid Fast Bacilli Smear - Final Wound - Hip Right Assessment: 1. Septic prosthetic right hip. Wound culture from [facility] on 03/26 with enterococcus faecalis, staph aurus, and normal endy. Wound culture on admission to the hospital with staph aureus and enterococcus faecalis. Cultures from [place] with enterococcus faecalis and PCR positive for staph aureus. Blood cultures with no growth, day 3. S/P I+D and washout, POD #3. Afebrile and no leukocytosis. 2. Morbid Obesity. 3. History bilateral total knee arthroplasty. Knees benign. Plan: Continue vancomycin, trough goal 15-20. Will need 8 weeks of IV ABX, day 4. Will need weekly labs while on IV ABX: CBC, CMP, and CRP. PICC line to be placed today. Will also start Rifampin 300 mg PO BID, she will need close monitoring as rifampin can decrease the effectiveness of her Cardizem. She is not currently on anticoagulation, if she is to resume full dose anticoagulation recommend using Warfarin with close monitoring of INR, and not resuming Eliquis or other NOAC while she is on Rifampin. 25 minutes floor time > 50% spent with the patient discussing culture results, [facility] IV ABX, need for PICC line. All questions answered. She will call the office for fever, rash, or diarrhea.
[2019-03-31] MEDS: Ascorbic Acid TAB* 500 MG PO SCH ×2 (09:31→21:08)
[2019-03-31] MEDS: Diltiazem CD CAP* 180 MG PO SCH (09:31)
[2019-03-31] MEDS: Flecainide TAB* 100 MG PO SCH ×2 (09:32→21:18)
[2019-03-31] MEDS: CMCS:OMEGA-3 FATTY ACIDS (NF) 1,000 MG CAP PO SCH ×2 (09:32→21:17)
[2019-03-31] MEDS: Ferrous Sulfate TAB* 325 MG PO SCH ×2 (09:32→21:07)
[2019-03-31] MEDS: Pantoprazole TAB * 40 MG TAB PO SCH (09:32)
[2019-03-31] MEDS: Docusate CAP* 100 MG PO SCH ×2 (09:32→21:07)
[2019-03-31] MEDS: Fluticasone NASAL SPRAY 50MCG* 16 gm SPRAY BTL BOTH NARES SCH (09:34)
[2019-03-31] MEDS: Vitamin THERAPEUTIC TAB PO SCH (09:34)
[2019-03-31] MEDS: Magnesium Hydroxide LIQ* 30 ML UDC PO SCH ×3 (09:35→21:11)
[2019-03-31] MEDS: MICONAZOLE NITRATE 2% TOPICAL SCH ×2 (10:39→21:19)
--- NOTE | 2019-03-31 11:21 | PN ---
Subjective Date of Service: 03/31/19 Interval History: Patient seen and examined at bedside. Darcy is a 68 yo female, s/p right PAIGE with revision and then with subsequent wound drainage, now s/p washout. Reports good pain control. Denies fever/chills, CP, SOB, abd pain, n/v. Plan for PICC line placement and home with IV antibiotics, likely vancomycin. 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 replacement on 02/20/19 with right total hip arthroplasty, revision 03/02/19; sepsis due to Escherichia coli urinary tract infection; hypovolemic shock in the setting of perioperative blood loss, post-operative anemia; hypertension; hyperlipidemia; atrial fibrillation/flutter; supraventricular tachycardia; aortic regurgitation ; gastroesophageal reflux disease Objective Active Medications: Acetaminophen (Tylenol Tab*) 975 mg PO Q8HR PRN PRN Reason: PAIN - MILD Ascorbic Acid (Vitamin C Tab*) 1,000 mg PO BID [facility] Last Admin: 03/31/19 09:31 Dose: 1,000 mg Baclofen (Lioresal Tab*) 10 mg PO 1700 [facility] Last Admin: 03/30/19 17:10 Dose: 10 mg Bisacodyl (Dulcolax Supp*) 10 mg [place] DAILY PRN PRN Reason: CONSTIPATION Cetirizine HCl (Zyrtec*) 10 mg PO QPM [facility] Last Admin: 03/30/19 17:10 Dose: 10 mg Cyclobenzaprine HCl (Flexeril Tab*) 10 mg PO Q6H PRN PRN Reason: SPASMS Last Admin: 03/30/19 21:28 Dose: 10 mg Diltiazem HCl (Cardizem Cd Cap*) 180 mg PO QAM [facility] Last Admin: 03/31/19 09:31 Dose: 180 mg Diphenhydramine HCl (Benadryl Iv*) 25 mg IV Q6H PRN PRN Reason: PRURITIS Diphenhydramine HCl (Benadryl Po*) 25 mg PO Q6H PRN PRN Reason: PRURITIS Docusate Sodium (Colace Cap*) 100 mg PO BID [facility] Last Admin: 03/31/19 09:32 Dose: 100 mg Ferrous Sulfate (Ferrous Sulfate Tab*) 325 mg PO BID [facility] Last Admin: 03/31/19 09:32 Dose: 325 mg Fish Oil (Fish Oil (Nf)) 1,000 mg PO BID [facility]; Protocol Last Admin: 03/31/19 09:32 Dose: 1,000 mg Flecainide Acetate (Tambocor Tab*) 100 mg PO BID [facility] Last Admin: 03/31/19 09:32 Dose: 100 mg Fluticasone Propionate (Flonase Nasal [place] 50mcg*) 2 spray BOTH NARES DAILY [facility] Last Admin: 03/31/19 09:34 Dose: 2 spray Gabapentin (Neurontin Cap(*)) 300 mg PO BEDTIME [facility] Last Admin: 03/30/19 21:21 Dose: 300 mg Vancomycin HCl 1,500 mg/ (Sodium Chloride) 250 mls @ 166.667 mls/hr IVPB Q12H [facility] Last Admin: 03/31/19 06:19 Dose: 166.667 mls/hr Lactulose (Lactulose*) 30 ml PO BID PRN PRN Reason: CONSTIPATION Magnesium Hydroxide (Milk Of Magnesia Liq*) 30 ml PO BID [facility] Last Admin: 03/31/19 09:35 Dose: Not Given Magnesium Hydroxide (Milk Of Magnesia Liq*) 30 ml PO Q6H PRN PRN Reason: CONSTIPATION Morphine Sulfate (Morphine Inj (Syringe))*) 2 mg IV Q4H PRN PRN Reason: Pain - Unrelieved Multivitamins (Theragran Tab*) 1 tab PO DAILY [facility] Last Admin: 03/31/19 09:34 Dose: 1 tab Pto: Miconazole Nitrate [Zeasorb Af] 2% 1 applic TOPICAL BID [facility] Last Admin: 03/31/19 10:39 Dose: 1 applic Ondansetron HCl (Zofran Inj*) 4 mg IV Q6H PRN PRN Reason: NAUSEA Ondansetron HCl (Zofran Odt Tab*) 4 mg PO Q6H PRN PRN Reason: NAUSEA Oxycodone HCl (Roxycodone Tab*) 5 mg PO Q4H PRN PRN Reason: Pain - Breakthrough Oxycodone/Acetaminophen (Percocet 5/325 Tab*) 1 tab PO Q4H PRN PRN Reason: PAIN - MODERATE Last Admin: 03/31/19 07:01 Dose: 1 tab Oxycodone/Acetaminophen (Percocet 5/325 Tab*) 2 tab PO Q4H PRN PRN Reason: PAIN - SEVERE Last Admin: 03/29/19 23:57 Dose: 2 tab Pantoprazole Sodium (Protonix Tab*) 40 mg PO QAM [facility] Last Admin: 03/31/19 09:32 Dose: 40 mg Pharmacy Consult (Vancomycin Per Pharmacy*) 1 note FOLLOW UP .VANC PER PHARMACY [facility]; Protocol Pharmacy Profile Note (Vancomycin Trough Check) 1 note FOLLOW UP 0530 ONE Stop: 04/01/19 05:31 Potassium Chloride (Klor Con Er Tab*) 20 meq PO 1200 [facility] Last Admin: 03/30/19 10:59 Dose: 20 meq Rosuvastatin Calcium (Crestor (Nf)) 5 mg PO QPM [facility]; Protocol Last Admin: 03/30/19 17:10 Dose: 5 mg Senna (Senokot 8.6 Mg Tab*) 1 tab PO BEDTIME [facility] Last Admin: 03/30/19 21:22 Dose: 1 tab Vital Signs - 8 hr 03/31/19 03/31/19 03/31/19 03:36 07:01 07:37 Temperature 98.5 F 98.3 F Pulse Rate 67 68 Respiratory 18 16 19 Rate Blood Pressure 102/60 106/51 (mmHg) O2 Sat by Pulse 93 91 Oximetry 03/31/19 03/31/19 03/31/19 08:00 09:36 10:56 Temperature 97.9 F Pulse Rate 68 Respiratory 18 18 18 Rate Blood Pressure 101/56 (mmHg) O2 Sat by Pulse 96 Oximetry Oxygen Devices in Use Now: None Appearance: 68 yo female, sitting on edge of bed, NAD Eyes: No Scleral Icterus, PERRLA Ears/Nose/Mouth/Throat: Clear Oropharnyx, Mucous Membranes Moist Neck: NL Appearance and Movements; NL JVP Respiratory: Symmetrical Chest Expansion and Respiratory Effort, Clear to Auscultation Cardiovascular: NL Sounds; No Murmurs; No JVD, RRR Abdominal: NL Sounds; No Tenderness; No Distention Extremities: No Edema, No Clubbing, Cyanosis, - - right hip dressing c/d/i Neurological: Alert and Oriented x 3, NL Muscle Strength and Tone Lines/Tubes/Other Access: Clean, Dry and Intact Peripheral IV Nutrition: Taking PO's Result Diagrams: 03/30/19 06:18 03/30/19 06:18 Microbiology and Other Data: Microbiology 03/27/19 16:00 Skin and Soft Tissue MRSA/MSSA (PCR - Final Hip Right Mrsa Negative S.aureus Positive Gram Stain - Final Assess/Plan/Problems-Billing Assessment: Ms. Rowley is a 68 yo female with a PMH significant for recent total right hip arthroplasty with revision, post op anemia, HTN, HLD, SVT, afib/flutter, GERD, and aortic regurgitation, admitted on 03/27 for washout of right hip. - Patient Problems (1) History of total replacement of right hip Code(s): Z96.641 - PRESENCE OF RIGHT ARTIFICIAL HIP JOINT Comment: Management per orthopedics, s/p right hip arthroplasty and revision, now with drainage Hip drainage culture positive for MSSA and enterococcus faecalis Blood cultures negative POD #3 I&D with washout Appreciate ID consultation - continue with vancomycin (2) Anemia Code(s): D64.9 - ANEMIA, UNSPECIFIED Comment: H/H remains stable Will continue to monitor patient with Hx of post-op anemia Recheck CBC tomorrow (3) History of paroxysmal supraventricular tachycardia Code(s): Z86.79 - PERSONAL HISTORY OF OTHER DISEASES OF THE CIRCULATORY SYSTEM Comment: History of paroxsymal afib/aflutter/SVT Continue flecainide and diltiazem Rate controlled today, NSR 74 on telemetry Continue potassium supplement (4) Hyperlipidemia Code(s): E78.5 - HYPERLIPIDEMIA, UNSPECIFIED Comment: Continue statin (5) Hypertension Code(s): I10 - ESSENTIAL (PRIMARY) HYPERTENSION Comment: SBP 100's Hold lisinopril in setting of hypotension Likely r/t pain medications and cardizem and flecanide Would recommend further spacing pain medication in the setting of persistent hypotension (6) DVT prophylaxis Code(s): Z29.9 - ENCOUNTER FOR PROPHYLACTIC MEASURES, UNSPECIFIED Comment: Per ortho, previously on apixaban prior to admission SCDs ordered (7) Full code status Code(s): Z78.9 - OTHER SPECIFIED HEALTH STATUS Status and Disposition: Inpatient. Disposition per ortho. Will need continued IV antibiotics, working on home medication administration.
[2019-03-31] MEDS: Potassium Chlor TAB* 20 MEQ TAB.ER PO SCH (12:23)
--- NOTE | 2019-03-31 13:40 | PN ---
Progress Note - Progress Note Date of Service: 03/31/19 SOAP: Subjective: [POD#3 s/p right hip washout. Patient seen OOB sitting in chair. She is doing well. She denies CP, SOB, f/c, n/v. Pain controlled with medications] Objective: [General: A&Ox3. NAD. Right lower extremity: Dressing C/D/I . Thigh soft and nontender. Patient able to stand from seated position with walker for dressing change. +DF/PF. Sensation intact to light touch. Calf soft and nontender with no erythema or palpable cords. DP pulse 2+] Vital Signs Temp 97.9 F 03/31/ 10:56 Pulse 68 03/31/19 10:56 Resp 20 03/31/19 12:32 BP 101/56 03/31/19 10:56 Pulse Ox 96 03/31/19 10:56 Intake & Output 03/30/19 03/31/19 03/31/19 18:59 06:59 18:59 Intake Total 320 1240 910 Output Total 1200 1300 800 Balance -880 -60 110 Intake: IV Fluids 40 30 100 NS 40 30 100 IVPB 280 290 250 ABX - VANCOMYCIN 280 290 250 Oral 920 560 Output: Urine 1200 1300 800 Assessment: [POD#3 right hip washout] Plan: [Continue ABX per ID Awaiting PICC line Continue PT/OT Continue pain meds as needed Dispo Mon possibly
[2019-03-31] MEDS: Baclofen TAB* 10 MG PO SCH (17:22)
[2019-03-31] MEDS: CMCS:Rosuvastatin (NF) 5 MG TAB PO SCH (17:22)
[2019-03-31] MEDS: Cetirizine* 10 MG TAB PO SCH (17:22)
[2019-03-31] MEDS: Acetaminophen TAB* 325 MG PO PRN (17:28)
[2019-03-31] MEDS: Gabapentin CAP(*) 300 MG PO SCH (21:07)
[2019-03-31] MEDS: Senna TAB 8.6 mg* TAB PO SCH (21:07)
[2019-03-31] MEDS: RiFAMPin CAP* 300 MG CAP PO SCH (21:18)
[2019-03-31] MEDS: Cyclobenzaprine TAB* 10 MG PO PRN (23:08)
[2019-04-01] MEDS ORDERED: Vancomycin Trough Check NOTE FOLLOW UP ONE (05:30)
[2019-04-01 05:32] LABS: ABS Eosinophils 0.3 10^3/ul (0-0.6); ABS Lymphocytes 0.9 10^3/ul (1.0-4.8); ABS Monocytes 0.6 10^3/ul (0-0.8); ABS Neutrophils 2.6 10^3/ul (1.5-7.7); Eosinophil % 7.5 %; Hematocrit 26 % (35-47); Hemoglobin 8.7 g/dL (12.0-16.0); Lymphocyte % 20.5 %; Mean Corpuscular HGB Conc 33 g/dL (31-36); Mean Corpuscular Hemoglobin 31 pg (27-31); Mean Corpuscular Volume 93 fL (80-97); Mean Platelet Volume 6.3 fL (7.4-10.4); Nucleated Red Blood Cells % 0.1; Platelet Count 264 10^3/uL (150-450); Red Blood Count 2.83 10^6 /uL (3.70-4.87); Red Cell Distribution Width 16 % (10-15); White Blood Count 4.5 10^3/uL (3.5-10.8)
[2019-04-01 05:45] LABS: EGFR African American 215.6 (>60); EGFR Non-African American 178.2 (>60)
[2019-04-01 06:09] LABS: Vancomycin Trough 13.7 mcg/mL
[2019-04-01] MEDS: Vancomycin(*) 1,500 MG in NS 0.9% 250 ML* 250 ML IVPB SCH ×2 (06:53→17:35)
--- NOTE | 2019-04-01 07:56 | PN ---
Progress Note - Progress Note Date of Service: 04/01/19 SOAP: Subjective: Pt. is alert, R hip with minimal pain. She has her PICC line. Objective: Vital Signs: Temp Pulse Resp BP Pulse Ox 98.3 F 72 18 110/54 96 04/01/19 07:45 04/01/19 07:45 04/01/19 07:45 04/01/19 07:45 04/01/19 07:45 Laboratory Results - last 24 hr 04/01/19 04/01/19 05:17 05:17 WBC 4.5 RBC 2.83 L Hgb 8.7 L Hct 26 L MCV 93 MCH 31 MCHC 33 RDW 16 H Plt Count 264 MPV 6.3 L Neut % (Auto) 57.6 Lymph % (Auto) 20.5 [place] % (Auto) 13.7 Eos % (Auto) 7.5 Baso % (Auto) 0.7 Absolute Neuts (auto) 2.6 Absolute Lymphs (auto) 0.9 L Absolute Monos (auto) 0.6 Absolute Eos (auto) 0.3 Absolute Basos (auto) 0.0 Absolute Nucleated RBC 0.0 Nucleated RBC % 0.1 BUN 9 Creatinine 0.36 L Est GFR ( Amer) 215.6 Est GFR (Non-Af Amer) 178.2 Vancomycin Trough 13.7 RLE - dressing c/d/i. mild drainage on bandage, no active drainage. distally nvi. Assessment: 68 yo F pod 4 s/p I and D infected RTHA. Plan: MICRO - + E. Faecalis, and Staph Aureus - PICC line and IV vanco x 8 weeks per ID PT/OT - daily plan d/c to home 04/03. normal diet
[2019-04-01] MEDS: Fluticasone NASAL SPRAY 50MCG* 16 gm SPRAY BTL BOTH NARES SCH (08:44)
[2019-04-01] MEDS: CMCS:OMEGA-3 FATTY ACIDS (NF) 1,000 MG CAP PO SCH ×2 (08:45→20:30)
[2019-04-01] MEDS: Docusate CAP* 100 MG PO SCH ×2 (08:45→20:24)
[2019-04-01] MEDS: Vitamin THERAPEUTIC TAB PO SCH (08:45)
[2019-04-01] MEDS: Diltiazem CD CAP* 180 MG PO SCH (08:45)
[2019-04-01] MEDS: Flecainide TAB* 100 MG PO SCH ×2 (08:46→20:30)
[2019-04-01] MEDS: Pantoprazole TAB * 40 MG TAB PO SCH (08:46)
[2019-04-01] MEDS: Ferrous Sulfate TAB* 325 MG PO SCH ×2 (08:46→20:30)
[2019-04-01] MEDS: Ascorbic Acid TAB* 500 MG PO SCH ×2 (08:46→20:29)
[2019-04-01] MEDS: oxyCODONE/Acetamin 5/325 MG* TAB PO PRN (08:50)
[2019-04-01] MEDS: Magnesium Hydroxide LIQ* 30 ML UDC PO SCH ×2 (08:51→23:13)
--- NOTE | 2019-04-01 09:39 | PN ---
Subjective Date of Service: 04/01/19 Interval History: Patient seen and examined at bedside. Darcy reports being up to the bathroom multiple times overnight so she feels tired this morning. States this will happen on occasion at home. Denies fever/chills, CP, SOB, abd pain, n/v. Dressing to right hip intact, no increased pain. PICC line has been placed. 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 replacement on 02/20/19 with right total hip arthroplasty, revision 03/02/19; sepsis due to Escherichia coli urinary tract infection; hypovolemic shock in the setting of perioperative blood loss, post-operative anemia; hypertension; hyperlipidemia; atrial fibrillation/flutter; supraventricular tachycardia; aortic regurgitation ; gastroesophageal reflux disease Objective Active Medications: Acetaminophen (Tylenol Tab*) 975 mg PO Q8HR PRN PRN Reason: PAIN - MILD Last Admin: 03/31/19 17:28 Dose: 975 mg Ascorbic Acid (Vitamin C Tab*) 1,000 mg PO BID [facility] Last Admin: 04/01/19 08:46 Dose: 1,000 mg Baclofen (Lioresal Tab*) 10 mg PO 1700 [facility] Last Admin: 03/31/19 17:22 Dose: 10 mg Bisacodyl (Dulcolax Supp*) 10 mg [place] DAILY PRN PRN Reason: CONSTIPATION Cetirizine HCl (Zyrtec*) 10 mg PO QPM [facility] Last Admin: 03/31/19 17:22 Dose: 10 mg Cyclobenzaprine HCl (Flexeril Tab*) 10 mg PO Q6H PRN PRN Reason: SPASMS Last Admin: 03/31/19 23:08 Dose: 10 mg Diltiazem HCl (Cardizem Cd Cap*) 180 mg PO QAM [facility] Last Admin: 04/01/19 08:45 Dose: 180 mg Diphenhydramine HCl (Benadryl Iv*) 25 mg IV Q6H PRN PRN Reason: PRURITIS Diphenhydramine HCl (Benadryl Po*) 25 mg PO Q6H PRN PRN Reason: PRURITIS Docusate Sodium (Colace Cap*) 100 mg PO BID [facility] Last Admin: 04/01/19 08:45 Dose: 100 mg Ferrous Sulfate (Ferrous Sulfate Tab*) 325 mg PO BID [facility] Last Admin: 04/01/19 08:46 Dose: 325 mg Fish Oil (Fish Oil (Nf)) 1,000 mg PO BID [facility]; Protocol Last Admin: 04/01/19 08:45 Dose: 1,000 mg Flecainide Acetate (Tambocor Tab*) 100 mg PO BID [facility] Last Admin: 04/01/19 08:46 Dose: 100 mg Fluticasone Propionate (Flonase Nasal [place] 50mcg*) 2 spray BOTH NARES DAILY [facility] Last Admin: 04/01/19 08:44 Dose: 2 spray Gabapentin (Neurontin Cap(*)) 300 mg PO BEDTIME [facility] Last Admin: 03/31/19 21:07 Dose: 300 mg Heparin Sodium (Porcine) (Heparin Flush Picc/Ml/Cvc(*)) 1 - 3 ml FLUSH 0600, 1800 [facility]; Protocol Last Admin: 04/01/19 05:07 Dose: 1 ml Vancomycin HCl 1,500 mg/ (Sodium Chloride) 250 mls @ 166.667 mls/hr IVPB Q12H [facility] Last Admin: 04/01/19 06:53 Dose: 166.667 mls/hr Lactulose (Lactulose*) 30 ml PO BID PRN PRN Reason: CONSTIPATION Magnesium Hydroxide (Milk Of Magnesia Liq*) 30 ml PO BID [facility] Last Admin: 04/01/19 08:51 Dose: Not Given Magnesium Hydroxide (Milk Of Magnesia Liq*) 30 ml PO Q6H PRN PRN Reason: CONSTIPATION Morphine Sulfate (Morphine Inj (Syringe))*) 2 mg IV Q4H PRN PRN Reason: Pain - Unrelieved Multivitamins (Theragran Tab*) 1 tab PO DAILY [facility] Last Admin: 04/01/19 08:45 Dose: 1 tab Pto: Miconazole Nitrate [Zeasorb Af] 2% 1 applic TOPICAL BID [facility] Last Admin: 03/31/19 21:19 Dose: 1 applic Ondansetron HCl (Zofran Inj*) 4 mg IV Q6H PRN PRN Reason: NAUSEA Ondansetron HCl (Zofran Odt Tab*) 4 mg PO Q6H PRN PRN Reason: NAUSEA Oxycodone HCl (Roxycodone Tab*) 5 mg PO Q4H PRN PRN Reason: Pain - Breakthrough Oxycodone/Acetaminophen (Percocet 5/325 Tab*) 1 tab PO Q4H PRN PRN Reason: PAIN - MODERATE Last Admin: 04/01/19 08:50 Dose: 1 tab Oxycodone/Acetaminophen (Percocet 5/325 Tab*) 2 tab PO Q4H PRN PRN Reason: PAIN - SEVERE Last Admin: 03/29/19 23:57 Dose: 2 tab Pantoprazole Sodium (Protonix Tab*) 40 mg PO QAM [facility] Last Admin: 04/01/19 08:46 Dose: 40 mg Pharmacy Consult (Vancomycin Per Pharmacy*) 1 note FOLLOW UP .VANC PER PHARMACY [facility]; Protocol Potassium Chloride (Klor Con Er Tab*) 20 meq PO 1200 [facility] Last Admin: 03/31/19 12:23 Dose: 20 meq Rifampin (Rifampin Cap*) 300 mg PO BID [facility] Last Admin: 03/31/19 21:18 Dose: 300 mg Rosuvastatin Calcium (Crestor (Nf)) 5 mg PO QPM [facility]; Protocol Last Admin: 03/31/19 17:22 Dose: 5 mg Senna (Senokot 8.6 Mg Tab*) 1 tab PO BEDTIME [facility] Last Admin: 03/31/19 21:07 Dose: 1 tab Vital Signs - 8 hr 04/01/19 04/01/19 04/01/19 02:41 02:42 04:09 Temperature 98.1 F Pulse Rate 63 Respiratory 17 17 17 Rate Blood Pressure 113/49 (mmHg) O2 Sat by Pulse 96 Oximetry 04/01/19 04/01/19 07:45 08:50 Temperature 98.3 F Pulse Rate 72 Respiratory 18 18 Rate Blood Pressure 110/54 (mmHg) O2 Sat by Pulse 96 Oximetry Oxygen Devices in Use Now: None Appearance: 68 yo female, sitting up in bed, NAD Eyes: No Scleral Icterus, PERRLA Ears/Nose/Mouth/Throat: Clear Oropharnyx, Mucous Membranes Moist Neck: NL Appearance and Movements; NL JVP Respiratory: Symmetrical Chest Expansion and Respiratory Effort, Clear to Auscultation Cardiovascular: NL Sounds; No Murmurs; No JVD, RRR, No Edema Abdominal: NL Sounds; No Tenderness; No Distention Extremities: No Edema, No Clubbing, Cyanosis, - - right hip dressing c/d/i Skin: No Rash or Ulcers Neurological: Alert and Oriented x 3, NL Muscle Strength and Tone Lines/Tubes/Other Access: Clean, Dry and Intact PICC Line Nutrition: Taking PO's Result Diagrams: 04/01/19 05:17 04/01/19 05:17 Microbiology and Other Data: Microbiology 03/27/19 16:00 Skin and Soft Tissue MRSA/MSSA (PCR - Final Hip Right Mrsa Negative S.aureus Positive Gram Stain - Final Assess/Plan/Problems-Billing Assessment: Ms. Rowley is a 68 yo female with a PMH significant for recent total right hip arthroplasty with revision, post op anemia, HTN, HLD, SVT, afib/flutter, GERD, and aortic regurgitation, admitted on 03/27 for washout of right hip. - Patient Problems (1) History of total replacement of right hip Code(s): Z96.641 - PRESENCE OF RIGHT ARTIFICIAL HIP JOINT Comment: Management per orthopedics, s/p right hip arthroplasty and revision, now with drainage Hip drainage culture positive for MSSA and enterococcus faecalis Blood cultures negative POD #4 I&D with washout Appreciate ID consultation - continue with vancomycin; rifampin started yesterday. (2) Anemia Code(s): D64.9 - ANEMIA, UNSPECIFIED Comment: H/H within baseline, slightly lower than previous, asymptomatic Not currently anticoagulated Will continue to monitor patient with Hx of post-op anemia Also with iron defiency, continue ferrous sulfate Continue to follow H/H prior to discharge (3) History of paroxysmal supraventricular tachycardia Code(s): Z86.79 - PERSONAL HISTORY OF OTHER DISEASES OF THE CIRCULATORY SYSTEM Comment: History of paroxsymal afib/aflutter/SVT Continue flecainide and diltiazem Per pharmacy, rifampin may make diltiazem less effective Continue to monitor on telemetry, currently rate controlled Continue potassium supplement (4) Hyperlipidemia Code(s): E78.5 - HYPERLIPIDEMIA, UNSPECIFIED Comment: Continue statin (5) Hypertension Code(s): I10 - ESSENTIAL (PRIMARY) HYPERTENSION Comment: SBP 100's Holding home lisinopril in setting of hypotension Likely r/t pain medications and cardizem and flecanide Would recommend further spacing pain medication in the setting of persistent hypotension (6) DVT prophylaxis Code(s): Z29.9 - ENCOUNTER FOR PROPHYLACTIC MEASURES, UNSPECIFIED Comment: Per ortho, previously on apixaban prior to admission SCDs ordered (7) Full code status Code(s): Z78.9 - OTHER SPECIFIED HEALTH STATUS Status and Disposition: Inpatient. Disposition per ortho. Will need continued IV antibiotics, working on home medication administration.
[2019-04-01] MEDS: RiFAMPin CAP* 300 MG CAP PO SCH ×2 (11:24→20:30)
[2019-04-01] MEDS: MICONAZOLE NITRATE 2% TOPICAL SCH ×2 (11:25→20:30)
[2019-04-01] MEDS ORDERED: Enoxaparin(*) 40 MG/0.4 ML SYR SUBCUT ONE (11:49)
[2019-04-01] MEDS: Potassium Chlor TAB* 20 MEQ TAB.ER PO SCH (12:06)
[2019-04-01 12:42] LABS: INR 1.05 (0.82-1.09)
[2019-04-01] MEDS: Baclofen TAB* 10 MG PO SCH (16:23)
[2019-04-01] MEDS: Acetaminophen TAB* 325 MG PO PRN (16:23)
[2019-04-01] MEDS ORDERED: Warfarin TAB(*) 5 MG PO ONE (17:00)
[2019-04-01] MEDS: CMCS:Rosuvastatin (NF) 5 MG TAB PO SCH (17:34)
[2019-04-01] MEDS: Cetirizine* 10 MG TAB PO SCH (17:34)
[2019-04-01] MEDS: Gabapentin CAP(*) 300 MG PO SCH (20:29)
[2019-04-01] MEDS: Senna TAB 8.6 mg* TAB PO SCH (20:30)
[2019-04-01] MEDS: Cyclobenzaprine TAB* 10 MG PO PRN (23:57)
[2019-04-02] MEDS: Vancomycin(*) 1,500 MG in NS 0.9% 250 ML* 250 ML IVPB SCH ×2 (05:43→17:47)
[2019-04-02 05:59] LABS: Hematocrit 29 % (35-47); Hemoglobin 9.5 g/dL (12.0-16.0)
[2019-04-02 06:04] LABS: INR 1.03 (0.82-1.09)
[2019-04-02] MEDS: Fluticasone NASAL SPRAY 50MCG* 16 gm SPRAY BTL BOTH NARES SCH (08:47)
[2019-04-02] MEDS: CMCS:OMEGA-3 FATTY ACIDS (NF) 1,000 MG CAP PO SCH ×2 (08:47→20:52)
[2019-04-02] MEDS: Flecainide TAB* 100 MG PO SCH ×2 (08:48→20:50)
[2019-04-02] MEDS: Vitamin THERAPEUTIC TAB PO SCH (08:48)
[2019-04-02] MEDS: Pantoprazole TAB * 40 MG TAB PO SCH (08:48)
[2019-04-02] MEDS: Ferrous Sulfate TAB* 325 MG PO SCH ×2 (08:48→20:49)
[2019-04-02] MEDS: Diltiazem CD CAP* 180 MG PO SCH (08:48)
[2019-04-02] MEDS: Magnesium Hydroxide LIQ* 30 ML UDC PO SCH ×2 (08:49→20:54)
[2019-04-02] MEDS: Ascorbic Acid TAB* 500 MG PO SCH ×2 (08:49→20:52)
[2019-04-02] MEDS: Docusate CAP* 100 MG PO SCH ×2 (08:49→20:50)
[2019-04-02] MEDS: oxyCODONE/Acetamin 5/325 MG* TAB PO PRN ×2 (10:40→22:50)
--- NOTE | 2019-04-02 11:13 | PN ---
Progress Note - Progress Note Date of Service: 04/02/19 SOAP: Subjective: Pt. is alert, feels tired today. No pain meds this AM. Objective: Vital Signs: Temp Pulse Resp BP Pulse Ox 98.2 F 122 20 137/73 94 04/02/19 07:19 04/02/19 07:19 04/02/19 10:40 04/02/19 07:19 04/02/19 07:19 Laboratory Results - last 24 hr 04/01/19 04/02/19 04/02/19 12:11 05:39 05:39 Hgb 9.5 L Hct 29 L INR (Anticoag Therapy) 1.05 1.03 RLE - dressing changed, minimal drainage minimal erythema. distally nvi. Assessment: 68 yo F pod 5 s/p I and D for infected RTHA Plan: plan IV vanco x 8 weeks appreciate ID picc line in plan d/c to home with vns 04/03/19 am tachycardic this AM - will give pain meds and moniter.
[2019-04-02] MEDS: MICONAZOLE NITRATE 2% TOPICAL SCH ×2 (11:39→20:59)
[2019-04-02] MEDS: RiFAMPin CAP* 300 MG CAP PO SCH ×2 (11:39→20:51)
[2019-04-02] MEDS: Potassium Chlor TAB* 20 MEQ TAB.ER PO SCH (11:39)
[2019-04-02] MEDS: NS 0.9% 1000 ML** 1,000 ML IV SCH (13:27)
[2019-04-02 13:37] LABS: Urine Appearance Clear; Urine Bilirubin Negative (Negative); Urine Blood Negative (Negative); Urine Color Yellow; Urine Glucose Negative (Negative); Urine Ketones Negative (Negative); Urine Nitrite Negative (Negative); Urine Protein Negative (Negative); Urine Specific Gravity 1.008 (1.010-1.030); Urine Urobilinogen Negative (Negative)
[2019-04-02] MEDS ORDERED: Metoprolol Succinate XL TAB* 25 MG PO ONE (16:46)
[2019-04-02] MEDS ORDERED: Warfarin TAB(*) 5 MG PO ONE (17:00)
--- NOTE | 2019-04-02 17:02 | PN ---
Subjective Date of Service: 04/02/19 Interval History: Pt reports palpatation and HR goes to 110s-120s but is sinus tachycardia no svt or a fib. D/w pt that sinus tach is related to underlying infection,pain and the physiologic nature. 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 replacement on 02/20/19 with right total hip arthroplasty, revision 03/02/19; sepsis due to Escherichia coli urinary tract infection; hypovolemic shock in the setting of perioperative blood loss, post-operative anemia; hypertension; hyperlipidemia; atrial fibrillation/flutter; supraventricular tachycardia; aortic regurgitation ; gastroesophageal reflux disease Objective Active Medications: Acetaminophen (Tylenol Tab*) 975 mg PO Q8HR PRN PRN Reason: PAIN - MILD Last Admin: 04/01/19 16:23 Dose: 975 mg Ascorbic Acid (Vitamin C Tab*) 1,000 mg PO BID [facility] Last Admin: 04/02/19 08:49 Dose: 1,000 mg Baclofen (Lioresal Tab*) 10 mg PO 1700 [facility] Last Admin: 04/01/19 16:23 Dose: 10 mg Bisacodyl (Dulcolax Supp*) 10 mg IA DAILY PRN PRN Reason: CONSTIPATION Cetirizine HCl (Zyrtec*) 10 mg PO QPM [facility] Last Admin: 04/01/19 17:34 Dose: 10 mg Cyclobenzaprine HCl (Flexeril Tab*) 10 mg PO Q6H PRN PRN Reason: SPASMS Last Admin: 04/01/19 23:57 Dose: 10 mg Diltiazem HCl (Cardizem Cd Cap*) 180 mg PO QAM [facility] Last Admin: 04/02/19 08:48 Dose: 180 mg Diphenhydramine HCl (Benadryl Iv*) 25 mg IV Q6H PRN PRN Reason: PRURITIS Diphenhydramine HCl (Benadryl Po*) 25 mg PO Q6H PRN PRN Reason: PRURITIS Docusate Sodium (Colace Cap*) 100 mg PO BID [facility] Last Admin: 04/02/19 08:49 Dose: 100 mg Ferrous Sulfate (Ferrous Sulfate Tab*) 325 mg PO BID [facility] Last Admin: 04/02/19 08:48 Dose: 325 mg Fish Oil (Fish Oil (Nf)) 1,000 mg PO BID [facility]; Protocol Last Admin: 04/02/19 08:47 Dose: 1,000 mg Flecainide Acetate (Tambocor Tab*) 100 mg PO BID [facility] Last Admin: 04/02/19 08:48 Dose: 100 mg Fluticasone Propionate (Flonase Nasal [place] 50mcg*) 2 spray BOTH NARES DAILY [facility] Last Admin: 04/02/19 08:47 Dose: 2 spray Gabapentin (Neurontin Cap(*)) 300 mg PO BEDTIME [facility] Last Admin: 04/01/19 20:29 Dose: 300 mg Heparin Sodium (Porcine) (Heparin Flush Picc/Ml/Cvc(*)) 1 - 3 ml FLUSH 0600, 1800 [facility]; Protocol Last Admin: 04/02/19 07:57 Dose: 1 ml Vancomycin HCl 1,500 mg/ (Sodium Chloride) 250 mls @ 166.667 mls/hr IVPB Q12H [facility] Last Admin: 04/02/19 05:43 Dose: 166.667 mls/hr Sodium Chloride (Ns 0.9% 1000 Ml) 1,000 mls @ 75 mls/hr IV PER RATE [facility] Last Admin: 04/02/19 13:27 Dose: 75 mls/hr Lactulose (Lactulose*) 30 ml PO BID PRN PRN Reason: CONSTIPATION Magnesium Hydroxide (Milk Of Magnesia Liq*) 30 ml PO BID [facility] Last Admin: 04/02/19 08:49 Dose: Not Given Magnesium Hydroxide (Milk Of Magnesia Liq*) 30 ml PO Q6H PRN PRN Reason: CONSTIPATION Morphine Sulfate (Morphine Inj (Syringe))*) 2 mg IV Q4H PRN PRN Reason: Pain - Unrelieved Multivitamins (Theragran Tab*) 1 tab PO DAILY [facility] Last Admin: 04/02/19 08:48 Dose: 1 tab Pto: Miconazole Nitrate [Zeasorb Af] 2% 1 applic TOPICAL BID [facility] Last Admin: 04/02/19 11:39 Dose: 1 applic Ondansetron HCl (Zofran Inj*) 4 mg IV Q6H PRN PRN Reason: NAUSEA Ondansetron HCl (Zofran Odt Tab*) 4 mg PO Q6H PRN PRN Reason: NAUSEA Oxycodone HCl (Roxycodone Tab*) 5 mg PO Q4H PRN PRN Reason: Pain - Breakthrough Last Admin: 04/01/19 23:57 Dose: 5 mg Oxycodone/Acetaminophen (Percocet 5/325 Tab*) 1 tab PO Q4H PRN PRN Reason: PAIN - MODERATE Last Admin: 04/02/19 10:40 Dose: 1 tab Oxycodone/Acetaminophen (Percocet 5/325 Tab*) 2 tab PO Q4H PRN PRN Reason: PAIN - SEVERE Last Admin: 03/29/19 23:57 Dose: 2 tab Pantoprazole Sodium (Protonix Tab*) 40 mg PO QAM [facility] Last Admin: 04/02/19 08:48 Dose: 40 mg Pharmacy Consult (Vancomycin Per Pharmacy*) 1 note FOLLOW UP .VANC PER PHARMACY RE[facility]; Protocol Pharmacy Profile Note (Coumadin Per Pharmacy*) 1 note FOLLOW UP .PER PHARMACY PROTOC [facility]; Protocol Pharmacy Profile Note (Coumadin Daily Reminder*) 1 note FOLLOW UP 1700 [facility] Potassium Chloride (Klor Con Er Tab*) 20 meq PO 1200 [facility] Last Admin: 04/02/19 11:39 Dose: 20 meq Rifampin (Rifampin Cap*) 300 mg PO BID [facility] Last Admin: 04/02/19 11:39 Dose: 300 mg Rosuvastatin Calcium (Crestor (Nf)) 5 mg PO QPM [facility]; Protocol Last Admin: 04/01/19 17:34 Dose: 5 mg Senna (Senokot 8.6 Mg Tab*) 1 tab PO BEDTIME [facility] Last Admin: 04/01/19 20:30 Dose: 1 tab Warfarin Sodium (Coumadin Tab(*)) 5 mg PO 1700 ONE Stop: 04/02/19 17:01 Vital Signs - 8 hr 04/02/19 04/02/19 04/02/19 10:40 11:15 13:31 Temperature 98.2 F Pulse Rate 112 Respiratory 20 20 18 Rate Blood Pressure 133/78 (mmHg) O2 Sat by Pulse 97 Oximetry 04/02/19 15:40 Temperature 97.7 F Pulse Rate 119 Respiratory 20 Rate Blood Pressure 126/76 (mmHg) O2 Sat by Pulse 98 Oximetry Oxygen Devices in Use Now: None Eyes: No Scleral Icterus Ears/Nose/Mouth/Throat: NL Teeth, Lips, Gums Neck: NL Appearance and Movements; NL JVP Respiratory: Symmetrical Chest Expansion and Respiratory Effort, Clear to Auscultation Cardiovascular: NL Sounds; No Murmurs; No JVD, RRR, - - tachycardic Abdominal: NL Sounds; No Tenderness; No Distention Extremities: No Edema Neurological: Alert and Oriented x 3 Result Diagrams: 04/02/19 05:39 04/01/19 05:17 Microbiology and Other Data: Microbiology 03/27/19 16:00 Skin and Soft Tissue MRSA/MSSA (PCR - Final Hip Right Mrsa Negative S.aureus Positive Gram Stain - Final Assess/Plan/Problems-Billing Assessment: Ms. Rowley is a 68 yo female with a PMH significant for recent total right hip arthroplasty with revision, post op anemia, HTN, HLD, SVT, afib/flutter, GERD, and aortic regurgitation, admitted on 03/27 for washout of right hip. - Patient Problems (1) History of total replacement of right hip Current Visit: No Status: Acute Code(s): Z96.641 - PRESENCE OF RIGHT ARTIFICIAL HIP JOINT SNOMED Code(s): 034866891538 Comment: Management per orthopedics, s/p right hip arthroplasty and revision, now with drainage Hip drainage culture positive for MSSA and enterococcus faecalis Blood cultures negative POD #5 I&D with washout Appreciate ID consultation - continue with vancomycin; rifampin started yesterday. (2) Anemia Current Visit: Yes Status: Acute Code(s): D64.9 - ANEMIA, UNSPECIFIED SNOMED Code(s): 397564027 Comment: restarted anticoagulation H/H stable Also with iron defiency, continue ferrous sulfate (3) DVT prophylaxis Current Visit: No Status: Acute Code(s): Z29.9 - ENCOUNTER FOR PROPHYLACTIC MEASURES, UNSPECIFIED SNOMED Code(s): 859362020 Comment: warfarin (4) Full code status Current Visit: No Status: Acute Code(s): Z78.9 - OTHER SPECIFIED HEALTH STATUS SNOMED Code(s): 572768233 (5) History of paroxysmal supraventricular tachycardia Current Visit: No Status: Chronic Code(s): Z86.79 - PERSONAL HISTORY OF OTHER DISEASES OF THE CIRCULATORY SYSTEM SNOMED Code(s): 095600478400190 Comment: History of paroxsymal afib/aflutter/SVT Continue flecainide and diltiazem Per pharmacy, rifampin may make diltiazem less effective Continue to monitor on telemetry tachycardic today will increase diltiazem to 240 mg to help with symptoms Continue potassium supplement (6) Hyperlipidemia Current Visit: No Status: Chronic Code(s): E78.5 - HYPERLIPIDEMIA, UNSPECIFIED SNOMED Code(s): 72866167 Comment: Continue statin (7) Hypertension Current Visit: No Status: Chronic Code(s): I10 - ESSENTIAL (PRIMARY) HYPERTENSION SNOMED Code(s): 08845308 Comment: continue current meds soft bp yesterday 250cc NS total in setting of sinus tachycardia improved Status and Disposition: Inpatient. Disposition per ortho. Will need continued IV antibiotics, working on home medication administration.
[2019-04-02] MEDS: Cetirizine* 10 MG TAB PO SCH (17:05)
[2019-04-02] MEDS: Baclofen TAB* 10 MG PO SCH (17:05)
[2019-04-02] MEDS: CMCS:Rosuvastatin (NF) 5 MG TAB PO SCH (17:05)
[2019-04-02] MEDS: Lactobacillus Acidophilus* 1 TAB PO SCH (20:50)
[2019-04-02] MEDS: Gabapentin CAP(*) 300 MG PO SCH (20:51)
[2019-04-02] MEDS: Senna TAB 8.6 mg* TAB PO SCH (20:54)
[2019-04-02] MEDS: Cyclobenzaprine TAB* 10 MG PO PRN (22:51)
[2019-04-03] MEDS: Vancomycin(*) 1,500 MG in NS 0.9% 250 ML* 250 ML IVPB SCH ×2 (06:02→17:43)
[2019-04-03] MEDS: NS 0.9% 1000 ML** 1,000 ML IV SCH (06:02)
[2019-04-03 06:32] LABS: ABS Basophils 0.1 10^3/ul (0-0.2); ABS Eosinophils 0.2 10^3/ul (0-0.6); ABS Lymphocytes 0.7 10^3/ul (1.0-4.8); ABS Monocytes 0.6 10^3/ul (0-0.8); Eosinophil % 5.2 %; Hematocrit 28 % (35-47); Hemoglobin 9.2 g/dL (12.0-16.0); Lymphocyte % 15.7 %; Mean Corpuscular HGB Conc 34 g/dL (31-36); Mean Corpuscular Hemoglobin 31 pg (27-31); Mean Corpuscular Volume 93 fL (80-97); Mean Platelet Volume 5.8 fL (7.4-10.4); Nucleated Red Blood Cells % 0.1; Platelet Count 302 10^3/uL (150-450); Red Blood Count 2.95 10^6 /uL (3.70-4.87); Red Cell Distribution Width 16 % (10-15); White Blood Count 4.6 10^3/uL (3.5-10.8)
[2019-04-03 06:39] LABS: INR 1.09 (0.82-1.09)
[2019-04-03 06:49] LABS: BUN/Creatinine Ratio 21.4 (8-20); Calcium 8.4 mg/dL (8.6-10.3); EGFR African American 180.5 (>60); EGFR Non-African American 149.2 (>60); Magnesium 2.1 mg/dL (1.9-2.7); Potassium 3.7 mmol/L (3.5-5.0)
[2019-04-03] MEDS: Fluticasone NASAL SPRAY 50MCG* 16 gm SPRAY BTL BOTH NARES SCH (08:41)
[2019-04-03] MEDS: CMCS:OMEGA-3 FATTY ACIDS (NF) 1,000 MG CAP PO SCH ×2 (08:44→22:48)
[2019-04-03] MEDS: Diltiazem CD CAP* 240 MG PO SCH (08:45)
[2019-04-03] MEDS: Lactobacillus Acidophilus* 1 TAB PO SCH ×2 (08:45→22:49)
[2019-04-03] MEDS: Pantoprazole TAB * 40 MG TAB PO SCH (08:45)
[2019-04-03] MEDS: Flecainide TAB* 100 MG PO SCH ×2 (08:45→22:49)
[2019-04-03] MEDS: Vitamin THERAPEUTIC TAB PO SCH (08:45)
[2019-04-03] MEDS: Ferrous Sulfate TAB* 325 MG PO SCH ×2 (08:45→23:01)
[2019-04-03] MEDS: Docusate CAP* 100 MG PO SCH ×2 (08:45→22:50)
[2019-04-03] MEDS: Ascorbic Acid TAB* 500 MG PO SCH ×2 (08:45→23:02)
[2019-04-03] MEDS: Magnesium Hydroxide LIQ* 30 ML UDC PO SCH ×2 (08:47→23:01)
[2019-04-03] MEDS: oxyCODONE/Acetamin 5/325 MG* TAB PO PRN ×2 (08:48→23:12)
[2019-04-03] MEDS: MICONAZOLE NITRATE 2% TOPICAL SCH ×2 (08:50→22:51)
--- NOTE | 2019-04-03 09:16 | PN ---
Progress Note - Progress Note Date of Service: 04/03/19 SOAP: Subjective: CC: Infected right prosthetic hip HPI: Ms. Rowley is a 68 yo male with PMH significant for HTN, A fib, morbid obesity, HLD, osteoarthritis, and right hip replacement and revision in February; who presented to the hospital with an infected right hip. Denies fever, chills, nausea, vomiting, diarrhea, or rash. Pain is controlled in her right hip, describes the pain as a burning sensation. She reports decreased appetite. She had an episode of palpitations with tachycardia over the weekend after starting Rifampin. Metoprolol was given x 1 and Cardizem was increased and heart rate now controlled. Objective: Vital Signs - 8 hr 04/03/19 04/03/19 04/03/19 04:00 07:19 07:43 Temperature 97.9 F 98.5 F Pulse Rate 69 65 Respiratory 18 16 18 Rate Blood Pressure 122/56 125/64 (mmHg) O2 Sat by Pulse 98 Oximetry Physical Exam: General: NAD, sitting up in a chair Neurological: Alert and Oriented x 3 HEENT: Moist MM, no thrush Cardiovascular: Heart rate regular Respiratory: Lung sounds clear Abdominal: Bowel sounds present; ABD large, soft, non tender MSK: WEIR Skin: No rash Laboratory Results - last 24 hr 04/02/19 04/03/19 04/03/19 12:20 06:16 06:16 WBC 4.6 RBC 2.95 L Hgb 9.2 L Hct 28 L MCV 93 MCH 31 MCHC 34 RDW 16 H Plt Count 302 MPV 5.8 L Neut % (Auto) 65.9 Lymph % (Auto) 15.7 [place] % (Auto) 12.0 Eos % (Auto) 5.2 Baso % (Auto) 1.2 Absolute Neuts (auto) 3.0 Absolute Lymphs (auto) 0.7 L Absolute Monos (auto) 0.6 Absolute Eos (auto) 0.2 Absolute Basos (auto) 0.1 Absolute Nucleated RBC 0.0 Nucleated RBC % 0.1 INR (Anticoag Therapy) Sodium 143 Potassium 3.7 Chloride 111 Carbon Dioxide 26 Anion Gap 6 BUN 9 Creatinine 0.42 L Est GFR ( Amer) 180.5 Est GFR (Non-Af Amer) 149.2 BUN/Creatinine Ratio 21.4 H Glucose 97 Calcium 8.4 L Magnesium 2.1 Urine Color Yellow Urine Appearance Clear Urine pH 7.0 Ur Specific [place] 1.008 L Urine Protein Negative Urine Ketones Negative Urine Blood Negative Urine Nitrate Negative Urine Bilirubin Negative Urine Urobilinogen Negative Ur Leukocyte Esterase Negative Urine Glucose Negative Urine Ascorbic Acid * A Microbiology 04/01/19 16:40 Stool Occult Blood (DESEAN) - Final Stool 03/27/19 16:00 Aerobic Blood Culture - Final Blood Venous No Growth Day 5 Anaerobic Blood Culture - Final No Growth Day 5 03/27/19 16:00 Aerobic Blood Culture - Final Blood Venous No Growth Day 5 Anaerobic Blood Culture - Final No Growth Day 5 03/28/19 20:19 Gram Stain - Final Joint Fluid(Synovial) - Hip Right Body Fluid Culture - Final Enterococcus Faecalis Corynebacterium Striatum Skin and Soft Tissue MRSA/MSSA (PCR - Final Mrsa Negative S.aureus Positive 03/28/19 20:19 Acid Fast Bacilli Smear - Final Body Fluid - Right 03/28/19 20:19 Anaerobic Culture - Final Body Fluid - Hip Right 03/28/19 20:19 Anaerobic Culture - Final Wound 03/28/19 20:19 Skin and Soft Tissue MRSA/MSSA (PCR - Final Hip Right Mrsa Negative S.aureus Positive Gram Stain - Final Wound Culture - Final Staphylococcus Aureus Enterococcus Faecalis Normal Endy 03/27/19 16:00 Anaerobic Culture - Final Wound - Hip Right 03/27/19 16:00 Skin and Soft Tissue MRSA/MSSA (PCR - Final Hip Right Mrsa Negative S.aureus Positive Gram Stain - Final Wound Culture - Final Staphylococcus Aureus Enterococcus Faecalis Normal Endy 03/28/19 20:19 Acid Fast Bacilli Smear - Final Wound - Hip Right Assessment: 1. Septic prosthetic right hip. Wound culture from [facility] on 03/26 with enterococcus faecalis, staph aurus, and normal endy. Wound culture on admission to the hospital with staph aureus and enterococcus faecalis. Cultures from OR with enterococcus faecalis and PCR positive for staph aureus, and corynebacterium. Blood cultures with no growth, day 5. S/P I+D and washout, POD #6. Afebrile and no leukocytosis. 2. Morbid Obesity. 3. History bilateral total knee arthroplasty. Knees benign. Plan: Continue vancomycin, trough goal 15-20. Will need 8 weeks of IV ABX, day 7. Will need weekly labs while on IV ABX: CBC, CMP, and CRP. PICC line has been placed. Continue Rifampin 300 mg PO BID, she will need close monitoring as rifampin can decrease the effectiveness of her Cardizem. She was started in Warfarin, will need close monitoring of INR, do not resume Eliquis or other NOAC while she is on Rifampin. 25 minutes floor time > 50% spent with the patient discussing culture results, fdc IV ABX, need for PICC line. All questions answered. She will call the office for fever, rash, or diarrhea.
[2019-04-03] MEDS: RiFAMPin CAP* 300 MG CAP PO SCH ×2 (10:50→22:51)
[2019-04-03] MEDS: Potassium Chlor TAB* 20 MEQ TAB.ER PO SCH (10:50)
--- NOTE | 2019-04-03 16:13 | PN ---
Progress Note - Progress Note Date of Service: 04/03/19 SOAP: Subjective: []Pt seen at bedside, she feels well without complaints today. Denies CP, SOB, dizziness, nausea or hip pain. She has been up with PT today and did not become tachycardic Objective: []Gen: Appears well, NAD RLE: Right hip dressing CDI without surrounding erythema, no strike through. NVI distally Assessment: []68 yo F s/p I and D for infected RTHA Plan: plan IV vanco x 8 weeks appreciate ID input picc line in plan d/c to home with vns 04/04/19 am, [facility] teaching at 9 am Vital Signs Temp 98.1 F 04/03/19 16:15 Pulse 71 04/03/19 16:15 Resp 17 04/03/19 16:15 BP 125/56 04/03/19 16:15 Pulse Ox 96 04/03/19 16:15 Intake & Output 04/02/19 04/03/19 04/03/19 18:59 06:59 18:59 Intake Total 1650 1270 690 Output Total 1800 1050 500 Balance -150 220 190 Intake: IV Fluids 35 990 NS 35 990 IVPB 295 280 ABX - VANCOMYCIN 295 280 Oral 1320 690 Output: Urine 1800 1050 500 Other: Estimated Void Medium # Bowel Movements 1 Estimated Stool Amount Medium # Voids 1 Laboratory Last Values WBC 4.6 10^3/uL (3.5-10.8) 04/03/19 06:16 RBC 2.95 10^6 /uL (3.70-4.87) L 04/03/19 06:16 Hgb 9.2 g/dL (12.0-16.0) L 04/03/19 06:16 Hct 28 % (35-47) L 04/03/19 06:16 MCV 93 fL (80-97) 04/03/19 06:16 MCH 31 pg (27-31) 04/03/19 06:16 MCHC 34 g/dL (31-36) 04/03/19 06:16 RDW 16 % (10-15) H 04/03/19 06:16 Plt Count 302 10^3/uL (150-450) 04/03/19 06:16 MPV 5.8 fL (7.4-10.4) L 04/03/19 06:16 Neut % (Auto) 65.9 % 04/03/19 06:16 Lymph % (Auto) 15.7 % 04/03/19 06:16 [place] % (Auto) 12.0 % 04/03/19 06:16 Eos % (Auto) 5.2 % 04/03/19 06:16 Baso % (Auto) 1.2 % 04/03/19 06:16 Absolute Neuts (auto) 3.0 10^3/ul (1.5-7.7) 04/03/19 06:16 Absolute Lymphs (auto) 0.7 10^3/ul (1.0-4.8) L 04/03/19 06:16 Absolute Monos (auto) 0.6 10^3/ul (0-0.8) 04/03/19 06:16 Absolute Eos (auto) 0.2 10^3/ul (0-0.6) 04/03/19 06:16 Absolute Basos (auto) 0.1 10^3/ul (0-0.2) 04/03/19 06:16 Absolute Nucleated RBC 0.0 10^3/ul 04/03/19 06:16 Nucleated RBC % 0.1 04/03/19 06:16 ESR 55 mm/Hr (0-29) H 03/27/19 16:00 INR (Anticoag Therapy) 1.09 (0.82-1.09) 04/03/19 06:16 Sodium 143 mmol/L (135-145) 04/03/19 06:16 Potassium 3.7 mmol/L (3.5-5.0) 04/03/19 06:16 Chloride 111 mmol/L (101-111) 04/03/19 06:16 Carbon Dioxide 26 mmol/L (22-32) 04/03/19 06:16 Anion Gap 6 mmol/L (2-11) 04/03/19 06:16 BUN 9 mg/dL (6-24) 04/03/19 06:16 Creatinine 0.42 mg/dL (0.51-0.95) L 04/03/19 06:16 Est GFR ( Amer) 180.5 (>60) 04/03/19 06:16 Est GFR (Non-Af Amer) 149.2 (>60) 04/03/19 06:16 BUN/Creatinine Ratio 21.4 (8-20) H 04/03/19 06:16 Glucose 97 mg/dL (70-100) 04/03/19 06:16 Calcium 8.4 mg/dL (8.6-10.3) L 04/03/19 06:16 Magnesium 2.1 mg/dL (1.9-2.7) 04/03/19 06:16 C-Reactive Protein 56.80 mg/L (<8.01) H 03/28/19 05:15 Urine Color Yellow 04/02/19 12:20 Urine Appearance Clear 04/02/19 12:20 Urine pH 7.0 (5-9) 04/02/19 12:20 Ur Specific [place] 1.008 (1.010-1.030) L 04/02/19 12:20 Urine Protein Negative (Negative) 04/02/19 12:20 Urine Ketones Negative (Negative) 04/02/19 12:20 Urine Blood Negative (Negative) 04/02/19 12:20 Urine Nitrate Negative (Negative) 04/02/19 12:20 Urine Bilirubin Negative (Negative) 04/02/19 12:20 Urine Urobilinogen Negative (Negative) 04/02/19 12:20 Ur Leukocyte Esterase Negative (Negative) 04/02/19 12:20 Urine Glucose Negative (Negative) 04/02/19 12:20 Urine Ascorbic Acid * (Negative) A 04/02/19 12:20 Vancomycin Trough 13.7 mcg/mL 04/01/19 05:17 Blood Type O Negative 03/28/19 05:15 Antibody Screen Negative 03/28/19 05:15
[2019-04-03] MEDS: Baclofen TAB* 10 MG PO SCH (16:30)
[2019-04-03] MEDS: Acetaminophen TAB* 325 MG PO PRN (16:30)
[2019-04-03] MEDS ORDERED: Warfarin TAB(*) 7.5 MG PO ONE (17:00)
[2019-04-03] MEDS: CMCS:Rosuvastatin (NF) 5 MG TAB PO SCH (17:42)
[2019-04-03] MEDS: Cetirizine* 10 MG TAB PO SCH (17:42)
[2019-04-03 18:04] LABS: C Reactive Protein 25.49 mg/L (<8.01)
--- NOTE | 2019-04-03 18:34 | PN ---
Subjective Date of Service: 04/03/19 Interval History: Pt is feeling ok today. She states her pain is tolerable. She has ambulated some today. No SOB. No palpitations since yesterday. No SOB. 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 replacement on 02/20/19 with right total hip arthroplasty, revision 03/02/19; sepsis due to Escherichia coli urinary tract infection; hypovolemic shock in the setting of perioperative blood loss, post-operative anemia; hypertension; hyperlipidemia; atrial fibrillation/flutter; supraventricular tachycardia; aortic regurgitation ; gastroesophageal reflux disease Objective Active Medications: Acetaminophen (Tylenol Tab*) 975 mg PO Q8HR PRN PRN Reason: PAIN - MILD Last Admin: 04/03/19 16:30 Dose: 975 mg Ascorbic Acid (Vitamin C Tab*) 1,000 mg PO BID [facility] Last Admin: 04/03/19 08:45 Dose: 1,000 mg Baclofen (Lioresal Tab*) 10 mg PO 1700 [facility] Last Admin: 04/03/19 16:30 Dose: 10 mg Bisacodyl (Dulcolax Supp*) 10 mg [place] DAILY PRN PRN Reason: CONSTIPATION Cetirizine HCl (Zyrtec*) 10 mg PO QPM [facility] Last Admin: 04/03/19 17:42 Dose: 10 mg Cyclobenzaprine HCl (Flexeril Tab*) 10 mg PO Q6H PRN PRN Reason: SPASMS Last Admin: 04/02/19 22:51 Dose: 10 mg Diltiazem HCl (Cardizem Cd Cap*) 240 mg PO QAM [facility] Last Admin: 04/03/19 08:45 Dose: 240 mg Diphenhydramine HCl (Benadryl Iv*) 25 mg IV Q6H PRN PRN Reason: PRURITIS Diphenhydramine HCl (Benadryl Po*) 25 mg PO Q6H PRN PRN Reason: PRURITIS Docusate Sodium (Colace Cap*) 100 mg PO BID [facility] Last Admin: 04/03/19 08:45 Dose: 100 mg Ferrous Sulfate (Ferrous Sulfate Tab*) 325 mg PO BID [facility] Last Admin: 04/03/19 08:45 Dose: 325 mg Fish Oil (Fish Oil (Nf)) 1,000 mg PO BID [facility]; Protocol Last Admin: 04/03/19 08:44 Dose: 1,000 mg Flecainide Acetate (Tambocor Tab*) 100 mg PO BID [facility] Last Admin: 04/03/19 08:45 Dose: 100 mg Fluticasone Propionate (Flonase Nasal [place] 50mcg*) 2 spray BOTH NARES DAILY [facility] Last Admin: 04/03/19 08:41 Dose: 2 spray Gabapentin (Neurontin Cap(*)) 300 mg PO BEDTIME [facility] Last Admin: 04/02/19 20:51 Dose: 300 mg Heparin Sodium (Porcine) (Heparin Flush Picc/Ml/Cvc(*)) 1 - 3 ml FLUSH 0600, 1800 [facility]; Protocol Last Admin: 04/03/19 17:40 Dose: Not Given Vancomycin HCl 1,500 mg/ (Sodium Chloride) 250 mls @ 166.667 mls/hr IVPB Q12H [facility] Last Admin: 04/03/19 17:43 Dose: 166.667 mls/hr Sodium Chloride (Ns 0.9% 1000 Ml) 1,000 mls @ 75 mls/hr IV PER RATE [facility] Last Admin: 04/03/19 06:02 Dose: 75 mls/hr Lactobacillus Rhamnosus (Lactobacillus Acidophilus*) 1 tab PO BID [facility] Last Admin: 04/03/19 08:45 Dose: 1 tab Lactulose (Lactulose*) 30 ml PO BID PRN PRN Reason: CONSTIPATION Magnesium Hydroxide (Milk Of Magnesia Liq*) 30 ml PO BID [facility] Last Admin: 04/03/19 08:47 Dose: Not Given Magnesium Hydroxide (Milk Of Magnesia Liq*) 30 ml PO Q6H PRN PRN Reason: CONSTIPATION Multivitamins (Theragran Tab*) 1 tab PO DAILY [facility] Last Admin: 04/03/19 08:45 Dose: 1 tab Pto: Miconazole Nitrate [Zeasorb Af] 2% 1 applic TOPICAL BID [facility] Last Admin: 04/03/19 08:50 Dose: 1 applic Ondansetron HCl (Zofran Inj*) 4 mg IV Q6H PRN PRN Reason: NAUSEA Ondansetron HCl (Zofran Odt Tab*) 4 mg PO Q6H PRN PRN Reason: NAUSEA Oxycodone/Acetaminophen (Percocet 5/325 Tab*) 1 tab PO Q4H PRN PRN Reason: PAIN - MODERATE Pantoprazole Sodium (Protonix Tab*) 40 mg PO QAM [facility] Last Admin: 04/03/19 08:45 Dose: 40 mg Pharmacy Consult (Vancomycin Per Pharmacy*) 1 note FOLLOW UP .VANC PER PHARMACY [facility]; Protocol Pharmacy Profile Note (Coumadin Per Pharmacy*) 1 note FOLLOW UP .PER PHARMACY PROTOC [facility]; Protocol Pharmacy Profile Note (Coumadin Daily Reminder*) 1 note FOLLOW UP 1700 [facility] Last Admin: 04/03/19 16:31 Dose: 1 note Potassium Chloride (Klor Con Er Tab*) 20 meq PO 1200 [facility] Last Admin: 04/03/19 10:50 Dose: 20 meq Rifampin (Rifampin Cap*) 300 mg PO BID [facility] Last Admin: 04/03/19 10:50 Dose: 300 mg Rosuvastatin Calcium (Crestor (Nf)) 5 mg PO QPM [facility]; Protocol Last Admin: 04/03/19 17:42 Dose: 5 mg Senna (Senokot 8.6 Mg Tab*) 1 tab PO BEDTIME [facility] Last Admin: 04/02/19 20:54 Dose: Not Given Vital Signs - 8 hr 04/03/19 04/03/19 10:49 16:15 Temperature 98.1 F Pulse Rate 71 Respiratory 18 17 Rate Blood Pressure 125/56 (mmHg) O2 Sat by Pulse 96 Oximetry Oxygen Devices in Use Now: None Appearance: Elderly female sitting up in a chair, NAD Eyes: No Scleral Icterus Ears/Nose/Mouth/Throat: Mucous Membranes Moist Respiratory: Symmetrical Chest Expansion and Respiratory Effort, Clear to Auscultation Cardiovascular: NL Sounds; No Murmurs; No JVD, RRR, - - 1-2+ R>L LE edema Abdominal: NL Sounds; No Tenderness; No Distention Extremities: No Clubbing, Cyanosis Skin: No Nodules or Sclerosis Neurological: Alert and Oriented x 3 Result Diagrams: 04/03/19 06:16 04/03/19 06:16 Microbiology and Other Data: Microbiology 03/27/19 16:00 Skin and Soft Tissue MRSA/MSSA (PCR - Final Hip Right Mrsa Negative S.aureus Positive Gram Stain - Final Assess/Plan/Problems-Billing Ms. Rolwey is a 68 yo female with a PMH significant for recent total right hip arthroplasty with revision, post op anemia, HTN, HLD, SVT, afib/flutter, GERD, and aortic regurgitation, admitted on 03/27 for washout of right hip. - Patient Problems (1) Palpitations Current Visit: Yes Status: Acute Code(s): R00.2 - PALPITATIONS SNOMED Code (s): 94670784 Comment: Pt with sinus tachycardia over the weekened. Resolved with one time dose of metoprolol XL. Cardizem CD increased to 240mg daily (rifampin can reduce the effectivness of the cardizem). Monitor on tele. Electrolytes in good range. (2) Infection of right prosthetic hip joint Current Visit: Yes Status: Acute Code(s): T84.51XA - INFECT/INFLM REACTION DUE TO INTERNAL RIGHT HIP PROSTH, INIT SNOMED Code(s): 636080936 Comment: Pt grew staph, enterococcus and corynebacterium. She remains on vanco and rifampin. She will need 8 weeks of Abx therapy with weekly labs. Likely home tomorrow. (3) Anemia Current Visit: Yes Status: Acute Code(s): D64.9 - ANEMIA, UNSPECIFIED SNOMED Code(s): 057332982 Comment: H/H stable. Monitor intermittently. Continue ferrous sulfate. (4) Hyperlipidemia Current Visit: Yes Status: Chronic Code(s): E78.5 - HYPERLIPIDEMIA, UNSPECIFIED SNOMED Code(s): 77177460 Comment: Continue crestor. (5) Hypertension Current Visit: Yes Status: Chronic Code(s): I10 - ESSENTIAL (PRIMARY) HYPERTENSION SNOMED Code(s): 71758126 Comment: BP is under good control on diltiazem CD 240mg daily (6) History of paroxysmal supraventricular tachycardia Current Visit: Yes Status: Chronic Code(s): Z86.79 - PERSONAL HISTORY OF OTHER DISEASES OF THE CIRCULATORY SYSTEM SNOMED Code(s): 423229940644048 Comment: History of paroxsymal SVT. Continue flecainide and diltiazem. Continue to monitor on telemetry. (7) PAF (paroxysmal atrial fibrillation) Current Visit: Yes Status: Acute Code(s): I48.0 - PAROXYSMAL ATRIAL FIBRILLATION SNOMED Code(s): 867462071 Comment: No evidence of afib during this admission. Previous discussion between Dr. Merchant and patient about full anticoagulation concluded pt would be on just ASA as stroke prevention for now. (8) DVT prophylaxis Current Visit: Yes Status: Acute Code(s): Z29.9 - ENCOUNTER FOR PROPHYLACTIC MEASURES, UNSPECIFIED SNOMED Code(s): 877770387 Comment: SQ heparin while hospitalized. (9) Full code status Current Visit: Yes Status: Acute Code(s): Z78.9 - OTHER SPECIFIED HEALTH STATUS SNOMED Code(s): 293469108 Status and Disposition: Inpatient. Disposition per ortho. Will need continued IV antibiotics, working on home medication administration.
[2019-04-03] MEDS: Heparin VIAL(*) 5000 UNITS/ML VIAL (FIVE THOUSAND) SUBCUT SCH (22:48)
[2019-04-03] MEDS: Gabapentin CAP(*) 300 MG PO SCH (22:50)
[2019-04-03] MEDS: Senna TAB 8.6 mg* TAB PO SCH (22:50)
[2019-04-03] MEDS: Cyclobenzaprine TAB* 10 MG PO PRN (23:01)
[2019-04-04] MEDS: Vancomycin(*) 1,500 MG in NS 0.9% 250 ML* 250 ML IVPB SCH (05:59)
[2019-04-04 06:13] LABS: INR 1.27 (0.82-1.09)
[2019-04-04] MEDS: Heparin VIAL(*) 5000 UNITS/ML VIAL (FIVE THOUSAND) SUBCUT SCH ×2 (06:18→12:35)
[2019-04-04] MEDS: Magnesium Hydroxide LIQ* 30 ML UDC PO SCH (08:17)
[2019-04-04] MEDS: Fluticasone NASAL SPRAY 50MCG* 16 gm SPRAY BTL BOTH NARES SCH (08:41)
[2019-04-04] MEDS: CMCS:OMEGA-3 FATTY ACIDS (NF) 1,000 MG CAP PO SCH (08:41)
[2019-04-04] MEDS: Flecainide TAB* 100 MG PO SCH (08:41)
[2019-04-04] MEDS: MICONAZOLE NITRATE 2% TOPICAL SCH (08:41)
[2019-04-04] MEDS: Docusate CAP* 100 MG PO SCH (08:56)
[2019-04-04] MEDS: Lactobacillus Acidophilus* 1 TAB PO SCH (08:56)
[2019-04-04] MEDS: oxyCODONE/Acetamin 5/325 MG* TAB PO PRN ×2 (08:57→14:41)
[2019-04-04] MEDS: Acetaminophen TAB* 325 MG PO PRN (08:57)
[2019-04-04] MEDS: Pantoprazole TAB * 40 MG TAB PO SCH (08:58)
[2019-04-04] MEDS: Ascorbic Acid TAB* 500 MG PO SCH (08:58)
[2019-04-04] MEDS: Ferrous Sulfate TAB* 325 MG PO SCH (08:58)
[2019-04-04] MEDS: Diltiazem CD CAP* 240 MG PO SCH (08:58)
[2019-04-04] MEDS: Vitamin THERAPEUTIC TAB PO SCH (08:58)
--- NOTE | 2019-04-04 09:22 | PN ---
Subjective Date of Service: 04/04/19 Interval History: Pt is feeling well this AM. She has a mild cough, she thinks possibly secondary to post nasal drip. She states she has a sinus headache this AM. She would like to restart meloxicam as she has been very stiff when moving. She notes a huge difference when she is on the meloxicam. Objective Active Medications: Acetaminophen (Tylenol Tab*) 975 mg PO Q8HR PRN PRN Reason: PAIN - MILD Last Admin: 04/04/19 08:57 Dose: 325 mg Ascorbic Acid (Vitamin C Tab*) 1,000 mg PO BID [facility] Last Admin: 04/04/19 08:58 Dose: 1,000 mg Baclofen (Lioresal Tab*) 10 mg PO 1700 [facility] Last Admin: 04/03/19 16:30 Dose: 10 mg Bisacodyl (Dulcolax Supp*) 10 mg [place] DAILY PRN PRN Reason: CONSTIPATION Cetirizine HCl (Zyrtec*) 10 mg PO QPM [facility] Last Admin: 04/03/19 17:42 Dose: 10 mg Cyclobenzaprine HCl (Flexeril Tab*) 10 mg PO Q6H PRN PRN Reason: SPASMS Last Admin: 04/03/19 23:01 Dose: 10 mg Diltiazem HCl (Cardizem Cd Cap*) 240 mg PO QAM [facility] Last Admin: 04/04/19 08:58 Dose: 240 mg Diphenhydramine HCl (Benadryl Iv*) 25 mg IV Q6H PRN PRN Reason: PRURITIS Diphenhydramine HCl (Benadryl Po*) 25 mg PO Q6H PRN PRN Reason: PRURITIS Docusate Sodium (Colace Cap*) 100 mg PO BID [facility] Last Admin: 04/04/19 08:56 Dose: 100 mg Ferrous Sulfate (Ferrous Sulfate Tab*) 325 mg PO BID [facility] Last Admin: 04/04/19 08:58 Dose: 325 mg Fish Oil (Fish Oil (Nf)) 1,000 mg PO BID [facility]; Protocol Last Admin: 04/04/19 08:41 Dose: 1,000 mg Flecainide Acetate (Tambocor Tab*) 100 mg PO BID [facility] Last Admin: 04/04/19 08:41 Dose: 100 mg Fluticasone Propionate (Flonase Nasal [place] 50mcg*) 2 spray BOTH NARES DAILY [facility] Last Admin: 04/04/19 08:41 Dose: 2 spray Gabapentin (Neurontin Cap(*)) 300 mg PO BEDTIME [facility] Last Admin: 04/03/19 22:50 Dose: 300 mg Heparin Sodium (Porcine) (Heparin Flush Picc/Ml/Cvc(*)) 1 - 3 ml FLUSH 0600, 1800 [facility]; Protocol Last Admin: 04/04/19 08:59 Dose: 1 ml Heparin Sodium (Porcine) (Heparin Vial(*)) 5,000 units SUBCUT Q8HR [facility] Last Admin: 04/04/19 06:18 Dose: 5,000 units Vancomycin HCl 1,500 mg/ (Sodium Chloride) 250 mls @ 166.667 mls/hr IVPB Q12H [facility] Last Admin: 04/04/19 05:59 Dose: 166.667 mls/hr Sodium Chloride (Ns 0.9% 1000 Ml) 1,000 mls @ 75 mls/hr IV PER RATE [facility] Last Admin: 04/03/19 06:02 Dose: 75 mls/hr Lactobacillus Rhamnosus (Lactobacillus Acidophilus*) 1 tab PO BID [facility] Last Admin: 04/04/19 08:56 Dose: 1 tab Lactulose (Lactulose*) 30 ml PO BID PRN PRN Reason: CONSTIPATION Magnesium Hydroxide (Milk Of Magnesia Liq*) 30 ml PO BID [facility] Last Admin: 04/04/19 08:17 Dose: Not Given Magnesium Hydroxide (Milk Of Magnesia Liq*) 30 ml PO Q6H PRN PRN Reason: CONSTIPATION Multivitamins (Theragran Tab*) 1 tab PO DAILY [facility] Last Admin: 04/04/19 08:58 Dose: 1 tab Pto: Miconazole Nitrate [Zeasorb Af] 2% 1 applic TOPICAL BID [facility] Last Admin: 04/04/19 08:41 Dose: 1 applic Ondansetron HCl (Zofran Inj*) 4 mg IV Q6H PRN PRN Reason: NAUSEA Ondansetron HCl (Zofran Odt Tab*) 4 mg PO Q6H PRN PRN Reason: NAUSEA Oxycodone/Acetaminophen (Percocet 5/325 Tab*) 1 tab PO Q4H PRN PRN Reason: PAIN - MODERATE Last Admin: 04/04/19 08:57 Dose: 1 tab Pantoprazole Sodium (Protonix Tab*) 40 mg PO QAM [facility] Last Admin: 04/04/19 08:58 Dose: 40 mg Pharmacy Consult (Vancomycin Per Pharmacy*) 1 note FOLLOW UP .VANC PER PHARMACY [facility]; Protocol Pharmacy Profile Note (Coumadin Per Pharmacy*) 1 note FOLLOW UP .PER PHARMACY PROTOC [facility]; Protocol Pharmacy Profile Note (Coumadin Daily Reminder*) 1 note FOLLOW UP 1700 [facility] Last Admin: 04/03/19 16:31 Dose: 1 note Potassium Chloride (Klor Con Er Tab*) 20 meq PO 1200 [facility] Last Admin: 04/03/19 10:50 Dose: 20 meq Rifampin (Rifampin Cap*) 300 mg PO BID [facility] Last Admin: 04/03/19 22:51 Dose: 300 mg Rosuvastatin Calcium (Crestor (Nf)) 5 mg PO QPM [facility]; Protocol Last Admin: 04/03/19 17:42 Dose: 5 mg Senna (Senokot 8.6 Mg Tab*) 1 tab PO BEDTIME [facility] Last Admin: 04/03/19 22:50 Dose: 1 tab Vital Signs - 8 hr 04/04/19 04/04/19 04/04/19 01:49 03:33 04:16 Temperature 98.1 F Pulse Rate 70 Respiratory 17 17 18 Rate Blood Pressure 125/59 (mmHg) O2 Sat by Pulse 93 Oximetry 04/04/19 04/04/19 08:05 08:57 Temperature 98.4 F Pulse Rate 72 Respiratory 16 16 Rate Blood Pressure 131/71 (mmHg) O2 Sat by Pulse 96 Oximetry Oxygen Devices in Use Now: None Appearance: Elderly female sitting up in recliner chair, NAD Eyes: No Scleral Icterus Ears/Nose/Mouth/Throat: Mucous Membranes Moist Respiratory: Symmetrical Chest Expansion and Respiratory Effort, - - RLL crackles Cardiovascular: NL Sounds; No Murmurs; No JVD, RRR, - - trace LE edema bilaterally Abdominal: NL Sounds; No Tenderness; No Distention Extremities: No Clubbing, Cyanosis Skin: No Nodules or Sclerosis Neurological: Alert and Oriented x 3 Result Diagrams: 04/03/19 06:16 04/03/19 06:16 Microbiology and Other Data: Microbiology 03/27/19 16:00 Skin and Soft Tissue MRSA/MSSA (PCR - Final Hip Right Mrsa Negative S.aureus Positive Gram Stain - Final Assess/Plan/Problems-Billing Ms. Rowley is a 68 yo female with a PMH significant for recent total right hip arthroplasty with revision, post op anemia, HTN, HLD, SVT, afib/flutter, GERD, and aortic regurgitation, admitted on 03/27 for washout of right hip. - Patient Problems (1) Palpitations Current Visit: Yes Status: Acute Code(s): R00.2 - PALPITATIONS SNOMED Code (s): 48513427 Comment: Pt has remained in NSR. Continue higher dose diltiazem CD. Once off the rifampin can reduce back to usual dose. (2) Infection of right prosthetic hip joint Current Visit: Yes Status: Acute Code(s): T84.51XA - INFECT/INFLM REACTION DUE TO INTERNAL RIGHT HIP PROSTH, INIT SNOMED Code(s): 601166233 Comment: Pt grew staph, enterococcus and corynebacterium. She remains on vanco and rifampin. She will need 8 weeks of Abx therapy with weekly labs. Likely home today. Mangement of Abx per ID. (3) Anemia Current Visit: Yes Status: Acute Code(s): D64.9 - ANEMIA, UNSPECIFIED SNOMED Code(s): 306248102 Comment: H/H stable. Monitor intermittently. Continue ferrous sulfate. (4) Hyperlipidemia Current Visit: Yes Status: Chronic Code(s): E78.5 - HYPERLIPIDEMIA, UNSPECIFIED SNOMED Code(s): 91324156 Comment: Continue crestor. (5) Hypertension Current Visit: Yes Status: Chronic Code(s): I10 - ESSENTIAL (PRIMARY) HYPERTENSION SNOMED Code(s): 36939397 Comment: BP is under good control on diltiazem CD 240mg daily. Her lisinopril has been held and can continue to be held until seen by her PCP. (6) History of paroxysmal supraventricular tachycardia Current Visit: Yes Status: Chronic Code(s): Z86.79 - PERSONAL HISTORY OF OTHER DISEASES OF THE CIRCULATORY SYSTEM SNOMED Code(s): 123952422047166 Comment: History of paroxsymal SVT. Continue flecainide and diltiazem. Continue to monitor on telemetry. (7) PAF (paroxysmal atrial fibrillation) Current Visit: Yes Status: Acute Code(s): I48.0 - PAROXYSMAL ATRIAL FIBRILLATION SNOMED Code(s): 755319180 Comment: No evidence of afib during this admission. Previous discussion between Dr. Merchant and patient about full anticoagulation concluded pt would be on just ASA as stroke prevention for now. (8) DVT prophylaxis Current Visit: Yes Status: Acute Code(s): Z29.9 - ENCOUNTER FOR PROPHYLACTIC MEASURES, UNSPECIFIED SNOMED Code(s): 423696982 Comment: SQ heparin while hospitalized. (9) Full code status Current Visit: Yes Status: Acute Code(s): Z78.9 - OTHER SPECIFIED HEALTH STATUS SNOMED Code(s): 705993817 Status and Disposition: .
[2019-04-04] MEDS ORDERED: Aspirin 81 mg CHEW TAB* 81 MG TAB.CHEW PO SCH (10:00)
[2019-04-04] MEDS ORDERED: CMC:Meloxicam(NF) 7.5 MG TAB PO SCH (10:00)
[2019-04-04] MEDS ORDERED: Meloxicam(NF) 15 MG TAB PO SCH (10:00)
[2019-04-04] MEDS: RiFAMPin CAP* 300 MG CAP PO SCH (10:36)
[2019-04-04 11:58] VITALS: BP 107/58
[2019-04-04] MEDS: Potassium Chlor TAB* 20 MEQ TAB.ER PO SCH (12:51)
--- NOTE | 2019-04-04 13:13 | DS ---
Orthopedic Discharge Summary - Discharge Summary Date of Admission:03/27/19 Date of Discharge: 04/04/19 Date of Surgery: 03/28/19 Attending Orthopedic Provider: Dr Estevez Pre-operative Diagnosis: infected right total hip replacement Operative Procedure: I&D right hip Disposition of Patient: home Condition of Patient: stable History: DANIELLE COLE is a 68 year old F with infected right total hip arthroplasty. Hospital Course: DANIELLE was admitted to [facility] on 03/27/19. Patient underwent a I&D of left hip on 03/28/19 without complication followed by a brief recovery in PACU and transfer to the Short Stay Surgical Unit in stable condition. Our hospitalist service, infectious disease, physical therapy and occupational therapy also participated in this patients care. Post-op day 1 : patient was alert and in no acute distress. Dressing was clean, dry and intact. Operative extremity dorsiflexion and plantarflexion intact, sensation intact to light touch distally, DP2+. Post-op day two and subsequent hospital days: dressing was changed, incision was clean, dry and intact. There was no erythema surrounding the wound. On 04/04/19 Patient was deemed to be medically and orthopedically stable for discharge. Physical therapy goals were met. Home Medications Medication Instructions Recorded Confirmed Type Ascorbic Acid [Vitamin C] 1,000 mg PO BID 02/08/19 03/27/19 History Baclofen 10 mg PO 1700 02/08/19 03/27/19 History Cetirizine* [ZyrTEC 10 MG TAB*] 10 mg PO QPM 02/08/19 03/27/19 History Flecainide TAB* [Tambocor TAB*] 100 mg PO BID 02/08/19 03/27/19 History Gabapentin [Neurontin] 300 mg PO BEDTIME 02/08/19 03/27/19 History Tony-3 Fatty Acids/Fish Oil [Fish 1 each PO BID 02/08/19 03/27/19 History Oil 1,000 mg Softgel] Omeprazole 20 mg PO QAM 02/08/19 03/27/19 History Potassium Chloride [Klor-Con M20] 20 meq PO 1200 02/08/19 03/27/19 History Rosuvastatin Calcium [Crestor] 5 mg PO MOWEFR 02/08/19 04/04/19 History Cyclobenzaprine TAB* [Flexeril 10 10 mg PO Q6H PRN tab 02/21/19 03/27/19 Rx MG TAB*] Acetaminophen TAB* [Tylenol TAB*] 975 mg PO Q8HR PRN 03/27/19 03/27/19 History Citrulline [Pure l-Citrulline] 1 cap PO TID 03/27/19 03/27/19 History Ferrous Sulfate 325 mg PO BID 03/27/19 03/27/19 History Fluticasone NASAL SPRAY 50MCG* 2 spray BOTH NARES DAILY 03/27/19 03/27/19 History [Flonase NASAL SPRAY 50MCG*] Magnesium Hydroxide LIQ* [Milk of 30 ml PO BEDTIME 03/27/19 03/27/19 History Magnesia LIQ*] Miconazole Nitrate [Zeasorb AF] 1 applic TOPICAL BID 03/27/19 03/27/19 History Sennosides 8.6 mg PO BEDTIME 03/27/19 03/27/19 History Diltiazem CD CAP* [Cardizem CD 240 mg PO DAILY #30 cap.cd 04/04/19 Rx CAP*] Docusate CAP* [Colace Cap*] 100 mg PO BID cap 04/04/19 Rx Enoxaparin(*) [Lovenox(*)] 40 mg SUBCUT Q24HR #10 syringe 04/04/19 Rx Meloxicam(NF) [Mobic(NF)] 15 mg PO DAILY tab 04/04/19 Rx RiFAMPin CAP* 300 mg PO BID cap 04/04/19 Rx Warfarin TAB(*) [Coumadin TAB(*)] 2.5 mg PO DAILY #90 tab 04/04/19 Rx oxyCODONE/Acetamin 5/325 MG* 1 tab PO Q4H PRN #30 tab MDD 6 04/04/19 Rx [Percocet 5/325 TAB*] Discharge Instructions following Orthopedic Surgery: Activity: * Weight Bearing as tolerated * Continue physical therapy and occupational therapy exercises as shown * home physical therapy Hip replacements: Continue Hip Precautions- do not cross legs or bend greater than 90 degrees/squat Wound care: * OK to shower on post-op day 3, no bathing, swimming, or submerging wound. * Use gentle soap, pat dry. Cover with gauze, RAGHAV wrap or tape. * Visiting home nurse to do wound checks. Call Orthopedic office for: * Increased drainage * Redness * Increased pain * Fever Go to ER with shortness of breath or chest pain. Diet: * Regular diet * Increase fluids and fiber to prevent constipation. * Continue to use stool softeners, call office if no bowel motion within 48 hours. Medications See Home Medication List in your packet for medications that you should take after discharge. DVT Prophylaxis: increases bleeding tendency Coumadin Dosing: * Please note that you have been given 2 mg tablets. * Visiting home nurse to draw blood work for INR on Wednesday and . * You will be provided with dose instructions on Mondays and . * If you do not receive dosing instruction on dosing, please call our office right away. Please mil[place] dosing instructions on your calendar as they are provided to you. * Dosin.5 mg daily 04/04 and 04/05. recheck INR on 04/06 for further dosing instructions. Call orthopedic office if you do not receive dosing instructions. Lovenox Dosin mg subcutaneous injection once a day until INR is between 2-3 Pain Control: Percocet Dosin/325 mg 1 tabs by mouth every 4 hours as needed for pain. Maximum of 6 tabs per day. wean off as soon as pain allows, hold for sedation Please note that Percocet contains Tylenol (acetaminophen). Maximum daily dose of Tylenol is 4000 mg from all sources. Your cardizem ( diltiazem) dose is increased from 180mg to 240 mg daily while you are on rifampin. Stop your lisinopril while on rifampin. Your PCP will need to reevaluate your blood pressure and heart rate when you have stopped taking rifampin Dr Chicas Discussed BP, DVT prophylaxis and pain medications with your PCP Dr Jurado. Antibiotics are required prior to any dental work. Antibiotic: Rifampin per infectious disease Use your incentive spirometer FOLLOW UP: Follow up with [[facility]] Within 7 days, call for appointment Please call our office with any questions or concerns ([phone])
[2019-04-04] MEDS ORDERED: Warfarin TAB(*) 7.5 MG PO ONE (17:00)
[2019-04-05] MEDS ORDERED: Vancomycin Trough Check NOTE FOLLOW UP ONE (05:30)
== END 2019-04-04 16:20 | disposition home or self-care (01) | DRG 501 ==
LOC: SSU 14:13
PROVIDERS: ADMIT Orthopaedic Surgery Adult Reconstructive Orthopaedic Surgery; ATTEND Orthopaedic Surgery Adult Reconstructive Orthopaedic Surgery
PROC: 0JDL0ZZ Extraction of Right Upper Leg Subcutaneous Tissue and Fascia, Open Approach (ICD-10-PCS; principal; 2019-03-28 19:15)
PROC: 02HV33Z Insertion of Infusion Device into Superior Vena Cava, Percutaneous Approach (ICD-10-PCS; 2019-03-31)
DX: T84.51XA Infection and inflammatory reaction due to internal right hip prosthesis, initial encounter (principal); M00.051 Staphylococcal arthritis, right hip; Y79.2 Prosthetic and other implants, materials and accessory orthopedic devices associated with adverse incidents; I10 Essential (primary) hypertension; E66.01 Morbid (severe) obesity due to excess calories; E78.00 Pure hypercholesterolemia, unspecified; M19.90 Unspecified osteoarthritis, unspecified site; Z96.653 Presence of artificial knee joint, bilateral; M79.89 Other specified soft tissue disorders; K21.9 Gastro-esophageal reflux disease without esophagitis; R09.82 Postnasal drip; I35.2 Nonrheumatic aortic (valve) stenosis with insufficiency; E78.5 Hyperlipidemia, unspecified; I48.0 Paroxysmal atrial fibrillation; B95.61 Methicillin susceptible Staphylococcus aureus infection as the cause of diseases classified elsewhere; B95.2 Enterococcus as the cause of diseases classified elsewhere; I95.9 Hypotension, unspecified; D50.9 Iron deficiency anemia, unspecified; R00.0 Tachycardia, unspecified; Z87.440 Personal history of urinary (tract) infections; Y92.9 Unspecified place or not applicable; Z68.37 Body mass index [BMI] 37.0-37.9, adult; Z98.1 Arthrodesis status; Z88.6 Allergy status to analgesic agent; Z88.5 Allergy status to narcotic agent; Z88.8 Allergy status to other drugs, medicaments and biological substances; Z83.3 Family history of diabetes mellitus; Z88.1 Allergy status to other antibiotic agents
CPT/HCPCS: 36415; 71045; 71046; 80048; 80202; 81003; 82270; 82565; 83735; 84520; 85014; 85018; 85025; 85027; 85610; 85652; 86140; 86850; 86900; 86901; 87040; 87070; 87073; 87077; 87102; 87116; 87205; 87206; 87640; 87641; 93005; A9270-GY; C1751; G8978-GP-CK; G8979-GP-CI; J1644; J1650; J2250; J2405; J2704; J3010; J3370; J3490

== ENCOUNTER 2019-04-13 21:22 | Emergency (ER) | payer MEDICARE ==
[2019-04-13 21:54] VITALS: BP 0/0
--- NOTE | 2019-04-13 21:56 | ED ---
Complex/Multi-Sys Presentation - HPI Summary HPI Summary: Patient is a 68 y/o F presenting to [facility] with complaints of inability to flush her PICC line. She denies any other Sx. Patient had PICC lined placed to right arm on 03/31/19. She reports no issues with this line until today. Patient is on IV Vancomycin infusions every 12 hours. On triage, pain is denied, nothing is noted to aggravate/alleviate Sx. Home medications and allergies are reviewed. - History Of Current Complaint Chief Complaint: EDGeneral Hx Obtained From: Patient Onset/Duration: Lasting Hours, Still Present Timing: Constant, Hours Severity Currently: None - pain is denied. Aggravating Factor(s): nothing Alleviating Factor(s): nothing Associated Signs And Symptoms: Positive: Other - positive - PICC line failing to flush. Negative: Fever - on vitals, temp is 98 F - Allergies/Home Medications Allergies/Adverse Reactions: Allergies Allergy/AdvReac Type Severity Reaction Status Date / Time cefazolin Allergy Intermediate Rash And Verified 04/03/19 18:52 Itching atorvastatin [From Lipitor] AdvReac Muscle Ache Verified 02/28/19 10:56 clarithromycin [From Biaxin] AdvReac Nausea And Verified 02/28/19 10:56 Vomiting fentanyl AdvReac Nausea And Verified 02/28/19 10:56 Vomiting morphine AdvReac Nausea And Verified 02/28/19 10:56 Vomiting nabumetone AdvReac GI Upset Verified 02/28/19 10:56 pravastatin AdvReac Muscle Ache Verified 02/28/19 10:56 PMH/Surg Hx/FS Hx/Imm Hx Endocrine/Hematology History: Denies: Hx Diabetes Cardiovascular History: Reports: Hx Hypercholesterolemia, Hx Hypertension - ON MEDS, Other Cardiovascular Problems/Disorders - HEART MURMUR Respiratory History: Reports: Hx Sleep Apnea - No CPAP, Other Respiratory Problems/Disorders - SINUS INFECTIONS GI History: Reports: Hx Gastroesophageal Reflux Disease - ON OMPREZOLE, Hx Ulcer Musculoskeletal History: Reports: Hx Arthritis, Hx Bursitis, Other Musculoskeletal History - Osteoarthritis Denies: Hx Osteoporosis Sensory History: Reports: Hx Cataracts, Hx Contacts or Glasses Denies: Hx Hearing Aid Opthamlomology History: Reports: Hx Cataracts, Hx Contacts or Glasses Neurological History: Denies: Hx Headaches - Cancer History Hx Chemotherapy: No Hx Radiation Therapy: No - Surgical History Surgery Procedure, Year, and Place: 02/20/19 R hip fx & 03/02/19. RIGHT SHOULDER SURGERY PA 2010. L FOOT ARTHRODESIS PA 2006. CERVICAL FUSION C4-7 PA 2005. APPY PA 2004. RIGHT FOOT ARTHODESIS 2003 PA. LTK 2005 PA. RTK 2001 PA. D&C 1993 PA. T&A 195. right hip & revision 2019 Hx Anesthesia Reactions: No Infectious Disease History: No Infectious Disease History: Denies: Traveled Outside the [place] in Last 30 Days - Family History Known Family History: Positive: Cardiac Disease, Seizure Disorder - Social History Alcohol Use: None Hx Substance Use: No Substance Use Type: Reports: None Hx Tobacco Use: No Smoking Status (MU): Never Smoked Tobacco Have You Smoked in the Last Year: No Review of Systems Constitutional: Other - positive - right arm PICC line failing to flush Negative: Fever - on vitals, temp is 98 F Neurological: Other - negative - altered mental status All Other Systems Reviewed And Are Negative: Yes Physical Exam - Summary Physical Exam Summary: Appearance: Well-appearing, Well-nourished, lying in bed comfortably. There is a PICC line in place at the right arm, incision site is clean, dry, and intact. Skin: Warm, dry, no obvious rash Eyes: sclera anicteric, no conjunctival pallor ENT: mucous membranes moist, pharynx appears normal Neck: Supple, nontender Respiratory: Clear to auscultation, no signs of respiratory distress Cardiovascular: Normal S1, S2. No murmurs. Normal distal pulses in tibial and radial bilaterally. Abdomen: Soft, nontender, normal active bowel sounds present Musculoskeletal: Normal, Strength/ROM Intact Neurological: A&Ox3, awake and alert, mentation is normal, speech is fluent and appropriate Psychiatric: affect is normal, does not appear anxious or depressed Triage Information Reviewed: Yes Vital Signs On Initial Exam: Initial Vitals Temp Pulse Resp BP Pulse Ox 98.0 F 82 18 138/76 95 04/13/19 21:28 04/13/19 21:28 04/13/19 21:28 04/13/19 21:28 04/13/19 21:28 Vital Signs Reviewed: Yes Procedures - Sedation Patient Received Moderate/Deep Sedation with Procedure: No Diagnostics - Vital Signs Vital Signs Temp Pulse Resp BP Pulse Ox 04/13/19 21:28 98.0 F 82 18 138/76 95 - Laboratory Lab Statement: Any lab studies that have been ordered have been reviewed, and results considered in the medical decision making process. Complex Multi-Symp Course/Dx Course Of Treatment: Patient is a 68 y/o F presenting to [facility] with complaints of inability to flush her PICC line. She denies any other Sx. Patient had PICC lined placed to right arm on 03/31/19. She reports no issues with this line until today. Patient is on IV Vancomycin infusions every 12 hours. In triage, nurse was able to get the PICC line to flush. PICC line was flushed with 20 cc saline and it was cleaned with alcohol prep. PICC line site is noted to be clean , dry, and intact. Patient was discharged to home and will follow up with PCP if needed. - Diagnoses Provider Diagnoses: PICC (peripherally inserted central catheter) flush Discharge ED - Sign-Out/Discharge Documenting (check all that apply): Patient Departure - discharge - Discharge Plan Condition: Stable Disposition: HOME Patient Education Materials: How to Care for Your PICC (Peripherally Inserted Central Catheter) (ED) Referrals: Winifred Jurado MD [Primary Care Provider] - If Needed - Billing Disposition and Condition Condition: STABLE Disposition: Home - Attestation Statements Document Initiated by Tomas: Yes Documenting Scribe: ELAINE ROSEN Provider For Whom Tomas is Documenting (Include Credential): DAPHNIE POOL MD Scriblivia Attestation: ELAINE Chavarria scribed for DAPHNIE POOL MD on 04/14/19 at 0554. Scribe Documentation Reviewed: Yes Provider Attestation: The documentation as recorded by the ELAINE english accurately reflects the service I personally performed and the decisions made by me, DAPHNIE POOL MD Status of Scribe Document: Viewed
--- OUTSIDE RECORDS SUMMARY | 2019-04-14 03:39 | XMS REPORT | Continuity of Care Document ---
:1950 External Reference #:[id number] Author Name Gilberto Arreola M.D. (transmitted by agent of provider Soraida Lucas) Address [address] [facility] [place] [address] Care Team Providers Name Role Phone Winifred Jurado MD - Family Care Team Information Construction Technician [phone] Medicine Problems Active Problems Provider Date Periprosthetic fracture of hip Gilberto Arreola M.D. Onset: 04/12/2019 Infection AND/OR inflammatory reaction due to Gilberto Arreola M.D. Onset: 11/2018 internal prosthetic device, implant AND/OR graft Prosthetic arthroplasty of the hip Gilberto Arreola M.D. Onset: 04/12/2019 Other osteonecrosis, right femur Meera Estevez M.D. Onset: 02/11/2018 Morbid obesity Meera Estevez M.D. Onset: 02/11/2018 Localized, primary osteoarthritis of the Meera Estevez M.D. Onset: 02/11/2018 pelvic region and thigh Social History Type Date Description Comments Sex Unknown ETOH Use Denies alcohol use Tobacco Use Start: Unknown Patient has never smoked Recreational Drug Use Denies Drug Use Smoking Status Reviewed: 04/12/19 Patient has never smoked Exercise Type/Frequency Does not exercise Allergies, Adverse Reactions, Alerts Active Allergies Reaction Severity Comments Date Biaxin Nausea and Vomiting 12/22/2017 Nabumetone 12/22/2017 Morphine Nausea and Vomiting 12/22/2017 Fentanyl Nausea and Vomiting 12/22/2017 Nabumetone Nausea and Vomiting 12/22/2017 Lipitor possible muscle aches 01/19/2018 Pravastatin possible muscle aches 01/19/2018 Cefazolin 03/27/2019 Medications Active Medications SIG Qnty Indications Ordering Date Provider Rifampin 2 by mouth daily Unknown 04/04/2019 300mg Capsules Commode ht: 65" wt: 228lbs M16.11 Gilberto Arreola, 02/10/2019 [facility] [place] dx: hip arthritis M.D. s/p total hip arthoplasty Bath/Shower Seat ht: 65" wt: 228lbs M16.11 Gilberto Arreola, 02/10/2019 [facility] [place] dx: hip arthritis M.D. s/p total hip arthoplasty Hip Cushion ht: 65" wt: 228lbs M16.11 Gilberto Arreola, 02/10/2019 dx: hip arthritis M.D. s/p total hip arthoplasty Gabapentin 1 by mouth every 30caps G57.22 Gilberto Arreola, 01/25/2019 300mg Capsules night at bedtime M.D. Rosuvastatin Calcium take 1 tablet by 90tabs E78.5 Rosalio Arrington 09/21/2018 5mg mouth every other Merchant, DO FACC Tablets day Klor-Con M20 1 by mouth every 90tabs Joanie Forte, 08/01/2018 20Meq day N.P. 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 500mg Capsules Vitamin C 1 by mouth [...] mouth every 6 Tablets hours as needed Vancomycin HCL 1500 mg iv every Unknown 1gm 12 hrs through Solution Rec Briova (Briova end date 05/22) Fish Oil 1 by mouth twice a Unknown 1000mg Capsules day Nasacort Allergy 24HR 2 spray both nares [...] Available Vital Signs Date Vital Result Comment 04/12/2019 11:32am Height 65 inches 5'5" Weight 232.00 lb Heart Rate 71 /min Body Temperature 97.9 F O2 % BldC Oximetry 97 % BMI (Body Mass Index) 38.6 kg/m2 03/27/2019 1:11pm Height 65 inches 5'5" Heart Rate 76 /min BP Systolic Sitting 98 mmHg BP Diastolic Sitting 52 mmHg Respiratory Rate 14 /min Body Temperature 98.1 F Pain Level 4 O2 % BldC Oximetry 95 % Results Test Acquired Date Facility Test Result H/L Range Note Comp Metabolic 04/10/2019 [facility] Sodium 142 mmol/L Normal 135-[address] [place] [address] [phone] Potassium 3.7 mmol/L Normal 3.5-5.0 Chloride 107 mmol/L Normal 101-111 Co2 Carbon Dioxide 27 mmol/L Normal 22-32 Anion Gap 8 mmol/L Normal 2-11 Glucose 97 mg/dL Normal 70-100 Blood Urea Nitrogen 10 mg/dL Normal 6-24 Creatinine 0.45 mg/dL Low 0.51-0.95 BUN/Creatinine Ratio 22.2 High 8-20 Calcium 8.5 mg/dL Low 8.6-10.3 Total Protein 6.1 g/dL Low 6.4-8.9 Albumin 3.6 g/dL Normal 3.2-5.2 Globulin 2.5 g/dL Normal 2-4 Albumin/Globulin Ratio 1.4 Normal 1-3 Total Bilirubin 0.20 mg/dL Normal 0.2-1.0 Alkaline Phosphatase 92 U/L Normal 34-104 Alt 36 U/L Normal 7-52 Ast 20 U/L Normal 13-39 Egfr Non- 137.7 >60 Egfr 166.7 >60 1 Laboratory test 04/10/2019 [facility] Vancomycin Trough 16.1 g /mL [address] [place] [address] [phone] C Reactive Protein 8.22 mg/L High <8.01 CBC Auto 04/10/2019 [facility] White Blood 2.8 10^3/uL Low 3.5 -10.[address] [place] [address] [phone] Red Blood Count 3.42 10^6/uL Low 3.70-4.87 Hemoglobin 10.7 g/dL Low 12.0-16.0 Hematocrit 32 % Low 35-47 Mean Corpuscular Volume 94 fL Normal 80-97 Mean Corpuscular Hemoglobin 31 pg Normal 27-31 Mean Corpuscular HGB Conc 33 g/dL Normal 31-36 Red Cell Distribution Width 17 % High 10-15 Platelet Count 340 10^3/uL Normal 150-450 Mean Platelet Volume 6.3 fL Low 7.4-10.4 Manual 04/10/2019 [facility] Immature 1.0 % Normal 0-[address] [place] [address] [phone] Neutrophil % 63.0 % Lymphocytes % 11.0 % Monocytes % 23.0 % Eosinophils % 2.0 % Myelocytes % 1.0 % Normal 0-1 RBC Morphology Normal Normal Laboratory test 04/10/2019 [facility] Pathologist (SEE NOTE) [address] [place] [address] [phone] Laboratory test 02/27/2019 [facility] Packed Cells SEE RESULTS [address] [place] <[place] [address] NOTE> [phone] Type & Screen 02/27/2019 [facility] Patient Blood O Negative [address] [place] [address] [phone] Antibody Screen NEGATIVE Laboratory 02/27/2019 [facility] Troponin-I 0.04 Critical < 0.04 5 test finding [address] (TnI) ng/[place] [address] [phone] Comp Metabolic 02/27/2019 [facility] Sodium 137 Normal 135- [address] mmol/[place] [address] [phone] Potassium 3.9 mmol/L Normal 3.5-5.0 Chloride 105 [...] Egfr Non- 157.8 >60 Egfr 190.9 >60 6 Laboratory test 02/27/2019 [facility] Partial 29.8 Normal 26.0 -38.[address] [place] [address] Time PTT [phone] Lactic Acid 0.9 mmol/L Normal 0.5-2.0 7 Inr/Protime 02/27/2019 [facility] Inr 1.19 High 0.82-1.[address] [place] [address] [phone] CBC Auto Diff 02/27/2019 [facility] White Blood 8.4 Normal 3.5 -10.[address] Count 10^3/[place] [address] [phone] Red Blood Count 3.10 10^6/uL Low 3.70-4.87 [...] % Nucleated Red Blood Cells % 0.0 Urinalysis Profile 02/08/2019 [facility] Urine Color Yellow [address] [place] [address] [phone] Urine Appearance Clear Urine Specific [place] 1.023 Normal 1.010-1.030 Urine pH 5.0 Normal 5-9 Urine Urobilinogen Negative Negative Urine Ketones Trace Abnormal Negative Urine Protein Negative Negative Urine Leukocytes Negative Negative Urine Blood Negative Negative * * Abnormal Negative 9 Urine Nitrite Negative Negative Urine Bilirubin Negative Negative Urine Glucose Negative Negative CBC Auto 02/08/2019 [facility] White Blood 5.7 10^3/uL Normal 3.5-10.[address] [place] [address] [phone] Red Blood Count 4.11 10^6/uL Normal 3.70-4.87 [...] Red Blood Cells % 0.0 Inr/Protime 02/08/2019 [facility] Inr 1.02 Normal 0.82-1.[address] [place] [address] [phone] Laboratory test 02/08/2019 [facility] Partial 33.6 Normal 26.0 -38.0 finding [address] [facility] [place] [address] Time PTT [phone] Comp Metabolic 02/08/2019 [facility] Sodium 141 mmol/L Normal 135-[address] [place] [address] [phone] Potassium 3.8 mmol/L Normal 3.5-5.0 Chloride 107 [...] Egfr Non- 111.6 >60 Egfr 135.0 >60 11 Type & Screen 02/08/2019 [facility] Patient Blood Type O Negative [address] [place] [address] [phone] Antibody Screen NEGATIVE Urine Culture And 02/08/2019 [facility] Urine Culture SEE RESULT [address] [place] [address] [phone] 1 Because ethnic data is not always [...] 5 Kidney failure <15 (or dialysis) 2 15-20 for HCAP, VAP, Osteomyelitis, Endocarditis, Meningitis 10-15 for All Other Infections 3 Normocytic anemia. Reviewed by Verona Quiroz MD 4 SEE RESULTS BELOW [id number] ON PC TRANSFUSED 03/02/19 1025 [id number] ON PC TRANSFUSED 03/02/19 1134 5 Result TnIDx:0.04 Called to [id number] at: 19:52:23 by:[id number] Read back by: [id number] Troponin-I testing on Plasma Separator Tubes (PST) has a known false positive rate of 0.20-0.40%. All positive troponins reflex immediately to secondary confirmatory testing. Using the dondeEsta™ Access Immunoassay systems, the 99th percentile upper reference limit was demonstrated to be < 0.03 ng/mL. 6 Because ethnic data is not always readily [...] 15-29 5 Kidney failure <15 (or dialysis) 7 [facility] Severe Sepsis and Septic Shock Management Bundle Measure requires all lactic acids initially measuring >2.0 mmol/L be repeated. 8 Standard intensity warfarin therapeutic range: 2.0-3.0 High intensity warfarin therapeutic range: 2.5-3.5 9 *Ascorbic acid is present which may interfere with detection of blood. 10 Standard intensity warfarin therapeutic range: 2.0-3.0 High intensity warfarin therapeutic range: 2.5-3.5 11 Because ethnic data is not always readily [...] 15-29 5 Kidney failure <15 (or dialysis) 12 SEE RESULT BELOW Name: DARCY COLE : [address]: Gilberto Arreola MD Acct: [id number] Unit: [id number] AGE: 68 Location: PAT Re02/08/19 SEX: F Status: REG REF SPEC: [id number] KIT: 02/08/[address]: Gilberto Arreola MD REQ: [id number] RECD: 02/08/19 STATUS: COMP _ SOURCE: URINE SPDESC: ORDERED: Urine Culture QUERIES: Urine Source: Clean Catch Procedure Result Reported Site Urine Culture Final 02/09/19- 1219 ML No Growth (<1,000 CFU/mL) * ML - Main Lab . END OF REPORT DEPARTMENT OF PATHOLOGY, [address] [place] [address] Alexey Roberts M.D. Director [facility] # [id number] Procedures Date Code Description Status 03/28/2019 88078 Arthrotomy Hip W/Drainage Completed 03/28/2019 56603 Arthrotomy Hip W/Drainage Completed 03/02/2019 24744 Revise Total Hip Arthroplasty Both Components Completed 03/02/2019 22041 Revise Total Hip Arthroplasty Both Components Completed 02/20/2019 18732 THR Total Hip Replacement Completed 02/20/2019 03632 THR Total Hip Replacement Completed 02/20/2019 85510 THR Total Hip Replacement Completed 01/27/2019 64546 EKG Tracing & Interpretation Completed 12/07/2018 938538404 Bone Mineral Density Test Completed 12/07/2018 86607082 Mammogram Completed 12/02/2018 94276 ECHO Transthoracic, Real-Time 2D With Doppler And Completed Color Flow 12/02/2018 82402 ECHO Transthoracic, Real-Time 2D With Doppler And Completed Color Flow Medical Devices Description No Information Available Encounters Type Date Location Provider Dx Diagnosis Office Visit 04/04/2019 [facility] Tammy Chicas, R00.2 Palpitations 10:37a Assoc,ilir Hospitalists D.O. T84.51xA Infect/inflm reaction due to internal right hip prosth, init D64.9 Anemia, unspecified E78.5 Hyperlipidemia, unspecified I10 Essential (primary) hypertension I48.0 Paroxysmal atrial fibrillation Z86.79 Personal history of other diseases of the circulatory system Office Visit 04/03/2019 10:37a [facility] Tammy Chicas, R00.2 Palpitations Assoc,ilir D.O. Hospitalists T84.51xA Infect/inflm reaction due to internal right hip prosth, init D64.9 Anemia, unspecified E78.5 Hyperlipidemia, unspecified I10 Essential (primary) hypertension I48.0 Paroxysmal atrial fibrillation Office Visit 04/02/2019 [facility] D64.9 Anemia, 10:37a ilir Kwan MD unspecified Hospitalists E78.5 Hyperlipidemia, unspecified I10 Essential (primary) hypertension Z86.79 Personal history of other diseases of the circulatory system Z96.641 Presence of right artificial hip joint Z47.1 Aftercare following joint replacement surgery Office Visit 04/01/2019 [facility] D64.9 Anemia, 10:36a ilir Kwan NP unspecified Hospitalists E78.5 Hyperlipidemia, unspecified I10 Essential (primary) hypertension Z86.79 Personal history of other diseases of the circulatory system Z96.641 Presence of right artificial hip joint Z47.1 Aftercare following joint replacement surgery Office Visit 03/31/2019 [facility] D64.9 Anemia, 10:36a ilir Kwan NP unspecified Hospitalists E78.5 Hyperlipidemia, unspecified I10 Essential (primary) hypertension Z86.79 Personal history of other diseases of the circulatory system Z96.641 Presence of right artificial hip joint Z47.1 Aftercare following joint replacement surgery Office Visit 03/30/2019 [facility] D64.9 Anemia, 10:34a ilir Kwan NP unspecified Hospitalists E78.5 Hyperlipidemia, unspecified I10 Essential (primary) hypertension Z86.79 Personal history of other diseases of the circulatory system Z96.641 Presence of right artificial hip joint Z47.1 Aftercare following joint replacement surgery Office Visit 03/29/2019 [facility] D64.9 Anemia, 10:34a ilir Kwan NP unspecified Hospitalists E78.5 Hyperlipidemia, unspecified I10 Essential (primary) hypertension Z86.79 Personal history of other diseases of the circulatory system Z96.641 Presence of right artificial hip joint Z47.1 Aftercare following joint replacement surgery Office Visit 03/28/2019 [facility] D64.9 Anemia, 10:34a ilir Kwan NP unspecified Hospitalists I10 Essential (primary) hypertension E78.5 Hyperlipidemia, unspecified Z86.79 Personal history of other diseases of the circulatory system Z96.641 Presence of right artificial hip joint Z47.1 Aftercare following joint replacement surgery [facility] D64.9 Anemia, 10:33a Assilir freitas, BUS TRANSPORTATION MANAGER unspecified Hospitalists I10 Essential (primary) hypertension E78.5 Hyperlipidemia, unspecified I47.1 Supraventricular tachycardia Z96.641 Presence of right artificial hip joint Z47.1 Aftercare following joint replacement surgery Office Visit 03/07/2019 [facility] T84.020A Dislocation of 10:13a ilir Kwan PA-C internal right Hospitalists hip prosthesis, init encntr B96.20 Unsp Escherichia coli as the cause of diseases classd elswhr N39.0 Urinary tract infection, site not specified A41.51 Sepsis due to Escherichia coli [E. coli] D62 Acute posthemorrhagic anemia R57.1 Hypovolemic shock I10 Essential (primary) hypertension E78.5 Hyperlipidemia, unspecified Z96.641 Presence of right artificial hip joint Z47.1 Aftercare following joint replacement surgery Office Visit 03/06/2019 [facility] T84.021A Dislocation of 10:13a ilir Kwan PA internal left Hospitalists hip prosthesis, init encntr R60.0 Localized edema D62 Acute posthemorrhagic anemia N39.0 Urinary tract infection, site not specified I10 Essential (primary) hypertension E78.5 Hyperlipidemia, unspecified Z86.79 Personal history of other diseases of the circulatory system Office Visit 03/05/2019 [facility] D62 Acute 10:12a ilir Kawn PA posthemorrhagic Hospitalists anemia T84.020A Dislocation of internal right hip prosthesis, init encntr R22.41 Localized swelling, mass and lump, right lower limb I10 Essential (primary) hypertension E78.5 Hyperlipidemia, unspecified Z96.641 Presence of right artificial hip joint Z86.79 Personal history of other diseases of the circulatory system Office Visit 03/04/2019 [facility] D72.829 Elevated white 10:12a ilir Kwan PA blood cell Hospitalists count, unspecified D62 Acute posthemorrhagic anemia T84.020A Dislocation of internal right hip prosthesis, init encntr R22.41 Localized swelling, mass and lump, right lower limb I10 Essential (primary) hypertension E78.5 Hyperlipidemia, unspecified Z96.641 Presence of right artificial hip joint Z86.79 Personal history of other diseases of the circulatory system Office 03/03/2019 [facility] R65.10 Sirs of Visit 10:11a ilir Kwan [...] of the circulatory system [facility] Dislocation of 10:11a ilir Kwan PA internal right Hospitalists hip prosthesis, init encntr R22.41 Localized swelling, mass and lump, right lower limb I10 Essential (primary) hypertension E78.5 Hyperlipidemia, unspecified Z96.641 Presence of right artificial hip joint Z86.79 Personal history of other diseases of the circulatory system Office Visit 03/01/2019 [facility] Mary T84.020A Dislocation of 10:11a ilir Kwan PA-C internal right Hospitalists hip prosthesis, init encntr R22.41 Localized swelling, mass and lump, right lower limb I10 Essential (primary) hypertension E78.5 Hyperlipidemia, unspecified Z96.641 Presence of right artificial hip joint Z86.79 Personal history of other diseases of the circulatory system Office Visit 02/28/2019 [facility] Tammy T84.020A Dislocation of 10:10a ilir Kwan D.O. internal right Hospitalists hip prosthesis, init encntr R22.41 Localized swelling, mass and lump, right lower limb I48.91 Unspecified atrial fibrillation E78.5 Hyperlipidemia, unspecified I10 Essential (primary) hypertension Office Visit 02/27/2019 8:15a [facility] Leana Paula, Z96.641 Presence of right BUS TRANSPORTATION MANAGER artificial hip joint S73.004A Unspecified dislocation of right hip, initial encounter Office Visit 02/24/2019 11:00a [facility] Tammykirstie Chicas, Z96.641 Presence of right D.O. artificial hip joint E78.5 Hyperlipidemia, unspecified I10 Essential (primary) hypertension E66.8 Other obesity Office Visit 02/20/2019 [facility] Mary I47.1 Supraventricular 10:01a Assoc,ilir Bales, PAAquiles tachycardia Hospitalists I10 Essential (primary) hypertension E78.5 Hyperlipidemia, unspecified K21.9 Gastro-esophageal reflux disease without esophagitis Z96.641 Presence of right artificial hip joint Office Visit 01/27/2019 [place] Rosalio Arrington I47.1 Supraventricular 2:00p Cardiology Of Merchant, tachycardia Machine Iii Coremaker FACC E78.5 Hyperlipidemia, unspecified I35.1 Nonrheumatic aortic (valve) insufficiency I10 Essential (primary) hypertension Z01.810 Encounter for preprocedural cardiovascular examination E66.8 Other obesity Office Visit 01/25/2019 [place] Gilberto M16.11 Unilateral primary 10:30a Orthopedics lena Arreola M.D. 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 joint 04/12/2019 T84.51xA Infection and inflammatory reaction Gilberto Arreola M.D. due to internal right hip prosthesis, initial encounter 04/12/2019 M97.01xD Periprosthetic fracture around Gilberto Arreola M.D. internal prosthetic right hip joint, subsequent encounter 04/04/2019 R00.2 Palpitations Tammy Chicas D.O. 04/04/2019 T84.51xA Infection and inflammatory reaction Tammy Chicas, D.O. due to internal right hip prosthesis, initial encounter 04/04/2019 D64.9 Anemia, unspecified Tammy Chicas D.O. 04/04/2019 E78.5 Hyperlipidemia, unspecified Tammy Chicas, D.O. 04/04/2019 I10 Essential (primary) hypertension Tammy Chicas D.O. 04/04/2019 I48.0 Paroxysmal atrial fibrillation Tammy Chicas D.O. 04/04/2019 Z86.79 Personal history of other diseases Mila Wang.Shan. of the circulatory system 04/03/2019 R00.2 Palpitations Mila Wang.O. 04/03/2019 T84.51xA Infection and inflammatory reaction Tammy Chicas D.O. due to internal right hip prosthesis, initial encounter 04/03/2019 D64.9 Anemia, unspecified Tammy Chicas D.O. 04/03/2019 E78.5 Hyperlipidemia, unspecified Tammy Chicas D.O. 04/03/2019 I10 Essential (primary) hypertension Tammy Chicas D.O. 04/03/2019 I48.0 Paroxysmal atrial fibrillation Mila Wang.O. 04/02/2019 D64.9 Anemia, unspecified Shea Monet MD 04/02/2019 E78.5 Hyperlipidemia, unspecified Shea Monet MD 04/02/2019 I10 Essential (primary) hypertension Shea Monet MD 04/02/2019 Z86.79 Personal history of other diseases Shea Monet MD of the circulatory system 04/02/2019 Z96.641 Presence of right artificial hip Shea Monet MD joint 04/02/2019 Z47.1 Aftercare following joint Shea Monet MD replacement surgery 04/01/2019 D64.9 Anemia, unspecified eLana Paula, BUS TRANSPORTATION MANAGER 04/01/2019 E78.5 Hyperlipidemia, unspecified Leana Paula, BUS TRANSPORTATION MANAGER 04/01/2019 I10 Essential (primary) hypertension Leana Paula, BJ 04/01/2019 Z86.79 Personal history of other diseases Leana Paula, BUS TRANSPORTATION MANAGER of the circulatory system 04/01/2019 Z96.641 Presence of right artificial hip Leana Touchton, BUS TRANSPORTATION MANAGER joint 04/01/2019 Z47.1 Aftercare following joint Leana Dengton, BUS TRANSPORTATION MANAGER replacement surgery 03/31/2019 D64.9 Anemia, unspecified Leana Touchton, BUS TRANSPORTATION MANAGER 03/31/2019 E78.5 Hyperlipidemia, unspecified Leana Touchton, BUS TRANSPORTATION MANAGER 03/31/2019 I10 Essential (primary) hypertension Leana Touchton, BUS TRANSPORTATION MANAGER 03/31/2019 Z86.79 Personal history of other diseases Leana Paula, BUS TRANSPORTATION MANAGER of the circulatory system 03/31/2019 Z96.641 Presence of right artificial hip Leana Touchton, BUS TRANSPORTATION MANAGER joint 03/31/2019 Z47.1 Aftercare following joint Leana Dengton, BUS TRANSPORTATION MANAGER replacement surgery 03/30/2019 D64.9 Anemia, unspecified Nakita Ashburn, BUS TRANSPORTATION MANAGER 03/30/2019 E78.5 Hyperlipidemia, unspecified Nakita Angie, BUS TRANSPORTATION MANAGER 03/30/2019 I10 Essential (primary) hypertension Nakita Angie, BUS TRANSPORTATION MANAGER 03/30/2019 Z86.79 Personal history of other diseases Nakita Angie, BUS TRANSPORTATION MANAGER of the circulatory system 03/30/2019 Z96.641 Presence of right artificial hip Nakita Angie, BUS TRANSPORTATION MANAGER joint 03/30/2019 Z47.1 Aftercare following joint Nakita Angie, BUS TRANSPORTATION MANAGER replacement surgery 03/29/2019 D64.9 Anemia, unspecified Nakita Ashburn, BUS TRANSPORTATION MANAGER 03/29/2019 E78.5 Hyperlipidemia, unspecified Nakita Angie, BUS TRANSPORTATION MANAGER 03/29/2019 I10 Essential (primary) hypertension Nakita Angie, BUS TRANSPORTATION MANAGER 03/29/2019 Z86.79 Personal history of other diseases Nakita Ashburn, BUS TRANSPORTATION MANAGER of the circulatory system 03/29/2019 Z96.641 Presence of right artificial hip Nakita Angie, BUS TRANSPORTATION MANAGER joint 03/29/2019 Z47.1 Aftercare following joint Nakita Ashburn, BUS TRANSPORTATION MANAGER replacement surgery 03/28/2019 D64.9 Anemia, unspecified Nakita Ashburn, BUS TRANSPORTATION MANAGER 03/28/2019 T84.52xA Infection and inflammatory reaction Elinor Duran, RPA- C due to internal left hip prosthesis, initial encounter 03/28/2019 I10 Essential (primary) hypertension Nakita Angie, BUS TRANSPORTATION MANAGER 03/28/2019 T84.52xA Infection and inflammatory reaction Meera Estevez M.D. due to internal left hip prosthesis, initial encounter 03/28/2019 E78.5 Hyperlipidemia, unspecified Nakita Adams, BUS TRANSPORTATION MANAGER 03/28/2019 Z86.79 Personal history of other diseases Nakita Adams BUS TRANSPORTATION MANAGER of the circulatory system 03/28/2019 Z96.641 Presence of right artificial hip Nakita Adams, BUS TRANSPORTATION MANAGER joint 03/28/2019 Z47.1 Aftercare following joint Nakita Adams, BUS TRANSPORTATION MANAGER replacement surgery 03/27/2019 D64.9 Anemia, unspecified Leana Paula, BUS TRANSPORTATION MANAGER 03/27/2019 I10 Essential (primary) hypertension Leana Paula, BUS TRANSPORTATION MANAGER 03/27/2019 E78.5 Hyperlipidemia, unspecified Leana Paula, BUS TRANSPORTATION MANAGER 03/27/2019 I47.1 Supraventricular tachycardia Leana Paula, BUS TRANSPORTATION MANAGER 03/27/2019 Z96.641 Presence of right artificial hip Leana Paula, BUS TRANSPORTATION MANAGER joint 03/27/2019 Z47.1 Aftercare following joint Leana Paula, BUS TRANSPORTATION MANAGER replacement surgery 03/07/2019 T84.020A Dislocation of internal right hip Mary O'kashif, PA-C prosthesis, initial encounter 03/07/2019 B96.20 Unspecified Escherichia coli [E. Mary O'kashif, PA-C coli] as the cause of diseases classified elsewhere 03/07/2019 N39.0 Urinary tract infection, site not Mary O'kashif, PA-C specified 03/07/2019 A41.51 Sepsis due to Escherichia coli [E. Mary O'kashif, PA-C coli] 03/07/2019 D62 Acute posthemorrhagic anemia Mary O'kashif, PA-C 03/07/2019 R57.1 Hypovolemic shock Mary O'kashif, PA-C 03/07/2019 I10 Essential (primary) hypertension Mary O'kashif, PA-C 03/07/2019 E78.5 Hyperlipidemia, unspecified Mary O'kashif, PA-C 03/07/2019 Z96.641 Presence of right artificial hip Mary O'kashif, PA-C joint 03/07/2019 Z47.1 Aftercare following joint Mary Bales PA-C replacement surgery 03/06/2019 T84.021A Dislocation of internal left hip Josiejelena McclainROMAN rinaldi prosthesis, initial encounter 03/06/2019 R60.0 Localized edema Josie Dennis PA 03/06/2019 D62 Acute posthemorrhagic anemia Josie Dennis PA 03/06/2019 N39.0 Urinary tract infection, site not ROMAN Moon specified 03/06/2019 I10 Essential (primary) hypertension Josie Dennis, PA 03/06/2019 E78.5 Hyperlipidemia, unspecified Josie Dennis PA 03/06/2019 Z86.79 Personal history of other diseases ROMAN Moon of the circulatory system 03/05/2019 D62 Acute posthemorrhagic anemia Josie Dennis PA 03/05/2019 T84.020A Dislocation of internal right hip Josie Dennis PA prosthesis, initial encounter 03/05/2019 R22.41 Localized swelling, mass and lump, Josie Dennis PA right lower limb 03/05/2019 I10 Essential (primary) hypertension Josie Dennis, PA 03/05/2019 E78.5 Hyperlipidemia, unspecified Josie Dennis, PA 03/05/2019 Z96.641 Presence of right artificial hip Josie Dennis, PA joint 03/05/2019 Z86.79 Personal history of other diseases ROMAN Moon of the circulatory system 03/04/2019 D72.829 Elevated white blood cell count, ROMAN Moon unspecified 03/04/2019 D62 Acute posthemorrhagic anemia Josie Dennis PA 03/04/2019 T84.020A Dislocation of internal right hip Josie Dennis PA prosthesis, initial encounter 03/04/2019 R22.41 Localized swelling, mass and lump, Josie Dennis, PA right lower limb 03/04/2019 I10 Essential (primary) hypertension Josie Dennis, PA 03/04/2019 E78.5 Hyperlipidemia, unspecified Josie Dennis, PA 03/04/2019 Z96.641 Presence of right artificial hip Josie Dennis, PA joint 03/04/2019 Z86.79 Personal history of other diseases ROMAN Moon of the circulatory system 03/03/2019 R65.10 Systemic inflammatory response Josie Dennis PA syndrome (Sirs) of non-infectious origin without acute organ dysfunction 03/03/2019 D62 Acute posthemorrhagic anemia Josie Dnenis PA 03/03/2019 T84.020A Dislocation of internal right hip ROMAN Moon prosthesis, initial encounter 03/03/2019 L29.9 Pruritus, unspecified Josie Dennis, PA 03/03/2019 R22.41 Localized swelling, mass and lump, Josie Dennis PA right lower limb 03/03/2019 I10 Essential (primary) hypertension Josie Dennis PA 03/03/2019 E78.5 Hyperlipidemia, unspecified Josie Dennis, PA 03/03/2019 Z96.641 Presence of right artificial hip ROMAN Moon joint 03/03/2019 Z86.79 Personal history of other diseases Josiejelena McclainhamROMAN of the circulatory system 03/02/2019 T84.89xD Other specified complication of Frank Jordan M.D. internal orthopedic prosthetic devices, implants and grafts, subsequent encounter 03/02/2019 T84.020A Dislocation of internal right hip Frank Jordan M.D. prosthesis, initial encounter 03/02/2019 T84.89xD Other specified complication of Gilberto Arreola M.D. internal orthopedic prosthetic devices, implants and grafts, subsequent encounter 03/02/2019 T84.020A Dislocation of internal right hip Gilberto Arreola M.D. prosthesis, initial encounter 03/02/2019 T84.020A Dislocation of internal right hip Josie ROMAN Dennis prosthesis, initial encounter 03/02/2019 R22.41 Localized swelling, mass and lump, Josie Dennis PA right lower limb 03/02/2019 I10 Essential (primary) hypertension Josie Sonny PA 03/02/2019 E78.5 Hyperlipidemia, unspecified Josie Dennis PA 03/02/2019 Z96.641 Presence of right artificial hip Josie Dennis PA joint 03/02/2019 Z86.79 Personal history of other diseases Josiejelena McclainhamROMAN of the circulatory system 03/01/2019 T84.020A Dislocation of internal right hip Mary Torrez'ROMAN rowland-C prosthesis, initial encounter 03/01/2019 R22.41 Localized swelling, mass and lump, Mary Shan'kashif, PA-C right lower limb 03/01/2019 I10 Essential (primary) hypertension Mary Torrez'kashif PA-C 03/01/2019 E78.5 Hyperlipidemia, unspecified Mary Shan'kashif PA-C 03/01/2019 Z96.641 Presence of right artificial hip Mary Shan'kashif PA-C joint 03/01/2019 Z86.79 Personal history of other diseases ROMAN Vasquez-C of the circulatory system 02/28/2019 Z96.641 Presence of right artificial hip ROMAN Vázquez joint 02/28/2019 T84.020A Dislocation of internal right hip Tammy Verduzcor, D.O. prosthesis, initial encounter 02/28/2019 R22.41 Localized swelling, mass and lump, Tammy Juan Francisco, D.O. right lower limb 02/28/2019 I48.91 Unspecified atrial fibrillation Tammy Juan Francisco, D.O. 02/28/2019 E78.5 Hyperlipidemia, unspecified Tammy Juan Francisco, D.O. 02/28/2019 I10 Essential (primary) hypertension Tammy Juan Francisco, D.O. 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 joint 02/24/2019 E78.5 Hyperlipidemia, unspecified Tammy Juan Francisco, D.O. 02/24/2019 I10 Essential (primary) hypertension Tammy Juan Francisco, D.O. 02/24/2019 E66.8 Other obesity Tammy Verduzcor, D.O. 02/22/2019 T84.89xD Other specified complication of ROMAN Vázquez internal orthopedic prosthetic devices, implants and grafts, subsequent encounter 02/21/2019 T84.89xD Other specified complication of ROMAN Vázquez internal orthopedic prosthetic devices, implants and grafts, subsequent encounter 02/20/2019 T84.020A Dislocation of internal right hip ROMAN Vázquez prosthesis, initial encounter 02/20/2019 I47.1 Supraventricular tachycardia Mary Bales PA-C 02/20/2019 M16.11 Unilateral primary osteoarthritis, Caodaism HAntoinette Panda [facility]- right hip 02/20/2019 I10 Essential (primary) hypertension Mary Bales PA-C 02/20/2019 M16.11 Unilateral primary osteoarthritis, ROMAN Vázquez right hip 02/20/2019 E78.5 Hyperlipidemia, unspecified SAUL VasquezC 02/20/2019 M16.11 Unilateral primary osteoarthritis, Gilberto Arreola M.D. right hip 02/20/2019 K21.9 Gastro-esophageal reflux disease Mary Bales PA-C without esophagitis 02/20/2019 Z96.641 Presence of right artificial hip Mary Bales PA-C joint 01/27/2019 I47.1 Supraventricular tachycardia Rosalio Merchant, DO [facility] 01/27/2019 E78.5 Hyperlipidemia, unspecified Rosalio Merchant, DO [facility] 01/27/2019 I35.1 Nonrheumatic aortic (valve) Rosalio Merchant, DO [facility] insufficiency 01/27/2019 I10 Essential (primary) hypertension Rosalio Merchant, DO [facility] 01/27/2019 Z01.810 Encounter for preprocedural Rosalio Merchant DO [facility] cardiovascular examination 01/27/2019 E66.8 Other obesity Rosalio Merchant, DO [facility] 01/25/2019 M16.11 Unilateral primary osteoarthritis, Gilberto Arreola M.D. 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 limb 01/06/2019 M25.551 Pain in right hip Meera Estevez M.D. 01/06/2019 M25.552 Pain in left hip Meera Estevez M.D. 01/06/2019 M16.11 Unilateral primary osteoarthritis, Meera Estevez M.D. right hip 01/06/2019 M16.12 Unilateral primary osteoarthritis, Meera Estevez M.D. left hip 01/06/2019 Z68.38 Body mass index (BMI) 38.0-38.9, Meera Estevez M.D. adult 01/06/2019 E66.01 Morbid (severe) obesity due to Meera Estevez M.D. excess calories 12/02/2018 I35.9 Nonrheumatic aortic valve disorder, Traveling ECHO 1 unspecified 12/02/2018 I35.1 Nonrheumatic aortic (valve) Rosalio Merchant, DO [facility] insufficiency 12/02/2018 I35.1 Nonrheumatic aortic (valve) Traveling ECHO 1 insufficiency Plan of Treatment Future Appointment(s):04/26/2019 1:30 pm - Gilberto Arreola M.D. at [facility]/13/2019 10:30 am - Ivania Garcia NP at [facility]/2019 - Gilberto Arreola M.D.Z96.641 Presence of right artificial hip jointNew Xrays:Hip Right 2 Views And Pelvis [id number] - [id number], Ordered: 04/12/19Follow up:Follow up: 2 flngyX77.51xA Infection and inflammatory reaction due to internal right hip prosthesis, initial xtcidcerxO39.01xD Periprosthetic fracture around internal prosthetic right hip joint, subsequent encounter Functional Status Description No Information Available Mental Status Description No Information Available Referrals Description No Information Available
== END 2019-04-13 21:53 | disposition home or self-care (01) ==
LOC: ED 21:22
DX: T82.594A Other mechanical complication of infusion catheter, initial encounter (principal); E78.00 Pure hypercholesterolemia, unspecified; I10 Essential (primary) hypertension; K21.9 Gastro-esophageal reflux disease without esophagitis; Z79.899 Other long term (current) drug therapy; Z88.1 Allergy status to other antibiotic agents; Z88.5 Allergy status to narcotic agent; Z88.8 Allergy status to other drugs, medicaments and biological substances
CPT/HCPCS: 99282

== ENCOUNTER 2019-04-19 12:24 | Observation (INO) | payer MEDICARE ==
--- OUTSIDE RECORDS SUMMARY | 2019-04-19 12:55 | XMS REPORT ---
:1950 Author Organization [facility] Care Team Providers Name Role Phone Unavailable Unavailable Unavailable Problems Condition Condition Condition Status Onset Resolution Last Treating Comments Name Details Category Date Date Treatment Clinician Date Sepsis due Sepsis due Diagnosis Active 2018-06 Katrin to to 0-29 Carrier RN Enterococcu Enterococcu s s Unspecified Unspecified Diagnosis Active 2018-06 Katrin staphylococ staphylococ 0-29 Carrier RN cus as the cus as the cause of cause of diseases diseases classified classified elsewhere elsewhere Presence of Presence of Diagnosis Active 2018-06 Katrin right right 0-29 Carrier RN artificial artificial hip joint hip joint Encounter Encounter Diagnosis Active 2018-06 Katrin for change for change 0-29 Carrier RN or removal or removal of surgical of surgical wound wound dressing dressing Encounter Encounter Diagnosis Active 2018-06 Katrin for for 0-29 Carrier RN adjustment adjustment and and management management of vascular of vascular access access device device E66.01 E66.01 Diagnosis Active 2018-06 Katrin 0-29 Carrier RN Pain frequent Pain Mgmt Resolve 2018-062019-04-13 [place] pain d 0 12:49:00 Taty 17:00: [id number] 00 Endo/Thom anti-coagul Endo/Thom Resolve 2018-062019-04-13 [place] ation d 0 12:49:00 Taty therapy 17:00: [id number] 00 Integument surgical Integument Active 2018-06 [place] wound 0 Taty present 17:00: [id number] 00 Nutrition nutritional Nutrition Resolve 2018-062019-04-10 [place] restriction d 0 08:47:00 Taty s 17:00: [id number] 00 Neuro anxiety Neuro/Emot Active 2018-06 [place] present ion 0 Taty 17:00: [id number] 00 Activity ADL Activity Active 2018-06 [place] assistance 0-29 Taty required 17:00: [id number] 00 Activity self-care Activity Active 2018-06 [place] deficit 0-29 Taty 17:00: [id number] 00 Safety knowledge/s Safety Active 2018-06 [place] kill 0-29 Taty deficit: pt 17:00: [id number] 00 Safety knowledge/s Safety Active 2018-06 [place] kill 0-29 Taty deficit: cg 17:00: [id number] 00 Safety fall risk Safety Active 2018-06 [place] factor 0-29 Taty present 17:00: [id number] 00 Safety risk for Safety Active 2018-06 [place] hospitaliza 0-29 Taty tion 17:00: [id number] 00 Safety can be left Safety Active 2018-06 [place] alone for 0-29 Taty only short 17:00: [id number] periods 00 Medication potential Meds Resolve 2018-062019-04-13 [place] clinically d 0-29 12:49:00 Taty significant 17:00: [id number] medication 00 issue Medication oral med Meds Resolve 2018-062019-04-13 [place]ina assistance d 0-29 12:49:00 Reed required 17:00: [id number] 00 IV IV present IV Resolve 2018-062019-04-10 Alina d 0-29 08:47:00 Reed 17:00: [id number] 00 Musculoskel requires Musculoske Active 2018- [place] etal human letal 0-29 Taty assist to 17:00: [id number] leave home 00 Musculoskel requires Musculoske Active 2018-06 [place] etal special letal 0-29 Taty transportat 17:00: [id number] ion 00 Elimination urinary Eliminatio Active 2018-06 [place] incontinenc n 0-31 Taty e 12:29: [id number] 00 Safety safety Safety Active 2018-06 [place] hazards - Taty present 08:47: [id number] 00 Social support MONET: Active 2018-06 [facility] deficit Social 06-11 [place] [facility] 14:45: [id number] 00 Social knowledge/s MONET: Resolve 2018-062019-04-11 [facility] kill Social d 06-11 14:45:00 [place] deficit - Services 14:45: [id number] pt 00 Social knowledge/s MONET: Resolve 2018-062019-04-11 [facility] kill Social d 06-11 14:45:00 [place] deficit - Services 14:45: [id number] cg 00 Social knowledge/s MONET: Active 2018-06 Charlie Barbour kill Social 06-13 Dimitris deficit - Services 13:15: [id number] pt 00 Social knowledge/s MONET: Active 2018-06 Charlie Services kill Social 06-13 Dimitris deficit - Services 13:15: [id number] cg 00 Integument skin Integument Active 2018-06 Katrin integrity 06-17 Carrier RN risk 08:00: 00 Allergies, Adverse Reactions, Alerts Allergy Name Allergy Status Severity Reaction(s) Onset Inactive Treating Comments Type Date Date Clinician Biaxin Medication Active Unknown Reaction 2018-06 Grazyna White Name ID Unknown 0-29 nabumetone Base Active Unknown Reaction 2018-06 Grazyna White Ingredient Unknown 0-29 morphine Base Active Unknown Reaction 2018-06 Grazyna White Ingredient Unknown 0-29 fentanyl Base Active Unknown Reaction 2018-06 Grazyna White Ingredient Unknown 0-29 Relafen Medication Active Unknown Reaction 2018-06 Grazyna White Name ID Unknown 0-29 Medications Ordered Filled Start Stop Current Ordering Indication Dosage Frequency Signature Comments Components Medication Medication Date Date Medication? Clinician (SIG) Name Name Colace 100 Colace 100 2018-06 Yes Herb Unknown Unknown mg capsule mg capsule 0- Meera WHITMAN Lovenox 40 Lovenox 40 2018-06 Yes Herb Unknown Unknown mg/0.4 mL mg/0.4 mL 004-17 Meera WHITMAN subcutaneou subcutaneou s syringe s syringe oxyCODONE-a oxyCODONE-a 2018-06 Yes Herb Unknown Unknown cetaminophe cetaminophe 0- Meera WHITMAN n 5 mg-325 n 5 mg-325 mg tablet mg tablet Cardizem Cardizem 2018-06 Yes [place] Unknown Unknown 250 mg 250 mg 0- MD,Adam tablet tablet rifAMPin rifAMPin 2018-06 Yes [place] Unknown Unknown 300 mg 300 mg 0- MD,Adam capsule capsule warfarin warfarin 2019-1 2019- Yes Herb Unknown Unknown 2.5 mg 2.5 mg 0-29 11-04 MD,Meera tablet tablet Iron Iron 2018-06 Yes [place] Unknown Unknown (ferrous (ferrous 0-29 MD,Adam sulfate) sulfate) 325 mg 325 mg tablet tablet ZyrTEC 10 ZyrTEC 10 2018-06 Yes [place] Unknown Unknown mg tablet mg tablet 0-29 MD,Adam senna 8.6 senna 8.6 2018-06 Yes [place] Unknown Unknown mg tablet mg tablet 0-29 MD,Adam Crestor 5 Crestor 5 2018-06 Yes [place] Unknown Unknown mg tablet mg tablet 0-29 MD,Adam omeprazole omeprazole 2018-06 Yes [place] Unknown Unknown 20 mg 20 mg 0-29 MD,Adam capsule,del capsule,del ayed ayed release release omega-3 omega-3 2018-06 Yes [place] Unknown Unknown fatty fatty 0-29 MD,Adam acids-fish acids-fish oil 340 oil 340 mg-1,000 mg mg-1,000 mg capsule capsule Neurontin Neurontin 2018-06 Yes [place] Unknown Unknown 300 mg 300 mg 0-29 MD,Adam capsule capsule flecainide flecainide 2018-06 Yes [place] Unknown Unknown 100 mg 100 mg 0-29 MD,Adam tablet tablet baclofen 10 baclofen 10 2018-06 Yes [place] Unknown Unknown mg tablet mg tablet 0-29 MD,Adam vit C 1,000 vit C 1,000 2018-06 Yes [place] Unknown Unknown mg mg 0-29 MD,Adam cyclobenzap cyclobenzap 2018-06 Yes [place] Unknown Unknown rine 10 mg rine 10 mg 0-29 ,Winifred Winkler tablet tablet Flonase Flonase 2018-06 Yes [place] Unknown Unknown Allergy Allergy 0-29 ,Winifred Winkler Relief 50 Relief 50 mcg/actuati mcg/actuati on nasal on nasal spray,suspe spray,suspe nsion nsion miconazole miconazole 2018-06 Yes [place] Unknown Unknown nitrate 2 % nitrate 2 % 0-29 ,Winifred Winkler topical topical cream cream Tylenol Tylenol 2018-06 Yes [place] Unknown Unknown 0-29 ,Winifred Winkler vancomycin vancomycin 2018-06 Yes [place] Unknown Unknown 1.5 gram 1.5 gram 0-29 MD,Adam intravenous intravenous solution solution Hep Hep 2018-06 Yes [place] Unknown Unknown Flush-10 Flush-10 0-29 MD,Adam (PF) 10 (PF) 10 unit/mL unit/mL intravenous intravenous solution solution sodium sodium 2018-06 Yes [place] Unknown Unknown chloride chloride 0-29 MD,Adam 0.9 % 0.9 % (flush) (flush) injection injection syringe syringe Klor-Con Klor-Con 2018-06 Yes [place] Unknown Unknown M20 mEq M20 mEq 0-29 MD,Winifred Winkler tablet,exte tablet,exte nded nded release release warfarin warfarin 2018-06- Yes Herb Unknown Unknown 2.5 mg 2.5 mg 1- MD,Meera tablet tablet warfarin warfarin 2018-06 Yes Herb Unknown Unknown 2.5 mg 2.5 mg 06-17 MD,Meera tablet tablet Vital Signs Vital Name Observation Time Observation Value Comments SYSTOLIC mm[Hg] 2019-04-18 18:08:49 128 mm[Hg] mm[Hg] Method: Sit DIASTOLIC mm[Hg] 2019-04-18 18:08:49 72 mm[Hg] mm[Hg] Method: Sit PULSE 2019-04-18 18:08:49 68 /min /min RESP RATE 2019-04-17 18:08:48 16 /min /min TEMP 2019-04-18 18:08:49 97.2 [degF] Procedures This patient has no known procedures. Results This patient has no known results.
--- OUTSIDE RECORDS SUMMARY | 2019-04-19 12:55 | XMS REPORT | Continuity of Care Document ---
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 Onset: 02/11/2018 pelvic region and thigh Morbid obesity Meera Estevez M.D. Onset: 02/11/2018 Other osteonecrosis, right femur Meera Estevez M.D. Onset: 02/11/2018 Prosthetic arthroplasty of the hip Gilberto Arreola M.D. Onset: 04/12/2019 Infection AND/OR inflammatory reaction due to Gilberto Arreola M.D. Onset: 11/2018 internal prosthetic device, implant AND/OR graft Periprosthetic fracture of hip Gilberto Arreola M.D. Onset: 04/12/2019 Social History Type Date Description Comments Sex Unknown ETOH Use Denies alcohol use Tobacco Use Start: Unknown Patient has never she reports second smoked hand smoke exposure Recreational Drug Use Denies Drug Use Smoking Status Reviewed: 04/13/19 Patient has never she reports second smoked hand smoke exposure Exercise Type/Frequency Does not exercise Allergies, Adverse [...] Capsules Commode ht: 65" wt: 228lbs M16.11 [place] 02/10/2019 [facility] [place] Ellen Arreola s/p total hip arthoplasty Bath/Shower Seat ht: 65" wt: 228lbs M16.11 [place] 02/10/2019 [facility] [place]: hip arthritis Ellen Arreola s/p total hip arthoplasty Hip Cushion ht: 65" wt: 228lbs M16.11 [place] 02/10/2019 dx: hip arthritis Ellen Arreola s/p total hip arthoplasty Gabapentin 1 by mouth every 30caps G57.22 [place] 01/25/2019 300mg Capsules night at bedtime Ellen Arreola Rosuvastatin Calcium take 1 tablet by 90tabs E78.5 Rosalio S. 09/21/2018 5mg mouth every other Merchant, DO Tablets day [facility] Klor-Con M20 1 by mouth every 90tabs Joanie S. 08/01/2018 20Meq day Luis Forte.PAntoinette Tablets ER Dicloxacillin Sodium prn before Unknown clutch specialist 500mg Capsules Vitamin C 1 by mouth every Unknown 1000mg Tablets day Move Free Joint Health once daily Unknown Advanced glucosamine-condroi Tablets tinn Hair Skin Nails Unknown Capsules Clobetasol Propionate apply sparingly to Unknown effected area of 0.05% Cream vulva twice a day 4-6 weeks Ferrous Sulfate 1 by mouth every Unknown 325(65Fe) day mg Tablets Cyclobenzaprine HCL take 1 tab by mouth Unknown 10mg every 6 hours as Tablets needed Vancomycin HCL 1500 mg iv every 12 Unknown 1gm hrs through [facility] ([facility] end date 05/22) Warfarin Sodium dosing per Dr Estevez Unknown 2.5mg Tablets Percocet as needed for pain. Unknown 5-325mg Tablets Lovenox 1 injection Unknown 40mg/0.4ML subcutaneous every Solution 24 hours - dosing per Dr Estevez Docusate Sodium 1 tab every 12 Unknown 100mg hours as needed for Capsules constipation Amoxicillin take 4 pills, 2 g 1 Unknown 500mg hour before dental Capsules or gi procedure Fish Oil 1 by mouth twice a Unknown 1000mg Capsules day Nasacort Allergy 24HR 2 spray both nares Unknown once daily 55mcg/Act Aerosol Baclofen take 1/2 tab every Unknown 10mg Tablets 8 hours as needed for muscle spasm Zyrtec Allergy take one tablet by Unknown 10mg mouth in the Capsules evening Meloxicam 1 by mouth every Unknown 15mg Tablets day (on hold) Centrum 1 by mouth every 30tabs Unknown Tablets day (on hold) Diltiazem HCL ER 1 by mouth every 90caps Rosalio S. Coated Beads day (pt taking Merchant, DO 180mg Caps 240mg per pt) FACC ER 24HR Flecainide Acetate 1 by mouth twice a 180tabs Rosalio S. 100mg day Merchant, DO Tablets FACC Aspir-81 1 by mouth every Unknown 81mg Tablets DR day (on hold per pt) Lisinopril 1 by mouth every Unknown 5mg Tablets day (on hold) Omeprazole 1 by mouth every Unknown 20mg Capsules day DR Medications Administered in Office Medication SIG Qnty Indications Ordering Provider Date Depomedrol 40MG Meera Estevez M.D. 02/11/2018 Injection Immunizations Description No Information Available Vital Signs Date Vital Result Comment 04/13/2019 10:33am Height 65 inches 5'5" Weight 223.38 lb Heart Rate 72 /min BP Systolic Sitting 126 mmHg BP Diastolic Sitting 68 mmHg Respiratory Rate 14 /min Body Temperature 98.7 F BMI (Body Mass Index) 37.2 kg/m2 04/12/2019 11:32am Height 65 inches 5'5" Weight 232.00 lb Heart Rate 71 /min Body Temperature 97.9 F O2 % BldC Oximetry 97 % BMI (Body Mass Index) 38.6 kg/m2 Results Test Acquired Date Facility Test Result H/L Range Note Comp Metabolic 04/10/2019 [facility] Sodium 142 mmol/L Normal 135-[address] [place] [address] [phone] Potassium 3.7 mmol/L Normal 3.5-5.0 Chloride 107 [...] Egfr 166.7 >60 1 Laboratory test 04/10/2019 [facility] Vancomycin Trough 16.1 g /mL [address] [place] [address] [phone] C Reactive Protein 8.22 mg/L High <8.01 CBC Auto 04/10/2019 [facility] White Blood 2.8 10^3/uL Low 3.5 -10.[address] [place] [address] [phone] Red Blood Count 3.42 10^6/uL Low 3.70-4.87 Hemoglobin 10.7 g/dL Low 12.0-16.0 Hematocrit 32 % Low 35-47 Mean Corpuscular Volume 94 fL Normal 80-97 Mean Corpuscular Hemoglobin 31 pg Normal 27-31 Mean Corpuscular HGB Conc 33 g/dL Normal 31-36 Red Cell Distribution Width 17 % High 10-15 Platelet Count 340 10^3/uL Normal 150-450 Mean Platelet Volume 6.3 fL Low 7.4-10.4 Manual 04/10/2019 [facility] Immature 1.0 % Normal 0-[address] [place] [address] [phone] Neutrophil % 63.0 % Lymphocytes % 11.0 % Monocytes % 23.0 % Eosinophils % 2.0 % Myelocytes % 1.0 % Normal 0-1 RBC Morphology Normal Normal Laboratory test 04/10/2019 [facility] Pathologist (SEE NOTE) [address] [place] [address] [phone] Laboratory test 02/27/2019 [facility] Packed Cells SEE RESULTS [address] BELO <[place] [address] NOTE> [phone] Type & Screen 02/27/2019 [facility] Patient Blood O Negative [address] [place] [address] [phone] Antibody Screen NEGATIVE Laboratory 02/27/2019 [facility] Troponin-I 0.04 Critical < 0.04 [address] (TnI) ng/[place] [address] [phone] Comp Metabolic 02/27/2019 [facility] Sodium 137 Normal 135- [address] mmol/L [place], [place] [id number] [phone] Potassium 3.9 mmol/L Normal 3.5-5.0 Chloride 105 [...] Egfr 190.9 >60 6 Laboratory test 02/27/2019 [facility] Partial 29.8 Normal 26.0 -38.[address] [place] [address] Time PTT [phone] Lactic Acid 0.9 mmol/L Normal 0.5-2.0 7 Inr/Protime 02/27/2019 [facility] Inr 1.19 High 0.82-1.[address] [place] [address] [phone] CBC Auto Diff 02/27/2019 [facility] White Blood 8.4 Normal 3.5 -10.[address] Count 10^3/[place] [address] [phone] Red Blood Count 3.10 10^6/uL Low 3.70-4.87 [...] Blood Cells % 0.0 Urinalysis Profile 02/08/2019 [facility] Urine Color Yellow [address] [place] [address] [phone] Urine Appearance Clear Urine Specific [place] 1.023 Normal 1.010-1.030 Urine pH 5.0 Normal 5-9 Urine Urobilinogen Negative Negative Urine Ketones Trace Abnormal Negative Urine Protein Negative Negative Urine Leukocytes Negative Negative Urine Blood Negative Negative * * Abnormal Negative 9 Urine Nitrite Negative Negative Urine Bilirubin Negative Negative Urine Glucose Negative Negative CBC Auto 02/08/2019 [facility] White Blood 5.7 10^3/uL Normal 3.5-10.[address] [place] [address] [phone] Red Blood Count 4.11 10^6/uL Normal 3.70-4.87 [...] Red Blood Cells % 0.0 Inr/Protime 02/08/2019 [facility] Inr 1.02 Normal 0.82-1.[address] [place] [address] [phone] Laboratory test 02/08/2019 [facility] Partial 33.6 Normal 26.0 -38.[address] [place] [address] Time PTT [phone] Comp Metabolic 02/08/2019 [facility] Sodium 141 mmol/L Normal 135-[address] [place] [address] [phone] Potassium 3.8 mmol/L Normal 3.5-5.0 Chloride 107 [...] 135.0 >60 11 Type & Screen 02/08/2019 [facility] Patient Blood Type O Negative [address] [place] [address] [phone] Antibody Screen NEGATIVE Urine Culture And 02/08/2019 [facility] Urine Culture SEE RESULT [address] [place] [address] [phone] 1 Because ethnic data is not always [...] Verona Quiroz MD 4 SEE RESULTS BELOW [id number] ON PC TRANSFUSED 03/02/19 1025 [id number] ON PC TRANSFUSED 03/02/19 1134 5 Result TnIDx:0.04 Called to [id number] at: 19:52:23 by:[id number] Read back by: [id number] Troponin-I testing on Plasma Separator Tubes (PST) has a known false positive rate of 0.20-0.40%. All positive troponins reflex immediately to secondary confirmatory testing. Using the [employer]ik[employer] DxI 800 Access Immunoassay systems, the 99th [...] 5 Kidney failure <15 (or dialysis) 7 [facility] Severe Sepsis and Septic Shock Management [...] [address]: Gilberto Arreola MD Acct: [id number] Unit: [id number] AGE: 68 Location: [facility] Re02/08/19 SEX: F Status: REG REF SPEC: [id number] KIT: 02/08/19 [facility] DR: Gilberto Arreola MD REQ: [id number] RECD: 02/08/19 STATUS: COMP _ SOURCE: URINE SPDESC: ORDERED: Urine Culture QUERIES: Urine Source: Clean Catch Procedure Result Reported Site Urine Culture Final 02/09/19- 1219 ML No Growth (<1,000 CFU/mL) * ML - Main Lab . END OF REPORT DEPARTMENT OF PATHOLOGY, [address] [place] [address] Alexey Roberts M.D. Director [facility] # [id number] Procedures Date Code Description Status 03/28/2019 85301 Arthrotomy Hip W/Drainage Completed 03/28/2019 38949 Arthrotomy Hip W/Drainage Completed 03/02/2019 83877 Revise Total Hip Arthroplasty Both Components Completed 03/02/2019 06725 Revise Total Hip Arthroplasty Both Components Completed 02/20/201976541 THR Total Hip Replacement Completed 02/20/201962437 THR Total Hip Replacement Completed 02/20/201977907 THR Total Hip Replacement Completed 01/27/2019 61517 EKG Tracing & Interpretation Completed 12/07/2018 492138628 Bone Mineral Density Test Completed 12/07/2018 09745521 Mammogram Completed 12/02/2018 76033 ECHO Transthoracic, Real-Time 2D With Doppler And Completed Color Flow 12/02/2018 10238 ECHO Transthoracic, Real-Time 2D With Doppler And Completed Color Flow Medical Devices Description No Information Available Encounters Type Date Location Provider Dx Diagnosis Office Visit 04/04/2019 [facility] Tammy Chicas, R00.2 Palpitations 10:37a Assoc,ilir Hospitalists D.O. T84.51xA Infect/inflm reaction due to internal right hip prosth, init D64.9 Anemia, unspecified E78.5 Hyperlipidemia, unspecified I10 Essential (primary) hypertension I48.0 Paroxysmal atrial fibrillation Z86.79 Personal history of other diseases of the circulatory system Office 04/03/2019 [facility] T84.51xD Infect/inflm Visit 11:26a Infectious Jose COPPER FLOTATION OPERATOR reaction due to Diseases internal right hip prosth, subs Office 04/03/2019 [facility] Tammy Chicas, R00.2 Palpitations Visit 10:37a Assoc,ilir D.O. Hospitalists T84.51xA Infect/inflm reaction due to internal right hip prosth, init D64.9 Anemia, unspecified E78.5 Hyperlipidemia, unspecified I10 Essential (primary) hypertension I48.0 Paroxysmal atrial fibrillation Office Visit 04/02/2019 [facility] Shea D64.9 Anemia, 10:37a Asszena,ilir Monet MD unspecified Hospitalists E78.5 Hyperlipidemia, unspecified I10 Essential (primary) hypertension Z86.79 Personal history of other diseases of the circulatory system Z96.641 Presence of right artificial hip joint Z47.1 Aftercare following joint replacement surgery Office Visit 04/01/2019 [facility] D64.9 Anemia, 10:36a Associlir NP unspecified Hospitalists E78.5 Hyperlipidemia, unspecified I10 Essential (primary) hypertension Z86.79 Personal history of other diseases of the circulatory system Z96.641 Presence of right artificial hip joint Z47.1 Aftercare following joint replacement surgery Office 03/31/2019 [facility] T84.51xD Infect/inflm Visit 11:25a Prabha Garcia COPPER FLOTATION OPERATOR reaction due to Diseases internal right hip prosth, subs Office 03/31/2019 [facility] D64.9 Anemia, Visit 10:36a Assoc,ilir LORENZO unspecified Hospitalists E78.5 Hyperlipidemia, unspecified I10 Essential (primary) hypertension Z86.79 Personal history of other diseases of the circulatory system Z96.641 Presence of right artificial hip joint Z47.1 Aftercare following joint replacement surgery Office Visit 03/30/2019 [facility] Nakita D64.9 Anemia, 10:34a Associlir NP unspecified Hospitalists E78.5 Hyperlipidemia, unspecified I10 Essential (primary) hypertension Z86.79 Personal history of other diseases of the circulatory system Z96.641 Presence of right artificial hip joint Z47.1 Aftercare following joint replacement surgery [facility] T84.51xD Infect/inflm Visit 11:23a Infectious Jose, COPPER FLOTATION OPERATOR reaction due to Diseases internal right hip prosth, subs Office 03/29/2019 [facility] Nakita D64.9 Anemia, Visit 10:34a ilir Kwan NP unspecified Hospitalists E78.5 Hyperlipidemia, unspecified I10 Essential (primary) hypertension Z86.79 Personal history of other diseases of the circulatory system Z96.641 Presence of right artificial hip joint Z47.1 Aftercare following joint replacement surgery Office 03/28/2019 [facility] Ivania Hwang T81.40xA Infection Visit 11:16a Infectious BJ Garcia following a Diseases procedure, unspecified, init Office 03/28/2019 [facility] Nakita D64.9 Anemia, Visit 10:34a ilir Kwan NP unspecified Hospitalists I10 Essential (primary) hypertension E78.5 Hyperlipidemia, unspecified Z86.79 Personal history of other diseases of the circulatory system Z96.641 Presence of right artificial hip joint Z47.1 Aftercare following joint replacement surgery [facility] D[facility].9 Anemia, 10:33a ilir Kwan NP unspecified Hospitalists I10 Essential (primary) hypertension E78.5 Hyperlipidemia, unspecified I47.1 Supraventricular tachycardia Z96.641 Presence of right artificial hip joint Z47.1 Aftercare following joint replacement surgery Office Visit 03/07/2019 [facility] Mary T84.020A Dislocation of 10:13a ilir Kwan PA-C [...] following joint replacement surgery Office Visit 03/06/2019 [facility] T84.021A Dislocation of 10:13a ilir Kwan PA internal left Hospitalists hip prosthesis, init encntr R60.0 Localized edema D62 Acute posthemorrhagic anemia N39.0 Urinary tract infection, site not specified I10 Essential (primary) hypertension E78.5 Hyperlipidemia, unspecified Z86.79 Personal history of other diseases of the circulatory system Office Visit 03/05/2019 [facility] D62 Acute 10:12a Assilir freitas PA posthemorrhagic Hospitalists anemia T84.020A Dislocation of internal right hip prosthesis, init encntr R22.41 Localized swelling, mass and lump, right lower limb I10 Essential (primary) hypertension E78.5 Hyperlipidemia, unspecified Z96.641 Presence of right artificial hip joint Z86.79 Personal history of other diseases of the circulatory system Office Visit 03/04/2019 [facility] D72.829 Elevated white 10:12a ilir Kwan PA blood cell Hospitalists count, unspecified D62 Acute posthemorrhagic anemia T84.020A Dislocation of internal right hip prosthesis, init encntr R22.41 Localized swelling, mass and lump, right lower limb I10 Essential (primary) hypertension E78.5 Hyperlipidemia, unspecified Z96.641 Presence of right artificial hip joint Z86.79 Personal history of other diseases of the circulatory system Office 03/03/2019 [facility] R65.10 Sirs of Visit 10:11a ilir Kwan [...] of the circulatory system Office Visit 03/02/2019 [facility] T84.020A Dislocation of 10:11a ilir Kwan PA internal right Hospitalists hip prosthesis, init encntr R22.41 Localized swelling, mass and lump, right lower limb I10 Essential (primary) hypertension E78.5 Hyperlipidemia, unspecified Z96.641 Presence of right artificial hip joint Z86.79 Personal history of other diseases of the circulatory system Office Visit 03/01/2019 [facility] Mary T84.020A Dislocation of 10:11a Associlir PA-C internal right Hospitalists hip prosthesis, init encntr R22.41 Localized swelling, mass and lump, right lower limb I10 Essential (primary) hypertension E78.5 Hyperlipidemia, unspecified Z96.641 Presence of right artificial hip joint Z86.79 Personal history of other diseases of the circulatory system Office Visit 02/28/2019 [facility] Tammy T84.020A Dislocation of 10:10a Assoc,ilir Chicas, D.O. internal right Hospitalists hip prosthesis, init encntr R22.41 Localized swelling, mass and lump, right lower limb I48.91 Unspecified atrial fibrillation E78.5 Hyperlipidemia, unspecified I10 Essential (primary) hypertension Office Visit 02/27/2019 8:15a [facility] Leana Paula, Z96.641 Presence of right COPPER FLOTATION OPERATOR artificial hip joint S73.004A Unspecified dislocation of right hip, initial encounter Office Visit 02/24/2019 11:00a [facility] Tammy Chicas, Z96.641 Presence of right D.O. artificial hip joint E78.5 Hyperlipidemia, unspecified I10 Essential (primary) hypertension E66.8 Other obesity [facility] I[facility].1 Supraventricular 10:01a Associlir PA-C tachycardia Hospitalists I10 Essential (primary) hypertension E78.5 Hyperlipidemia, unspecified K21.9 Gastro-esophageal reflux disease without esophagitis Z96.641 Presence of right artificial hip joint Office Visit 01/27/2019 [facility] I47.1 Supraventricular 2:00p Cardiology Of DO yajaira Merchant [facility] E78.5 Hyperlipidemia, unspecified I35.1 Nonrheumatic aortic (valve) insufficiency I10 Essential (primary) hypertension Z01.810 Encounter for preprocedural cardiovascular examination E66.8 Other obesity Office Visit 01/25/2019 [place] Gilberto M16.11 Unilateral primary 10:30a Orthopedics at [facility] Arreola osteoarthritis, [place] right hip 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, left lower limb Office Visit 01/06/2019 3:15p [facility] Meera Estevez, M25.551 Pain in right at [place] Ellen hip M25.552 Pain in left hip M16.11 Unilateral primary osteoarthritis, right hip M16.12 Unilateral primary osteoarthritis, left hip Z68.38 Body mass index (BMI) 38.0-38.9, adult E66.01 Morbid (severe) obesity due to excess calories Assessments Date Code Description Provider 04/13/2019 T84.51xD Infection and inflammatory reaction Ivania Garcia NP due to internal right hip prosthesis, subsequent encounter 04/13/2019 B95.61 Methicillin susceptible Ivania Garcia NP Staphylococcus aureus infection as the cause of diseases classified elsewhere 04/13/2019 Z79.2 skilled nursing (current) use of Ivnaia Garcia NP antibiotics 04/12/2019 Z96.641 Presence of right artificial hip Gilberto Arreola M.D. joint 04/12/2019 T84.51xA Infection and inflammatory reaction Gilberto Arreola M.D. due to internal right hip prosthesis, initial encounter 04/12/2019 M97.01xD Periprosthetic fracture around Gilberto Arreola M.D. internal prosthetic right hip joint, subsequent encounter 04/04/2019 R00.2 Palpitations Tammy Chicas D.O. 04/04/2019 T84.51xA Infection and inflammatory reaction Tammy Chicas D.O. due to internal right hip prosthesis, initial encounter 04/04/2019 D64.9 Anemia, unspecified Elton WangO. 04/04/2019 E78.5 Hyperlipidemia, unspecified Elton WangOAntoinette 04/04/2019 I10 Essential (primary) hypertension Tammy Chicas D.O. 04/04/2019 I48.0 Paroxysmal atrial fibrillation Tammy Chicas D.O. 04/04/2019 Z86.79 Personal history of other diseases Tammy Chicas D.O. of the circulatory system 04/03/2019 T84.51xD Infection and inflammatory reaction Ivania Garcia NP due to internal right hip prosthesis, subsequent encounter 04/03/2019 R00.2 Palpitations Elton WangOAntoinette 04/03/2019 T84.51xA Infection and inflammatory reaction Tammy Chicas D.O. due to internal right hip prosthesis, initial encounter 04/03/2019 D64.9 Anemia, unspecified Mila Wang.O. 04/03/2019 E78.5 Hyperlipidemia, unspecified Mila Wang.O. 04/03/2019 I10 Essential (primary) hypertension Elton WangO. 04/03/2019 I48.0 Paroxysmal atrial fibrillation Elton WangOAntoinette 04/02/2019 D64.9 Anemia, unspecified Shea Monet MD 04/02/2019 E78.5 Hyperlipidemia, cary Monet MD 04/02/2019 I10 Essential (primary) hypertension Shea Monet MD 04/02/2019 Z86.79 Personal history of other diseases Shea Monet MD of the circulatory system 04/02/2019 Z96.641 Presence of right artificial hip Shea Monet MD joint 04/02/2019 Z47.1 Aftercare following joint Shea Monet MD replacement surgery 04/01/2019 D64.9 Anemia, unspecified Leanachristina Paula, COPPER FLOTATION OPERATOR 04/01/2019 E78.5 Hyperlipidemia, unspecified Leanachristina Dengton, COPPER FLOTATION OPERATOR 04/01/2019 I10 Essential (primary) hypertension Leana Paula, COPPER FLOTATION OPERATOR 04/01/2019 Z86.79 Personal history of other diseases Leana Paula NP of the circulatory system 04/01/2019 Z96.641 Presence of right artificial hip Leana Paula, COPPER FLOTATION OPERATOR joint 04/01/2019 Z47.1 Aftercare following joint Leana Paula COPPER FLOTATION OPERATOR replacement surgery 03/31/2019 T84.51xD Infection and inflammatory reaction Ivania Garcia, BJ due to internal right hip prosthesis, subsequent encounter 03/31/2019 D64.9 Anemia, unspecified Leana Touchton, COPPER FLOTATION OPERATOR 03/31/2019 E78.5 Hyperlipidemia, unspecified Leana Touchton, COPPER FLOTATION OPERATOR 03/31/2019 I10 Essential (primary) hypertension Leana Paula, COPPER FLOTATION OPERATOR 03/31/2019 Z86.79 Personal history of other diseases Leana Paula, COPPER FLOTATION OPERATOR of the circulatory system 03/31/2019 Z96.641 Presence of right artificial hip Leana Paula, COPPER FLOTATION OPERATOR joint 03/31/2019 Z47.1 Aftercare following joint Leana Paula, COPPER FLOTATION OPERATOR replacement surgery 03/30/2019 D64.9 Anemia, unspecified Nakita Ashton, COPPER FLOTATION OPERATOR 03/30/2019 E78.5 Hyperlipidemia, unspecified Nakita Ashton, COPPER FLOTATION OPERATOR 03/30/2019 I10 Essential (primary) hypertension Nakita Ashton, COPPER FLOTATION OPERATOR 03/30/2019 Z86.79 Personal history of other diseases Nakita Ashton, COPPER FLOTATION OPERATOR of the circulatory system 03/30/2019 Z96.641 Presence of right artificial hip Nakita Angie, COPPER FLOTATION OPERATOR joint 03/30/2019 Z47.1 Aftercare following joint Nakita Angie, COPPER FLOTATION OPERATOR replacement surgery 03/29/2019 T84.51xD Infection and inflammatory reaction Ivania Garcia NP due to internal right hip prosthesis, subsequent encounter 03/29/2019 D64.9 Anemia, unspecified Nakita Ashton, COPPER FLOTATION OPERATOR 03/29/2019 E78.5 Hyperlipidemia, unspecified Nakita Ashton, COPPER FLOTATION OPERATOR 03/29/2019 I10 Essential (primary) hypertension Nakita Angie, COPPER FLOTATION OPERATOR 03/29/2019 Z86.79 Personal history of other diseases Nakita Adams, COPPER FLOTATION OPERATOR of the circulatory system 03/29/2019 Z96.641 Presence of right artificial hip Nakita Angie, COPPER FLOTATION OPERATOR joint 03/29/2019 Z47.1 Aftercare following joint Nakita Ashton, COPPER FLOTATION OPERATOR replacement surgery 03/28/2019 T81.40xA Infection following a procedure, Ivania Garcia, BJ unspecified, initial encounter 03/28/2019 D64.9 Anemia, unspecified Nakita Angie, COPPER FLOTATION OPERATOR 03/28/2019 T84.52xA Infection and inflammatory reaction Elinor Duran RPA- C due to internal left hip prosthesis, initial encounter 03/28/2019 I10 Essential (primary) hypertension Nakita Angie, [employer] OPERATOR 03/28/2019 T84.52xA Infection and inflammatory reaction Meera Estevez M.D. due to internal left hip prosthesis, initial encounter 03/28/2019 E78.5 Hyperlipidemia, unspecified Nakita Adams, [employer]PER [employer]OTATION OPERATOR 03/28/2019 Z86.79 Personal history of other diseases Nakita Adams [employer]PER [employer]OTATION OPERATOR of the circulatory system 03/28/2019 Z96.641 Presence of right artificial hip Nakita Adams, COPPER [employer]OTATION OPERATOR joint 03/28/2019 Z47.1 Aftercare following joint Nakita Adams, COPPER [employer]OTATION OPERATOR replacement surgery 03/27/2019 T81.31xA Disruption of external operation Meera Estevez M.D. 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 Mary Torrez'kashif PA-C coli] as the cause of diseases [...] joint 03/07/2019 Z47.1 Aftercare following joint Mary O'kashif, PA-Mikal replacement surgery 03/06/2019 T84.021A Dislocation of internal left hip ROMAN Moon prosthesis, initial encounter 03/06/2019 R60.0 Localized edema ROMAN Moon 03/06/2019 D62 Acute posthemorrhagic anemia ROMAN Moon 03/06/2019 N39.0 Urinary tract infection, site not ROMAN Moon specified 03/06/2019 I10 Essential (primary) hypertension ROMAN Moon 03/06/2019 E78.5 Hyperlipidemia, unspecified Josie Dennis PA 03/06/2019 Z86.79 Personal history of other diseases ROMAN Moon of the circulatory system 03/05/2019 D62 Acute posthemorrhagic anemia Josie Dennis PA 03/05/2019 T84.020A Dislocation of internal right hip ROMAN Moon prosthesis, initial encounter 03/05/2019 R22.41 Localized swelling, mass and lump, Josie Dennis PA right lower limb 03/05/2019 I10 Essential (primary) hypertension Josie Dennis PA 03/05/2019 E78.5 Hyperlipidemia, unspecified Josie Dennis PA 03/05/2019 Z96.641 Presence of right artificial hip ROMAN Moon joint 03/05/2019 Z86.79 Personal history of other diseases ROMAN Moon of the circulatory system 03/04/2019 D72.829 Elevated white blood cell count, ROMAN Moon unspecified 03/04/2019 D62 Acute posthemorrhagic anemia ROMAN Moon 03/04/2019 T84.020A Dislocation of internal right hip ROMAN Moon prosthesis, initial encounter 03/04/2019 R22.41 Localized swelling, mass and lump, Josie Dennis PA right lower limb 03/04/2019 I10 Essential (primary) hypertension Josie Dennis PA 03/04/2019 E78.5 Hyperlipidemia, unspecified Josie Dennis, PA 03/04/2019 Z96.641 Presence of right artificial hip ROMAN Moon joint 03/04/2019 Z86.79 Personal history of other diseases ROMAN Moon of the circulatory system 03/03/2019 R65.10 Systemic inflammatory response Josie Dennis PA syndrome (Sirs) of non-infectious origin without acute organ dysfunction 03/03/2019 D62 Acute posthemorrhagic anemia Josie Dennis PA 03/03/2019 T84.020A Dislocation of internal right hip ROMAN Moon prosthesis, initial encounter 03/03/2019 L29.9 Pruritus, unspecified Josie Dennis PA 03/03/2019 R22.41 Localized swelling, mass and lump, Josie Dennis PA right lower limb 03/03/2019 I10 Essential (primary) hypertension Josie Dennis PA 03/03/2019 E78.5 Hyperlipidemia, unspecified Josie Dennis PA 03/03/2019 Z96.641 Presence of right artificial hip Josie DennisROMAN joint 03/03/2019 Z86.79 Personal history of other [...] T84.020A Dislocation of internal right hip Josie DennisROMAN prosthesis, initial encounter 03/02/2019 R22.41 Localized swelling, mass and lump, ROMAN Moon right lower limb 03/02/2019 I10 Essential (primary) hypertension Josie Dennis PA 03/02/2019 E78.5 Hyperlipidemia, unspecified Josie Dennis PA 03/02/2019 Z96.641 Presence of right artificial hip ROMAN Moon joint 03/02/2019 Z86.79 Personal history of other diseases ROMAN Moon of the circulatory system 03/01/2019 T84.020A Dislocation of internal right hip Mary Nii PA-C prosthesis, initial encounter 03/01/2019 R22.41 Localized swelling, mass and lump, Mary O'kashif, PA-C right lower limb 03/01/2019 I10 Essential (primary) hypertension Mary Torrez'kashif, PA-C 03/01/2019 E78.5 Hyperlipidemia, unspecified Mary O'kashif, PA-C 03/01/2019 Z96.641 Presence of right artificial hip Mary Shan'kashif, PA-C joint 03/01/2019 Z86.79 Personal history of other diseases ROMAN Vasquez-C of the circulatory system 02/28/2019 Z96.641 Presence of right artificial hip ROMAN Vázquez joint 02/28/2019 T84.020A Dislocation of internal right hip Tammy Chicas D.O. prosthesis, initial encounter 02/28/2019 R22.41 Localized swelling, mass and lump, Tammy Chicas D.O. right lower limb 02/28/2019 I48.91 Unspecified atrial fibrillation Tammy Chicas D.O. 02/28/2019 E78.5 Hyperlipidemia, unspecified Tammy Juan Francisco, D.O. 02/28/2019 I10 Essential (primary) hypertension Tammy Chicas D.O. 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 joint 02/24/2019 E78.5 Hyperlipidemia, unspecified Tammy [...] Bales PA-C 02/20/2019 M16.11 Unilateral primary osteoarthritis, Sabianist HAntoinette Panda , [facility] right [facility] 02/20/2019 I10 Essential (primary) hypertension Mary Bales PA-C 02/20/2019 M16.11 Unilateral primary osteoarthritis, ROMAN Vázquez right hip 02/20/2019 E78.5 Hyperlipidemia, unspecified SAUL VasqeuzC 02/20/2019 M16.11 Unilateral primary osteoarthritis, Gilberto Arreola M.D. right hip 02/20/2019 K21.9 Gastro-esophageal reflux disease Mary Bales PA-C without esophagitis 02/20/2019 Z96.641 Presence of right artificial hip Mary Bales PA-C joint 01/27/2019 I47.1 Supraventricular tachycardia Rosalio Merchant, DO [facility] 01/27/2019 E78.5 Hyperlipidemia, unspecified Rosalio Merchant, DO [facility] 01/27/2019 I35.1 Nonrheumatic aortic (valve) Rosalio Merchant, DO [facility] insufficiency 01/27/2019 I10 Essential (primary) hypertension Rosalio Merchant, DO [facility] 01/27/2019 Z01.810 Encounter for preprocedural Rsoalio Merchant, DO [facility] cardiovascular examination 01/27/2019 E66.8 Other obesity Rosalio Merchant, DO [facility] 01/25/2019 M16.11 Unilateral primary osteoarthritis, Gilberto Arreola [...] I35.1 Nonrheumatic aortic (valve) Rosalio Merchant, DO [facility]AC insufficiency 12/02/2018 I35.1 Nonrheumatic aortic (valve) Traveling ECHO 1 insufficiency Plan of Treatment Future Appointment(s):05/11/2019 11:00 am - Ivania Garcia NP at [facility] Xkpjswth98/20/2019 1:30 pm - Gilberto Arreola M.D. at [facility] at [id number]/12/2019 - Gilberto Arreola M.D.Z96.641 Presence of right artificial hip jointFollow up:Follow up: 2 ukmyeN02.51xA Infection and inflammatory reaction due to internal right hip prosthesis, initial [id number] Periprosthetic fracture around internal prosthetic right hip joint, subsequent encounter Functional Status Description No Information Available Mental Status Description No Information Available Referrals Description No Information Available
--- OUTSIDE RECORDS SUMMARY | 2019-04-19 12:55 | XMS REPORT ---
:1950 Author Organization [facility] Care Team Providers Name Role Phone Unavailable [...] hip joint Encounter Encounter Diagnosis Active 2018-06 Ktarin for change for change 0-29 Carrier RN or removal or removal of surgical of surgical wound wound dressing dressing Encounter Encounter Diagnosis Active 2018-06 aKtrin for for 0-29 Carrier RN adjustment adjustment and and management management of vascular of vascular access access device device E66.01 E66.01 Diagnosis Active 2018-06 Katrin 0-29 Carrier RN Pain frequent Pain Mgmt Resolve 2018-062019-04-13 [place] pain d 0 12:49:00 Taty 17:00: [id number] Endo/Thom anti-coagul Endo/Thom Resolve 2018-062019-04-13 [place] ation d 0 12:49:00 Taty therapy 17:00: [id number] Integument surgical Integument Active 2018-06 [place] wound 0 Taty present 17:00: [id number] Nutrition nutritional Nutrition Resolve 2018-062019-04-10 [place] restriction d 0 08:47:00 Taty s 17:00: [id number] 00 Neuro anxiety Neuro/Emot Active 2018-06 [place] present ion 0 Taty 17:00: [id number] 00 Activity ADL Activity Active 2018-06 [place] assistance 0-29 Taty required 17:00: [id number] 00 Activity self-care Activity Active 2018-06 [place] deficit 0-29 Taty 17:00: [id number] 00 Safety knowledge/s Safety Active 2018-06 [place] kill 0-29 Taty deficit: pt 17:00: [id number] Safety knowledge/s Safety Active 2018-06 [place] kill 0-29 Taty deficit: cg 17:00: [id number] 00 Safety fall risk Safety Active 2018-06 [place] factor 0-29 Taty present 17:00: [id number] 00 Safety risk for Safety Active 2018-06 [place] hospitaliza 0-29 Taty tion 17:00: [id number] Safety can be left Safety Active 2018-06 [place] alone for 0-29 Taty only short 17:00: [id number] periods 00 Medication potential Meds Resolve 2018-062019-04-13 [place] clinically d 0-29 12:49:00 Taty significant 17:00: [id number] medication 00 issue Medication oral med Meds Resolve 2018-062019-04-13 Alina assistance d 0-29 12:49:00 Reed required 17:00: [id number] 00 IV IV present IV Resolve 2018-062019-04-10 Alina d 0-29 08:47:00 Reed 17:00: [id number] 00 Musculoskel requires Musculoske Active 2018- [place] etal human letal 0-29 Taty assist to 17:00: [id number] leave home 00 Musculoskel requires Musculoske Active 2018-06 [place] etal special letal 0-29 Taty transportat 17:00: [id number] ion 00 Elimination urinary Eliminatio Active 2018-06 [place] incontinenc n 0-31 Taty e 12:29: [id number] 00 Safety safety Safety Active 2018-06 [place] hazards - Taty present 08:47: [id number] 00 Social support MONET: Active 2018-06 Nancy Services deficit Social 06-11 [place] Services 14:45: [id number] 00 Social knowledge/s MONET: Resolve 2018-062019-04-11 Nancy Services kill Social d 06-11 14:45:00 Tracorey deficit - Services 14:45: [id number] pt 00 Social knowledge/s MONET: Resolve 2018-062019-04-11 Nancy Services kill Social d 06-11 14:45:00 Trakarentein deficit - Services 14:45: [id number] cg 00 Integument skin Integument Resolve 2018-062019-04-17 Katrin integrity d 06-17 08:00:00 Carrier RN risk 08:00: 00 Social knowledge/s MONET: Active 2018-06 Katrin Services kill Social 06-17 Carrier RN deficit - Services 08:00: pt 00 Allergies, Adverse Reactions, Alerts Allergy Name [...] Date Date Medication? Clinician (SIG) Name Name Colgavin 100 Colgavin 100 2018-06 Yes Herb Unknown Unknown mg [...] Unknown Unknown 250 mg 250 mg 0- ,Adam tablet tablet rifAMPin rifAMPin 2018-06 Yes [place] Unknown Unknown 300 mg 300 mg 0- MD,Adam capsule capsule warfarin warfarin 2018-06 Yes Herb Unknown Unknown 2.5 mg 2.5 mg 004-10 Meera WHITMAN tablet tablet Iron Iron 2018-06 Yes [place] Unknown Unknown (ferrous (ferrous 0-29 ,Adam sulfate) sulfate) 325 mg 325 mg tablet [...] Unknown Unknown 100 mg 100 mg 0-29 ,Adam tablet tablet baclofen 10 baclofen 10 2018-06 Yes [place] Unknown Unknown mg tablet mg tablet 0-29 ,Adam vit C 1,000 vit C 1,000 2018-06 Yes [place] Unknown Unknown mg mg 0-29 ,Adam cyclobenzap cyclobenzap 2018-06 Yes [place] Unknown Unknown rine 10 mg rine 10 mg 0-29 Winifred WHITMAN tablet tablet Flonase Flonase 2018-06 Yes [place] Unknown Unknown Allergy Allergy 0-29 Winifred WHITMAN Relief 50 Relief 50 mcg/actuati mcg/actuati on nasal on nasal spray,suspe spray,suspe nsion nsion miconazole miconazole 2018-06 Yes [place] Unknown Unknown nitrate 2 % nitrate 2 % 0- Winifred WHITMAN topical topical cream cream Tylenol Tylenol 2018-06 Yes [place] Unknown Unknown 0-29 Winifred WHITMAN vancomycin vancomycin 2018-06 Yes [place] Unknown Unknown 1.5 gram 1.5 gram 0-29 Adam WHITMAN intravenous intravenous solution solution Hep Hep 2018-06 Yes [place] Unknown Unknown Flush-10 Flush-10 0-29 ,Adam (PF) 10 (PF) 10 unit/mL unit/mL intravenous intravenous solution solution sodium sodium 2018-06 Yes [place] Unknown Unknown chloride chloride 0-29 MD,Adam 0.9 % 0.9 % (flush) (flush) injection injection syringe syringe Klor-Con Klor-Con 2018-06 Yes [place] Unknown Unknown M20 mEq M20 mEq 0-29 MD,Winifred Winkler tablet,exte tablet,exte nded nded release release warfarin warfarin 2018-06- Yes Herb Unknown Unknown 2.5 mg 2.5 mg 06-10 MD,Meera tablet tablet warfarin warfarin 2018-06 Yes Herb Unknown Unknown 2.5 mg 2.5 mg 06-17 MD,Meera tablet tablet Vital Signs Vital Name Observation Time Observation Value Comments SYSTOLIC mm[Hg] 2019-04-17 18:08:48 128 mm[Hg] mm[Hg] Method: Sit DIASTOLIC mm[Hg] 2019-04-17 18:08:48 72 mm[Hg] mm[Hg] Method: Sit PULSE 2019-04-17 18:08:48 72 /min /min RESP RATE 2019-04-17 18:08:48 16 /min /min TEMP 2019-04-17 18:08:48 97.7 [degF] Procedures This patient has no known procedures. Results This patient has no known results.
[2019-04-19] MEDS ORDERED: Metoprolol Tartrate IV* 1 MG/ML 5 ML VIAL IV ONE (13:00)
[2019-04-19 13:32] LABS: ABS Eosinophils 0.2 10^3/ul (0-0.6); ABS Lymphocytes 0.5 10^3/ul (1.0-4.8); ABS Monocytes 0.6 10^3/ul (0-0.8); ABS Neutrophils 2.6 10^3/ul (1.5-7.7); Eosinophil % 5.4 %; Hematocrit 38 % (35-47); Hemoglobin 12.8 g/dL (12.0-16.0); Lymphocyte % 13.4 %; Mean Corpuscular HGB Conc 33 g/dL (31-36); Mean Corpuscular Hemoglobin 31 pg (27-31); Mean Corpuscular Volume 93 fL (80-97); Mean Platelet Volume 6.2 fL (7.4-10.4); Nucleated Red Blood Cells % 0.1; Platelet Count 247 10^3/uL (150-450); Red Blood Count 4.15 10^6 /uL (3.70-4.87); Red Cell Distribution Width 17 % (10-15)
--- NOTE | 2019-04-19 13:34 | ED ---
Palpitations / Dysrhythmia - HPI Summary HPI Summary: 68 year old F brought to [facility] by EMS complains of tachycardia, chest heaviness , mild shortness of breath since earlier today. No pain or swelling in bilateral lower extremities, fever, nausea, decreased appetite, diarrhea, constipation. The patient rates the pain 0/10 in severity. Symptoms aggravated by nothing. Symptoms alleviated by nothing. Patient states she has had similar sx in the past for which she was given metropolol and Cardizem PO which improved her sx. Is on antibiotics for infection in right hip currently. Patient has PICC line in her upper extremity. Hx atrial fibrillation, heart murmur, SVT. - History of Current Complaint Chief Complaint: EDDysrhythmPalp Time Seen by Provider: 04/19/19 12:26 Hx Obtained From: Patient Onset/Duration: Lasting Hours, Still Present Timing: Constant Severity Currently: None Aggravating: Nothing Alleviating: Nothing Associated Signs & Symptoms: Negative - pain or swelling in bilateral lower extremities, fever, nausea, decreased appetite, diarrhea, constipation - Allergy/Home Medications Allergies/Adverse Reactions: Allergies Allergy/AdvReac Type Severity Reaction Status Date / Time cefazolin Allergy Intermediate Rash And Verified 04/19/19 12:34 Itching atorvastatin [From Lipitor] AdvReac Muscle Ache Verified 04/19/19 12:34 clarithromycin [From Biaxin] AdvReac Nausea And Verified 04/19/19 12:34 Vomiting fentanyl AdvReac Nausea And Verified 04/19/19 12:34 Vomiting morphine AdvReac Nausea And Verified 04/19/19 12:34 Vomiting nabumetone AdvReac GI Upset Verified 04/19/19 12:34 pravastatin AdvReac Muscle Ache Verified 04/19/19 12:34 PMH/Surg Hx/FS Hx/Imm Hx Endocrine/Hematology History: Denies: Hx Diabetes Cardiovascular History: Reports: Hx Hypercholesterolemia, Hx Hypertension - ON MEDS, Other Cardiovascular Problems/Disorders - HEART MURMUR Respiratory History: Reports: Hx Sleep Apnea - No CPAP, Other Respiratory Problems/Disorders - SINUS INFECTIONS GI History: Reports: Hx Gastroesophageal Reflux Disease - ON OMPREZOLE, Hx Ulcer Musculoskeletal History: Reports: Hx Arthritis, Hx Bursitis, Other Musculoskeletal History - Osteoarthritis Denies: Hx Osteoporosis Sensory History: Reports: Hx Cataracts, Hx Contacts or Glasses Denies: Hx Hearing Aid Opthamlomology History: Reports: Hx Cataracts, Hx Contacts or Glasses Neurological History: Denies: Hx Headaches - Cancer History Hx Chemotherapy: No Hx Radiation Therapy: No - Surgical History Surgery Procedure, Year, and Place: 02/20/19 R hip fx & 03/02/19. RIGHT SHOULDER SURGERY PA 2010. L FOOT ARTHRODESIS PA 2006. CERVICAL FUSION C4-7 PA 2006. APPY PA 2005. RIGHT FOOT ARTHODESIS 2003 PA. LTK 2005 PA. RTK 2001 PA. D&C 1993 PA. T&A 195. right hip & revision 2019 Hx Anesthesia Reactions: No Infectious Disease History: No Infectious Disease History: Denies: Traveled Outside the [place] in Last 30 Days - Family History Known Family History: Positive: Cardiac Disease, Seizure Disorder - Social History Alcohol Use: None Hx Substance Use: No Substance Use Type: Reports: None Hx Tobacco Use: No Smoking Status (MU): Never Smoked Tobacco Have You Smoked in the Last Year: No Review of Systems Negative: Fever Positive: Other - tachycardia, chest heaviness Positive: Shortness Of Breath Positive: Other - decreased appetite, constipation. Negative: Diarrhea, Nausea Musculoskeletal: Negative - pain/swelling in bilateral lower extremities All Other Systems Reviewed And Are Negative: Yes Physical Exam - Summary Physical Exam Summary: Constitutional: Well-developed, Well-nourished, Alert. (-) Distressed Skin: Warm, Dry HENT: Normocephalic; Atraumatic Eyes: Conjunctiva normal Neck: Musculoskeletal ROM normal neck. (-) JVD, (-) Stridor, (-) Tracheal deviation Cardio: Rhythm regular, tachycardic, Heart sounds normal; Intact distal pulses; The pedal pulses are 2+ and symmetric. Radial pulses are 2+ and symmetric. (-) Murmur Pulmonary/Chest wall: Effort normal. (-) Respiratory distress, (-) Wheezes, (-) Rales, lungs clear Abd: Soft, (-) tenderness, (-) Distension, (-) Guarding, (-) Rebound Musculoskeletal: (-) Edema, deferred examination of the hip and the patient's PICC line, extremeties nonedeminous Lymph: (-) Cervical adenopathy Neuro: Alert, Oriented x3 Psych: Mood and affect Normal Triage Information Reviewed: Yes Vital Signs On Initial Exam: Initial Vitals Temp Pulse Resp BP Pulse Ox 97.6 F 145 14 159/117 96 04/19/19 12:29 04/19/19 12:29 04/19/19 12:29 04/19/19 12:29 04/19/19 12:29 Vital Signs Reviewed: Yes Procedures - Sedation Patient Received Moderate/Deep Sedation with Procedure: No Diagnostics - Vital Signs Vital Signs Temp Pulse Resp BP Pulse Ox 04/19/19 13:24 95 04/19/19 13:12 148 19 96 04/19/19 13:03 149 19 154/100 95 04/19/19 12:29 97.6 F 145 14 159/117 96 - Laboratory Result Diagrams: 04/19/19 13:21 04/19/19 13:21 Lab Statement: Any lab studies that have been ordered have been reviewed, and results considered in the medical decision making process. - Radiology CXR Summary of Radiographic Findings: No evidence for acute intrathoracic disease - CT Chest CTA CT Interpretation Completed By: Radiologist Summary of CT Findings: 1. No acute pulmonary embolic disease. 2. No pulmonary consolidation. No pneumothorax or pleural effusion. 3. Ectasia of the ascending aorta. AP length is approximately 4.[address] scan in 6 months to 1 year to assess for progression. 4. Advanced degenerative changes of both shoulders. Right greater than left. Apparent aseptic necrosis of the right humeral head. 5. 2 cm hypodense nodule located in the right thyroid lobe. Recommend ultrasound assessment. ED physician has reviewed this report. - EKG 12:34 Cardiac Rate: NL - 147 bpm, Tachycardia - 147 BPM EKG Rhythm: Sinus Rhythm Summary of EKG Findings: Tachycardic at 147 bpm, normal DC, normal QRS, prolonged QTc, normal axis, depressed ST in V2, V3, V4, V5, normal T-waves, superventicular tachycardia, ischemic changes are likely related to rate 1400 Cardiac Rate: Tachycardia - 133 bpm EKG Rhythm: Atrial Flutter Summary of EKG Findings: Tachycardic flutter at 133 bpm, normal DC, normal QRS, prolonged QTc, normal axis, STs are elevated in V1 and V2, STs are depressed in V3 and V4, T waves are inverted in V5 and V6, non-specific EKG with improved rate compared to earlier. 1435 Cardiac Rate: NL - 70 bpm EKG Rhythm: Sinus Rhythm Summary of EKG Findings: Normal sinus rhythm at 70 bpm, normal DC, normal QRS, normal QTc, normal axis, normal ST, normal T-waves, normal EKG 1234 Cardiac Rate: Tachycardia - 147 BPM Summary of EKG Findings: Tachycardic at 147 bpm, normal DC, normal QRS, prolonged QTc, normal axis, depressed ST in V2, V3, V4, V5, normal T-waves, superventicular tachycardia, ischemic changes are likely related to rate 1950 Cardiac Rate: NL - 71 BPM EKG Rhythm: Sinus Rhythm Summary of EKG Findings: Normal sinus rhythm at 71 BPM, left axis deviation, normal DC, normal QRS, normal QTc, STs are depressed in V3-V5, normal T-waves. Overall, non-specific EKG at NSR. Re-Evaluation - Re-Evaluation First Eval Re-Evaluation Time: 14:36 Change: Improved - back in sinus rhythm Course/Dx - Course Course Of Treatment: 68 year old F brought to [facility] by EMS complains of rapid HR with heaviness in chest since earlier today. Physical exam findings: heart is tachycardic but regular. Bloodwork results with no significant abnormalities except for RDW 17 H, MPV 6.2 L, Absolute Lymphs (auto) 0.5 L, INR (Anticoag Therapy) 1.40 H, Creatinine 0.46 L, BUN/Creatinine Ratio 23.9 H, Glucose 102 H, B-Natriuretic Peptide 160 H. First troponin 0.03. Second troponin 0.06. Third troponin 0.09. An EKG at 12:34 shows tachycardic rhythm at 147 bpm, normal DC, normal QRS, prolonged QTc, normal axis, depressed ST in V2, V3, V4, and V5, normal T-waves, superventicular tachycardia, ischemic changes likely related. Another EKG at 14:00 shows tachycardic flutter at 133 bpm, normal DC, normal QRS, prolonged QTc, normal axis, STs are elevated in V1 and V2, STs are depressed in V3 and V4, T waves are inverted in V5 and V6, non- specific EKG with improved rate compared to earlier. An EKG at 14:35 shows Normal sinus rhythm at 70 bpm, normal DC, normal QRS, normal QTc, normal axis, normal ST, normal T-waves, normal EKG. An EKG at 19:50 shows Normal sinus rhythm at 71 BPM, left axis deviation, normal DC, normal QRS, normal QTc, STs are depressed in V3-V5, normal T-waves. Overall, non-specific EKG at NSR. CXR shows no evidence for acute intrathoracic disease per radiologist. ED physician has reviewed this report. In the ED course, the patient was given Lopressor IV 5 mg IV ED once, Rifampin Cap 300 mg PO ED, Visapaque 320 5 mg IV ED, Adenocard 6 mg 2 mL twice, Tylenol 650 mg PO ED, Vancomycin 250 mls @ 166.67 mls /hr. After medications, the patient is back in normal sinus rhythm. Chest CTA shows, per radiologist: 1. No acute pulmonary embolic disease. 2. No pulmonary consolidation. No pneumothorax or pleural effusion. 3. Ectasia of the ascending aorta. AP length is approximately 4.[address] scan in 6 months to 1 year to assess for progression. 4. Advanced degenerative changes of both shoulders. Right greater than left. Apparent aseptic necrosis of the right humeral head. 5. 2 cm hypodense nodule located in the right thyroid lobe. Recommend ultrasound assessment. Spoke with Dr. Chicas, hospitalist, who agrees to admit patient. The patient will be admitted to the hospitalist. The patient is agreeable with this plan. - Diagnoses Provider Diagnoses: SVT (supraventricular tachycardia), Elevated troponin - Physician Notifications Discussed Care Of Patient With: Tamika Mattson Time Discussed With Above Provider: 14:07 Instructed by Provider To: Other - , cardiology, recommends trying Spoke with Dr. Chicas, hospitalist, who agrees to admit patient. Discharge ED - Sign-Out/Discharge Documenting (check all that apply): Patient Departure - Admit - Discharge Plan Condition: Stable Disposition: ADMITTED TO [facility] Referrals: Winifred Jurado MD [Primary Care Provider] - - Billing Disposition and Condition Condition: STABLE Disposition: Admitted to [facility] - Attestation Statements Document Initiated by Scribe: Yes Documenting Scribe: Muna Newton Provider For Whom [employer] is Documenting (Include Credential): Cindi Colon MD Scribe Attestation: Peyman Chavarria Tiffany Liu, scribed for Cindi Toussaint MD on 11 /13/19 at 2214. Scribe Documentation Reviewed: Yes Provider Attestation: The documentation as recorded by the scribe, Muna Newton accurately reflects the service I personally performed and the decisions made by me, Cindi Toussaint MD Status of Scribe Document: Viewed
[2019-04-19 13:51] LABS: Albumin/Globulin Ratio 1.5 (1-3); BUN/Creatinine Ratio 23.9 (8-20); Calcium 9.1 mg/dL (8.6-10.3); EGFR African American 162.5 (>60); EGFR Non-African American 134.3 (>60); Globulin 2.7 g/dL (2-4); Potassium 3.6 mmol/L (3.5-5.0); Total Bilirubin 0.3 mg/dL (0.2-1.0); Total Protein 6.7 g/dL (6.4-8.9)
[2019-04-19 13:52] LABS: Troponin I 0.03 ng/mL (<0.04)
[2019-04-19] MEDS ORDERED: Adenosine* 3 MG/ML VIAL IV PUSH ONE ×2 (14:11→19:20)
[2019-04-19] MEDS ORDERED: Adenosine* 3 MG/ML VIAL ONE ×2 (14:20→19:20)
[2019-04-19 14:26] LABS: INR 1.4 (0.82-1.09)
[2019-04-19] MEDS ORDERED: Acetaminophen TAB* 325 MG PO ONE (14:38)
[2019-04-19] MEDS ORDERED: RiFAMPin CAP* 300 MG CAP PO ONE (15:10)
[2019-04-19 17:06] LABS: Troponin I 0.06 ng/mL (<0.04)
[2019-04-19] MEDS ORDERED: Iodixanol* (CONTRAST) 320 MG/ML 100 ML SDV IV ONE (18:17)
[2019-04-19] MEDS ORDERED: Vancomycin(*) 1,500 MG in NS 0.9% 250 ML* 250 ML IVPB ONE (19:19)
[2019-04-19] MEDS ORDERED: Potassium Chlor TAB* 20 MEQ TAB.ER PO ONE (19:29)
[2019-04-19] MEDS ORDERED: Metoprolol Succinate XL TAB* 25 MG PO ONE (19:29)
[2019-04-19 20:08] LABS: Troponin I 0.09 ng/mL (<0.04)
[2019-04-19] MEDS ORDERED: NS 0.9% 250 ML* 250 ML ONE (20:28)
[2019-04-19] MEDS ORDERED: Acetaminophen TAB* 325 MG PO PRN (22:39)
[2019-04-19] MEDS ORDERED: Cyclobenzaprine TAB* 10 MG PO PRN (22:39)
[2019-04-19 23:05] LABS: Magnesium 2.2 mg/dL (1.9-2.7)
[2019-04-20] MEDS ORDERED: Baclofen TAB* 10 MG PO SCH (01:30)
[2019-04-20] MEDS ORDERED: Gabapentin CAP(*) 300 MG PO SCH (01:30)
[2019-04-20] MEDS: oxyCODONE/Acetamin 5/325 MG* TAB PO PRN ×2 (01:50→07:34)
[2019-04-20] MEDS: RiFAMPin CAP* 300 MG CAP PO SCH ×2 (01:51→12:59)
[2019-04-20] MEDS: Flecainide TAB* 100 MG PO SCH ×2 (01:51→12:04)
[2019-04-20] MEDS ORDERED: Warfarin TAB(*) 5 MG PO SCH (02:00)
--- NOTE | 2019-04-20 04:23 | HP ---
History of Present Illness - History of Present Illness Reason for Visit: palpitations History of Present Illness: 68 year old female with history of PAF and infection of right prosthetic hip joint came in today with complaints of palpitations. She is curently on long- term abx treatment with vanco and rifampin for her right prosthetic hip joint infection. Cardiology had increased her home cadizem last time she had an epiode of SVT because she is on rifampin. Her HR is still not yet controlled which is why she is back in the ER. HR was in the 160s on presentation. Cardiology was called and recommended adenosine and start of metoprolol 25 BID. Pt is back in sinus. Because she had 2 runs of SVTs in the ER, she felt too anxious to go home. Pt is being admitted for monitoring. - Past Medical History Cardiac: AFIB, HTN, Hyperlipidemia Psych: Anxiety - Past Surgical History Past Surgical History: Total Hip Replacement - Past Family History Family History: Hyperlipidemia, Hypertension - Past Social History Smoke: No Alcohol: None Drugs: None Lives: With Family Domestic Violence: Negative Review of Systems - Measurements Intake and Output: Intake and Output Last 24 Hours 04/17/19 04/18/19 04/19/19 04/20/19 06:59 06:59 06:59 06:59 Intake Total 250 Balance 250 Weight 230 lb Intake: IV Fluids 250 - Review of Systems Constitutional Symptoms: Negative: Weight Gain, Weight Loss, Weakness, Fatigue, Fever, Night Sweats, Unexplained Falls, Other Dermatology: Negative: Normal, Rash, Skin Lesions, Cancer, Skin Lumps, Other HEENT: Negative: Normal, Change in Hearing, Vertigo, Dental Problems, Tinnitus, Sinus Problem, Other Eyes: Negative: Normal, Change in Vision, Double Vision, Eye Pain, Glaucoma, Cataract, Contacts or Glasses, Other Pulmonary: Negative: Normal, Cough, Sputum, Hemoptysis, Wheezing, Respiratory Distress, Shortness of Breath, COPD, Asthma, Exercise Intolerance, Home Oxygen, Other Cardiology: Positive: Palpitations Gastroenterology: Negative: Normal, Abdominal Pain, Nausea, Vomiting, Anorexia, Indigestion, Difficulty Swallowing, Heartburn, Constipation, Diarrhea, Blood in Stools, Change in Bowel Habits, Haematemesis, Melena, Other Endocrinology: Negative: Normal, Thyroid Problems, Adrenal Problems, Gonadal Problems, Family Hx Endocrine Disorders, Obesity, Diabetes Mellitus, Hyperglycemia, Hx Hypoglycemia, Diabetic Foot Ulcers, Calluses, Hirsutism, Menstrual Abnormalities , Polydipsia, Polyuria, Gonadal Problems, Gynecomastia, Pituitary disease, Other Neurology: Negative: Normal, Headache, Migraines, Change in Vision, Diplopia, Dizziness , Change in Balancing, Change in Coordination, Change in Memory, Change in Speech, Change in Sphincter Function, Change in Walking, Numbness\Paresthesiae, Unexplained Weakness, Hx of Stroke\TIA, Hx of Seizures, Other Psychiatry: Negative: Normal, Depression, Anxiety, Depressed Mood, Anhedonia, Sexual Dysfunction, Weight Change, Guilt Feelings, Tearfulness, Unusual Fatigue, Unusual Anxiety, Suicidal Ideation, Hypomania, Eating Disorders, Other Objective Active Medications: Acetaminophen (Tylenol Tab*) 975 mg PO Q8HR PRN PRN Reason: PAIN - MILD Baclofen (Lioresal Tab*) 10 mg PO BEDTIME COUNT INCLUDES THE [facility] Last Admin: 04/20/19 01:50 Dose: 10 mg Cetirizine HCl (Zyrtec*) 10 mg PO QPM COUNT INCLUDES THE [facility] Cyclobenzaprine HCl (Flexeril Tab*) 10 mg PO Q6H PRN PRN Reason: SPASMS Diltiazem HCl (Cardizem Cd Cap*) 240 mg PO DAILY COUNT INCLUDES THE [facility] Docusate Sodium (Colace Cap*) 100 mg PO BID COUNT INCLUDES THE [facility] Flecainide Acetate (Tambocor Tab*) 100 mg PO BID COUNT INCLUDES THE [facility] Last Admin: 04/20/19 01:51 Dose: 100 mg Gabapentin (Neurontin Cap(*)) 300 mg PO BEDTIME COUNT INCLUDES THE [facility] Last Admin: 04/20/19 01:50 Dose: 300 mg Heparin Sodium (Porcine) (Heparin Flush Picc/Ml/Cvc(*)) 1 ml FLUSH 0600,1800 COUNT INCLUDES THE [facility]; Protocol Meloxicam (Mobic(Nf)) 15 mg PO DAILY COUNT INCLUDES THE [facility] Metoprolol Tartrate (Lopressor Tab*) 25 mg PO BID COUNT INCLUDES THE [facility] Oxycodone/Acetaminophen (Percocet 5/325 Tab*) 1 tab PO Q4H PRN PRN Reason: PAIN - MODERATE Last Admin: 04/20/19 01:50 Dose: 1 tab Pantoprazole Sodium (Protonix Tab*) 40 mg PO QAM COUNT INCLUDES THE [facility] Potassium Chloride (Klor Con Er Tab*) 20 meq PO DAILY@1200 COUNT INCLUDES THE [facility] Rifampin (Rifampin Cap*) 300 mg PO BID@1000,2100 COUNT INCLUDES THE [facility] Last Admin: 04/20/19 01:51 Dose: 300 mg Rosuvastatin Calcium (Crestor (Nf)) 5 mg PO MOWEFR COUNT INCLUDES THE [facility]; Protocol Senna (Senokot 8.6 Mg Tab*) 1 tab PO BEDTIME REID Warfarin Sodium (Coumadin Tab(*)) 5 mg PO DAILY@1700 REID; Protocol Last Admin: 04/20/19 01:50 Dose: 5 mg Vital Signs - 8 hr 04/19/19 04/19/19 04/19/19 20:20 20:49 21:00 Temperature Pulse Rate 69 72 77 Respiratory 19 21 18 Rate Blood Pressure 146/77 (mmHg) O2 Sat by Pulse 95 95 94 Oximetry 04/19/19 04/19/19 04/19/19 21:49 22:00 22:49 Temperature Pulse Rate 68 69 68 Respiratory 17 19 21 Rate Blood Pressure 138/79 147/88 (mmHg) O2 Sat by Pulse 95 95 95 Oximetry 04/19/19 04/19/19 04/20/19 23:00 23:35 01:50 Temperature 0 F Pulse Rate 68 0 Respiratory 24 0 16 Rate Blood Pressure 0/0 (mmHg) O2 Sat by Pulse 95 0 Oximetry Oxygen Devices in Use Now: None Eyes: No Scleral Icterus, PERRLA Neck: NL Appearance and Movements; NL JVP Respiratory: Symmetrical Chest Expansion and Respiratory Effort, Clear to Auscultation, Clear to Percussion Cardiovascular: NL Sounds; No Murmurs; No JVD, No Edema Abdominal: NL Sounds; No Tenderness; No Distention Lymphatic: No Cervical Adenopathy Skin: No Rash or Ulcers Neurological: Alert and Oriented x 3, NL Muscle Strength and Tone Result Diagrams: 04/19/19 13:21 04/19/19 13:21 Assess/Plan/Problems-Billing Assessment: - Patient Problems (1) DVT prophylaxis Current Visit: No Status: Acute Code(s): Z29.9 - ENCOUNTER FOR PROPHYLACTIC MEASURES, UNSPECIFIED SNOMED Code(s): 184177973 Comment: SQ heparin while Inr is suptherapeutic (2) Full code status Current Visit: No Status: Acute Code(s): Z78.9 - OTHER SPECIFIED HEALTH STATUS SNOMED Code(s): 385926925 (3) History of total replacement of right hip Current Visit: No Status: Acute Code(s): Z96.641 - PRESENCE OF RIGHT ARTIFICIAL HIP JOINT SNOMED Code(s): 189723869789 Comment: on Vancomycin and rifampin (4) Infection of right prosthetic hip joint Current Visit: No Status: Acute Code(s): T84.51XA - INFECT/INFLM REACTION DUE TO INTERNAL RIGHT HIP PROSTH, INIT SNOMED Code(s): 653703618 Comment: Pt grew staph, enterococcus and corynebacterium. She remains on vanco and rifampin. She needs 8 weeks of Abx therapy (5) PAF (paroxysmal atrial fibrillation) Current Visit: No Status: Acute Code(s): I48.0 - PAROXYSMAL ATRIAL FIBRILLATION SNOMED Code(s): 271287967 Comment: recently started on warfarin, INR not yet therapeutic, lovenox a bridging therapy cont cardizem 240 daily and flecainide Cardiology consulted in the ER for uncontrolled rate. metoprolol 25 mg BID added (6) Palpitations Current Visit: No Status: Acute Code(s): R00.2 - PALPITATIONS SNOMED Code( s): 76525531 Comment: Pt has remained in NSR. Continue higher dose diltiazem CD. Once off the rifampin can reduce back to usual dose. (7) Hyperlipidemia Current Visit: No Status: Chronic Code(s): E78.5 - HYPERLIPIDEMIA, UNSPECIFIED SNOMED Code(s): 81191951 Comment: Continue crestor. (8) Hypertension Current Visit: No Status: Chronic Code(s): I10 - ESSENTIAL (PRIMARY) HYPERTENSION SNOMED Code(s): 95718357 Comment: no longer on medications lisinopril DC at last admision
[2019-04-20] MEDS ORDERED: Enoxaparin(*) 40 MG/0.4 ML SYR SUBCUT SCH (06:00)
[2019-04-20 07:07] LABS: ABS Eosinophils 0.2 10^3/ul (0-0.6); ABS Lymphocytes 0.5 10^3/ul (1.0-4.8); ABS Monocytes 0.5 10^3/ul (0-0.8); ABS Neutrophils 2.1 10^3/ul (1.5-7.7); Eosinophil % 6.1 %; Hematocrit 33 % (35-47); Lymphocyte % 14.9 %; Mean Corpuscular HGB Conc 34 g/dL (31-36); Mean Corpuscular Hemoglobin 32 pg (27-31); Mean Corpuscular Volume 94 fL (80-97); Mean Platelet Volume 6.5 fL (7.4-10.4); Platelet Count 208 10^3/uL (150-450); Red Blood Count 3.48 10^6 /uL (3.70-4.87); Red Cell Distribution Width 17 % (10-15); White Blood Count 3.3 10^3/uL (3.5-10.8)
[2019-04-20 07:17] LABS: INR 1.2 (0.82-1.09)
[2019-04-20 07:26] LABS: Calcium 8.4 mg/dL (8.6-10.3); EGFR African American 180.5 (>60); EGFR Non-African American 149.2 (>60); Potassium 3.6 mmol/L (3.5-5.0)
[2019-04-20 08:24] LABS: TSH (Thyroid Stimulating Horm) 2.09 mcIU/mL (0.34-5.60)
[2019-04-20 08:33] LABS: Troponin I 0.07 ng/mL (<0.04)
[2019-04-20] MEDS ORDERED: Metoprolol Tartrate TAB* 25 MG PO SCH (09:00)
[2019-04-20] MEDS ORDERED: Diltiazem CD CAP* 240 MG PO SCH (09:00)
[2019-04-20] MEDS ORDERED: Pantoprazole TAB * 40 MG TAB PO SCH (09:00)
[2019-04-20] MEDS ORDERED: Docusate CAP* 100 MG PO SCH (09:00)
[2019-04-20] MEDS ORDERED: Meloxicam(NF) 7.5 MG TAB PO SCH (09:00)
[2019-04-20 10:41] VITALS: BP 122/60
--- NOTE | 2019-04-20 11:25 | PN ---
Progress Note - Progress Note Date of Service: 04/20/19 SOAP: Subjective: []Pt seen at bedside. She is admitted for PAF, now in normal sinus after adenosine in ER. She is S/P I&D R prosthetic hip infection. She remains on vanco and rifampin for a total duration of 8 weeks. Her right hip is not painful , she is walking and moving it well. Her incision has been dry without redness, she denies any fever or chills. Objective: []Gen: NAD, appears well RLE: Right hip incision is CDI, few steri strips remain in place. There is no erythema or drainage. There is no tenderness. Able to f/e at the hip without pain. NVI distally. Leg lengths equal, no rotation of the limb. Assessment: []SP I&D R hip prosthetic joint infection Plan: []WBAT Posterior hip precautions Call ortho with any increased pain, redness, drainage of right hip as well as for any questions or concerns.
[2019-04-20] MEDS ORDERED: Vancomycin 1500 MG IV - x ONCE IVPB ONE ×2 (12:00)
[2019-04-20] MEDS ORDERED: Potassium Chlor TAB* 20 MEQ TAB.ER PO SCH (12:00)
[2019-04-20] MEDS ORDERED: Vancomycin per Pharmacy* NOTE FOLLOW UP PRN (12:36)
[2019-04-20] MEDS ORDERED: Warfarin TAB(*) 2.5 MG PO SCH (17:00)
[2019-04-20] MEDS ORDERED: Cetirizine* 10 MG TAB PO SCH (18:00)
--- NOTE | 2019-04-20 19:39 | CONS ---
CONSULTATION REPORT: DATE OF CONSULT: 04/20/19 PRIMARY CARE PROVIDER: Dr. Winifred Jurado. PROVIDER REQUESTING CONSULTATION: Joselin Bailon NP CONSULTING SERVICE: Infectious Disease. PROVIDER: Rose Garcia NP ATTENDING PROVIDER: Dr. Adam Rodriguez.* (DICTATED BY ROSE GARCIA NP) REASON FOR CONSULT: Right prosthetic hip infection, currently on outpatient IV antibiotics and rifampin. IMPRESSION: 1. Right prosthetic hip infection. The patient has had a polymicrobial wound of the right hip with klebsiella, Enterococcus faecalis, Staph aureus and corynebacterium. Most recently after I and D and washout of the right hip, joint fluid grew Enterococcus faecalis with corynebacterium; tissue culture with Staph aureus, Enterococcus faecalis. She was discharged on an 8-week course of vancomycin, which she has been doing well at home with. She is scheduled to complete her vancomycin on 05/22/19. Denies any fevers, chills, issues with her PICC line, nausea, vomiting, or diarrhea. She has been afebrile , has no leukocytosis and she has also been on rifampin since her hospitalization. 2. Paroxysmal atrial fibrillation. During her last hospital stay after starting rifampin, she had gone into atrial fibrillation. Her diltiazem was increased and her heart rate had been controlled until she had noticed an increased heart rate yesterday that had not resolved on their own and she was directed to the emergency room. She was found to have SVT and metoprolol has been added to her medications in addition to the previously adjusted diltiazem. 3. Morbid obesity, BMI 38.8. 4. History of bilateral total knee arthroplasties. 5. Vulvovaginal candidiasis. Reports symptoms for about a week. PLAN: We will continue the patient's IV vancomycin at her current dosing of 1500 mg IV twice daily with the plan stop date of 05/22/19 along with rifampin. Vanco trough goal is 15 to 20. While she is on rifampin, her warfarin level will need to be monitored and she will likely need to continue on increased beta -blockers and diltiazem as rifampin decreases the effectiveness of diltiazem. She should keep her previously scheduled outpatient followup appointment with myself in the office that is currently scheduled for 05/11/19 at 11 a.m. Once she completes her dose of IV antibiotics, she will be transitioned to likely a lifelong course of suppressive antibiotics and we will plan to continue rifampin for 3 to 6 months. For the Vulvovaginal candidiasis recommend continuing the miconazole topical powder as the patient has already been receiving outpatient or trying Nystatin powder. HISTORY OF PRESENT ILLNESS: Ms. Rowley is a 68-year-old female with past medical history significant for hypertension, paroxysmal atrial fibrillation, morbid obesity, hyperlipidemia, osteoarthritis, who originally underwent an elective right total hip arthroplasty with Dr. Arreola on 02/20/19. Her postop recovery was complicated by a dislocation requiring revision of the prosthetic hip. She was discharged to rehab where she was found to have continued drainage from the right hip incision. She had been placed on a course of Cipro and Bactrim with wound cultures at [facility] showing a polymicrobial infection. She was discharged from [facility] and due to the increased drainage, she was seen in followup by Dr. Estevez. She was direct admitted after that stay on 03/27/19 and was discharged on 04/04/19. During that stay, her cultures showed Staph aureus, enterococcus, and corynebacterium in this wound. She underwent a washout of the hip by Dr. Estevez. She was placed on a long course of IV vancomycin. During that hospitalization, it is to note that she did have episode of atrial fibrillation requiring her diltiazem to be increased after she was started on rifampin. The patient's heart rate was better controlled and she was discharged. The patient has been at home doing well, managing her outpatient infusion. She was seen in the office by myself on 04/13/19 with no complaints, denying any fevers, chills, chest pain, palpitations, or other concerns. She states that she was doing well and yesterday she developed palpitations and checked her heart rate and found that it was in the 130s. She called her doctor's office, who recommended that she go to the emergency room for evaluation. While in the emergency room, she was found to have SVT. Upon arrival to the emergency room, her heart rate was noted to be 160s. Cardiology recommended adenosine and to start metoprolol 25 mg twice daily by mouth. She received adenosine and converted back into sinus rhythm. Due to the patient feeling anxious, she was referred to the hospitalist service for an observation admission. While in the hospital, the patient's heart rate has been controlled. She has been feeling well. Denies fevers, chills, chest pain, nausea, vomiting, diarrhea. She does report some vaginal itching and general discomfort and some dysuria for about week. She feels as though this represents a yeast infection. She states that she has not eaten yogurt over the past couple days. PAST MEDICAL HISTORY: 1. Hypertension. 2. Paroxysmal atrial fibrillation. 3. Morbid obesity, BMI 38.8. 4. Hyperlipidemia. 5. Osteoarthritis. 6. Prosthetic right total hip infection. PAST SURGICAL HISTORY: 1. Status post right rotator cuff surgery. 2. Status post left foot arthrodesis. 3. Status post cervical fusion. 4. Status post appendectomy. 5. Status post right foot triple arthrodesis. 6. Status post bilateral total knee arthroplasties. 7. Status post right total hip arthroplasty on 02/20/19 and status post revision on 03/02/19. 8. Status post incision, drainage, and debridement of the right total hip with washout on 03/28/19. MEDICATIONS: Home medications: 1. Baclofen 10 mg by mouth daily at bedtime. 2. Percocet 5/325 one tablet by mouth every 4 hours as needed for pain. 3. Warfarin 2.5 mg by mouth daily. 4. Rifampin 300 mg by mouth twice daily. 5. Meloxicam 15 mg by mouth daily. 6. Lovenox 40 mg subcutaneous daily. 7. Colace 100 mg by mouth twice daily. 8. Diltiazem 240 mg by mouth daily. 9. Acetaminophen 975 mg by mouth every 8 hours as needed for fever. 10. Senokot 8.6 mg by mouth at bedtime. 11. Miconazole apply topical twice daily. 12. Ferrous sulfate 325 mg by mouth twice daily. 13. Citrulline 1 capsule by mouth 3 times daily. 14. Milk of magnesia 30 mL by mouth daily at bedtime. 15. Fluticasone 2 sprays to both nares daily. 16. Cyclobenzaprine 10 mg by mouth every 6 hours as needed for muscle spasms. 17. Neurontin 300 mg by mouth daily. 18. Tambocor 100 mg by mouth twice daily. 19. Ascorbic acid 1000 mg by mouth twice daily. 20. Rosuvastatin 5 mg by mouth Wednesday, Wednesday, Wednesday. 21. Potassium chloride 20 mEq by mouth daily. 22. Omeprazole 20 mg by mouth daily. 23. Fish oil 1000 mg by mouth twice daily. 24. Cetirizine 10 mg by mouth daily. 25. Vancomycin 1,500mg IV every 12 hours. Hospital medications: 1. Acetaminophen 975 mg by mouth every 8 hours. 2. Baclofen 10 mg by mouth daily. 3. Zyrtec 10 mg by mouth daily. 4. Flexeril 10 mg by mouth every 6 hours as needed for muscle spasms. 5. Diltiazem 240 mg by mouth daily. 6. Colace 100 mg by mouth twice daily. 7. Lovenox 40 mg subcutaneous q.24 hours. 8. Tambocor 100 mg by mouth twice daily. 9. Gabapentin 300 mg by mouth daily. 10. Heparin sodium 1 mL flush twice daily. 11. Meloxicam 15 mg by mouth daily. 12. Metoprolol tartrate 25 mg by mouth twice daily. 13. Percocet 5/325 one tablet by mouth every 4 hours as needed for pain. 14. Pantoprazole 40 mg by mouth daily. 15. Potassium chloride 20 mEq by mouth daily. 16. Rifampin 300 mg by mouth twice daily. 17. Crestor 5 mg by mouth Wednesday, Wednesday, Wednesday. 18. Senokot 8.6 mg by mouth daily. 19. Vancomycin 1500 mg IV every 12 hours. 20. Warfarin 5 mg by mouth daily. ALLERGIES: 1. CEFAZOLIN caused rash and itching. 2. ATORVASTATIN caused muscle aches. 3. BIAXIN, nausea, vomiting. 4. FENTANYL. 5. MORPHINE. 6. NABUMETONE. 7. PRAVASTATIN. FAMILY HISTORY: Denies family history of recurrent or resistant infections. Mother with a history of coronary artery disease, diabetes. Father with a history of congestive heart failure. Brother with a history of diabetes and a second brother with a history of esophageal cancer. SOCIAL HISTORY: Denies tobacco, alcohol, or recreational drug use. REVIEW OF SYSTEMS: I performed a 10-point review of systems. All the pertinent positives and negatives are mentioned in the history of present illness. The remaining review of systems are negative. PHYSICAL EXAM: Vital Signs: Temperature 98.2, heart rate 69, respiratory rate 18, O2 sat 94% on room air, blood pressure 122/60. General Appearance: The patient is alert, appears to be in no acute distress, sitting up in bed. Head: Normocephalic, atraumatic. EENT: Extraocular movements are intact. No subconjunctival hemorrhage. Moist mucous membranes. Neck: Supple. No lymphadenopathy. Neurological: Alert and oriented. Cranial nerves II through XII are grossly intact. She moves all extremities. Cardiovascular: Heart rate is regular. No murmurs, rubs, or gallops heard. Respiratory: No accessory muscle use. Lungs are clear to auscultation bilaterally. Abdomen: Bowel sounds present x4. Abdomen is soft, obese, nontender. Extremities: No lower extremity edema. Musculoskeletal: No clubbing or cyanosis noted. Psychological: Calm and cooperative. She is slightly anxious. Skin: No rashes or abnormalities seen. She is noted to have a bulky dressing on her right hip that is clean, dry, and intact. No surrounding erythema. DIAGNOSTIC STUDIES/LABORATORY DATA: Sodium 143, potassium 3.6, chloride 110, CO2 of 27, BUN 13, creatinine 0.42, glucose 97. White blood cell count 3.3, hemoglobin 11.0, hematocrit 33, platelet count 208. Please see impression and recommendations outlined above. Recommendations have been discussed with Joselin Bailon NP. Thank you for asking us to see Ms. Rowley in consultation. The case has been reviewed with the attending, Dr. Adam Rodriguez, who agrees with the plan of care. Reviewed by ROSE GARCIA, DAVIE 04/22/19 1708 [id number]/[facility] #: [id number] NII
[2019-04-20] MEDS ORDERED: Senna TAB 8.6 mg* TAB PO SCH (21:00)
[2019-04-20] MEDS ORDERED: Vancomycin(*) 1,500 MG in NS 0.9% 250 ML* 250 ML IVPB SCH (23:00)
--- NOTE | 2019-04-21 04:23 | DS ---
AMENDED REPORT NOW INCLUDES DESIGNATED COSIGNER CC: Dr. Winifred Jurado; Dr. Merchant; Dr. Ramon. * DISCHARGE SUMMARY: DATE OF ADMISSION: 04/19/19 DATE OF DISCHARGE: 04/20/19 ATTENDING PHYSICIAN: Dr. Page.* (DICTATED BY SHAYNE ROMO NP) PRIMARY CARE PHYSICIAN: Dr. Winifred Jurado. PRIMARY DIAGNOSES: 1. Supraventricular tachycardia. 2. Tachycardia mediated ischemic demand. SECONDARY DIAGNOSES: 1. Paroxysmal atrial fibrillation. 2. 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 3. Hyperlipidemia. 4. Hypertension. PROCEDURES: None. STUDIES: Chest x-ray showed no evidence for acute intrathoracic disease and CTA of chest showed no acute pulmonary embolic disease. No pulmonary consolidation. No pneumothorax or pleural effusion. Ectasia of the ascending aorta, AP length is approximately 4.[address] scan in 6 months. Advanced degenerative changes in both shoulders with right greater than left. 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 Multiple EKGs performed, most recent one showed sinus rhythm. PERTINENT LAB DATA: White blood cell count 3.3, RBCs 3.46, hemoglobin 11.0, hematocrit 33, MCH 32, RDW 17, MPV 6.5. INR 1.20. Creatinine 0.42. BUN and creatinine ratio 32.0. Calcium 8.4. HISTORY OF PRESENT ILLNESS/HOSPITAL COURSE: This is a 68-year-old female with the past medical history significant for recent right total hip replacement with revision and infection, hypertension, and atrial fibrillation; who came to the emergency room on 04/19/19 for reports of tachycardia, chest heaviness, and shortness of breath earlier in the day. Chest x-ray and CTA of the chest and thorax performed, labs were drawn. EKG performed. It was ruled out that the patient was having a PE or any other pulmonary dysfunction. EKG showed sinus tachycardia, received 2 doses of 6 mg of adenosine that brought the patient back down into a controlled sinus rate. Prior to the adenosine the patient had been tachycardic in the 140s; however, after the adenosine, heart rate came down to the 60s and 70s and remained there for the rest of her hospitalization with no further reports of chest heaviness or shortness of breath. At that point, the patient was started on metoprolol to help control her heart rate. It was also noticed that her troponins were slightly bumped initially at 0.03, went up to as high as 0.09, but came back down to 0.07 this morning likely due to tachycardia mediated ischemic demand, though the patient has not had any chest pain or any symptoms. The exact cause of the paroxysmal SVT is unknown though the patient has recently became medically complex due to the long-term antibiotics she has been on and with many cross reactions between various medications. Today, the patient was seen sitting up in bed, in no acute distress. Denied any chest pain, shortness of breath, nausea, vomiting, abdominal pain, or difficulties moving her bowel or bladder. Dressing to her right hip was clean, dry, and intact. Was afebrile, normotensive. Heart rate 69. 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 A transthoracic echocardiogram was not performed during this stay due to her most recent study on 12/02/18 which had an ejection fraction of 60% to 65% and mild concentric hypertrophy of the left ventricle as well as moderate aortic regurgitation though did not auscultate a murmur on physical exam. REVIEW OF SYSTEMS: An 11-point system review was performed. Please see HPI for pertinent positives and negatives. PHYSICAL EXAMINATION: Vital Signs: 98.2, 69 pulse, 18 resp, 94% oxygen on room air, 122/60 blood pressure. General: This is a well-developed obese woman seen resting in bed, in no acute distress. Eyes: Conjunctivae pink and moist, PERRLA, EOMs intact. ENT: Oropharynx clear. Mucous membranes are moist. Neck is supple. Cardiac: S1 and S2 present. Heart rate regular. No murmurs, gallops, or rubs appreciated. Respiratory: Lung sounds clear throughout bilaterally on room air. No accessory muscle use noted. Abdomen: Large, soft, nontender, and nondistended with positive bowel sounds x4. Musculoskeletal: Able to move all extremities. 5/5 strength bilaterally upper and lower. No clubbing or cyanosis of the digits. Skin: A rash noted to the abdominal folds, dressing to right hip. Incision clean, dry, and intact with no surrounding erythema or drainage. Neurologic: No focal deficits appreciated. Sensation intact to light touch. Psych: Alert and oriented x3. Thought content organized. DISCHARGE PLAN: Diet is regular as tolerated. ACTIVITY: As tolerated. To continue following hip precautions. RETURN PRECAUTIONS: The patient is to return to the emergency room for any sudden chest pain or shortness of breath or chest heaviness. PLAN FOR EACH CONDITION: 1. Paroxysmal supraventricular tachycardia. The patient is no longer symptomatic. She is converted to sinus rhythm. Suggest that she followup with her homicide squad sergeant and continue with metoprolol twice a day for rate control. 2. History of atrial fibrillation. Again currently in sinus rhythm. The patient is anticoagulated with warfarin as well as Lovenox. To continue metoprolol and diltiazem and flecainide. 3. Status post right total hip replacement with infection. To continue rifampin and vanco infusion through PICC line. Also to continue with current pain control regimen of baclofen, cyclobenzaprine, gabapentin, and oxycodone. Continue on with Lovenox 40 mg once a day to help bridge the Coumadin. INR target goal is 2.0, currently at 1.2. The patient has normally been taking 2.5 to 5 mg, increased to 6.25 until she is rechecked by visiting nurse services and to continue the Lovenox until she reaches the goal of 2.0 and to hold her meloxicam. 4. Gastroesophageal reflux disease. No signs or symptoms of indigestion at this time. Continue omeprazole. 5. Hyperlipidemia. Continue with rosuvastatin. 6. Yeast infection of abdominal folds. Continue miconazole topically. 7. Iron-deficiency anemia. Likely secondary to anemia of inflammation. Continue the ferrous sulfate. 8. Seasonal allergies. Continue cetirizine. CONTINUED HOME MEDICATIONS: 1. Baclofen 10 mg p.o. at bedtime. 2. Percocet 5/325 one tab p.o. q.4 hours, max daily dose 6. 3. Warfarin 6.25 mg p.o. daily. 4. Rifampin 300 mg p.o. b.i.d. 5. Enoxaparin 40 mg subcu q.24 hours. 6. Docusate 100 mg p.o. b.i.d. 7. Diltiazem 240 mg p.o. daily. 8. Acetaminophen 975 mg p.o. q.8 hours p.r.n. 9. Sennosides 8.6 mg p.o. at bedtime. 10. Miconazole 1 application topically b.i.d. 11. Ferrous sulfate 325 mg p.o. b.i.d. 12. Pure L-Citrulline 1 cap p.o. t.i.d. 13. Magnesium hydroxide 30 mL p.o. at bedtime. 14. Fluticasone 50 mcg 2 sprays in both nares daily. 15. Cyclobenzaprine 10 mg p.o. q.6 hours p.r.n. 16. Gabapentin 300 mg p.o. at bedtime. 17. Flecainide 100 mg p.o. b.i.d. 18. Ascorbic acid 1000 mg p.o. b.i.d. 19. Rosuvastatin 5 mg p.o. q. Wednesday, Wednesday, Wednesday. 20. Potassium chloride 20 mEq p.o. daily. 21. Omeprazole 20 mg p.o. q.a.m. 22. [place]-3 fatty acids 1000 mg p.o. b.i.d. 23. Cetirizine 10 mg p.o. q.a.m. 24. Metoprolol tartrate 25 mg p.o. b.i.d. CONDITION UPON DISCHARGE: Fair. DISPOSITION: Home. TIME SPENT: Time spent on the patient is about 60 minutes with half of that spent [id number]. SHAYNE ROMO, PITCH GATHERER [id number]/[facility] #: [id number] MTDD
[2019-04-21] MEDS ORDERED: CMCS:Rosuvastatin (NF) 5 MG TAB PO SCH (09:00)
[2019-04-22] MEDS ORDERED: Vancomycin Trough Check NOTE FOLLOW UP ONE (10:30)
== END 2019-04-20 17:26 | disposition home or self-care (01) ==
LOC: ED 12:24 → MEDTELE 22:34
PROVIDERS: ADMIT Student in an Organized Health Care Education/Training Program; ATTEND Internal Medicine
DX: T84.51XA Infection and inflammatory reaction due to internal right hip prosthesis, initial encounter (principal); I47.1 Supraventricular tachycardia; I48.0 Paroxysmal atrial fibrillation; Z96.641 Presence of right artificial hip joint; R00.2 Palpitations; E78.5 Hyperlipidemia, unspecified; I10 Essential (primary) hypertension; K21.9 Gastro-esophageal reflux disease without esophagitis; Z79.899 Other long term (current) drug therapy; Z79.01 Long term (current) use of anticoagulants; E78.00 Pure hypercholesterolemia, unspecified; R79.89 Other specified abnormal findings of blood chemistry
CPT/HCPCS: 36415; 71045; 71275; 80048; 80053; 83605; 83735; 83880; 84443; 84484; 85025; 85610; 87040; 93005; 96365; 96372; 96375; 96376; 99284; A9270-GY; G0378; J0153; J1650; J3370; J3490; Q9967